=== PATIENT | male | born 1960 | race Caucasian/White ===

== ENCOUNTER 2021-07-08 10:03 | Inpatient (IN) | payer BC ==
[2021-07-08] MEDS ORDERED: SODIUM CHLORIDE 0.9% 1,000 ML IV STA ×4 (10:22→14:12)
[2021-07-08] MEDS ORDERED: ALBUTEROL HFA INHALER INHALATION STA (10:23)
--- NOTE | 2021-07-08 10:26 | ED ---
Weakness HPI - General Chief complaint: Weakness Stated complaint: Weakness Time Seen by Provider: 07/08/21 10:14 Source: patient, family, RN notes reviewed Mode of arrival: wheelchair Limitations: no limitations - History of Present Illness Initial comments: 60-year-old male with a history of diabetes who apparently has been failing health since [place] of this past year having a cough decreased oral intake weakness lightheadedness when he tries get up and walk he was exposed to Covid 19 which his mother had. He denies any overt fevers chills or sweats just cough and some shortness of breath. Also the decreased oral intake. No headaches no loss of function to his upper or lower extremities he was noted triage to have a low pulse oximetry in the low blood pressure MD Complaint: generalized weakness - Related Data Home Medications Medication Instructions Recorded Confirmed Atorvastatin [Lipitor] 40 mg PO DAILY 07/08/21 07/08/21 Benazepril HCl 40 mg PO DAILY 07/08/21 07/08/21 Bisoprolol-Hctz 10-6.25 mg [Ziac 1 tab PO DAILY 07/08/21 07/08/21 10-6.25 MG] Empagliflozin [Jardiance] 10 mg PO DAILY 07/08/21 07/08/21 Glimepiride [Amaryl] 4 mg PO AC-[id number] 07/08/21 07/08/21 Pioglitazone [Actos] 30 mg PO DAILY 07/08/21 07/08/21 amLODIPine [Norvasc] 5 mg PO BID 07/08/21 07/08/21 sitaGLIPtin [Januvia] 100 mg PO DAILY 07/08/21 07/08/21 Allergies Allergy/AdvReac Type Severity Reaction Status Date / Time No Known Allergies Allergy Verified 07/08/21 11:39 Review of Systems ROS Statement: Those systems with pertinent positive or pertinent negative responses have been documented in the HPI. ROS Other: All systems not noted in ROS Statement are negative. Past Medical History Past Medical History: Diabetes Mellitus, Hypertension History of Any Multi-Drug Resistant Organisms: None Reported Past Surgical History: No Surgical Hx Reported Past Psychological History: No Psychological Hx Reported Smoking Status: Never smoker Past Alcohol Use History: None Reported Past Drug Use History: None Reported General Exam - General Exam Comments Initial Comments: This a well-developed well-nourished awake alert somewhat lethargic male Limitations: no limitations General appearance: alert, lethargic Head exam: Present: atraumatic, normocephalic, normal inspection Eye exam: Present: normal appearance, PERRL, EOMI. Absent: scleral icterus, conjunctival injection, periorbital swelling ENT exam: Present: mucous membranes dry Neck exam: Present: normal inspection (No stridor JVD or bruits), full ROM, other Respiratory exam: Present: decreased breath sounds Cardiovascular Exam: Present: regular rate, normal rhythm, normal heart sounds. Absent: systolic murmur, diastolic murmur, rubs, gallop, clicks GI/Abdominal exam: Present: soft, normal bowel sounds. Absent: distended, tenderness, guarding, rebound, rigid Extremities exam: Present: normal inspection, full ROM, normal capillary refill. Absent: tenderness, pedal edema, joint swelling, calf tenderness Back exam: Present: normal inspection Neurological exam: Present: alert, oriented X3, CN II-XII intact Psychiatric exam: Present: normal affect, normal mood Skin exam: Present: warm, dry, intact, normal color. Absent: rash Course Vital Signs 07/08/21 07/08/21 07/08/21 10:09 11:29 11:30 Temperature 96.9 F L Pulse Rate 45 L 78 78 Respiratory 24 28 H Rate Blood Pressure 64/43 121/91 121/91 O2 Sat by Pulse 80 L 90 L 90 L Oximetry 07/08/21 07/08/21 07/08/21 12:00 12:30 13:00 Temperature Pulse Rate 74 73 74 Respiratory Rate Blood Pressure 75/46 79/47 78/50 O2 Sat by Pulse 92 L 91 L 90 L Oximetry 07/08/21 07/08/21 07/08/21 13:20 13:30 14:00 Temperature Pulse Rate 80 79 80 Respiratory 18 Rate Blood Pressure 92/53 95/46 104/63 O2 Sat by Pulse 91 L 90 L 86 L Oximetry 07/08/21 07/08/21 14:30 15:00 Temperature Pulse Rate 97 87 Respiratory Rate Blood Pressure 99/55 103/57 O2 Sat by Pulse 88 L 83 L Oximetry - Reevaluation(s) Reevaluation #1: 07/08/21 15:30 Patient did get improvement with IV hydration with correction of his blood pressure. EKG Findings - EKG Results: EKG: interpreted by JILLIAN, sinus rhythm (Sinus rhythm a 76 UT interval 150 to QRS duration 80 QT since QTC 434/48 artifact present nonspecific anterior configuration) Medical Decision Making - Medical Decision Making I did reevaluate patient on multiple occasions did discuss findings with the patient's family as well as with Dr. Bustamante who did come the emergency department see the patient. Patient does present with evidence of a followingCovid pneumonia, acute kidney failure, dehydration, [place] acidosis, DKA, hyperkalemia. I did discuss case with Dr. Rodriguez and with Dr. Singh patient will be admitted for inpatient evaluation and treatment - Lab Data Result diagrams: 07/08/21 10:28 07/08/21 10:28 Lab Results 07/08/21 07/08/21 07/08/21 Range/Units 10:28 10:28 10:28 WBC 22.8 H (3.8-10.6) k/uL RBC 4.87 (4.30-5.90) m/uL Hgb 15.3 (13.0-17.5) gm/dL Hct 49.8 (39.0-53.0) % MCV 102.4 H (80.0-100.0) fL MCH 31.5 (25.0-35.0) pg MCHC 30.7 L (31.0-37.0) g/dL RDW 13.8 (11.5-15.5) % Plt Count 289 (150-450) k/uL MPV 9.2 Neutrophils % 90 % Lymphocytes % 4 % Monocytes % 4 % Eosinophils % 0 % Basophils % 0 % Neutrophils # 20.6 H (1.3-7.7) k/uL Lymphocytes # 0.9 L (1.0-4.8) k/uL Monocytes # 0.9 (0-1.0) k/uL Eosinophils # 0.0 (0-0.7) k/uL Basophils # 0.1 (0-0.2) k/uL Hypochromasia Slight Macrocytosis Slight PT 11.2 (9.0-12.0) sec INR 1.1 (<1.2) APTT 20.1 L (22.0-30.0) sec D-Dimer 15.65 H (<0.60) mg/L FEU Sodium (137-145) mmol/L Potassium (3.5-5.1) mmol/L Chloride (98-107) mmol/L Carbon Dioxide (22-30) mmol/L Anion Gap mmol/L BUN (9-20) mg/dL Creatinine (0.66-1.25) mg/dL Est GFR (CKD-EPI)AfAm (>60 ml/min/1.73 sqM) Est GFR (CKD-EPI)NonAf (>60 ml/min/1.73 sqM) Glucose (74-99) mg/dL POC Glucose (mg/dL) (75-99) mg/dL POC Glu Quality Control Representative ID Lactic Ac Sepsis Rflx Plasma Lactic Acid Zev 4.2 H* (0.7-2.0) mmol/L Calcium (8.4-10.2) mg/dL Magnesium (1.6-2.3) mg/dL Total Bilirubin (0.2-1.3) mg/dL AST (17-59) U/L ALT (4-49) U/L Alkaline Phosphatase (38-126) U/L Troponin I (0.000-0.034) ng/mL NT-Pro-B Natriuret Pep pg/mL Total Protein (6.3-8.2) g/dL Albumin (3.5-5.0) g/dL Urine Color Urine Appearance (Clear) Urine pH (5.0-8.0) Ur Specific [place] (1.001-1.035) Urine Protein (Negative) Urine Glucose (UA) (Negative) Urine Ketones (Negative) Urine Blood (Negative) Urine Nitrite (Negative) Urine Bilirubin (Negative) Urine Urobilinogen (<2.0) mg/dL Ur Leukocyte Esterase (Negative) Acetone, Qual (Negative) Coronavirus (PCR) (Not Detectd) 07/08/21 07/08/21 07/08/21 Range/Units 10:28 10:28 10:28 WBC (3.8-10.6) k/uL RBC (4.30-5.90) m/uL Hgb (13.0-17.5) gm/dL Hct (39.0-53.0) % MCV (80.0-100.0) fL MCH (25.0-35.0) pg MCHC (31.0-37.0) g/dL RDW (11.5-15.5) % Plt Count (150-450) k/uL MPV Neutrophils % % Lymphocytes % % Monocytes % % Eosinophils % % Basophils % % Neutrophils # (1.3-7.7) k/uL Lymphocytes # (1.0-4.8) k/uL Monocytes # (0-1.0) k/uL Eosinophils # (0-0.7) k/uL Basophils # (0-0.2) k/uL Hypochromasia Macrocytosis PT (9.0-12.0) sec INR (<1.2) APTT (22.0-30.0) sec D-Dimer (<0.60) mg/L FEU Sodium 129 L (137-145) mmol/L Potassium 6.2 H* (3.5-5.1) mmol/L Chloride 91 L (98-107) mmol/L Carbon Dioxide 16 L (22-30) mmol/L Anion Gap 22 mmol/L BUN 132 H* (9-20) mg/dL Creatinine 5.89 H (0.66-1.25) mg/dL Est GFR (CKD-EPI)AfAm 11 (>60 ml/min/1.73 sqM) Est GFR (CKD-EPI)NonAf 9 (>60 ml/min/1.73 sqM) Glucose 660 H* (74-99) mg/dL POC Glucose (mg/dL) (75-99) mg/dL POC Glu Quality Control Representative ID Lactic Ac Sepsis Rflx Plasma Lactic Acid Zev (0.7-2.0) mmol/L Calcium 8.1 L (8.4-10.2) mg/dL Magnesium 4.7 H (1.6-2.3) mg/dL Total Bilirubin 1.0 (0.2-1.3) mg/dL AST 36 (17-59) U/L ALT 27 (4-49) U/L Alkaline Phosphatase 121 (38-126) U/L Troponin I 0.056 H* (0.000-0.034) ng/mL NT-Pro-B Natriuret Pep 3730 pg/mL Total Protein 6.6 (6.3-8.2) g/dL Albumin 3.1 L (3.5-5.0) g/dL Urine Color Urine Appearance (Clear) Urine pH (5.0-8.0) Ur Specific [place] (1.001-1.035) Urine Protein (Negative) Urine Glucose (UA) (Negative) Urine Ketones (Negative) Urine Blood (Negative) Urine Nitrite (Negative) Urine Bilirubin (Negative) Urine Urobilinogen (<2.0) mg/dL Ur Leukocyte Esterase (Negative) Acetone, Qual Positive (Negative) Coronavirus (PCR) (Not Detectd) 07/08/21 07/08/21 07/08/21 Range/Units 10:32 10:33 10:58 WBC (3.8-10.6) k/uL RBC (4.30-5.90) m/uL Hgb (13.0-17.5) gm/dL Hct (39.0-53.0) % MCV (80.0-100.0) fL MCH (25.0-35.0) pg MCHC (31.0-37.0) g/dL RDW (11.5-15.5) % Plt Count (150-450) k/uL MPV Neutrophils % % Lymphocytes % % Monocytes % % Eosinophils % % Basophils % % Neutrophils # (1.3-7.7) k/uL Lymphocytes # (1.0-4.8) k/uL Monocytes # (0-1.0) k/uL Eosinophils # (0-0.7) k/uL Basophils # (0-0.2) k/uL Hypochromasia Macrocytosis PT (9.0-12.0) sec INR (<1.2) APTT (22.0-30.0) sec D-Dimer (<0.60) mg/L FEU Sodium (137-145) mmol/L Potassium (3.5-5.1) mmol/L Chloride (98-107) mmol/L Carbon Dioxide (22-30) mmol/L Anion Gap mmol/L BUN (9-20) mg/dL Creatinine (0.66-1.25) mg/dL Est GFR (CKD-EPI)AfAm (>60 ml/min/1.73 sqM) Est GFR (CKD-EPI)NonAf (>60 ml/min/1.73 sqM) Glucose (74-99) mg/dL POC Glucose (mg/dL) 598 H (75-99) mg/dL POC Glu Quality Control Representative ID Aidan Breen Nicole Lactic Ac Sepsis Rflx Y Plasma Lactic Acid Zev (0.7-2.0) mmol/L Calcium (8.4-10.2) mg/dL Magnesium (1.6-2.3) mg/dL Total Bilirubin (0.2-1.3) mg/dL AST (17-59) U/L ALT (4-49) U/L Alkaline Phosphatase (38-126) U/L Troponin I (0.000-0.034) ng/mL NT-Pro-B Natriuret Pep pg/mL Total Protein (6.3-8.2) g/dL Albumin (3.5-5.0) g/dL Urine Color Urine Appearance (Clear) Urine pH (5.0-8.0) Ur Specific [place] (1.001-1.035) Urine Protein (Negative) Urine Glucose (UA) (Negative) Urine Ketones (Negative) Urine Blood (Negative) Urine Nitrite (Negative) Urine Bilirubin (Negative) Urine Urobilinogen (<2.0) mg/dL Ur Leukocyte Esterase (Negative) Acetone, Qual (Negative) Coronavirus (PCR) Detected A (Not Detectd) 07/08/21 07/08/21 Range/Units 11:20 12:45 WBC (3.8-10.6) k/uL RBC (4.30-5.90) m/uL Hgb (13.0-17.5) gm/dL Hct (39.0-53.0) % MCV (80.0-100.0) fL MCH (25.0-35.0) pg MCHC (31.0-37.0) g/dL RDW (11.5-15.5) % Plt Count (150-450) k/uL MPV Neutrophils % % Lymphocytes % % Monocytes % % Eosinophils % % Basophils % % Neutrophils # (1.3-7.7) k/uL Lymphocytes # (1.0-4.8) k/uL Monocytes # (0-1.0) k/uL Eosinophils # (0-0.7) k/uL Basophils # (0-0.2) k/uL Hypochromasia Macrocytosis PT (9.0-12.0) sec INR (<1.2) APTT (22.0-30.0) sec D-Dimer (<0.60) mg/L FEU Sodium (137-145) mmol/L Potassium (3.5-5.1) mmol/L Chloride (98-107) mmol/L Carbon Dioxide (22-30) mmol/L Anion Gap mmol/L BUN (9-20) mg/dL Creatinine (0.66-1.25) mg/dL Est GFR (CKD-EPI)AfAm (>60 ml/min/1.73 sqM) Est GFR (CKD-EPI)NonAf (>60 ml/min/1.73 sqM) Glucose (74-99) mg/dL POC Glucose (mg/dL) (75-99) mg/dL POC Glu Quality Control Representative ID Lactic Ac Sepsis Rflx Plasma Lactic Acid Zev 1.9 (0.7-2.0) mmol/L Calcium (8.4-10.2) mg/dL Magnesium (1.6-2.3) mg/dL Total Bilirubin (0.2-1.3) mg/dL AST (17-59) U/L ALT (4-49) U/L Alkaline Phosphatase (38-126) U/L Troponin I (0.000-0.034) ng/mL NT-Pro-B Natriuret Pep pg/mL Total Protein (6.3-8.2) g/dL Albumin (3.5-5.0) g/dL Urine Color Yellow Urine Appearance Clear (Clear) Urine pH 5.0 (5.0-8.0) Ur Specific [place] 1.019 (1.001-1.035) Urine Protein Negative (Negative) Urine Glucose (UA) 4+ H (Negative) Urine Ketones Negative (Negative) Urine Blood Negative (Negative) Urine Nitrite Negative (Negative) Urine Bilirubin Negative (Negative) Urine Urobilinogen <2.0 (<2.0) mg/dL Ur Leukocyte Esterase Negative (Negative) Acetone, Qual (Negative) Coronavirus (PCR) (Not Detectd) - Radiology Data Radiology results: report reviewed (Imaging reviewed this with pneumonia), image reviewed Critical Care Time Critical Care Time: Yes Total Critical Care Time: 40 Critical Care Time: Critical care time includes initial presentation with history physical labs x- rays multiple reevaluation the patient multiple discussions with the patient family discussion with multiple physicians admission orders and documentation of the above Disposition Clinical Impression: DKA (diabetic ketoacidosis), Acute kidney injury, Dehydration, Hypotensive episode, Hyperkalemia, Elevated d-dimer, Elevated troponin Disposition: ADMITTED IP TO THIS HOSP Condition: Serious Referrals: Miguel Phoenix MD [Primary Care Provider] - 1-2 days
[2021-07-08 10:34] LABS: Glucose,Whole Blood 598 mg/dL (75-99)
[2021-07-08 10:43] LABS: Basophils # (A) 0.1 k/uL (0-0.2); Basophils % (A) 0 %; Eosinophils % (A) 0 %; HCT 49.8 % (39.0-53.0); HGB 15.3 gm/dL (13.0-17.5); Hypochromasia Slight; Lymphocytes # (A) 0.9 k/uL (1.0-4.8); Lymphocytes % (A) 4 %; MCH 31.5 pg (25.0-35.0); MCHC 30.7 g/dL (31.0-37.0); MCV 102.4 fL (80.0-100.0); Macrocytosis Slight; Mean Platelet Volume 9.2; Monocytes # (A) 0.9 k/uL (0-1.0); Monocytes % (A) 4 %; Neutrophils # (A) 20.6 k/uL (1.3-7.7); Neutrophils % (A) 90 %; Platelet Count 289 k/uL (150-450); RBC 4.87 m/uL (4.30-5.90); RDW 13.8 % (11.5-15.5); WBC 22.8 k/uL (3.8-10.6)
[2021-07-08 11:02] LABS: ALT 27 U/L (4-49); African American GFR (CKD) 11 (>60 ml/min/1.73 sqM); Albumin 3.1 g/dL (3.5-5.0); Anion Gap 22 mmol/L; Calcium 8.1 mg/dL (8.4-10.2); Carbon Dioxide 16 mmol/L (22-30); Chloride 91 mmol/L (98-107); Non-African American GFR(CKD) 9 (>60 ml/min/1.73 sqM); Sodium 129 mmol/L (137-145); Total Protein 6.6 g/dL (6.3-8.2)
[2021-07-08 11:09] LABS: INR 1.1 (<1.2); Prothrombin Time 11.2 sec (9.0-12.0)
[2021-07-08 11:11] LABS: Partial Thromboplastin Time 20.1 sec (22.0-30.0)
--- NOTE | 2021-07-08 11:24 | XR ---
EXAMINATION TYPE: XR chest 2V DATE OF EXAM: 07/08/2021 COMPARISON: NONE HISTORY: Weakness and cough TECHNIQUE: Frontal and lateral views of the chest are obtained. FINDINGS: Diffuse bilateral airspace disease is present and somewhat predominantly peripheral distri bution on the right greater than left. No evident pneumothorax or pleural effusion. Lung volumes are low, patient is rotated. Cardiac mediastinal silhouette within normal limits accounting for technique . Arthropathy noted in the shoulders. Aorta is dense. There are overlying leads. IMPRESSION: Correlate for pneumonia, consider Covid infection
[2021-07-08 11:42] LABS: Appearance,Urine Clear (Clear); Bilirubin,Urine Negative (Negative); Blood,Urine Negative (Negative); Color,Urine Yellow; Glucose,Urine (UA) 4+ (Negative); Ketones,Urine Negative (Negative); Leukocyte Esterase,Urine Negative (Negative); Nitrite,Urine Negative (Negative); Protein,Urine Negative (Negative); Specific Gravity,Urine 1.019 (1.001-1.035); Urobilinogen,Urine <2.0 mg/dL (<2.0)
[2021-07-08 11:43] LABS: AST 36 U/L (17-59); Alkaline Phosphatase 121 U/L (38-126); Magnesium 4.7 mg/dL (1.6-2.3); Potassium 6.2 mmol/L (3.5-5.1)
[2021-07-08 11:48] LABS: Glucose 660 mg/dL (74-99)
[2021-07-08 11:49] LABS: Blood Urea Nitrogen 132 mg/dL (9-20)
[2021-07-08] MEDS ORDERED: cefTRIAXone IN SWFI 1,000 MG/10 ML SYRINGE IVP STA (12:37)
[2021-07-08] MEDS ORDERED: DEXTROSE 50% SYRINGE 50 ML IVP STA (13:19)
[2021-07-08] MEDS ORDERED: SODIUM BICARB 8.4% 50 ML SYR (1 MEQ/ML) IV STA ×2 (13:24→14:13)
[2021-07-08] MEDS ORDERED: SODIUM ZIRCONIUM CYCLOSILICATE 10 GM PACKET PO ONE (13:30)
[2021-07-08] MEDS ORDERED: INSULIN REGULAR 100 UNIT/ML VIAL (IV) IV ONE (13:30)
[2021-07-08] MEDS ORDERED: CALCIUM GLUCONATE 2 GM in SODIUM CHLORIDE 0.9% 100 ML IVPB ONE (13:45)
--- NOTE | 2021-07-08 14:02 | P.HPIM ---
<Graham Quiñones - Last Filed: 07/08/21 17:29> History of Present Illness H&P Date: 07/08/21 History of Presenting Illness: Patient is a very pleasant 60-year-old male with a past medical history of diabetes, hypertension and hyperlipidemia. He presented to the emergency department family for reports of weakness, anorexia, cough, shortness of breath and alteration in mental status. Upon arrival he was found to be in significant respiratory distress with SpO2 of 80% on room air requiring placement on nonrebreather mask at 15 L of oxygen to maintain SpO2 of 90%. Patient sign ificantly hypotensive with blood pressure of 64/43, bradycardic with heart rate of 45, tachypnic with respiratory rate of 28, and hypothermic with a temp of 96.9F. Family at bedside report patient has not been feeling well since prior to Petey and that this has been going on for greater than 2 weeks. They report positive exposure to Covid and state that pt is unvaccinated. Pt acutely ill-appearing and drifting in and out of conversation during assessment and very poor historian. Patient is alert to person, place, time, and situation but also appearing fatigued, weak, and not able to fully give history. He is currently denying having any headache, changes in his vision or hearing, chest pain or palpitations, abdominal pain, nausea, vomiting, diarrhea, or experiencing any numbness/tingling/weakness in his extremities. Patient reports he has been urinating without any difficulties but also confirms a significant decrease in oral intake due to loss of appetite, fatigue, weakness, shortness of breath and cough. He underwent full evaluation in the emergency department. Chest x-ray positive for multifocal pneumonia. Labs revealed significant leukocytosis with WBC count of 22.8 with left shift. Pseudohyponatremia with sodium 129 and corrected sodium of 138, severe hyperglycemia with glucose of 660, metabolic acidosis with chloride of 91, CO2 16, anion gap of 22, and lactate of 4.2. Qualitative acetone positive. Acute renal failure with BUN of 132, creatinine 5.89, and GFR of 9 with baseline creatinine of 1.3. Urinalysis positive for glucose negative for ketones, protein, blood or infection. Covid PCR positive. Troponin elevated at 0.056. EKG with significant artifact but appears to reveal sinus mechanism. Patient admitted under our services to ICU for DKA, severe metabolic acidosis, acute renal failure, hyperkalemia, and acute respiratory failure with hypoxia secondary to Covid 19 pneumonia. Consults placed to nephrology, and block handler/theology professor. Review of systems: Pertinent positives and negatives as discussed in HPI, a complete review of systems was performed and all other systems are negative. Physical exam: Vital signs reviewed and stable. General: Patient acutely ill-appearing and in moderate distress Derm: Skin warm and dry, normal coloration for ethnicity. Head: Atraumatic, normocephalic and symmetric. Eyes: EOMs intact, no lid lag, and anicteric sclera Mouth: no lip lesions, mucus membranes moist Cardiovascular: regular rate and rhythm with normal S1S2, no murmur, positive posterior tibial pulses bilaterally, and cap refill < 2 seconds. Lungs: Respirations tachypneic at 24 breaths per minute on NRB mask at 15L with SPO2. Lungs diffuse crackles throughout bilaterally. No accessory muscle use at this time. Abdominal: soft, nontender to palpation, no guarding, no appreciable organomegaly. No CVA tenderness. Ext: ROM intact. No gross muscle atrophy, no edema, no contractures Neuro: Speech clear, face symmetrical and CN II-XII grossly intact with no noted focal neuro deficits Psych: Alert and oriented to person, place, time, and situation. Appropriate and pleasant affect. Assessment and Plan of Care: DKA Severe metabolic acidosis multifactorial secondary to current DKA, NIKOLAS and Covid Acute metabolic encephalopathy multifactorial secondary to current DKA, NIKOLAS, and Covid Leukocytosis, likely reactive Severe sepsis with hypotension, bradycardia, hypothermia, tachypnea and hypoxia Lactic acidosis -Admission to ICU, accepted by block handler Dr. Singh -Pt recieved 3L bolus and started on Insulin drip per DKA protocol -Hourly blood glucose checks -Strict I's and O's -0.9% normal saline at 200 mL/h changing to D5 0.45 at 150 mL/h once blood glucose decreases below 300 -NPO -Close monitoring of VBG and electrolytes every 4 hours Acute renal failure Hyperkalemia secondary to acute renal failure -Administration of hyperkalemia cocktail with Lokelma, sodium bicarb, regular insulin 10 units IVP, and calcium gluconate. -STAT EKG followed by continuous telemetry monitoring. -Renal ultrasound -Consult to nephrology, called and spoke with Dr. Rodriguez -Continuous fluid hydration -Hold nephrotoxic medications including benazepril and bisoprolol hydrochlorothiazide. -Insertion of Sahni catheter for strict measurements of I's and O's Acute respiratory failure with hypoxia secondary to COVID 19 pneumonia -Oxygenation to be administered and titrated as needed to maintain SPO2 equal to or greater than 90% -Telemetry monitoring. -Continue trending inflammatory markers -Encourage Incentive Spirometry 10-15x hourly while awake -Steroids: Decadron 6 mg daily -Continue vitamin C, Vitamin D, and Zinc. -Pulmonology following, appreciate further recommendations. -DVT prophylaxis with heparin -Strict Droplet plus Contact precautions Elevated d-dimer -Likely inflammatory reaction secondary to Covid -Stat VQ scan and bilateral lower extremity Dopplers to be completed -DVT prophylaxis with heparin 5000 units every 8 hours pending further results The patient is admitted with an anticipated greater than 2 midnight stay for evaluation of DKA, severe metabolic acidosis, acute renal failure, hyperkalemia, and acute respiratory failure with hypoxia secondary to Covid 19 pneumonia Surrogate decision-maker: Patient's brother and sister at bedside CODE STATUS: Full code DVT prophylaxis: Heparin Discussed with: Patient, RN, patient's brother and sister at bedside Anticipated discharge date: Clinical course to determine Anticipated discharge place: Clinical course to determine A total of 55 minutes was spent on the care of this complex patient more than 50% of the time was spent in counseling and care coordination. Past Medical History Past Medical History: Diabetes Mellitus, Hypertension History of Any Multi-Drug Resistant Organisms: None Reported Past Surgical History: No Surgical Hx Reported Past Psychological History: No Psychological Hx Reported Smoking Status: Never smoker Past Alcohol Use History: None Reported Past Drug Use History: None Reported Medications and Allergies Home Medications Medication Instructions Recorded Confirmed Type Atorvastatin [Lipitor] 40 mg PO DAILY 07/08/21 07/08/21 History Benazepril HCl 40 mg PO DAILY 07/08/21 07/08/21 History Bisoprolol-Hctz 10-6.25 mg [Ziac 1 tab PO DAILY 07/08/21 07/08/21 History 10-6.25 MG] Empagliflozin [Jardiance] 10 mg PO DAILY 07/08/21 07/08/21 History Glimepiride [Amaryl] 4 mg PO [id number]-[id number] 07/08/21 07/08/21 History Pioglitazone [Actos] 30 mg PO DAILY 07/08/21 07/08/21 History amLODIPine [Norvasc] 5 mg PO BID 07/08/21 07/08/21 History sitaGLIPtin [Januvia] 100 mg PO DAILY 07/08/21 07/08/21 History Allergies Allergy/AdvReac Type Severity Reaction Status Date / Time No Known Allergies Allergy Verified 07/08/21 11:39 Physical Exam Vitals: Vital Signs Temp Pulse Resp BP Pulse Ox 07/08/21 11:29 78 28 H 121/91 90 L 07/08/21 10:09 96.9 F L 45 L 24 64/43 80 L Intake and Output 07/07/21 07/08/21 07/08/21 22:59 06:59 14:59 Other: Weight 81.647 kg Results CBC & Chem 7: 07/08/21 10:28 07/08/21 15:30 Labs: Abnormal Lab Results - Last 24 Hours (Table) 07/08/21 07/08/21 07/08/21 Range/Units 10:28 10:28 10:28 WBC 22.8 H (3.8-10.6) k/uL MCV 102.4 H (80.0-100.0) fL MCHC 30.7 L (31.0-37.0) g/dL Neutrophils # 20.6 H (1.3-7.7) k/uL Lymphocytes # 0.9 L (1.0-4.8) k/uL APTT 20.1 L (22.0-30.0) sec D-Dimer 15.65 H (<0.60) mg/L FEU Sodium (137-145) mmol/L Potassium (3.5-5.1) mmol/L Chloride (98-107) mmol/L Carbon Dioxide (22-30) mmol/L BUN (9-20) mg/dL Creatinine (0.66-1.25) mg/dL Glucose (74-99) mg/dL POC Glucose (mg/dL) (75-99) mg/dL Plasma Lactic Acid Zev 4.2 H* (0.7-2.0) mmol/L Calcium (8.4-10.2) mg/dL Magnesium (1.6-2.3) mg/dL Troponin I (0.000-0.034) ng/mL Albumin (3.5-5.0) g/dL Urine Glucose (UA) (Negative) Coronavirus (PCR) (Not Detectd) 07/08/21 07/08/21 07/08/21 Range/Units 10:28 10:28 10:32 WBC (3.8-10.6) k/uL MCV (80.0-100.0) fL MCHC (31.0-37.0) g/dL Neutrophils # (1.3-7.7) k/uL Lymphocytes # (1.0-4.8) k/uL APTT (22.0-30.0) sec D-Dimer (<0.60) mg/L FEU Sodium 129 L (137-145) mmol/L Potassium 6.2 H* (3.5-5.1) mmol/L Chloride 91 L (98-107) mmol/L Carbon Dioxide 16 L (22-30) mmol/L BUN 132 H* (9-20) mg/dL Creatinine 5.89 H (0.66-1.25) mg/dL Glucose 660 H* (74-99) mg/dL POC Glucose (mg/dL) 598 H (75-99) mg/dL Plasma Lactic Acid Zev (0.7-2.0) mmol/L Calcium 8.1 L (8.4-10.2) mg/dL Magnesium 4.7 H (1.6-2.3) mg/dL Troponin I 0.056 H* (0.000-0.034) ng/mL Albumin 3.1 L (3.5-5.0) g/dL Urine Glucose (UA) (Negative) Coronavirus (PCR) (Not Detectd) 07/08/21 07/08/21 Range/Units 10:33 11:20 WBC (3.8-10.6) k/uL MCV (80.0-100.0) fL MCHC (31.0-37.0) g/dL Neutrophils # (1.3-7.7) k/uL Lymphocytes # (1.0-4.8) k/uL APTT (22.0-30.0) sec D-Dimer (<0.60) mg/L FEU Sodium (137-145) mmol/L Potassium (3.5-5.1) mmol/L Chloride (98-107) mmol/L Carbon Dioxide (22-30) mmol/L BUN (9-20) mg/dL Creatinine (0.66-1.25) mg/dL Glucose (74-99) mg/dL POC Glucose (mg/dL) (75-99) mg/dL Plasma Lactic Acid Zev (0.7-2.0) mmol/L Calcium (8.4-10.2) mg/dL Magnesium (1.6-2.3) mg/dL Troponin I (0.000-0.034) ng/mL Albumin (3.5-5.0) g/dL Urine Glucose (UA) 4+ H (Negative) Coronavirus (PCR) Detected A (Not Detectd) <Mello Bustamante - Last Filed: 07/08/21 18:29> History of Present Illness Patient seen and evaluated by me independently. Patient was also seen by DONNA, the original author of this note. I am in agreement with the subjective, physical exam, and assessment and plan as documented with the addition/changes of my exam and assessment below. Gen: awake, alert HEENT: normocephalic, atraumatic, good hearing acuity, moist mucous membranes Resp: good air exchange, breathing comfortably with no accessory muscle use CVS: good distal perfusion x 4, GI: soft, NTTP, ND : no SPT, no CVAT, sahin catheter not present MSK: no pitting edema, no clubbing Neuro: non-focal, moving all extremities Psych: cooperative, euthymic mood Plan: DKA Severe sepsis without septic shock -BMP every 4 hours -IV fluids -Insulin drip -ICU -Awaiting procalcitonin Hyperkalemia with acute kidney injury superimposed on CKD stage III -Nephrology consult -Lokelma, D50, insulin -IV fluids Covid with acute hypoxemic respiratory failure -Pulmonary consult -Dexamethasone -Oxygen as needed -Daily inflammatory markers -Telemetry Physical Exam Osteopathic Statement: *. No significant issues noted on an osteopathic structural exam other than those noted in the History and Physical/Consult. Vitals: Vital Signs Temp Pulse Resp BP Pulse Ox 07/08/21 15:00 87 103/57 83 L 07/08/21 14:30 97 99/55 88 L 07/08/21 14:00 80 104/63 86 L 07/08/21 13:30 79 95/46 90 L 07/08/21 13:20 80 18 92/53 91 L 07/08/21 13:00 74 78/50 90 L 07/08/21 12:30 73 79/47 91 L 07/08/21 12:00 74 75/46 92 L 07/08/21 11:30 78 121/91 90 L 07/08/21 11:29 78 28 H 121/91 90 L 07/08/21 10:09 96.9 F L 45 L 24 64/43 80 L Intake and Output 07/08/21 07/08/21 07/08/21 06:59 14:59 22:59 Other: Weight 81.647 kg Results CBC & Chem 7: 07/08/21 10:28 07/08/21 15:30 Labs: Abnormal Lab Results - Last 24 Hours (Table) 07/08/21 07/08/21 07/08/21 Range/Units 10:28 10:28 10:28 WBC 22.8 H (3.8-10.6) k/uL MCV 102.4 H (80.0-100.0) fL MCHC 30.7 L (31.0-37.0) g/dL Neutrophils # 20.6 H (1.3-7.7) k/uL Lymphocytes # 0.9 L (1.0-4.8) k/uL APTT 20.1 L (22.0-30.0) sec D-Dimer 15.65 H (<0.60) mg/L FEU VBG pH (7.31-7.41) VBG HCO3 (24-28) mmol/L Sodium (137-145) mmol/L Potassium (3.5-5.1) mmol/L Chloride (98-107) mmol/L Carbon Dioxide (22-30) mmol/L BUN (9-20) mg/dL Creatinine (0.66-1.25) mg/dL Glucose (74-99) mg/dL POC Glucose (mg/dL) (75-99) mg/dL Plasma Lactic Acid Zev 4.2 H* (0.7-2.0) mmol/L Calcium (8.4-10.2) mg/dL Phosphorus (2.5-4.5) mg/dL Magnesium (1.6-2.3) mg/dL Troponin I (0.000-0.034) ng/mL Total Protein (6.3-8.2) g/dL Albumin (3.5-5.0) g/dL Urine Glucose (UA) (Negative) Coronavirus (PCR) (Not Detectd) 07/08/21 07/08/21 07/08/21 Range/Units 10:28 10:28 10:32 WBC (3.8-10.6) k/uL MCV (80.0-100.0) fL MCHC (31.0-37.0) g/dL Neutrophils # (1.3-7.7) k/uL Lymphocytes # (1.0-4.8) k/uL APTT (22.0-30.0) sec D-Dimer (<0.60) mg/L FEU VBG pH (7.31-7.41) VBG HCO3 (24-28) mmol/L Sodium 129 L (137-145) mmol/L Potassium 6.2 H* (3.5-5.1) mmol/L Chloride 91 L (98-107) mmol/L Carbon Dioxide 16 L (22-30) mmol/L BUN 132 H* (9-20) mg/dL Creatinine 5.89 H (0.66-1.25) mg/dL Glucose 660 H* (74-99) mg/dL POC Glucose (mg/dL) 598 H (75-99) mg/dL Plasma Lactic Acid Zev (0.7-2.0) mmol/L Calcium 8.1 L (8.4-10.2) mg/dL Phosphorus (2.5-4.5) mg/dL Magnesium 4.7 H (1.6-2.3) mg/dL Troponin I 0.056 H* (0.000-0.034) ng/mL Total Protein (6.3-8.2) g/dL Albumin 3.1 L (3.5-5.0) g/dL Urine Glucose (UA) (Negative) Coronavirus (PCR) (Not Detectd) 07/08/21 07/08/21 07/08/21 Range/Units 10:33 11:20 15:30 WBC (3.8-10.6) k/uL MCV (80.0-100.0) fL MCHC (31.0-37.0) g/dL Neutrophils # (1.3-7.7) k/uL Lymphocytes # (1.0-4.8) k/uL APTT (22.0-30.0) sec D-Dimer (<0.60) mg/L FEU VBG pH 7.27 L (7.31-7.41) VBG HCO3 20 L (24-28) mmol/L Sodium (137-145) mmol/L Potassium (3.5-5.1) mmol/L Chloride (98-107) mmol/L Carbon Dioxide (22-30) mmol/L BUN (9-20) mg/dL Creatinine (0.66-1.25) mg/dL Glucose (74-99) mg/dL POC Glucose (mg/dL) (75-99) mg/dL Plasma Lactic Acid Zev (0.7-2.0) mmol/L Calcium (8.4-10.2) mg/dL Phosphorus (2.5-4.5) mg/dL Magnesium (1.6-2.3) mg/dL Troponin I (0.000-0.034) ng/mL Total Protein (6.3-8.2) g/dL Albumin (3.5-5.0) g/dL Urine Glucose (UA) 4+ H (Negative) Coronavirus (PCR) Detected A (Not Detectd) 07/08/21 07/08/21 07/08/21 Range/Units 15:30 15:30 16:39 WBC (3.8-10.6) k/uL MCV (80.0-100.0) fL MCHC (31.0-37.0) g/dL Neutrophils # (1.3-7.7) k/uL Lymphocytes # (1.0-4.8) k/uL APTT (22.0-30.0) sec D-Dimer (<0.60) mg/L FEU VBG pH (7.31-7.41) VBG HCO3 (24-28) mmol/L Sodium 136 L (137-145) mmol/L Potassium (3.5-5.1) mmol/L Chloride (98-107) mmol/L Carbon Dioxide 17 L (22-30) mmol/L BUN 128 H* (9-20) mg/dL Creatinine 4.91 H (0.66-1.25) mg/dL Glucose 316 H 316 H (74-99) mg/dL POC Glucose (mg/dL) 319 H (75-99) mg/dL Plasma Lactic Acid Zev (0.7-2.0) mmol/L Calcium (8.4-10.2) mg/dL Phosphorus 7.6 H (2.5-4.5) mg/dL Magnesium 4.4 H (1.6-2.3) mg/dL Troponin I (0.000-0.034) ng/mL Total Protein 5.7 L (6.3-8.2) g/dL Albumin 2.6 L (3.5-5.0) g/dL Urine Glucose (UA) (Negative) Coronavirus (PCR) (Not Detectd)
[2021-07-08] MEDS ORDERED: Magnesium Replacement Protocol 1 EACH MISC MISCELLANE PRN (14:04)
[2021-07-08] MEDS ORDERED: Potassium Replacement Protocol 1 EACH MISC MISCELLANE PRN (14:04)
[2021-07-08] MEDS ORDERED: NALOXONE 0.4 MG/ML 1 ML VIAL IV PRN (14:11)
[2021-07-08] MEDS ORDERED: CALCIUM CHLORIDE 100 MG/ML 10 ML SYRINGE IVP STA (14:12)
--- NOTE | 2021-07-08 15:38 | ED ---
Medical Decision Making - Lab Data Result diagrams: 07/08/21 10:28 07/08/21 10:28 Lab Results 07/08/21 07/08/21 07/08/21 Range/Units 10:28 10:28 10:28 WBC 22.8 H (3.8-10.6) k/uL RBC 4.87 (4.30-5.90) m/uL Hgb 15.3 (13.0-17.5) gm/dL Hct 49.8 (39.0-53.0) % MCV 102.4 H (80.0-100.0) fL MCH 31.5 (25.0-35.0) pg MCHC 30.7 L (31.0-37.0) g/dL RDW 13.8 (11.5-15.5) % Plt Count 289 (150-450) k/uL MPV 9.2 Neutrophils % 90 % Lymphocytes % 4 % Monocytes % 4 % Eosinophils % 0 % Basophils % 0 % Neutrophils # 20.6 H (1.3-7.7) k/uL Lymphocytes # 0.9 L (1.0-4.8) k/uL Monocytes # 0.9 (0-1.0) k/uL Eosinophils # 0.0 (0-0.7) k/uL Basophils # 0.1 (0-0.2) k/uL Hypochromasia Slight Macrocytosis Slight PT 11.2 (9.0-12.0) sec INR 1.1 (<1.2) APTT 20.1 L (22.0-30.0) sec D-Dimer 15.65 H (<0.60) mg/L FEU Sodium (137-145) mmol/L Potassium (3.5-5.1) mmol/L Chloride (98-107) mmol/L Carbon Dioxide (22-30) mmol/L Anion Gap mmol/L BUN (9-20) mg/dL Creatinine (0.66-1.25) mg/dL Est GFR (CKD-EPI)AfAm (>60 ml/min/1.73 sqM) Est GFR (CKD-EPI)NonAf (>60 ml/min/1.73 sqM) Glucose (74-99) mg/dL POC Glucose (mg/dL) (75-99) mg/dL POC Glu Dye And Chemical Coordinator ID Lactic Ac Sepsis Rflx Plasma Lactic Acid Zev 4.2 H* (0.7-2.0) mmol/L Calcium (8.4-10.2) mg/dL Magnesium (1.6-2.3) mg/dL Total Bilirubin (0.2-1.3) mg/dL AST (17-59) U/L ALT (4-49) U/L Alkaline Phosphatase (38-126) U/L Troponin I (0.000-0.034) ng/mL NT-Pro-B Natriuret Pep pg/mL Total Protein (6.3-8.2) g/dL Albumin (3.5-5.0) g/dL Urine Color Urine Appearance (Clear) Urine pH (5.0-8.0) Ur Specific [place] (1.001-1.035) Urine Protein (Negative) Urine Glucose (UA) (Negative) Urine Ketones (Negative) Urine Blood (Negative) Urine Nitrite (Negative) Urine Bilirubin (Negative) Urine Urobilinogen (<2.0) mg/dL Ur Leukocyte Esterase (Negative) Acetone, Qual (Negative) Coronavirus (PCR) (Not Detectd) 07/08/21 07/08/21 07/08/21 Range/Units 10:28 10:28 10:28 WBC (3.8-10.6) k/uL RBC (4.30-5.90) m/uL Hgb (13.0-17.5) gm/dL Hct (39.0-53.0) % MCV (80.0-100.0) fL MCH (25.0-35.0) pg MCHC (31.0-37.0) g/dL RDW (11.5-15.5) % Plt Count (150-450) k/uL MPV Neutrophils % % Lymphocytes % % Monocytes % % Eosinophils % % Basophils % % Neutrophils # (1.3-7.7) k/uL Lymphocytes # (1.0-4.8) k/uL Monocytes # (0-1.0) k/uL Eosinophils # (0-0.7) k/uL Basophils # (0-0.2) k/uL Hypochromasia Macrocytosis PT (9.0-12.0) sec INR (<1.2) APTT (22.0-30.0) sec D-Dimer (<0.60) mg/L FEU Sodium 129 L (137-145) mmol/L Potassium 6.2 H* (3.5-5.1) mmol/L Chloride 91 L (98-107) mmol/L Carbon Dioxide 16 L (22-30) mmol/L Anion Gap 22 mmol/L BUN 132 H* (9-20) mg/dL Creatinine 5.89 H (0.66-1.25) mg/dL Est GFR (CKD-EPI)AfAm 11 (>60 ml/min/1.73 sqM) Est GFR (CKD-EPI)NonAf 9 (>60 ml/min/1.73 sqM) Glucose 660 H* (74-99) mg/dL POC Glucose (mg/dL) (75-99) mg/dL POC Glu Dye And Chemical Coordinator ID Lactic Ac Sepsis Rflx Plasma Lactic Acid Zev (0.7-2.0) mmol/L Calcium 8.1 L (8.4-10.2) mg/dL Magnesium 4.7 H (1.6-2.3) mg/dL Total Bilirubin 1.0 (0.2-1.3) mg/dL AST 36 (17-59) U/L ALT 27 (4-49) U/L Alkaline Phosphatase 121 (38-126) U/L Troponin I 0.056 H* (0.000-0.034) ng/mL NT-Pro-B Natriuret Pep 3730 pg/mL Total Protein 6.6 (6.3-8.2) g/dL Albumin 3.1 L (3.5-5.0) g/dL Urine Color Urine Appearance (Clear) Urine pH (5.0-8.0) Ur Specific [place] (1.001-1.035) Urine Protein (Negative) Urine Glucose (UA) (Negative) Urine Ketones (Negative) Urine Blood (Negative) Urine Nitrite (Negative) Urine Bilirubin (Negative) Urine Urobilinogen (<2.0) mg/dL Ur Leukocyte Esterase (Negative) Acetone, Qual Positive (Negative) Coronavirus (PCR) (Not Detectd) 07/08/21 07/08/21 07/08/21 Range/Units 10:32 10:33 10:58 WBC (3.8-10.6) k/uL RBC (4.30-5.90) m/uL Hgb (13.0-17.5) gm/dL Hct (39.0-53.0) % MCV (80.0-100.0) fL MCH (25.0-35.0) pg MCHC (31.0-37.0) g/dL RDW (11.5-15.5) % Plt Count (150-450) k/uL MPV Neutrophils % % Lymphocytes % % Monocytes % % Eosinophils % % Basophils % % Neutrophils # (1.3-7.7) k/uL Lymphocytes # (1.0-4.8) k/uL Monocytes # (0-1.0) k/uL Eosinophils # (0-0.7) k/uL Basophils # (0-0.2) k/uL Hypochromasia Macrocytosis PT (9.0-12.0) sec INR (<1.2) APTT (22.0-30.0) sec D-Dimer (<0.60) mg/L FEU Sodium (137-145) mmol/L Potassium (3.5-5.1) mmol/L Chloride (98-107) mmol/L Carbon Dioxide (22-30) mmol/L Anion Gap mmol/L BUN (9-20) mg/dL Creatinine (0.66-1.25) mg/dL Est GFR (CKD-EPI)AfAm (>60 ml/min/1.73 sqM) Est GFR (CKD-EPI)NonAf (>60 ml/min/1.73 sqM) Glucose (74-99) mg/dL POC Glucose (mg/dL) 598 H (75-99) mg/dL POC Glu Dye And Chemical Coordinator ID Aidan Breen Nicole Lactic Ac Sepsis Rflx Y Plasma Lactic Acid Zev (0.7-2.0) mmol/L Calcium (8.4-10.2) mg/dL Magnesium (1.6-2.3) mg/dL Total Bilirubin (0.2-1.3) mg/dL AST (17-59) U/L ALT (4-49) U/L Alkaline Phosphatase (38-126) U/L Troponin I (0.000-0.034) ng/mL NT-Pro-B Natriuret Pep pg/mL Total Protein (6.3-8.2) g/dL Albumin (3.5-5.0) g/dL Urine Color Urine Appearance (Clear) Urine pH (5.0-8.0) Ur Specific [place] (1.001-1.035) Urine Protein (Negative) Urine Glucose (UA) (Negative) Urine Ketones (Negative) Urine Blood (Negative) Urine Nitrite (Negative) Urine Bilirubin (Negative) Urine Urobilinogen (<2.0) mg/dL Ur Leukocyte Esterase (Negative) Acetone, Qual (Negative) Coronavirus (PCR) Detected A (Not Detectd) 07/08/21 07/08/21 Range/Units 11:20 12:45 WBC (3.8-10.6) k/uL RBC (4.30-5.90) m/uL Hgb (13.0-17.5) gm/dL Hct (39.0-53.0) % MCV (80.0-100.0) fL MCH (25.0-35.0) pg MCHC (31.0-37.0) g/dL RDW (11.5-15.5) % Plt Count (150-450) k/uL MPV Neutrophils % % Lymphocytes % % Monocytes % % Eosinophils % % Basophils % % Neutrophils # (1.3-7.7) k/uL Lymphocytes # (1.0-4.8) k/uL Monocytes # (0-1.0) k/uL Eosinophils # (0-0.7) k/uL Basophils # (0-0.2) k/uL Hypochromasia Macrocytosis PT (9.0-12.0) sec INR (<1.2) APTT (22.0-30.0) sec D-Dimer (<0.60) mg/L FEU Sodium (137-145) mmol/L Potassium (3.5-5.1) mmol/L Chloride (98-107) mmol/L Carbon Dioxide (22-30) mmol/L Anion Gap mmol/L BUN (9-20) mg/dL Creatinine (0.66-1.25) mg/dL Est GFR (CKD-EPI)AfAm (>60 ml/min/1.73 sqM) Est GFR (CKD-EPI)NonAf (>60 ml/min/1.73 sqM) Glucose (74-99) mg/dL POC Glucose (mg/dL) (75-99) mg/dL POC Glu Dye And Chemical Coordinator ID Lactic Ac Sepsis Rflx Plasma Lactic Acid Zev 1.9 (0.7-2.0) mmol/L Calcium (8.4-10.2) mg/dL Magnesium (1.6-2.3) mg/dL Total Bilirubin (0.2-1.3) mg/dL AST (17-59) U/L ALT (4-49) U/L Alkaline Phosphatase (38-126) U/L Troponin I (0.000-0.034) ng/mL NT-Pro-B Natriuret Pep pg/mL Total Protein (6.3-8.2) g/dL Albumin (3.5-5.0) g/dL Urine Color Yellow Urine Appearance Clear (Clear) Urine pH 5.0 (5.0-8.0) Ur Specific [place] 1.019 (1.001-1.035) Urine Protein Negative (Negative) Urine Glucose (UA) 4+ H (Negative) Urine Ketones Negative (Negative) Urine Blood Negative (Negative) Urine Nitrite Negative (Negative) Urine Bilirubin Negative (Negative) Urine Urobilinogen <2.0 (<2.0) mg/dL Ur Leukocyte Esterase Negative (Negative) Acetone, Qual (Negative) Coronavirus (PCR) (Not Detectd) Disposition Clinical Impression: DKA (diabetic ketoacidosis), Acute kidney injury, Dehydration, Hypotensive episode, Hyperkalemia, Elevated d-dimer, Elevated troponin, Pneumonia due to COVID-19 virus Disposition: [facility] Condition: Serious Referrals: Miguel Phoenix MD [Primary Care Provider] - 1-2 days
[2021-07-08 16:21] LABS: VBG PH 7.27 (7.31-7.41)
[2021-07-08] MEDS: INSULIN REGULAR 100 UNIT in SODIUM CHLORIDE 0.9% 100 ML IV SCH (16:34)
[2021-07-08] MEDS: INSULIN REGULAR BOLUS (FROM DRIP BAG) IV ONE ×2 (16:36→16:39)
[2021-07-08] MEDS: HEPARIN SODIUM,PORCINE/PF 5,000 UNIT/0.5 ML SYRINGE SQ SCH (16:41)
[2021-07-08 16:42] LABS: Glucose,Whole Blood 319 mg/dL (75-99)
[2021-07-08 16:43] LABS: Albumin 2.6 g/dL (3.5-5.0); Calcium 8.4 mg/dL (8.4-10.2); Magnesium 4.4 mg/dL (1.6-2.3); Phosphorus 7.6 mg/dL (2.5-4.5); Total Bilirubin 0.5 mg/dL (0.2-1.3); Total Protein 5.7 g/dL (6.3-8.2)
--- NOTE | 2021-07-08 16:46 | NM ---
EXAMINATION TYPE: NM pul perfusion DATE OF EXAM: 07/08/2021 COMPARISON: Same-day radiographs HISTORY: Covid and elevated d-dimer. Following administration of 5.0 mCi Tc 99m MAA. Images obtained post injection. FINDINGS: There is mild heterogeneity of radiotracer in the left lung with few small nonsegmental defects. Ther e is fairly homogenous with trace in the right lung. IMPRESSION: Very low probability for acute PE.
[2021-07-08 16:53] LABS: Potassium 4.4 mmol/L (3.5-5.1)
--- NOTE | 2021-07-08 18:05 | US ---
EXAMINATION TYPE: US renals and bladder DATE OF EXAM: 07/08/2021 COMPARISON: NONE CLINICAL HISTORY: NIKOLAS. NIKOLAS per order. EXAM MEASUREMENTS: Right Kidney: 10.9 x 6.6 x 5.8 cm Left Kidney: 10.1 x 5.5 x 5.7 cm Limited due to gas. Spleen not visualized. Right Kidney: Appears heterogeneous. Indistinct hypoechoic area seen anteriorly adjacent to kidney.-? Normal tissue. Left Kidney: Appears heterogeneous. Hypoechoic-anechoic area seen inferiorly: 3.6 x 3.2 x 4.2, compat ible with cyst. Bladder: Normal. Bilateral Jets seen: Yes IMPRESSION: Nonspecific heterogeneous appearance of the kidneys, may relate to medical renal disease. No bilateral hydronephrosis. 4.2 cm benign-appearing left renal cyst. Nonspecific right perinephric hypoechoic area, may relate to chronic changes versus artifact. CT chandan elation maybe obtained as clinically indicated.
--- NOTE | 2021-07-08 18:25 | US ---
EXAMINATION TYPE: US venous doppler duplex LE DATE OF EXAM: 07/08/2021 5:51 PM COMPARISON: NONE CLINICAL HISTORY: elevated d-dimer, covid. Elevated D Dimer, Covid positive. No hx of DVT. SIDE PERFORMED: Bilateral TECHNIQUE: The lower extremity deep venous system is examined utilizing real time linear array sonog sandeep with graded compression, doppler sonography and color-flow sonography. VESSELS IMAGED: Common Femoral Vein Deep Femoral Vein Greater Saphenous Vein * Femoral Vein Popliteal Vein Small Saphenous Vein * Proximal Calf Veins (* superficial vessels) Right Leg: Noncompressible paired veins with internal echoes and no color flow seen anterior to the popliteal vein, appear to resemble gastrocnemius veins. Duplicate popliteal vein appears to compress incompletely as well. No color flow seen within this vessel. The other duplicated popliteal vein is p atent. Left Leg: Internal echoes seen within popliteal vein. Complete compressions deferred due to echoes s een. Color defect present at this level. IMPRESSION: Occlusive DVT of paired right gastrocnemius veins. Nonocclusive DVT of duplicated popliteal vein. Nonocclusive DVT of the left popliteal vein.
[2021-07-08] MEDS: D5-0.45% NACL WITH KCL 20MEQ/L 1,000 ML IV SCH (18:40)
[2021-07-08 18:46] LABS: Glucose,Whole Blood 201 mg/dL (75-99)
[2021-07-08] MEDS: SODIUM CHLORIDE 0.9% 1,000 ML IV SCH ×2 (19:10→20:04)
[2021-07-08 19:24] LABS: Glucose,Whole Blood 146 mg/dL (75-99)
[2021-07-08 19:40] LABS: VBG PH 7.34 (7.31-7.41)
[2021-07-08 19:50] LABS: Calcium 8.1 mg/dL (8.4-10.2); Magnesium 4.4 mg/dL (1.6-2.3); Phosphorus 5.4 mg/dL (2.5-4.5); Potassium 3.6 mmol/L (3.5-5.1)
[2021-07-08 20:25] LABS: Glucose,Whole Blood 102 mg/dL (75-99)
[2021-07-08] MEDS: DEXAMETHASONE SOD PHOSPHATE 10 MG/ML 1 ML VIAL IVP SCH (20:42)
[2021-07-08 20:43] LABS: Glucose,Whole Blood 135 mg/dL (75-99)
[2021-07-08 21:59] LABS: Glucose,Whole Blood 97 mg/dL (75-99)
[2021-07-08 22:17] LABS: VBG PH 7.39 (7.31-7.41)
[2021-07-08 22:37] LABS: Glucose,Whole Blood 88 mg/dL (75-99)
[2021-07-08 22:37] LABS: Potassium 3.8 mmol/L (3.5-5.1)
[2021-07-08 23:48] LABS: Glucose,Whole Blood 158 mg/dL (75-99)
[2021-07-09] MEDS: HEPARIN SODIUM,PORCINE/PF 5,000 UNIT/0.5 ML SYRINGE SQ SCH ×2 (00:14→09:21)
[2021-07-09 01:38] LABS: Glucose,Whole Blood 198 mg/dL (75-99)
[2021-07-09 02:27] LABS: Glucose,Whole Blood 211 mg/dL (75-99)
[2021-07-09 02:35] LABS: HCT 43.4 % (39.0-53.0); HGB 13.5 gm/dL (13.0-17.5); Hypochromasia Slight; MCH 31.4 pg (25.0-35.0); MCHC 31.1 g/dL (31.0-37.0); MCV 100.9 fL (80.0-100.0); Macrocytosis Slight; Mean Platelet Volume 8.4; Platelet Count 220 k/uL (150-450); RBC 4.29 m/uL (4.30-5.90); RDW 13.6 % (11.5-15.5)
[2021-07-09 02:38] LABS: VBG PH 7.38 (7.31-7.41)
[2021-07-09 02:50] LABS: Albumin 2.4 g/dL (3.5-5.0); C Reactive Protein 6.2 mg/dL (<1.0); Calcium 7.7 mg/dL (8.4-10.2); Potassium 4.5 mmol/L (3.5-5.1); Total Bilirubin 0.4 mg/dL (0.2-1.3); Total Protein 5.3 g/dL (6.3-8.2)
[2021-07-09 02:58] LABS: Glucose,Whole Blood 269 mg/dL (75-99)
[2021-07-09] MEDS: D5-0.45% NACL WITH KCL 20MEQ/L 1,000 ML IV SCH ×3 (03:00→20:57)
[2021-07-09 04:28] LABS: Glucose,Whole Blood 280 mg/dL (75-99)
[2021-07-09 05:49] LABS: Glucose,Whole Blood 350 mg/dL (75-99)
[2021-07-09 06:30] LABS: Glucose,Whole Blood 307 mg/dL (75-99)
[2021-07-09 08:08] LABS: Glucose,Whole Blood 275 mg/dL (75-99)
[2021-07-09 09:04] LABS: Calcium 8.1 mg/dL (8.4-10.2); Potassium 4.6 mmol/L (3.5-5.1)
[2021-07-09] MEDS: ZINC SULFATE 220 MG CAP PO SCH (09:21)
[2021-07-09] MEDS: DEXAMETHASONE SOD PHOSPHATE 10 MG/ML 1 ML VIAL IVP SCH (09:21)
[2021-07-09] MEDS: ASCORBIC ACID 500 MG TAB PO SCH (09:21)
[2021-07-09] MEDS: CHOLECALCIFEROL 125 MCG (5000 IU) TABLET PO SCH (09:21)
[2021-07-09 09:33] LABS: Glucose,Whole Blood 264 mg/dL (75-99)
--- NOTE | 2021-07-09 09:47 | P.NPCON ---
History of Present Illness - Reason for Consult acute renal failure - History of Present Illness Reason for consultation: Acute kidney injury History of present illness: Excellent patient is a 60-year-old male seen in renal consultation for acute kidney injury. Patient's creatinine on admission was 5.89 and is down to 2.85 today. Patient hasn't been feeling well since [place] of last year. He was also exposed to COVID-19 from his mother. He's been feeling progressively weaker and getting short of breath. Oral intake has been poor. He does have history of diabetes and was noted to be in DKA on admission. He has received aggressive IV hydration and is currently maintained on D5 half-normal saline with potassium supplementation running at 1 50 mL an hour. He is also on insulin drip. He is also being treated for COVID-19 infection. Nonoliguric. Currently on nonrebreather. Blood pressure stable. He was on hydrochlorothiazide outpatient which is currently held. Hyperkalemia has resolved. Vital signs are stable. General: On nonrebreather. HEENT: Head exam is unremarkable. LUNGS: Breath sounds decreased. HEART: Rate and Rhythm are regular. ABDOMEN: Soft, no distention. EXTREMITITES: No edema. Past Medical History Past Medical History: Diabetes Mellitus, Hypertension History of Any Multi-Drug Resistant Organisms: None Reported Past Surgical History: No Surgical Hx Reported Past Anesthesia/Blood Transfusion Reactions: No Reported Reaction Past Psychological History: No Psychological Hx Reported Smoking Status: Never smoker Past Alcohol Use History: None Reported Past Drug Use History: None Reported Medications and Allergies Home Medications Medication Instructions Recorded Confirmed Type Atorvastatin [Lipitor] 40 mg PO DAILY 07/08/21 07/08/21 History Benazepril HCl 40 mg PO DAILY 07/08/21 07/08/21 History Bisoprolol-Hctz 10-6.25 mg [Ziac 1 tab PO DAILY 07/08/21 07/08/21 History 10-6.25 MG] Empagliflozin [Jardiance] 10 mg PO DAILY 07/08/21 07/08/21 History Glimepiride [Amaryl] 4 mg PO AC-BRKFST 07/08/21 07/08/21 History Pioglitazone [Actos] 30 mg PO DAILY 07/08/21 07/08/21 History amLODIPine [Norvasc] 5 mg PO BID 07/08/21 07/08/21 History sitaGLIPtin [Januvia] 100 mg PO DAILY 07/08/21 07/08/21 History Allergies Allergy/AdvReac Type Severity Reaction Status Date / Time No Known Allergies Allergy Verified 07/08/21 11:39 Physical Exam Vitals: Vital Signs Temp Pulse Resp BP Pulse Ox 07/09/21 09:00 90 23 103/73 89 L 07/09/21 08:36 89 L 07/09/21 08:00 96.9 F L 96 21 113/62 94 L 07/09/21 06:00 90 21 114/59 89 L 07/09/21 05:30 85 11 L 114/59 94 L 07/09/21 05:00 77 10 L 84/48 95 07/09/21 04:30 87 12 84/48 90 L 07/09/21 04:00 97.4 F L 74 18 148/56 95 07/09/21 03:30 78 19 148/56 91 L 07/09/21 03:00 35 H 109/70 93 L 07/09/21 02:30 89 16 109/70 92 L 07/09/21 02:00 70 16 120/65 95 07/09/21 01:30 76 12 97 07/09/21 01:00 84 13 98 07/09/21 00:30 73 15 120/65 96 07/09/21 00:00 98.3 F 77 13 120/65 91 L 07/08/21 23:30 22 93 L 07/08/21 23:19 73 16 96 07/08/21 20:30 97.9 F 75 18 92/55 90 L 07/08/21 19:51 74 18 95/52 91 L 07/08/21 18:30 78 79/51 91 L 07/08/21 15:30 82 106/56 91 L 07/08/21 15:00 87 103/57 83 L 07/08/21 14:30 97 99/55 88 L 07/08/21 14:00 80 104/63 86 L 07/08/21 13:30 79 95/46 90 L 07/08/21 13:20 80 18 92/53 91 L 07/08/21 13:00 74 78/50 90 L 07/08/21 12:30 73 79/47 91 L 07/08/21 12:00 74 75/46 92 L 07/08/21 11:30 78 121/91 90 L 07/08/21 11:29 78 28 H 121/91 90 L 07/08/21 10:09 96.9 F L 45 L 24 64/43 80 L Intake and Output 07/08/21 07/09/21 07/09/21 22:59 06:59 14:59 Intake Total 929.803 2497.039 307.523 Output Total 2150 200 Balance 334.640 -937.961 107.523 Intake: IV 300 1200 300 D5-0.45% NaCl with KCl 300 1200 300 20Meq/l 1,000 ml @ 150 mls/hr IV .[id number] [facility] Rx# :[id number] Intake, IV Titration 34.640 12.039 7.523 Amount Insulin Regular 100 unit 34.640 12.039 7.523 In Sodium Chloride 0.9% 100 ml @ 0.1 UNITS/KG/HR 8.246 mls/hr IV .[id number] [facility] Rx#:[id number] Output: Urine 2150 200 Other: Voiding Method Urinal Urinal # Voids 0 3 1 Weight 82 kg 82 kg Results - Lab Results Most recent lab results Calcium 8.1 mg/dL (8.4-10.2) L 07/09/21 08:35 Phosphorus 5.4 mg/dL (2.5-4.5) H 07/08/21 19:21 Magnesium 4.0 mg/dL (1.6-2.3) H 07/09/21 02:21 07/09/21 02:21 07/09/21 08:35 Assessment and Plan Plan: Assessment: 1. Acute kidney injury mostly prerenal secondary to hypovolemia from DKA. Creatinine was 5.89 on admission and is down to 2.85 today. No hydronephrosis noted on kidney ultrasound. 2. DKA maintained on insulin drip. 3. Hyperkalemia secondary to acute kidney injury and hyperglycemia. Improved. 4. Anion gap metabolic acidosis secondary to DKA and acute kidney injury. Improved. 5. Benign hypertension. Controlled. 6. Acute hypoxia respiratory failure. 7. COVID-19 pneumonia. 8. Right lower extremity DVT. Plan: Maintain IV fluids per DKA protocol. Continue to hold antihypertensives and diuretics. Wean FiO2. Avoid nephrotoxins. Continue to monitor renal function and urine output. Thank you for the consultation. I will continue to follow the patient with you during his hospital stay.
--- NOTE | 2021-07-09 09:58 | P.CNPUL ---
History of Present Illness Consult date: 07/09/21 Requesting physician: Mello Bustamante Reason for consult: hypoxemia, abnormal CXR/CT (Critical care management) Chief complaint: Generalized weakness, dizziness, DKA History of present illness: This is a 60-year-old male patient who follows with Dr. Phoenix as his primary care provider. He has a history of diabetes mellitus, hypertension, obesity. He had recently lost his mother from COVID-19 pneumonia and since that time he had been going downhill according to his siblings who were present in the emergency room. Chest x-ray reveals diffuse bilateral airspace disease with predominantly peripheral distribution on the right greater than left. No evidence of pneumothorax. No pleural effusion. VQ scan revealed very low probability for acute PE. Dopplers of lower extremities revealed bilateral nonocclusive DVTs. Renal ultrasound reveals nonspecific heterogenous appearance of the kidneys may relate to medical renal disease. No bilateral hydronephrosis. Benign-appearing left renal cyst. White count 22.0. Hemoglobin 13.5. Lymphocytes 0.9. D-dimer 13.5. Sodium 138. Potassium 4.6. Chloride 107. A 22. Anion gap 9. Creatinine 2.85. Blood glucose 292. Calcium 8.1. AST 37. ALT 23. LDH 1210. Troponin 0.056. C-reactive protein 6.2. Acetone positive. Urinalysis with 4+ glucose. Coronavirus by PCR positive. He sitting today in the intensive care unit. He is currently sitting up in bed. Awake and alert. Somewhat slow to respond. Somewhat distended. He is on 15 L nonrebreather mask. Current O2 saturation 89%. He's been afebrile. Hemodynamically stable. He is currently on an insulin drip at 5 units an hour. D5.45 with 20 KCl at 150 MLS per hour. Heparin subcu for DVT prophylaxis. Vitamin supplements. Review of Systems REVIEW OF SYSTEMS: CONSTITUTIONAL: Generalized weakness, fatigue. Denies any recent significant weight loss or weight gain. EYES: Denies change in vision. EARS, NOSE, MOUTH, THROAT: Denies headaches, denies sore throat. CARDIOVASCULAR: Positive for dizziness. No chest pain.. RESPIRATORY: Positive for shortness of breath, cough, congestion no hemoptysis. GASTROINTESTINAL: Denies change in appetite, denies abdominal pain GENITOURINARY: Denies hematuria, denies infections. MUSKULOSKELETAL: Denies pain, denies swelling. INTEGUMENTARY: Denies rash, denies eczema. NEUROLOGICAL: Denies recent memory loss, no recent seizure activity. PSYCHIATRIC: Denies anxiety, suspect depression. HEMATOLOGIC/LYMPHATIC: Denies anemia, denies enlarged lymph nodes. Past Medical History Past Medical History: Diabetes Mellitus, Hypertension History of Any Multi-Drug Resistant Organisms: None Reported Past Surgical History: No Surgical Hx Reported Past Anesthesia/Blood Transfusion Reactions: No Reported Reaction Past Psychological History: No Psychological Hx Reported Smoking Status: Never smoker Past Alcohol Use History: None Reported Past Drug Use History: None Reported Medications and Allergies Home Medications Medication Instructions Recorded Confirmed Type Atorvastatin [Lipitor] 40 mg PO DAILY 07/08/21 07/08/21 History Benazepril HCl 40 mg PO DAILY 07/08/21 07/08/21 History Bisoprolol-Hctz 10-6.25 mg [Ziac 1 tab PO DAILY 07/08/21 07/08/21 History 10-6.25 MG] Empagliflozin [Jardiance] 10 mg PO DAILY 07/08/21 07/08/21 History Glimepiride [Amaryl] 4 mg PO AC-BRKFST 07/08/21 07/08/21 History Pioglitazone [Actos] 30 mg PO DAILY 07/08/21 07/08/21 History amLODIPine [Norvasc] 5 mg PO BID 07/08/21 07/08/21 History sitaGLIPtin [Januvia] 100 mg PO DAILY 07/08/21 07/08/21 History Allergies Allergy/AdvReac Type Severity Reaction Status Date / Time No Known Allergies Allergy Verified 07/08/21 11:39 Physical Exam Vitals: Vital Signs Temp Pulse Resp BP Pulse Ox 07/09/21 09:00 90 23 103/73 89 L 07/09/21 08:36 89 L 07/09/21 08:00 96.9 F L 96 21 113/62 94 L 07/09/21 06:00 90 21 114/59 89 L 07/09/21 05:30 85 11 L 114/59 94 L 07/09/21 05:00 77 10 L 84/48 95 07/09/21 04:30 87 12 84/48 90 L 07/09/21 04:00 97.4 F L 74 18 148/56 95 07/09/21 03:30 78 19 148/56 91 L 07/09/21 03:00 35 H 109/70 93 L 07/09/21 02:30 89 16 109/70 92 L 07/09/21 02:00 70 16 120/65 95 07/09/21 01:30 76 12 97 07/09/21 01:00 84 13 98 07/09/21 00:30 73 15 120/65 96 07/09/21 00:00 98.3 F 77 13 120/65 91 L 07/08/21 23:30 22 93 L 07/08/21 23:19 73 16 96 07/08/21 20:30 97.9 F 75 18 92/55 90 L 07/08/21 19:51 74 18 95/52 91 L 07/08/21 18:30 78 79/51 91 L 07/08/21 15:30 82 106/56 91 L 07/08/21 15:00 87 103/57 83 L 07/08/21 14:30 97 99/55 88 L 07/08/21 14:00 80 104/63 86 L 07/08/21 13:30 79 95/46 90 L 07/08/21 13:20 80 18 92/53 91 L 07/08/21 13:00 74 78/50 90 L 07/08/21 12:30 73 79/47 91 L 07/08/21 12:00 74 75/46 92 L 07/08/21 11:30 78 121/91 90 L 07/08/21 11:29 78 28 H 121/91 90 L 07/08/21 10:09 96.9 F L 45 L 24 64/43 80 L Intake and Output 07/08/21 07/09/21 07/09/21 22:59 06:59 14:59 Intake Total 244.198 1593.039 7.523 Output Total 2150 Balance 334.640 -937.961 7.523 Intake: IV 300 1200 D5-0.45% NaCl with KCl 300 1200 20Meq/l 1,000 ml @ 150 mls/hr IV .Q6H40M [facility] Rx# :[id number] Intake, IV Titration 34.640 12.039 7.523 Amount Insulin Regular 100 unit 34.640 12.039 7.523 In Sodium Chloride 0.9% 100 ml @ 0.1 UNITS/KG/HR 8.246 mls/hr IV .[id number] [facility] Rx#:[id number] Output: Urine 2150 Other: Voiding Method Urinal Urinal # Voids 0 3 Weight 82 kg 82 kg GENERAL EXAM: Alert, slow to respond, pleasant 60-year-old male patient, and 100% nonrebreather mask, fairly comfortable in no apparent distress. HEAD: Normocephalic. EYES: Normal reaction of pupils, equal size. NOSE: Clear with pink turbinates. THROAT: No erythema or exudates. NECK: No masses, no JVD. CHEST: No chest wall deformity. LUNGS: Equal air entry with coarse crackles in the bilateral bases. CVS: S1 and S2 normal with no audible murmur, regular rhythm. ABDOMEN: No hepatosplenomegaly, normal bowel sounds, no guarding or rigidity. SPINE: No scoliosis or deformity SKIN: No rashes CENTRAL NERVOUS SYSTEM: No focal deficits, tone is normal in all 4 extremities. EXTREMITIES: There is no peripheral edema. No clubbing, no cyanosis. Peripheral pulses are intact. Results - Laboratory Findings CBC and BMP: 07/09/21 02:21 07/09/21 08:35 PT/INR, D-dimer PT 11.2 sec (9.0-12.0) 07/08/21 10:28 INR 1.1 (<1.2) 07/08/21 10:28 D-Dimer 13.59 mg/L FEU (<0.60) H 07/09/21 02:21 Abnormal lab findings: Abnormal Labs 07/08/21 07/08/21 07/08/21 10:28 10:28 10:28 WBC 22.8 H RBC MCV 102.4 H MCHC 30.7 L Neutrophils # 20.6 H Lymphocytes # 0.9 L APTT 20.1 L D-Dimer 15.65 H VBG pH VBG pCO2 VBG HCO3 Sodium Potassium Chloride Carbon Dioxide BUN Creatinine Glucose POC Glucose (mg/dL) Hemoglobin A1c Plasma Lactic Acid Zev 4.2 H* Calcium Phosphorus Magnesium Lactate Dehydrogenase Troponin I C-Reactive Protein Total Protein Albumin Urine Glucose (UA) Coronavirus (PCR) 07/08/21 07/08/21 07/08/21 10:28 10:28 10:32 WBC RBC MCV MCHC Neutrophils # Lymphocytes # APTT D-Dimer VBG pH VBG pCO2 VBG HCO3 Sodium 129 L Potassium 6.2 H* Chloride 91 L Carbon Dioxide 16 L BUN 132 H* Creatinine 5.89 H Glucose 660 H* POC Glucose (mg/dL) 598 H Hemoglobin A1c Plasma Lactic Acid Zev Calcium 8.1 L Phosphorus Magnesium 4.7 H Lactate Dehydrogenase Troponin I 0.056 H* C-Reactive Protein Total Protein Albumin 3.1 L Urine Glucose (UA) Coronavirus (PCR) 07/08/21 07/08/21 07/08/21 10:33 11:20 15:30 WBC RBC MCV MCHC Neutrophils # Lymphocytes # APTT D-Dimer VBG pH 7.27 L VBG pCO2 VBG HCO3 20 L Sodium Potassium Chloride Carbon Dioxide BUN Creatinine Glucose POC Glucose (mg/dL) Hemoglobin A1c Plasma Lactic Acid Zev Calcium Phosphorus Magnesium Lactate Dehydrogenase Troponin I C-Reactive Protein Total Protein Albumin Urine Glucose (UA) 4+ H Coronavirus (PCR) Detected A 07/08/21 07/08/21 07/08/21 15:30 15:30 15:30 WBC RBC MCV MCHC Neutrophils # Lymphocytes # APTT D-Dimer VBG pH VBG pCO2 VBG HCO3 Sodium 136 L Potassium Chloride Carbon Dioxide 17 L BUN 128 H* Creatinine 4.91 H Glucose 316 H 316 H POC Glucose (mg/dL) Hemoglobin A1c 9.6 H Plasma Lactic Acid Zev Calcium Phosphorus 7.6 H Magnesium 4.4 H Lactate Dehydrogenase Troponin I C-Reactive Protein Total Protein 5.7 L Albumin 2.6 L Urine Glucose (UA) Coronavirus (PCR) 07/08/21 07/08/21 07/08/21 16:39 18:35 19:21 WBC RBC MCV MCHC Neutrophils # Lymphocytes # APTT D-Dimer VBG pH VBG pCO2 VBG HCO3 23 L Sodium Potassium Chloride Carbon Dioxide BUN Creatinine Glucose POC Glucose (mg/dL) 319 H 201 H Hemoglobin A1c Plasma Lactic Acid Zev Calcium Phosphorus Magnesium Lactate Dehydrogenase Troponin I C-Reactive Protein Total Protein Albumin Urine Glucose (UA) Coronavirus (PCR) 07/08/21 07/08/21 07/08/21 19:21 19:23 20:09 WBC RBC MCV MCHC Neutrophils # Lymphocytes # APTT D-Dimer VBG pH VBG pCO2 VBG HCO3 Sodium Potassium Chloride Carbon Dioxide 21 L BUN 117 H* Creatinine 4.19 H Glucose POC Glucose (mg/dL) 146 H 102 H Hemoglobin A1c Plasma Lactic Acid Zev Calcium 8.1 L Phosphorus 5.4 H Magnesium 4.4 H Lactate Dehydrogenase Troponin I C-Reactive Protein Total Protein Albumin Urine Glucose (UA) Coronavirus (PCR) 07/08/21 07/08/21 07/08/21 20:41 22:04 22:04 WBC RBC MCV MCHC Neutrophils # Lymphocytes # APTT D-Dimer VBG pH VBG pCO2 VBG HCO3 23 L Sodium Potassium Chloride Carbon Dioxide 21 L BUN 114 H* Creatinine 3.93 H Glucose POC Glucose (mg/dL) 135 H Hemoglobin A1c Plasma Lactic Acid Zev Calcium 8.0 L Phosphorus Magnesium Lactate Dehydrogenase Troponin I C-Reactive Protein Total Protein Albumin Urine Glucose (UA) Coronavirus (PCR) 07/08/21 07/09/21 07/09/21 23:46 01:36 02:21 WBC RBC MCV MCHC Neutrophils # Lymphocytes # APTT D-Dimer VBG pH VBG pCO2 33 L VBG HCO3 19 L Sodium Potassium Chloride Carbon Dioxide BUN Creatinine Glucose POC Glucose (mg/dL) 158 H 198 H Hemoglobin A1c Plasma Lactic Acid Zev Calcium Phosphorus Magnesium Lactate Dehydrogenase Troponin I C-Reactive Protein Total Protein Albumin Urine Glucose (UA) Coronavirus (PCR) 07/09/21 07/09/21 07/09/21 02:21 02:21 02:21 WBC 22.0 H RBC 4.29 L MCV 100.9 H MCHC Neutrophils # Lymphocytes # APTT D-Dimer 13.59 H VBG pH VBG pCO2 VBG HCO3 Sodium Potassium Chloride Carbon Dioxide 18 L BUN 105 H* Creatinine 3.41 H Glucose 227 H POC Glucose (mg/dL) Hemoglobin A1c Plasma Lactic Acid Zev Calcium 7.7 L Phosphorus Magnesium 4.0 H Lactate Dehydrogenase 1210 H Troponin I C-Reactive Protein 6.2 H Total Protein 5.3 L Albumin 2.4 L Urine Glucose (UA) Coronavirus (PCR) 07/09/21 07/09/21 07/09/21 02:26 02:57 04:26 WBC RBC MCV MCHC Neutrophils # Lymphocytes # APTT D-Dimer VBG pH VBG pCO2 VBG HCO3 Sodium Potassium Chloride Carbon Dioxide BUN Creatinine Glucose POC Glucose (mg/dL) 211 H 269 H 280 H Hemoglobin A1c Plasma Lactic Acid Zev Calcium Phosphorus Magnesium Lactate Dehydrogenase Troponin I C-Reactive Protein Total Protein Albumin Urine Glucose (UA) Coronavirus (PCR) 07/09/21 07/09/2122 05:48 06:28 08:06 WBC RBC MCV MCHC Neutrophils # Lymphocytes # APTT D-Dimer VBG pH VBG pCO2 VBG HCO3 Sodium Potassium Chloride Carbon Dioxide BUN Creatinine Glucose POC Glucose (mg/dL) 350 H 307 H 275 H Hemoglobin A1c Plasma Lactic Acid Zev Calcium Phosphorus Magnesium Lactate Dehydrogenase Troponin I C-Reactive Protein Total Protein Albumin Urine Glucose (UA) Coronavirus (PCR) 07/09/21 08:35 WBC RBC MCV MCHC Neutrophils # Lymphocytes # APTT D-Dimer VBG pH VBG pCO2 VBG HCO3 Sodium Potassium Chloride Carbon Dioxide BUN 95 H Creatinine 2.85 H Glucose 292 H POC Glucose (mg/dL) Hemoglobin A1c Plasma Lactic Acid Zev Calcium 8.1 L Phosphorus Magnesium Lactate Dehydrogenase Troponin I C-Reactive Protein Total Protein Albumin Urine Glucose (UA) Coronavirus (PCR) - Diagnostic Findings Chest x-ray: image reviewed U/S of Legs: image reviewed Assessment and Plan Assessment: 1 Acute hypoxemic respiratory failure secondary to acute COVID-19 pneumonia. Not vaccinated. Outside the window for Remdesivir. May qualify for Baricitinib 2 Elevated inflammatory markers secondary to above 3 Acute bilateral DVTs with elevated d-dimer 4 Acute diabetic ketoacidosis secondary to poor appetite 5 Acute renal failure 6 Metabolic acidosis secondary to above 7 Hyperkalemia, improved 8 Diabetes mellitus 9 History of hypertension 10 Leukocytosis 11 Depression secondary to recent loss of his mother secondary to CoVID Plan: The patient was seen and evaluated today Chest x-ray, VQ scan, Dopplers, labs reviewed Obtain a pro-calcitonin, may qualify for Baricitinib Discontinue subcu heparin. Initiate Eliquis 2.5 mg twice a day Repeat EKG, troponin level, obtain echocardiogram Could be transferred out of the intensive care unit once his anion gap is closed We will continue to follow and make further recommendations based on his clinical status I, the cosigning physician, performed a history & physical examination of the patient. Lungs sounds crackles in the bilateral posterior bases. Maintaining O2 saturations in the 90s 100% nonrebreather. I discussed the assessment and plan of care with my nurse practitioner, Meron Keating. I attest to the above consultation as dictated by her. Time with Patient: Greater than 30
[2021-07-09] MEDS ORDERED: APIXABAN 2.5 MG TABLET PO SCH (10:00)
[2021-07-09 10:12] LABS: Glucose,Whole Blood 261 mg/dL (75-99)
[2021-07-09] MEDS ORDERED: APIXABAN 2.5 MG TABLET PO ONE (10:30)
[2021-07-09] MEDS: INSULIN REGULAR 100 UNIT in SODIUM CHLORIDE 0.9% 100 ML IV SCH (10:40)
[2021-07-09] MEDS ORDERED: INSULIN NPH 300 UNIT/3 ML VIAL SQ ONE (11:00)
[2021-07-09 11:41] LABS: Glucose,Whole Blood 257 mg/dL (75-99)
[2021-07-09 12:00] VITALS: BMI 27.4
[2021-07-09] MEDS: INSULIN ASPART (NovoLOG) 100 UNIT/ML VIAL SQ SCH ×5 (12:09→20:55)
--- NOTE | 2021-07-09 12:33 | P.PN ---
Subjective Progress Note Date: 07/09/21 Patient has no new complaints. Sitting in bed and conversing appropriately. hyperK has resolved. AGMA has resolved. Pt reporting appetite without nausea/vomiting. Still with 15L O2 requirement. Objective - Vital Signs Vital signs: Vital Signs Temp 96.9 F L 07/09/21 08:00 Pulse 81 07/09/21 10:00 Resp 21 07/09/21 10:00 BP 117/66 07/09/21 10:00 Pulse Ox 94 L 07/09/21 10:00 Intake & Output 07/08/21 07/09/21 07/09/21 18:59 06:59 18:59 Intake Total 1546.679 616.591 Output Total 2150 1250 Balance -603.321 -633.409 Weight 82 kg 82 kg 82 kg Intake: IV 1500 450 D5-0.45% NaCl with KCl 1500 450 20Meq/l 1,000 ml @ 150 mls/hr IV .[id number] [facility] Rx# :[id number] Intake, IV Titration 46.679 166.591 Amount D5-0.45% NaCl with KCl 150 20Meq/l 1,000 ml @ 150 mls/hr IV .[id number] [facility] Rx# :[id number] Insulin Regular 100 unit 46.679 16.591 In Sodium Chloride 0.9% 100 ml @ 0.1 UNITS/KG/HR 8.246 mls/hr IV .[id number] [facility] Rx#:[id number] Output: Urine 2150 1250 Other: Voiding Method Urinal Urinal Incontinent # Voids 3 1 - Exam Gen: awake, alert HEENT: normocephalic, atraumatic, good hearing acuity, moist mucous membranes Resp: good air exchange, breathing comfortably with no accessory muscle use CVS: good distal perfusion x 4, GI: soft, NTTP, ND : no SPT, no CVAT, sahni catheter is present MSK: no pitting edema, no clubbing Neuro: non-focal, moving all extremities Psych: cooperative, euthymic mood - Labs CBC & Chem 7: 07/09/21 02:21 07/09/21 08:35 Labs: Abnormal Lab Results - Last 24 Hours (Table) 07/08/21 07/08/21 07/08/21 Range/Units 15:30 15:30 15:30 WBC (3.8-10.6) k/uL RBC (4.30-5.90) m/uL MCV (80.0-100.0) fL D-Dimer (<0.60) mg/L FEU VBG pH 7.27 L (7.31-7.41) VBG pCO2 (37-51) mmHg VBG HCO3 20 L (24-28) mmol/L Sodium 136 L (137-145) mmol/L Carbon Dioxide 17 L (22-30) mmol/L BUN 128 H* (9-20) mg/dL Creatinine 4.91 H (0.66-1.25) mg/dL Glucose 316 H (74-99) mg/dL POC Glucose (mg/dL) (75-99) mg/dL Hemoglobin A1c 9.6 H (4.0-6.0) % Calcium (8.4-10.2) mg/dL Phosphorus 7.6 H (2.5-4.5) mg/dL Magnesium 4.4 H (1.6-2.3) mg/dL Lactate Dehydrogenase (313-618) U/L Troponin I (0.000-0.034) ng/mL C-Reactive Protein (<1.0) mg/dL Total Protein 5.7 L (6.3-8.2) g/dL Albumin 2.6 L (3.5-5.0) g/dL 07/08/21 07/08/21 07/08/21 Range/Units 15:30 16:39 18:35 WBC (3.8-10.6) k/uL RBC (4.30-5.90) m/uL MCV (80.0-100.0) fL D-Dimer (<0.60) mg/L FEU VBG pH (7.31-7.41) VBG pCO2 (37-51) mmHg VBG HCO3 (24-28) mmol/L Sodium (137-145) mmol/L Carbon Dioxide (22-30) mmol/L BUN (9-20) mg/dL Creatinine (0.66-1.25) mg/dL Glucose 316 H (74-99) mg/dL POC Glucose (mg/dL) 319 H 201 H (75-99) mg/dL Hemoglobin A1c (4.0-6.0) % Calcium (8.4-10.2) mg/dL Phosphorus (2.5-4.5) mg/dL Magnesium (1.6-2.3) mg/dL Lactate Dehydrogenase (313-618) U/L Troponin I (0.000-0.034) ng/mL C-Reactive Protein (<1.0) mg/dL Total Protein (6.3-8.2) g/dL Albumin (3.5-5.0) g/dL 07/08/21 07/08/21 07/08/21 Range/Units 19:21 19:21 19:23 WBC (3.8-10.6) k/uL RBC (4.30-5.90) m/uL MCV (80.0-100.0) fL D-Dimer (<0.60) mg/L FEU VBG pH (7.31-7.41) VBG pCO2 (37-51) mmHg VBG HCO3 23 L (24-28) mmol/L Sodium (137-145) mmol/L Carbon Dioxide 21 L (22-30) mmol/L BUN 117 H* (9-20) mg/dL Creatinine 4.19 H (0.66-1.25) mg/dL Glucose (74-99) mg/dL POC Glucose (mg/dL) 146 H (75-99) mg/dL Hemoglobin A1c (4.0-6.0) % Calcium 8.1 L (8.4-10.2) mg/dL Phosphorus 5.4 H (2.5-4.5) mg/dL Magnesium 4.4 H (1.6-2.3) mg/dL Lactate Dehydrogenase (313-618) U/L Troponin I (0.000-0.034) ng/mL C-Reactive Protein (<1.0) mg/dL Total Protein (6.3-8.2) g/dL Albumin (3.5-5.0) g/dL 07/08/21 07/08/21 07/08/21 Range/Units 20:09 20:41 22:04 WBC (3.8-10.6) k/uL RBC (4.30-5.90) m/uL MCV (80.0-100.0) fL D-Dimer (<0.60) mg/L FEU VBG pH (7.31-7.41) VBG pCO2 (37-51) mmHg VBG HCO3 23 L (24-28) mmol/L Sodium (137-145) mmol/L Carbon Dioxide (22-30) mmol/L BUN (9-20) mg/dL Creatinine (0.66-1.25) mg/dL Glucose (74-99) mg/dL POC Glucose (mg/dL) 102 H 135 H (75-99) mg/dL Hemoglobin A1c (4.0-6.0) % Calcium (8.4-10.2) mg/dL Phosphorus (2.5-4.5) mg/dL Magnesium (1.6-2.3) mg/dL Lactate Dehydrogenase (313-618) U/L Troponin I (0.000-0.034) ng/mL C-Reactive Protein (<1.0) mg/dL Total Protein (6.3-8.2) g/dL Albumin (3.5-5.0) g/dL 07/08/21 07/08/21 07/09/21 Range/Units 22:04 23:46 01:36 WBC (3.8-10.6) k/uL RBC (4.30-5.90) m/uL MCV (80.0-100.0) fL D-Dimer (<0.60) mg/L FEU VBG pH (7.31-7.41) VBG pCO2 (37-51) mmHg VBG HCO3 (24-28) mmol/L Sodium (137-145) mmol/L Carbon Dioxide 21 L (22-30) mmol/L BUN 114 H* (9-20) mg/dL Creatinine 3.93 H (0.66-1.25) mg/dL Glucose (74-99) mg/dL POC Glucose (mg/dL) 158 H 198 H (75-99) mg/dL Hemoglobin A1c (4.0-6.0) % Calcium 8.0 L (8.4-10.2) mg/dL Phosphorus (2.5-4.5) mg/dL Magnesium (1.6-2.3) mg/dL Lactate Dehydrogenase (313-618) U/L Troponin I (0.000-0.034) ng/mL C-Reactive Protein (<1.0) mg/dL Total Protein (6.3-8.2) g/dL Albumin (3.5-5.0) g/dL 07/09/21 07/09/21 07/09/21 Range/Units 02:21 02:21 02:21 WBC 22.0 H (3.8-10.6) k/uL RBC 4.29 L (4.30-5.90) m/uL MCV 100.9 H (80.0-100.0) fL D-Dimer 13.59 H (<0.60) mg/L FEU VBG pH (7.31-7.41) VBG pCO2 33 L (37-51) mmHg VBG HCO3 19 L (24-28) mmol/L Sodium (137-145) mmol/L Carbon Dioxide (22-30) mmol/L BUN (9-20) mg/dL Creatinine (0.66-1.25) mg/dL Glucose (74-99) mg/dL POC Glucose (mg/dL) (75-99) mg/dL Hemoglobin A1c (4.0-6.0) % Calcium (8.4-10.2) mg/dL Phosphorus (2.5-4.5) mg/dL Magnesium (1.6-2.3) mg/dL Lactate Dehydrogenase (313-618) U/L Troponin I (0.000-0.034) ng/mL C-Reactive Protein (<1.0) mg/dL Total Protein (6.3-8.2) g/dL Albumin (3.5-5.0) g/dL 07/09/21 07/09/21 07/09/21 Range/Units 02:21 02:26 02:57 WBC (3.8-10.6) k/uL RBC (4.30-5.90) m/uL MCV (80.0-100.0) fL D-Dimer (<0.60) mg/L FEU VBG pH (7.31-7.41) VBG pCO2 (37-51) mmHg VBG HCO3 (24-28) mmol/L Sodium (137-145) mmol/L Carbon Dioxide 18 L (22-30) mmol/L BUN 105 H* (9-20) mg/dL Creatinine 3.41 H (0.66-1.25) mg/dL Glucose 227 H (74-99) mg/dL POC Glucose (mg/dL) 211 H 269 H (75-99) mg/dL Hemoglobin A1c (4.0-6.0) % Calcium 7.7 L (8.4-10.2) mg/dL Phosphorus (2.5-4.5) mg/dL Magnesium 4.0 H (1.6-2.3) mg/dL Lactate Dehydrogenase 1210 H (313-618) U/L Troponin I (0.000-0.034) ng/mL C-Reactive Protein 6.2 H (<1.0) mg/dL Total Protein 5.3 L (6.3-8.2) g/dL Albumin 2.4 L (3.5-5.0) g/dL 07/09/21 07/09/21 07/09/21 Range/Units 04:26 05:48 06:28 WBC (3.8-10.6) k/uL RBC (4.30-5.90) m/uL MCV (80.0-100.0) fL D-Dimer (<0.60) mg/L FEU VBG pH (7.31-7.41) VBG pCO2 (37-51) mmHg VBG HCO3 (24-28) mmol/L Sodium (137-145) mmol/L Carbon Dioxide (22-30) mmol/L BUN (9-20) mg/dL Creatinine (0.66-1.25) mg/dL Glucose (74-99) mg/dL POC Glucose (mg/dL) 280 H 350 H 307 H (75-99) mg/dL Hemoglobin A1c (4.0-6.0) % Calcium (8.4-10.2) mg/dL Phosphorus (2.5-4.5) mg/dL Magnesium (1.6-2.3) mg/dL Lactate Dehydrogenase (313-618) U/L Troponin I (0.000-0.034) ng/mL C-Reactive Protein (<1.0) mg/dL Total Protein (6.3-8.2) g/dL Albumin (3.5-5.0) g/dL 07/09/21 07/09/21 07/09/21 Range/Units 08:06 08:35 08:35 WBC (3.8-10.6) k/uL RBC (4.30-5.90) m/uL MCV (80.0-100.0) fL D-Dimer (<0.60) mg/L FEU VBG pH (7.31-7.41) VBG pCO2 (37-51) mmHg VBG HCO3 (24-28) mmol/L Sodium (137-145) mmol/L Carbon Dioxide (22-30) mmol/L BUN 95 H (9-20) mg/dL Creatinine 2.85 H (0.66-1.25) mg/dL Glucose 292 H (74-99) mg/dL POC Glucose (mg/dL) 275 H (75-99) mg/dL Hemoglobin A1c (4.0-6.0) % Calcium 8.1 L (8.4-10.2) mg/dL Phosphorus (2.5-4.5) mg/dL Magnesium (1.6-2.3) mg/dL Lactate Dehydrogenase (313-618) U/L Troponin I 0.062 H* (0.000-0.034) ng/mL C-Reactive Protein (<1.0) mg/dL Total Protein (6.3-8.2) g/dL Albumin (3.5-5.0) g/dL 07/09/21 07/09/21 07/09/21 Range/Units 09:31 10:10 11:39 WBC (3.8-10.6) k/uL RBC (4.30-5.90) m/uL MCV (80.0-100.0) fL D-Dimer (<0.60) mg/L FEU VBG pH (7.31-7.41) VBG pCO2 (37-51) mmHg VBG HCO3 (24-28) mmol/L Sodium (137-145) mmol/L Carbon Dioxide (22-30) mmol/L BUN (9-20) mg/dL Creatinine (0.66-1.25) mg/dL Glucose (74-99) mg/dL POC Glucose (mg/dL) 264 H 261 H 257 H (75-99) mg/dL Hemoglobin A1c (4.0-6.0) % Calcium (8.4-10.2) mg/dL Phosphorus (2.5-4.5) mg/dL Magnesium (1.6-2.3) mg/dL Lactate Dehydrogenase (313-618) U/L Troponin I (0.000-0.034) ng/mL C-Reactive Protein (<1.0) mg/dL Total Protein (6.3-8.2) g/dL Albumin (3.5-5.0) g/dL Assessment and Plan Assessment: DKA NIKOLAS superimposed on CKD, stage III with hyperkalemia Acute metabolic encephalopathy -Admitted to ICU, telemetry --> transfer to the floor 07/09 -Pt recieved 3L bolus and started on Insulin drip per DKA protocol -gap closed on 07/09, started SQ insulin, d/c gtt, ACHS sugar checks -CM notified of need for insulin supplies on discharge -Strict I's and O's, insert sahni -NS @ 75cc/hr -advance diet as tolerated -Renal ultrasound without hydronephrosis -Consult to nephrology, -Hold nephrotoxic medications including benazepril and hydrochlorothiazide. -Hold home bisoprolol due to transient hypotension Covid pneumonia with Acute hypoxemic respiratory failure -Oxygen prn -Continue trending inflammatory markers -Encourage Incentive Spirometry 10-15x hourly while awake -Steroids: Decadron 6 mg daily -Continue vitamin C, Vitamin D, and Zinc. -Pulmonology following, appreciate further recommendations. -Strict Droplet plus Contact precautions Bilateral Lower Extremity DVTs -Likely inflammatory reaction secondary to Covid -Stat VQ scan and bilateral lower extremity Dopplers showed b/l LE DVTs in distal deep veins -Eliquis 10mg BID for 7 days, then 5mg BID The patient is admitted with an anticipated greater than 2 midnight stay for evaluation of DKA, severe metabolic acidosis, acute renal failure, hyperkalemia, and acute respiratory failure with hypoxia secondary to Covid 19 pneumonia Surrogate decision-maker: Patient's brother and sister CODE STATUS: Full code DVT prophylaxis: Eliquis
--- NOTE | 2021-07-09 13:07 | ECHOF ---
Referral Reason:elevated trop MEASUREMENTS -------- HEIGHT: 172.7 cm WEIGHT: 81.7 kg BP: 103/57 RVIDd: 3.7 cm (< 3.3) IVSd: 1.3 cm (0.6 - 1.1) LVIDd: 3.5 cm (3.9 - 5.3) LVPWd: 1.3 cm (0.6 - 1.1) IVSs: 1.6 cm LVIDs: 2.4 cm LVPWs: 1.8 cm LA Diam: 3.2 cm (2.7 - 3.8) LAESV Index (A-L): 16.50 ml/m Ao Diam: 3.1 cm (2.0 - 3.7) AV Cusp: 2.2 cm (1.5 - 2.6) MV E Stephane: 0.63 m/s MV DecT: 341 ms MV A Stephane: 0.76 m/s MV E/A Ratio: 0.82 RAP: 5.00 mmHg RVSP: 45.50 mmHg FINDINGS -------- Sinus rhythm. This was a technically adequate study. The left ventricular size is normal. There is mild concentric left ventricular hypertrophy. Overa ll left ventricular systolic function is normal with, an EF between 60 - 65 %. The right ventricle is mildly enlarged. Normal LA size by volume 22+/-6 ml/m2. The right atrium is normal in size. The aortic valve is trileaflet, and appears structurally normal. No aortic stenosis or regurgitation. The mitral valve is normal. Mild tricuspid regurgitation present. There is mild to moderate pulmonary hypertension. The right ventricular systolic pressure, as measured by Doppler, is 45.50mmHg. The pulmonic valve was not well visualized. The aortic root size is normal. IVC Not well visulized. There is no pericardial effusion. CONCLUSIONS -------- 1. The left ventricular size is normal. 2. There is mild concentric left ventricular hypertrophy. 3. Overall left ventricular systolic function is normal with, an EF between 60 - 65 %. 4. The right ventricle is mildly enlarged. 5. Mild tricuspid regurgitation present. 6. There is mild to moderate pulmonary hypertension. 7. The right ventricular systolic pressure, as measured by Doppler, is 45.50mmHg. 8. There is no pericardial effusion. [employer] WORKER: Rebecca Tejada RDCS
[2021-07-09] MEDS: SODIUM CHLORIDE 0.9% 1,000 ML IV SCH (14:08)
[2021-07-09 16:56] LABS: Glucose,Whole Blood 432 mg/dL (75-99)
[2021-07-09 16:56] LABS: Glucose,Whole Blood 480 mg/dL (75-99)
[2021-07-09 20:01] LABS: Glucose,Whole Blood 385 mg/dL (75-99)
[2021-07-09] MEDS: APIXABAN 5 MG TAB PO SCH (20:55)
[2021-07-10] MEDS: SODIUM CHLORIDE 0.9% 1,000 ML IV SCH ×3 (05:32→15:50)
[2021-07-10 07:02] LABS: Glucose,Whole Blood 131 mg/dL (75-99)
[2021-07-10] MEDS: INSULIN ASPART (NovoLOG) 100 UNIT/ML VIAL SQ SCH ×7 (07:58→21:08)
[2021-07-10] MEDS: DEXAMETHASONE SOD PHOSPHATE 10 MG/ML 1 ML VIAL IVP SCH (07:59)
[2021-07-10] MEDS: INSULIN DETEMIR (LEVEMIR) 100 UNIT/ML SYR SQ SCH (07:59)
[2021-07-10] MEDS: ASCORBIC ACID 500 MG TAB PO SCH (08:00)
[2021-07-10] MEDS: ZINC SULFATE 220 MG CAP PO SCH (08:00)
[2021-07-10] MEDS: amLODIPine 5 MG TAB PO SCH ×2 (08:00→21:08)
[2021-07-10] MEDS: ATORVASTATIN 40 MG TAB PO SCH (08:00)
[2021-07-10] MEDS: CHOLECALCIFEROL 125 MCG (5000 IU) TABLET PO SCH (08:00)
[2021-07-10] MEDS: APIXABAN 5 MG TAB PO SCH ×2 (08:00→21:08)
[2021-07-10 08:26] LABS: Potassium 4.8 mmol/L (3.5-5.1)
[2021-07-10 08:27] LABS: Albumin 2.7 g/dL (3.5-5.0); Calcium 8.3 mg/dL (8.4-10.2); Total Bilirubin 0.6 mg/dL (0.2-1.3)
[2021-07-10 08:44] LABS: Basophils % (A) 0 %; Eosinophils % (A) 0 %; HCT 48.7 % (39.0-53.0); HGB 15.4 gm/dL (13.0-17.5); Lymphocytes # (A) 0.6 k/uL (1.0-4.8); Lymphocytes % (A) 3 %; MCH 31.2 pg (25.0-35.0); MCHC 31.7 g/dL (31.0-37.0); MCV 98.7 fL (80.0-100.0); Mean Platelet Volume 7.9; Monocytes # (A) 0.9 k/uL (0-1.0); Monocytes % (A) 4 %; Neutrophils # (A) 18.6 k/uL (1.3-7.7); Neutrophils % (A) 92 %; Platelet Count 261 k/uL (150-450); RBC 4.94 m/uL (4.30-5.90); RDW 14.3 % (11.5-15.5); WBC 20.3 k/uL (3.8-10.6)
--- NOTE | 2021-07-10 08:48 | P.PN ---
Subjective Patient is seen in follow-up for acute kidney injury. Renal function continues to improve. Currently on normal saline. Unclear liquid diet. Nonoliguric. Gonzalez catheter removed. Denies chest pain or shortness of breath. On 15 L high flow cannula. Vital signs are stable. General: Somewhat confused. On high flow nasal cannula. HEENT: Head exam is unremarkable. LUNGS: Breath sounds decreased. HEART: Rate and Rhythm are regular. ABDOMEN: Soft, no distention. EXTREMITITES: No edema. Objective - Vital Signs Vital signs: Vital Signs Temp 98.3 F 07/10/21 06:00 Pulse 98 07/10/21 06:00 Resp 17 07/10/21 06:00 BP 130/78 07/10/21 06:00 Pulse Ox 89 L 07/10/21 06:00 Intake & Output 07/09/21 07/10/21 07/10/21 18:59 06:59 18:59 Intake Total 616.591 Output Total 1550 400 Balance -933.409 -400 Weight 82 kg Intake: IV 450 D5-0.45% NaCl with KCl 450 20Meq/l 1,000 ml @ 150 mls/hr IV .Q6H40M [facility] Rx# :[id number] Intake, IV Titration 166.591 Amount D5-0.45% NaCl with KCl 150 20Meq/l 1,000 ml @ 150 mls/hr IV .Q6H40M [facility] Rx# :[id number] Insulin Regular 100 unit 16.591 In Sodium Chloride 0.9% 100 ml @ 0.1 UNITS/KG/HR 8.246 mls/hr IV .[id number] [facility] Rx#:[id number] Output: Urine 1550 400 Other: Voiding Method Urinal Urinal Incontinent Diaper Incontinent # Voids 2 2 - Labs CBC & Chem 7: 07/10/21 07:38 07/10/21 07:38 Labs: Abnormal Lab Results - Last 24 Hours (Table) 07/09/21 07/09/21 07/09/21 Range/Units 08:35 08:35 08:35 WBC (3.8-10.6) k/uL Neutrophils # (1.3-7.7) k/uL Lymphocytes # (1.0-4.8) k/uL BUN 95 H (9-20) mg/dL Creatinine 2.85 H (0.66-1.25) mg/dL Glucose 292 H (74-99) mg/dL POC Glucose (mg/dL) (75-99) mg/dL Calcium 8.1 L (8.4-10.2) mg/dL Alkaline Phosphatase (38-126) U/L Troponin I 0.062 H* (0.000-0.034) ng/mL Total Protein (6.3-8.2) g/dL Albumin (3.5-5.0) g/dL Procalcitonin 0.61 H (0.02-0.09) ng/mL 07/09/21 07/09/21 07/09/21 Range/Units 09:31 10:10 11:39 WBC (3.8-10.6) k/uL Neutrophils # (1.3-7.7) k/uL Lymphocytes # (1.0-4.8) k/uL BUN (9-20) mg/dL Creatinine (0.66-1.25) mg/dL Glucose (74-99) mg/dL POC Glucose (mg/dL) 264 H 261 H 257 H (75-99) mg/dL Calcium (8.4-10.2) mg/dL Alkaline Phosphatase (38-126) U/L Troponin I (0.000-0.034) ng/mL Total Protein (6.3-8.2) g/dL Albumin (3.5-5.0) g/dL Procalcitonin (0.02-0.09) ng/mL 07/09/21 07/09/21 07/09/21 Range/Units 16:53 16:55 18:08 WBC (3.8-10.6) k/uL Neutrophils # (1.3-7.7) k/uL Lymphocytes # (1.0-4.8) k/uL BUN (9-20) mg/dL Creatinine (0.66-1.25) mg/dL Glucose (74-99) mg/dL POC Glucose (mg/dL) 480 H 432 H (75-99) mg/dL Calcium (8.4-10.2) mg/dL Alkaline Phosphatase (38-126) U/L Troponin I 0.044 H* (0.000-0.034) ng/mL Total Protein (6.3-8.2) g/dL Albumin (3.5-5.0) g/dL Procalcitonin (0.02-0.09) ng/mL 07/09/21 07/10/21 07/10/21 Range/Units 19:59 07:00 07:38 WBC 20.3 H (3.8-10.6) k/uL Neutrophils # 18.6 H (1.3-7.7) k/uL Lymphocytes # 0.6 L (1.0-4.8) k/uL BUN (9-20) mg/dL Creatinine (0.66-1.25) mg/dL Glucose (74-99) mg/dL POC Glucose (mg/dL) 385 H 131 H (75-99) mg/dL Calcium (8.4-10.2) mg/dL Alkaline Phosphatase (38-126) U/L Troponin I (0.000-0.034) ng/mL Total Protein (6.3-8.2) g/dL Albumin (3.5-5.0) g/dL Procalcitonin (0.02-0.09) ng/mL 07/10/21 Range/Units 07:38 WBC (3.8-10.6) k/uL Neutrophils # (1.3-7.7) k/uL Lymphocytes # (1.0-4.8) k/uL BUN 72 H (9-20) mg/dL Creatinine 1.78 H (0.66-1.25) mg/dL Glucose 150 H (74-99) mg/dL POC Glucose (mg/dL) (75-99) mg/dL Calcium 8.3 L (8.4-10.2) mg/dL Alkaline Phosphatase 138 H (38-126) U/L Troponin I (0.000-0.034) ng/mL Total Protein 6.0 L (6.3-8.2) g/dL Albumin 2.7 L (3.5-5.0) g/dL Procalcitonin (0.02-0.09) ng/mL Microbiology - Last 24 Hours (Table) 07/08/21 13:00 Blood Culture - Preliminary Blood No Growth after 24 hours 07/08/21 12:45 Blood Culture - Preliminary Blood No Growth after 24 hours Assessment and Plan Plan: Assessment: 1. Acute kidney injury mostly prerenal secondary to hypovolemia from DKA. Creatinine was 5.89 on admission and is down to 1.78 today. No hydronephrosis noted on kidney ultrasound. 2. DKA status post insulin drip. Now tolerating oral intake. 3. Hyperkalemia secondary to acute kidney injury and hyperglycemia. Improved. 4. Anion gap metabolic acidosis secondary to DKA and acute kidney injury. Improved. 5. Benign hypertension. Controlled. 6. Acute hypoxic respiratory failure. 7. COVID-19 pneumonia. 8. Right lower extremity DVT. On anticoagulation. Plan: Maintain normal saline. Wean FiO2. Avoid nephrotoxins. Continue to monitor renal function and urine output.
[2021-07-10 11:41] LABS: Glucose,Whole Blood 275 mg/dL (75-99)
--- NOTE | 2021-07-10 12:20 | P.PN ---
Subjective Progress Note Date: 07/10/21 No new complaints. Cr improving. DKA resolved. Tolerating diet. Still with O2 requirement of 15L. Objective - Vital Signs Vital signs: Vital Signs Temp 97.4 F L 07/10/21 08:44 Pulse 96 07/10/21 08:44 Resp 17 07/10/21 08:44 BP 107/68 07/10/21 08:44 Pulse Ox 90 L 07/10/21 08:44 Intake & Output 07/09/21 07/10/21 07/10/21 18:59 06:59 18:59 Intake Total 616.591 Output Total 1550 400 400 Balance -933.409 -400 -400 Weight 82 kg Intake: IV 450 D5-0.45% NaCl with KCl 450 20Meq/l 1,000 ml @ 150 mls/hr IV .Q6H40M [facility] Rx# :[id number] Intake, IV Titration 166.591 Amount D5-0.45% NaCl with KCl 150 20Meq/l 1,000 ml @ 150 mls/hr IV .Q6H40M [facility] Rx# :[id number] Insulin Regular 100 unit 16.591 In Sodium Chloride 0.9% 100 ml @ 0.1 UNITS/KG/HR 8.246 mls/hr IV .[id number] [facility] Rx#:[id number] Output: Urine 1550 400 400 Other: Voiding Method Urinal Urinal Urinal Incontinent Diaper Diaper Incontinent Incontinent # Voids 2 2 1 - Exam Gen: awake, alert HEENT: normocephalic, atraumatic, good hearing acuity, moist mucous membranes Resp: good air exchange, breathing comfortably with no accessory muscle use CVS: good distal perfusion x 4, GI: soft, NTTP, ND : no SPT, no CVAT, sahni catheter is present MSK: no pitting edema, no clubbing Neuro: non-focal, moving all extremities Psych: cooperative, euthymic mood - Labs CBC & Chem 7: 07/10/21 07:38 07/10/21 07:38 Labs: Abnormal Lab Results - Last 24 Hours (Table) 07/09/21 07/09/21 07/09/21 Range/Units 08:35 16:53 16:55 WBC (3.8-10.6) k/uL Neutrophils # (1.3-7.7) k/uL Lymphocytes # (1.0-4.8) k/uL BUN (9-20) mg/dL Creatinine (0.66-1.25) mg/dL Glucose (74-99) mg/dL POC Glucose (mg/dL) 480 H 432 H (75-99) mg/dL Calcium (8.4-10.2) mg/dL Alkaline Phosphatase (38-126) U/L Troponin I (0.000-0.034) ng/mL Total Protein (6.3-8.2) g/dL Albumin (3.5-5.0) g/dL Procalcitonin 0.61 H (0.02-0.09) ng/mL 07/09/21 07/09/21 07/10/21 Range/Units 18:08 19:59 07:00 WBC (3.8-10.6) k/uL Neutrophils # (1.3-7.7) k/uL Lymphocytes # (1.0-4.8) k/uL BUN (9-20) mg/dL Creatinine (0.66-1.25) mg/dL Glucose (74-99) mg/dL POC Glucose (mg/dL) 385 H 131 H (75-99) mg/dL Calcium (8.4-10.2) mg/dL Alkaline Phosphatase (38-126) U/L Troponin I 0.044 H* (0.000-0.034) ng/mL Total Protein (6.3-8.2) g/dL Albumin (3.5-5.0) g/dL Procalcitonin (0.02-0.09) ng/mL 07/10/21 07/10/21 07/10/21 Range/Units 07:38 07:38 11:39 WBC 20.3 H (3.8-10.6) k/uL Neutrophils # 18.6 H (1.3-7.7) k/uL Lymphocytes # 0.6 L (1.0-4.8) k/uL BUN 72 H (9-20) mg/dL Creatinine 1.78 H (0.66-1.25) mg/dL Glucose 150 H (74-99) mg/dL POC Glucose (mg/dL) 275 H (75-99) mg/dL Calcium 8.3 L (8.4-10.2) mg/dL Alkaline Phosphatase 138 H (38-126) U/L Troponin I (0.000-0.034) ng/mL Total Protein 6.0 L (6.3-8.2) g/dL Albumin 2.7 L (3.5-5.0) g/dL Procalcitonin (0.02-0.09) ng/mL Microbiology - Last 24 Hours (Table) 07/08/21 13:00 Blood Culture - Preliminary Blood No Growth after 24 hours 07/08/21 12:45 Blood Culture - Preliminary Blood No Growth after 24 hours Assessment and Plan Assessment: DKA NIKOLAS superimposed on CKD, stage III with hyperkalemia Acute metabolic encephalopathy -Admitted to ICU, telemetry --> transfer to the floor 07/09 -Pt recieved 3L bolus and started on Insulin drip per DKA protocol -gap closed on 07/09, started SQ insulin, d/c gtt, ACHS sugar checks -Strict I's and O's, insert sahni -NS @ 50cc/hr -advance diet as tolerated -Renal ultrasound without hydronephrosis -Consult to nephrology, -Hold nephrotoxic medications including benazepril and hydrochlorothiazide. -Hold home bisoprolol due to transient hypotension Covid pneumonia with Acute hypoxemic respiratory failure -Oxygen prn -Continue trending inflammatory markers -Encourage Incentive Spirometry 10-15x hourly while awake -Steroids: Decadron 6 mg daily -Continue vitamin C, Vitamin D, and Zinc. -Pulmonology following, appreciate further recommendations. -Strict Droplet plus Contact precautions Bilateral Lower Extremity DVTs -Likely inflammatory reaction secondary to Covid -Stat VQ scan and bilateral lower extremity Dopplers showed b/l LE DVTs in distal deep veins -Eliquis 10mg BID for 7 days, then 5mg BID The patient is admitted with an anticipated greater than 2 midnight stay for evaluation of DKA, severe metabolic acidosis, acute renal failure, hyperkalemia, and acute respiratory failure with hypoxia secondary to Covid 19 pneumonia Surrogate decision-maker: Patient's brother and sister CODE STATUS: Full code DVT prophylaxis: Eliquis
--- NOTE | 2021-07-10 15:41 | P.PN ---
Subjective Progress Note Date: 07/10/21 This is a 60-year-old male patient who follows with Dr. Phoenix as his primary care provider. He has a history of diabetes mellitus, hypertension, obesity. He had recently lost his mother from COVID-19 pneumonia and since that time he had been going downhill according to his siblings who were present in the emergency room. Chest x-ray reveals diffuse bilateral airspace disease with predominantly peripheral distribution on the right greater than left. No evidence of pneumothorax. No pleural effusion. VQ scan revealed very low probability for acute PE. Dopplers of lower extremities revealed bilateral nonocclusive DVTs. Renal ultrasound reveals nonspecific heterogenous appearance of the kidneys may relate to medical renal disease. No bilateral hydronephrosis. Benign-appearing left renal cyst. White count 22.0. Hemoglobin 13.5. Lymphocytes 0.9. D-dimer 13.5. Sodium 138. Potassium 4.6. Chloride 107. A 22. Anion gap 9. Creatinine 2.85. Blood glucose 292. Calcium 8.1. AST 37. ALT 23. LDH 1210. Troponin 0.056. C-reactive protein 6.2. Acetone positive. Urinalysis with 4+ glucose. Coronavirus by PCR positive. He sitting today in the intensive care unit. He is currently sitting up in bed. Awake and alert. Somewhat slow to respond. Somewhat distended. He is on 15 L nonrebreather mask. Current O2 saturation 89%. He's been afebrile. Hemodynamically stable. He is currently on an insulin drip at 5 units an hour. D5.45 with 20 KCl at 150 MLS per hour. Heparin subcu for DVT prophylaxis. Vitamin supplements. The patient is seen today 07/10/2021 in follow-up on the selective care unit. He is currently resting comfortably in bed. Awake and alert in no acute distress. He is currently on 15 L high flow nasal cannula to maintain O2 saturation at about 90%. He has normal saline at 50 MLS per hour. He is not urinating. Indwelling Gonzalez catheter will be placed. His appetite is somewhat better. His lower extremity are positive for DVT. CT angiogram ruled out PE. He is currently on Eliquis. He remains on Decadron, vitamin supplements. White count 20.3. Hemoglobin 15.4. Lymphocytes 0.6. Sodium 140. Potassium 4.8. Creatinine 1.78. Glucose 150. AST 33. ALT 27. Echocardiogram revealed preserved left ventricular systolic function. Objective - Vital Signs Vital signs: Vital Signs Temp 98.1 F 07/10/21 13:43 Pulse 98 07/10/21 13:43 Resp 18 07/10/21 13:43 BP 108/69 07/10/21 13:43 Pulse Ox 91 L 07/10/21 13:43 Intake & Output 07/09/21 07/10/21 07/10/21 18:59 06:59 18:59 Intake Total 616.591 Output Total 1550 400 988 Balance -933.409 -400 -988 Weight 82 kg Intake: IV 450 D5-0.45% NaCl with KCl 450 20Meq/l 1,000 ml @ 150 mls/hr IV .Q6H40M [facility] Rx# :[id number] Intake, IV Titration 166.591 Amount D5-0.45% NaCl with KCl 150 20Meq/l 1,000 ml @ 150 mls/hr IV .Q6H40M [facility] Rx# :[id number] Insulin Regular 100 unit 16.591 In Sodium Chloride 0.9% 100 ml @ 0.1 UNITS/KG/HR 8.246 mls/hr IV .[id number] [facility] Rx#:[id number] Output: Urine 1550 400 400 Post Void Residual 588 Other: Voiding Method Urinal Urinal Urinal Incontinent Diaper Diaper Incontinent Incontinent # Voids 2 2 1 - Exam GENERAL EXAM: Alert, pleasant 60-year-old male patient, 15 L high flow nasal cannula, fairly comfortable in no apparent distress. HEAD: Normocephalic. EYES: Normal reaction of pupils, equal size. NOSE: Clear with pink turbinates. THROAT: No erythema or exudates. NECK: No masses, no JVD. CHEST: No chest wall deformity. LUNGS: Equal air entry with coarse crackles in the bilateral bases. CVS: S1 and S2 normal with no audible murmur, regular rhythm. ABDOMEN: No hepatosplenomegaly, normal bowel sounds, no guarding or rigidity. SPINE: No scoliosis or deformity SKIN: No rashes CENTRAL NERVOUS SYSTEM: No focal deficits, tone is normal in all 4 extremities. EXTREMITIES: There is no peripheral edema. No clubbing, no cyanosis. Peripheral pulses are intact. - Labs CBC & Chem 7: 07/10/21 07:38 07/10/21 07:38 Labs: Abnormal Lab Results - Last 24 Hours (Table) 07/09/21 07/09/21 07/09/21 Range/Units 08:35 16:53 16:55 WBC (3.8-10.6) k/uL Neutrophils # (1.3-7.7) k/uL Lymphocytes # (1.0-4.8) k/uL BUN (9-20) mg/dL Creatinine (0.66-1.25) mg/dL Glucose (74-99) mg/dL POC Glucose (mg/dL) 480 H 432 H (75-99) mg/dL Calcium (8.4-10.2) mg/dL Alkaline Phosphatase (38-126) U/L Troponin I (0.000-0.034) ng/mL Total Protein (6.3-8.2) g/dL Albumin (3.5-5.0) g/dL Procalcitonin 0.61 H (0.02-0.09) ng/mL 07/09/21 07/09/21 07/10/21 Range/Units 18:08 19:59 07:00 WBC (3.8-10.6) k/uL Neutrophils # (1.3-7.7) k/uL Lymphocytes # (1.0-4.8) k/uL BUN (9-20) mg/dL Creatinine (0.66-1.25) mg/dL Glucose (74-99) mg/dL POC Glucose (mg/dL) 385 H 131 H (75-99) mg/dL Calcium (8.4-10.2) mg/dL Alkaline Phosphatase (38-126) U/L Troponin I 0.044 H* (0.000-0.034) ng/mL Total Protein (6.3-8.2) g/dL Albumin (3.5-5.0) g/dL Procalcitonin (0.02-0.09) ng/mL 07/10/21 07/10/21 07/10/21 Range/Units 07:38 07:38 11:39 WBC 20.3 H (3.8-10.6) k/uL Neutrophils # 18.6 H (1.3-7.7) k/uL Lymphocytes # 0.6 L (1.0-4.8) k/uL BUN 72 H (9-20) mg/dL Creatinine 1.78 H (0.66-1.25) mg/dL Glucose 150 H (74-99) mg/dL POC Glucose (mg/dL) 275 H (75-99) mg/dL Calcium 8.3 L (8.4-10.2) mg/dL Alkaline Phosphatase 138 H (38-126) U/L Troponin I (0.000-0.034) ng/mL Total Protein 6.0 L (6.3-8.2) g/dL Albumin 2.7 L (3.5-5.0) g/dL Procalcitonin (0.02-0.09) ng/mL Microbiology - Last 24 Hours (Table) 07/08/21 12:45 Blood Culture - Preliminary Blood No Growth after 48 hours 07/08/21 13:00 Blood Culture - Preliminary Blood No Growth after 48 hours Assessment and Plan Assessment: 1 Acute hypoxemic respiratory failure secondary to acute COVID-19 pneumonia. Not vaccinated. Outside the window for Remdesivir. May qualify for Baricitinib 2 Elevated inflammatory markers secondary to above 3 Acute bilateral DVTs with elevated d-dimer, on Eliquis 4 Acute diabetic ketoacidosis secondary to poor appetite 5 Acute renal failure improving with current creatinine 1.78 6 Metabolic acidosis secondary to above, recovered 7 Hyperkalemia, improved 8 Diabetes mellitus 9 History of hypertension 10 Leukocytosis 11 Depression secondary to recent loss of his mother secondary to CoVID Plan: The patient was seen and evaluated Procalcitonin level 0.61. Hold off on Baricitinib for now Continue Eliquis, Decadron, vitamin supplements Titrate the FiO2 as tolerated We will continue to follow I, the cosigning physician, performed a history & physical examination of the patient. Lungs sounds crackles in the bilateral posterior bases. Maintaining O2 saturations in the 90s if 15 L high flow nasal cannula. I discussed the assessment and plan of care with my nurse practitioner, Meron Keating. I attest to the above note as dictated by her.
[2021-07-10 16:30] LABS: Glucose,Whole Blood 252 mg/dL (75-99)
[2021-07-10 20:47] LABS: Glucose,Whole Blood 214 mg/dL (75-99)
--- NOTE | 2021-07-11 03:05 | P.EN ---
notified by RN of significant GI bleeding and hematuria that started suddenly after midnight patient vital signs stable , no new complaints currently on Eliquis for DVT , patient also has COVID continue supportive care check stat CBC hold eliquis Vascular consult for evaluation regarding IVC filter will continue to monitor
[2021-07-11] MEDS ORDERED: PANTOPRAZOLE 40 MG/10 ML VIAL IVP ONE (03:06)
[2021-07-11] MEDS ORDERED: SODIUM CHLORIDE 0.9% 1,000 ML IV ONE (03:20)
[2021-07-11] MEDS ORDERED: Kcentra PER PHARMACY 1 EACH MISC MISCELLANE PRN (05:18)
[2021-07-11] MEDS ORDERED: EMPTY BAG 1 BAG with HUMAN PROTHROMBIN COMPLX 2,000 UNIT IV ONE (05:30)
[2021-07-11 06:37] LABS: Basophils % (A) 0 %; Eosinophils % (A) 0 %; HCT 50.7 % (39.0-53.0); HGB 16.3 gm/dL (13.0-17.5); Lymphocytes # (A) 0.7 k/uL (1.0-4.8); Lymphocytes % (A) 3 %; MCH 31.9 pg (25.0-35.0); MCHC 32.2 g/dL (31.0-37.0); MCV 99.2 fL (80.0-100.0); Mean Platelet Volume 7.7; Monocytes # (A) 0.9 k/uL (0-1.0); Monocytes % (A) 4 %; Neutrophils # (A) 18.8 k/uL (1.3-7.7); Neutrophils % (A) 92 %; Platelet Count 286 k/uL (150-450); RBC 5.11 m/uL (4.30-5.90); RDW 14.5 % (11.5-15.5); WBC 20.5 k/uL (3.8-10.6)
[2021-07-11 06:52] LABS: African American GFR (CKD) 63 (>60 ml/min/1.73 sqM); Anion Gap 8 mmol/L; Blood Urea Nitrogen 52 mg/dL (9-20); Calcium 8.2 mg/dL (8.4-10.2); Carbon Dioxide 23 mmol/L (22-30); Chloride 107 mmol/L (98-107); Glucose 121 mg/dL (74-99); Magnesium 3.1 mg/dL (1.6-2.3); Non-African American GFR(CKD) 55 (>60 ml/min/1.73 sqM); Potassium 4.3 mmol/L (3.5-5.1); Sodium 138 mmol/L (137-145)
[2021-07-11 07:03] LABS: Glucose,Whole Blood 195 mg/dL (75-99)
[2021-07-11] MEDS: INSULIN DETEMIR (LEVEMIR) 100 UNIT/ML SYR SQ SCH (07:41)
[2021-07-11] MEDS: INSULIN ASPART (NovoLOG) 100 UNIT/ML VIAL SQ SCH ×7 (07:41→23:00)
[2021-07-11] MEDS: CHOLECALCIFEROL 125 MCG (5000 IU) TABLET PO SCH (07:42)
[2021-07-11] MEDS: DEXAMETHASONE SOD PHOSPHATE 10 MG/ML 1 ML VIAL IVP SCH (07:42)
[2021-07-11] MEDS: ATORVASTATIN 40 MG TAB PO SCH (07:43)
[2021-07-11] MEDS: ASCORBIC ACID 500 MG TAB PO SCH (07:43)
[2021-07-11] MEDS: ZINC SULFATE 220 MG CAP PO SCH (07:43)
[2021-07-11] MEDS: amLODIPine 5 MG TAB PO SCH ×2 (07:43→23:00)
[2021-07-11] MEDS: PANTOPRAZOLE 40 MG TABLET PO SCH ×2 (07:46→17:27)
[2021-07-11] MEDS: SODIUM CHLORIDE 0.9% 1,000 ML IV SCH (07:47)
--- NOTE | 2021-07-11 10:08 | P.PN ---
Subjective Patient is seen in follow-up for acute kidney injury. Renal function continues to improve. Currently on normal saline. Nonoliguric. Gonzalez catheter reinserted due to urinary retention. Denies chest pain or shortness of breath. On 15 L high flow cannula. Patient had episode of GI bleed last night. Anticoagulation is held. Hemoglobin stable. He scheduled for IVC filter today. Vital signs are stable. General: Somewhat confused. On high flow nasal cannula. HEENT: Head exam is unremarkable. LUNGS: Breath sounds decreased. HEART: Rate and Rhythm are regular. ABDOMEN: Soft, no distention. EXTREMITITES: No edema. Objective - Vital Signs Vital signs: Vital Signs Temp 97.5 F L 07/11/21 08:43 Pulse 94 07/11/21 08:43 Resp 18 07/11/21 08:43 BP 112/73 07/11/21 08:43 Pulse Ox 96 07/11/21 08:43 Intake & Output 07/10/21 07/11/21 07/11/21 18:59 06:59 18:59 Intake Total 1960 Output Total 1488 800 225 Balance 472 -800 -225 Intake: Intake, IV Titration 800 Amount Sodium Chloride 0.9% 1, 800 000 ml @ 50 mls/hr IV . Q20H [facility] Rx#:[id number] Oral 1160 Output: Urine 900 800 225 Post Void Residual 588 Stool 0 0 Other: Voiding Method Urinal Urinal Diaper Diaper Incontinent Incontinent # Voids 3 # Bowel Movements 0 0 - Labs CBC & Chem 7: 07/11/21 05:40 07/11/21 05:40 Labs: Abnormal Lab Results - Last 24 Hours (Table) 07/10/21 07/10/21 07/10/21 Range/Units 11:39 16:29 20:46 WBC (3.8-10.6) k/uL Neutrophils # (1.3-7.7) k/uL Lymphocytes # (1.0-4.8) k/uL BUN (9-20) mg/dL Creatinine (0.66-1.25) mg/dL Glucose (74-99) mg/dL POC Glucose (mg/dL) 275 H 252 H 214 H (75-99) mg/dL Calcium (8.4-10.2) mg/dL Magnesium (1.6-2.3) mg/dL 07/11/21 07/11/21 07/11/21 Range/Units 05:40 05:40 07:00 WBC 20.5 H (3.8-10.6) k/uL Neutrophils # 18.8 H (1.3-7.7) k/uL Lymphocytes # 0.7 L (1.0-4.8) k/uL BUN 52 H (9-20) mg/dL Creatinine 1.38 H (0.66-1.25) mg/dL Glucose 121 H (74-99) mg/dL POC Glucose (mg/dL) 195 H (75-99) mg/dL Calcium 8.2 L (8.4-10.2) mg/dL Magnesium 3.1 H (1.6-2.3) mg/dL Microbiology - Last 24 Hours (Table) 07/08/21 12:45 Blood Culture - Preliminary Blood No Growth after 48 hours 07/08/21 13:00 Blood Culture - Preliminary Blood No Growth after 48 hours Assessment and Plan Plan: Assessment: 1. Acute kidney injury mostly prerenal secondary to hypovolemia from DKA. Creatinine was 5.89 on admission and is down to 1.38. No hydronephrosis noted on kidney ultrasound. 2. DKA status post insulin drip. Now tolerating oral intake. 3. Hyperkalemia secondary to acute kidney injury and hyperglycemia. Improved. 4. Anion gap metabolic acidosis secondary to DKA and acute kidney injury. Improved. 5. Benign hypertension. Controlled. 6. Acute hypoxic respiratory failure. 7. COVID-19 pneumonia. 8. Right lower extremity DVT. Anticoagulation held due to bleeding. Hemoglobin stable. Scheduled for IVC filter today. Plan: Maintain normal saline. Wean FiO2. Avoid nephrotoxins. Continue to monitor renal function and urine output.
[2021-07-11] MEDS ORDERED: IV FLUID CONTINUATION 1,000 ML IV ONE (11:40)
--- NOTE | 2021-07-11 11:40 | XR ---
EXAMINATION TYPE: XR chest 1V portable DATE OF EXAM: 07/11/2021 CLINICAL HISTORY: Difficulty breathing and increasing hypoxia. TECHNIQUE: Single AP portable upright view of the chest is obtained. COMPARISON: Chest x-ray from 3 days earlier FINDINGS: Persistent low lung volumes and bilateral multifocal increased opacities greatest in the p eriphery. Cardiac silhouette stable and within normal limits. Osseous structures are intact. IMPRESSION: Low lung volumes and bilateral multifocal increased opacities consistent with covid-19 in fection are redemonstrated. No significant change from prior x-ray.
[2021-07-11] MEDS ORDERED: LIDOCAINE 1% INJ 10MG/ML (20 ML MDV) SQ ONE (12:03)
--- NOTE | 2021-07-11 12:09 | P.PN ---
Subjective Progress Note Date: 07/11/21 Pt had episode of hematochezia and hematuria last night. On eliquis for DVT. Vascular was consulted for IVC filter placement. GI consult to be placed for colonoscopy. Objective - Vital Signs Vital signs: Vital Signs Temp 97.5 F L 07/11/21 08:43 Pulse 94 07/11/21 08:43 Resp 18 07/11/21 08:43 BP 112/73 07/11/21 08:43 Pulse Ox 96 07/11/21 08:43 Intake & Output 07/10/21 07/11/21 07/11/21 18:59 06:59 18:59 Intake Total 1960 Output Total 1488 800 225 Balance 472 -800 -225 Intake: Intake, IV Titration 800 Amount Sodium Chloride 0.9% 1, 800 000 ml @ 50 mls/hr IV . Q20H [facility] Rx#:[id number] Oral 1160 Output: Urine 900 800 225 Post Void Residual 588 Stool 0 0 Other: Voiding Method Urinal Urinal Indwelling Catheter Diaper Diaper Incontinent Incontinent # Voids 3 # Bowel Movements 0 0 - Exam Gen: awake, alert HEENT: normocephalic, atraumatic, good hearing acuity, moist mucous membranes Resp: good air exchange, breathing comfortably with no accessory muscle use CVS: good distal perfusion x 4, GI: soft, NTTP, ND : no SPT, no CVAT, sahni catheter is present MSK: no pitting edema, no clubbing Neuro: non-focal, moving all extremities Psych: cooperative, euthymic mood - Labs CBC & Chem 7: 07/11/21 05:40 07/11/21 05:40 Labs: Abnormal Lab Results - Last 24 Hours (Table) 07/10/21 07/10/21 07/11/21 Range/Units 16:29 20:46 05:40 WBC (3.8-10.6) k/uL Neutrophils # (1.3-7.7) k/uL Lymphocytes # (1.0-4.8) k/uL BUN 52 H (9-20) mg/dL Creatinine 1.38 H (0.66-1.25) mg/dL Glucose 121 H (74-99) mg/dL POC Glucose (mg/dL) 252 H 214 H (75-99) mg/dL Calcium 8.2 L (8.4-10.2) mg/dL Magnesium 3.1 H (1.6-2.3) mg/dL 07/11/21 07/11/21 Range/Units 05:40 07:00 WBC 20.5 H (3.8-10.6) k/uL Neutrophils # 18.8 H (1.3-7.7) k/uL Lymphocytes # 0.7 L (1.0-4.8) k/uL BUN (9-20) mg/dL Creatinine (0.66-1.25) mg/dL Glucose (74-99) mg/dL POC Glucose (mg/dL) 195 H (75-99) mg/dL Calcium (8.4-10.2) mg/dL Magnesium (1.6-2.3) mg/dL Microbiology - Last 24 Hours (Table) 07/08/21 12:45 Blood Culture - Preliminary Blood No Growth after 48 hours 07/08/21 13:00 Blood Culture - Preliminary Blood No Growth after 48 hours Assessment and Plan Assessment: DKA NIKOLAS superimposed on CKD, stage III with hyperkalemia Acute metabolic encephalopathy -Admitted to ICU, telemetry --> transfer to the floor 07/09 -Pt recieved 3L bolus and started on Insulin drip per DKA protocol -gap closed on 07/09, started SQ insulin, d/c gtt, ACHS sugar checks -Strict I's and O's, insert sahni -NS @ 50cc/hr -advance diet as tolerated -Renal ultrasound without hydronephrosis -Consult to nephrology, -Hold nephrotoxic medications including benazepril and hydrochlorothiazide. -Hold home bisoprolol due to transient hypotension Covid pneumonia with Acute hypoxemic respiratory failure -Oxygen prn -Continue trending inflammatory markers -Encourage Incentive Spirometry 10-15x hourly while awake -Steroids: Decadron 6 mg daily -Continue vitamin C, Vitamin D, and Zinc. -Pulmonology following, appreciate further recommendations. -Strict Droplet plus Contact precautions Bilateral Lower Extremity DVTs -Likely inflammatory reaction secondary to Covid -Stat VQ scan and bilateral lower extremity Dopplers showed b/l LE DVTs in distal deep veins -Eliquis 10mg BID for 7 days, then 5mg BID was d/c'd on 07/11 due to GI bleeding -s/p IVC filter by vascular surgery on 07/11 Lower GI Bleed -trend CBC q8h -transfuse for Hgb < 7 or hemodynamic compromise -GI consult for colonoscopy The patient is admitted with an anticipated greater than 2 midnight stay for evaluation of DKA, severe metabolic acidosis, acute renal failure, hyperkalemia, and acute respiratory failure with hypoxia secondary to Covid 19 pneumonia Surrogate decision-maker: Patient's brother and sister CODE STATUS: Full code DVT prophylaxis: Eliqugrecia
[2021-07-11] MEDS ORDERED: IOPAMIDOL-250 100ML BTL IV ONE (12:10)
--- NOTE | 2021-07-11 12:26 | P.GSCN ---
History of Present Illness Consult date: 07/11/21 Reason for Consult: GI bleed History of present illness: 60-year-old male hospitalized for Covid pneumonia. Patient during this hospital stay found to have bilateral lower extremity DVTs. Was placed on eloquis but developed bloody stools last night. He believes are was only 1 episode of bleeding. Eloquis was placed on hold. No history of similar events in the past. Patient has never had a colonoscopy. Denies abdominal pain. Patient remains on significant oxygen requirements as a result of his Covid pneumonia. Hemoglobin stable at 16.3. Review of Systems The patient denies any acute changes in vision or hearing, no dysphagia or odynophagia, no dysuria or hematuria, no headache, no runny nose, no melena, no unexplained weight loss Past Medical History Past Medical History: Diabetes Mellitus, Hypertension History of Any Multi-Drug Resistant Organisms: None Reported Past Surgical History: No Surgical Hx Reported Past Anesthesia/Blood Transfusion Reactions: No Reported Reaction Past Psychological History: No Psychological Hx Reported Smoking Status: Never smoker Past Alcohol Use History: None Reported Past Drug Use History: None Reported Medications and Allergies Home Medications Medication Instructions Recorded Confirmed Type Atorvastatin [Lipitor] 40 mg PO DAILY 07/08/21 07/08/21 History Benazepril HCl 40 mg PO DAILY 07/08/21 07/08/21 History Bisoprolol-Hctz 10-6.25 mg [Ziac 1 tab PO DAILY 07/08/21 07/08/21 History 10-6.25 MG] Empagliflozin [Jardiance] 10 mg PO DAILY 07/08/21 07/08/21 History Glimepiride [Amaryl] 4 mg PO [id number] 07/08/21 07/08/21 History Pioglitazone [Actos] 30 mg PO DAILY 07/08/21 07/08/21 History amLODIPine [Norvasc] 5 mg PO BID 07/08/21 07/08/21 History sitaGLIPtin [Januvia] 100 mg PO DAILY 07/08/21 07/08/21 History Allergies Allergy/AdvReac Type Severity Reaction Status Date / Time No Known Allergies Allergy Verified 07/08/21 11:39 Surgical - Exam Vital Signs Temp Pulse Resp BP Pulse Ox 96.9 F L 45 L 24 64/43 80 L 07/08/21 10:09 07/08/21 10:09 07/08/21 10:09 07/08/21 10:09 07/08/21 10:09 Physical exam: General: Well-developed, well-nourished, patient is short of breath with nonrebreather HEENT: Normocephalic, sclerae nonicteric Abdomen: Nontender, nondistended Extremities: Bilateral lower extremity edema Neuro: Alert and oriented Results - Labs 07/11/21 05:40 07/11/21 05:40 Abnormal Lab Results - Last 24 Hours (Table) 07/10/21 07/10/21 07/11/21 Range/Units 16:29 20:46 05:40 WBC (3.8-10.6) k/uL Neutrophils # (1.3-7.7) k/uL Lymphocytes # (1.0-4.8) k/uL BUN 52 H (9-20) mg/dL Creatinine 1.38 H (0.66-1.25) mg/dL Glucose 121 H (74-99) mg/dL POC Glucose (mg/dL) 252 H 214 H (75-99) mg/dL Calcium 8.2 L (8.4-10.2) mg/dL Magnesium 3.1 H (1.6-2.3) mg/dL 07/11/21 07/11/21 Range/Units 05:40 07:00 WBC 20.5 H (3.8-10.6) k/uL Neutrophils # 18.8 H (1.3-7.7) k/uL Lymphocytes # 0.7 L (1.0-4.8) k/uL BUN (9-20) mg/dL Creatinine (0.66-1.25) mg/dL Glucose (74-99) mg/dL POC Glucose (mg/dL) 195 H (75-99) mg/dL Calcium (8.4-10.2) mg/dL Magnesium (1.6-2.3) mg/dL Microbiology - Last 24 Hours (Table) 07/08/21 12:45 Blood Culture - Preliminary Blood No Growth after 48 hours 07/08/21 13:00 Blood Culture - Preliminary Blood No Growth after 48 hours Diabetes panel 07/11/21 Range/Units 05:40 Sodium 138 (137-145) mmol/L Potassium 4.3 (3.5-5.1) mmol/L Chloride 107 (98-107) mmol/L Carbon Dioxide 23 (22-30) mmol/L BUN 52 H (9-20) mg/dL Creatinine 1.38 H (0.66-1.25) mg/dL Glucose 121 H (74-99) mg/dL Calcium 8.2 L (8.4-10.2) mg/dL Calcium panel 07/11/21 Range/Units 05:40 Calcium 8.2 L (8.4-10.2) mg/dL Pituitary panel 07/11/21 Range/Units 05:40 Sodium 138 (137-145) mmol/L Potassium 4.3 (3.5-5.1) mmol/L Chloride 107 (98-107) mmol/L Carbon Dioxide 23 (22-30) mmol/L BUN 52 H (9-20) mg/dL Creatinine 1.38 H (0.66-1.25) mg/dL Glucose 121 H (74-99) mg/dL Calcium 8.2 L (8.4-10.2) mg/dL Adrenal panel 07/11/21 Range/Units 05:40 Sodium 138 (137-145) mmol/L Potassium 4.3 (3.5-5.1) mmol/L Chloride 107 (98-107) mmol/L Carbon Dioxide 23 (22-30) mmol/L BUN 52 H (9-20) mg/dL Creatinine 1.38 H (0.66-1.25) mg/dL Glucose 121 H (74-99) mg/dL Calcium 8.2 L (8.4-10.2) mg/dL Assessment and Plan (1) Lower GI bleed Narrative/Plan: Patient with episode of lower GI bleeding. Hold anticoagulation. Will remain on surgical standby. Will consider colonoscopy during this hospital stay but hold off given patient's pulmonary status at this time and lack of significant bleeding. Will follow. Current Visit: Yes Status: Acute Code(s): K92.2 - GASTROINTESTINAL HEMORRHAGE, UNSPECIFIED SNOMED Code(s): 08040408
[2021-07-11 12:30] LABS: Glucose,Whole Blood 114 mg/dL (75-99)
--- NOTE | 2021-07-11 12:41 | IR ---
EXAMINATION TYPE: IR IVC filter placement DATE OF EXAM: 07/11/2021 CLINICAL HISTORY: DVT. TECHNIQUE: Fluoroscopy. COMPARISON: None. FINDINGS: Fluoroscopic guidance was provided during IVC stent insertion procedure performed by Dr. Marva boyce. A total of 36 seconds of fluoroscopic time was utilized during the procedure and 32 spot im ages was acquired. Images acquired show placement of IVC filter at right L1-L2 level. IMPRESSION: As Above.
--- NOTE | 2021-07-11 12:48 | P.GSCN ---
History of Present Illness Consult date: 07/11/21 Reason for Consult: Deep venous thrombosis with contraindication to anticoagulation. Requesting physician: Mello Bustamante History of present illness: Patient is a 60-year-old male who presented to the emergency room with a complaint of shortness of breath. During the workup of this the patient was found to be suffering from bilateral popliteal and tibial venous thrombosis placed on oral novel anticoagulant therapy however developed a melanotic stool. Because of his GI bleed was felt was a contraindication to anticoagulation and requests for IVC filter placement was made. Denies any previous history of deep venous thrombosis. Past Medical History Past Medical History: Diabetes Mellitus, Hypertension History of Any Multi-Drug Resistant Organisms: None Reported Past Surgical History: No Surgical Hx Reported Past Anesthesia/Blood Transfusion Reactions: No Reported Reaction Past Psychological History: No Psychological Hx Reported Smoking Status: Never smoker Past Alcohol Use History: None Reported Past Drug Use History: None Reported Medications and Allergies Home Medications Medication Instructions Recorded Confirmed Type Atorvastatin [Lipitor] 40 mg PO DAILY 07/08/21 07/08/21 History Benazepril HCl 40 mg PO DAILY 07/08/21 07/08/21 History Bisoprolol-Hctz 10-6.25 mg [Ziac 1 tab PO DAILY 07/08/21 07/08/21 History 10-6.25 MG] Empagliflozin [Jardiance] 10 mg PO DAILY 07/08/21 07/08/21 History Glimepiride [Amaryl] 4 mg PO AC-[id number] 07/08/21 07/08/21 History Pioglitazone [Actos] 30 mg PO DAILY 07/08/21 07/08/21 History amLODIPine [Norvasc] 5 mg PO BID 07/08/21 07/08/21 History sitaGLIPtin [Januvia] 100 mg PO DAILY 07/08/21 07/08/21 History Allergies Allergy/AdvReac Type Severity Reaction Status Date / Time No Known Allergies Allergy Verified 07/08/21 11:39 Surgical - Exam Osteopathic Statement: *. No significant issues noted on an osteopathic structural exam other than those noted in the History and Physical/Consult. Vital Signs Temp Pulse Resp BP Pulse Ox 96.9 F L 45 L 24 64/43 80 L 07/08/21 10:09 07/08/21 10:07/08/21 10:07/08/21 10:09 07/08/21 10:09 Patient was awake and alert. Femoral pulses are intact bilaterally. Legs are not significantly edematous. Results - Labs 07/11/21 05:40 07/11/21 05:40 Abnormal Lab Results - Last 24 Hours (Table) 07/10/21 07/10/21 07/11/21 Range/Units 16:29 20:46 05:40 WBC (3.8-10.6) k/uL Neutrophils # (1.3-7.7) k/uL Lymphocytes # (1.0-4.8) k/uL BUN 52 H (9-20) mg/dL Creatinine 1.38 H (0.66-1.25) mg/dL Glucose 121 H (74-99) mg/dL POC Glucose (mg/dL) 252 H 214 H (75-99) mg/dL Calcium 8.2 L (8.4-10.2) mg/dL Magnesium 3.1 H (1.6-2.3) mg/dL 07/11/21 07/11/21 07/11/21 Range/Units 05:40 07:00 12:27 WBC 20.5 H (3.8-10.6) k/uL Neutrophils # 18.8 H (1.3-7.7) k/uL Lymphocytes # 0.7 L (1.0-4.8) k/uL BUN (9-20) mg/dL Creatinine (0.66-1.25) mg/dL Glucose (74-99) mg/dL POC Glucose (mg/dL) 195 H 114 H (75-99) mg/dL Calcium (8.4-10.2) mg/dL Magnesium (1.6-2.3) mg/dL Microbiology - Last 24 Hours (Table) 07/08/21 12:45 Blood Culture - Preliminary Blood No Growth after 48 hours 07/08/21 13:00 Blood Culture - Preliminary Blood No Growth after 48 hours Diabetes panel 07/11/21 Range/Units 05:40 Sodium 138 (137-145) mmol/L Potassium 4.3 (3.5-5.1) mmol/L Chloride 107 (98-107) mmol/L Carbon Dioxide 23 (22-30) mmol/L BUN 52 H (9-20) mg/dL Creatinine 1.38 H (0.66-1.25) mg/dL Glucose 121 H (74-99) mg/dL Calcium 8.2 L (8.4-10.2) mg/dL Calcium panel 07/11/21 Range/Units 05:40 Calcium 8.2 L (8.4-10.2) mg/dL Pituitary panel 07/11/21 Range/Units 05:40 Sodium 138 (137-145) mmol/L Potassium 4.3 (3.5-5.1) mmol/L Chloride 107 (98-107) mmol/L Carbon Dioxide 23 (22-30) mmol/L BUN 52 H (9-20) mg/dL Creatinine 1.38 H (0.66-1.25) mg/dL Glucose 121 H (74-99) mg/dL Calcium 8.2 L (8.4-10.2) mg/dL Adrenal panel 07/11/21 Range/Units 05:40 Sodium 138 (137-145) mmol/L Potassium 4.3 (3.5-5.1) mmol/L Chloride 107 (98-107) mmol/L Carbon Dioxide 23 (22-30) mmol/L BUN 52 H (9-20) mg/dL Creatinine 1.38 H (0.66-1.25) mg/dL Glucose 121 H (74-99) mg/dL Calcium 8.2 L (8.4-10.2) mg/dL Assessment and Plan Assessment: #1: Bilateral lower extremity DVT with contraindication anticoagulation. #2: Covid pneumonia. #3: Contraindication anticoagulation (GI bleed). Plan: I believe is reasonable to place an IVC filter. The procedure, risk and benefits were discussed. Patient wished to proceed. Consent form was signed.
[2021-07-11] MEDS: TAMSULOSIN 0.4 MG CAP.ER.24H PO SCH (13:05)
--- NOTE | 2021-07-11 14:53 | P.PN ---
Subjective Progress Note Date: 07/11/21 Principal diagnosis: Shortness of breath, hypoxia, COVID-19 On 07/11/2021 patient seen in follow-up on medical surgical floor, patient oxygen requirement and is currently increased, he is on 15 L per high flow nasal cannula and a nonrebreather mask, and his pulse ox is 92-96%, however he is breathing fairly comfortable, does not appear to be in any acute distress, his been afebrile, no complaints of chest discomfort, patient was diagnosed with bilateral lower extremity DVTs, and she was started on Eliquis however he developed GI bleeding, he had a large bowel movement with blood, he developed bleeding from his IV insertion sites, and hematuria, and his anticoagulation was subsequently placed on hold and he was given a dose of K Centra. However his hemoglobin has remained fairly stable, today it is 16.3, actually increased, patient has not required any blood transfusions, hemodynamically has been stable, his white count is 20.5, his platelet count is 286, his renal profile is actually improving, his BUN is down to 52 and creatinine is down to 1.38, electrolytes are unremarkable. His pro calcitonin level was 0.61. His had no fever or chills. Patient was taken to the orthodontic laboratory technician by Dr. Bright and IVC filter was inserted. He is also seen in consultation by surgical services, the recommendation was to place anticoagulation on hold, and surgery will remain on standby at this time. Objective - Vital Signs Vital signs: Vital Signs Temp 97.5 F L 07/11/21 08:43 Pulse 94 07/11/21 08:43 Resp 18 07/11/21 08:43 BP 112/73 07/11/21 08:43 Pulse Ox 96 07/11/21 08:43 Intake & Output 07/10/21 07/11/21 07/11/21 18:59 06:59 18:59 Intake Total 1960 50 Output Total 1488 800 725 Balance 472 -800 -675 Intake: IV 50 Intake, IV Titration 800 Amount Sodium Chloride 0.9% 1, 800 000 ml @ 50 mls/hr IV . Q20H [facility] Rx#:[id number] Oral 1160 Output: Urine 900 800 725 Post Void Residual 588 Stool 0 0 Other: Voiding Method Urinal Urinal Indwelling Catheter Diaper Diaper Incontinent Incontinent # Voids 3 # Bowel Movements 0 0 - Exam GENERAL EXAM: Alert, very pleasant 60-year-old white male, on 15 L per high flow nasal cannula in the nonrebreather mask, with a pulse ox of 96% comfortable in no apparent distress. HEAD: Normocephalic/atraumatic. EYES: Normal reaction of pupils, equal size. Conjunctiva pink, sclera white. NOSE: Clear with pink turbinates. THROAT: No erythema or exudates. NECK: No masses, no JVD, no thyroid enlargement, no adenopathy. CHEST: No chest wall deformity. Symmetrical expansion. LUNGS: Equal air entry with no crackles, wheeze, rhonchi or dullness. CVS: Regular rate and rhythm, normal S1 and S2, no gallops, no murmurs, no rubs ABDOMEN: Soft, nontender. No hepatosplenomegaly, normal bowel sounds, no guar ding or rigidity. EXTREMITIES: No clubbing, no edema, no cyanosis, 2+ pulses and upper and lower extremities. MUSCULOSKELETAL: Muscle strength and tone normal. SPINE: No scoliosis or deformity SKIN: No rashes CENTRAL NERVOUS SYSTEM: Alert and oriented -3. No focal deficits, tone is normal in all 4 extremities. PSYCHIATRIC: Alert and oriented -3. Appropriate affect. Intact judgment and insight. - Labs CBC & Chem 7: 07/11/21 05:40 07/11/21 05:40 Labs: Abnormal Lab Results - Last 24 Hours (Table) 07/10/21 07/10/21 07/11/21 Range/Units 16:29 20:46 05:40 WBC (3.8-10.6) k/uL Neutrophils # (1.3-7.7) k/uL Lymphocytes # (1.0-4.8) k/uL BUN 52 H (9-20) mg/dL Creatinine 1.38 H (0.66-1.25) mg/dL Glucose 121 H (74-99) mg/dL POC Glucose (mg/dL) 252 H 214 H (75-99) mg/dL Calcium 8.2 L (8.4-10.2) mg/dL Magnesium 3.1 H (1.6-2.3) mg/dL 07/11/21 07/11/21 07/11/21 Range/Units 05:40 07:00 12:27 WBC 20.5 H (3.8-10.6) k/uL Neutrophils # 18.8 H (1.3-7.7) k/uL Lymphocytes # 0.7 L (1.0-4.8) k/uL BUN (9-20) mg/dL Creatinine (0.66-1.25) mg/dL Glucose (74-99) mg/dL POC Glucose (mg/dL) 195 H 114 H (75-99) mg/dL Calcium (8.4-10.2) mg/dL Magnesium (1.6-2.3) mg/dL Microbiology - Last 24 Hours (Table) 07/08/21 12:45 Blood Culture - Preliminary Blood No Growth after 48 hours 07/08/21 13:00 Blood Culture - Preliminary Blood No Growth after 48 hours Assessment and Plan Plan: Assessment: #1. Acute hypoxic respiratory failure related to acute COVID-19 pneumonia, patient presented to the hospital on 07/08/2021, not a candidate for Remdesivir, not vaccinated. Patient's oxygenation has progressively became worse, we'll try to qualify him for Baricitinib today on 07/11/2021, currently patient is on 15 L per high flow nasal cannula and nonrebreather mask #2. Acute GI bleeding, with a rectal bleeding, hematuria and bleeding at the IV insertion sites, patient was given a dose of KCentra, and the bleeding has resolved. Hemoglobin is stable, patient has not required blood transfusions #3. Acute bilateral DVTs was initially started on Eliquis which was placed on hold related to acute bleeding. Status post IVC filter placement today on 07/11/2021 #4. Acute diabetic ketoacidosis, resolved #5. Acute kidney injury, improved #6. Hypertension #7. Acute anion gap Metabolic acidosis, resolved #8. Hyperkalemia, improved #9. Diabetes mellitus type 2 #10. Hypertension #10. Leukocytosis, persistent, slightly improved Plan: Oxygenation has worsened, patient is currently on 15 L high flow and nonrebreather mask His last set of inflammatory markers and d-dimer were elevated Chest x-ray still showing significant bilateral airspace disease Discussed case with the pharmacy, and patient will qualify for Baricitinib 2 mg daily for 14 days We'll follow his clinical course, obtain follow-up blood work including CBC, CMP, follow-up d-dimer, and inflammatory markers Monitor for any further bleeding We'll continue to follow with surgery, vascular surgery, nephrology on the case I performed a history & physical examination of the patient and discussed their management with my nurse practitioner, Kristi Cartwright. I reviewed the nurse practitioner's note and agree with the documented findings and plan of care. Lung sounds are positive for dim breath sounds with rales throughout the lung hernandez. The findings and the impression was discussed with the patient. I attest to the documentation by the nurse practitioner. Time with Patient: Less than 30
[2021-07-11] MEDS ORDERED: BARICITINIB 2 MG TABLET PO SCH (16:00)
[2021-07-11 16:58] LABS: Glucose,Whole Blood 109 mg/dL (75-99)
[2021-07-11 20:19] LABS: Glucose,Whole Blood 215 mg/dL (75-99)
--- NOTE | 2021-07-11 21:10 | P.OP ---
Date of Procedure: 07/11/21 Preoperative Diagnosis: Bilateral lower extremity DVT with contraindication to anticoagulation. Postoperative Diagnosis: Same. Procedure(s) Performed: 1. Ultrasound-guided cannulation right femor 2. Right iliac venogram and inferior venacavogram. 3. Placement IVC filter. Implants: IVC filter. Cook Tulip type. Anesthesia: local Surgeon: Max Bazzi Estimated Blood Loss (ml): 2 Pathology: none sent Condition: stable Disposition: no change Indications for Procedure: Patient is a 60-year-old male who presente to the hospital with a complaint of shortne. Additional workup demonstrated bilatera deep venous thrombosis. He is placed on novel oral anticoagulants none any GI bleed but hematuria. Because of this bleeding the patient is felt to be at high risk for additional bleeding events should anticoagulation therapy be continued. As such patient is now offered vena caval interrupture, risk and benefits wer Consent form was myah Description of Procedure: Patient was brought to the cardiovascular lped in usual manner. Utilizing ultrasound the right common femoral vein was identified. Tissues overlying the vein were localized With the aid of ultrasound a multipurpose needle was then advanced th skin into the femoral vein. Once cannulated soft- tip guidewire was advanced into the iliac vein. The needle was withdrawn and Right iliac venogram and inferior venacavo This demonstrated no iliac or caval thrombus. The cava was noted to be less than 28 mm in diamete. A Cook Tulip femoral approach vena cava Filter was selected. Guidewire was advanced through the sheath and the sheath was withdrawn.The filter sheath and dilator were advanced over the Guidewire and positioned at the elbow to L3 level. Dilator and guidewire were withdrawn and was advanced through the sheath and deployed interval. Completion venogram demonstrated good position of the filter without identifiable complication. The Delivery sheath was then withdrawn and predence of bleeding ceased. Patient tolerated the procedure well and wae returned to his room in satisfactory and stable condition. Total fluoroscopy time 6 seconds. Total contrast volume 20 ML's of Isovue 250.
[2021-07-12 07:08] LABS: Glucose,Whole Blood 72 mg/dL (75-99)
--- NOTE | 2021-07-12 07:25 | XR ---
EXAMINATION TYPE: XR chest 1V portable DATE OF EXAM: 07/12/2021 COMPARISON: 07/11/2021 HISTORY: Shortness of breath TECHNIQUE: Single frontal view of the chest is obtained. FINDINGS: Bilateral diffuse patchy infiltrates are stable. Heart size unchanged. Limited inspiration . No sizable pneumothorax. Arthropathy of the shoulders. IMPRESSION: Bilateral infiltrate stable
[2021-07-12] MEDS: INSULIN ASPART (NovoLOG) 100 UNIT/ML VIAL SQ SCH ×7 (07:37→20:50)
[2021-07-12] MEDS: amLODIPine 5 MG TAB PO SCH ×2 (09:34→20:50)
[2021-07-12] MEDS: PANTOPRAZOLE 40 MG TABLET PO SCH ×2 (09:34→17:25)
[2021-07-12] MEDS: CHOLECALCIFEROL 125 MCG (5000 IU) TABLET PO SCH (09:34)
[2021-07-12] MEDS: DEXAMETHASONE SOD PHOSPHATE 10 MG/ML 1 ML VIAL IVP SCH (09:35)
[2021-07-12] MEDS: ASCORBIC ACID 500 MG TAB PO SCH (09:35)
[2021-07-12] MEDS: ZINC SULFATE 220 MG CAP PO SCH (09:35)
[2021-07-12] MEDS: TAMSULOSIN 0.4 MG CAP.ER.24H PO SCH (09:35)
[2021-07-12] MEDS: INSULIN DETEMIR (LEVEMIR) 100 UNIT/ML SYR SQ SCH (09:35)
[2021-07-12] MEDS: ATORVASTATIN 40 MG TAB PO SCH (09:50)
[2021-07-12 10:35] LABS: Basophils # (A) 0.01 X 10*3/uL (0.00-0.10); Basophils % (A) 0.1 %; Eosinophils # (A) 0.02 X 10*3/uL (0.04-0.35); Eosinophils % (A) 0.1 %; HCT 44.8 % (39.6-50.0); HGB 14.6 g/dL (13.0-17.0); Immature Grans, Automated 1.3 %; Lymphocytes % (A) 8.1 %; MCH 31.1 pg (27.0-32.0); MCHC 32.6 g/dL (32.0-37.0); MCV 95.3 fL (80.0-97.0); Mean Platelet Volume 10.1 fL (9.5-12.2); Monocytes # (A) 0.95 X 10*3/uL (0.20-1.00); Monocytes % (A) 6.4 %; NRBC Per 100 WBC 0 /100 WBCS (0.0-0.0); Neutrophils # (A) 12.38 X 10*3/uL (1.80-7.70); Platelet Count 209 X 10*3/uL (140-440); RDW 14.6 % (11.5-14.5); WBC 14.75 X 10*3/uL (4.50-10.00)
[2021-07-12 11:23] LABS: African American GFR (CKD) 72.5 (60.0-200.0); Albumin 2.6 g/dL (3.8-4.9); Anion Gap 12.3 mmol/L (10.00-18.00); BUN/Creat Ratio 22.11 Ratio (12.00-20.00); Blood Urea Nitrogen 27.2 mg/dL (9.0-27.0); C Reactive Protein 1.7 mg/dL (0.00-0.80); Calcium 7.9 mg/dL (8.7-10.3); Carbon Dioxide 22.8 mmol/L (20.0-27.5); Globulin 2.6 g/dL (1.6-3.3); Magnesium 2.5 mg/dL (1.5-2.4); Non-African American GFR(CKD) 62.5 (60.0-200.0); Potassium 4.6 mmol/L (3.5-5.5); Total Bilirubin 0.5 mg/dL (0.30-1.20); Total Protein 5.2 g/dL (6.2-8.2)
--- NOTE | 2021-07-12 11:53 | P.PN ---
<Briseida Hebert - Last Filed: 07/12/21 11:47> Subjective Progress Note Date: 07/12/21 CHIEF COMPLAINT: GI bleed HISTORY OF PRESENT ILLNESS: Patient hospitalized for Covid pneumonia. He has bilateral lower extremity DVTs. Had been on Eliquis he developed bloody stools, hematuria and bleeding from his IV sites. He is status post IVC filter placement. He does report having a bowel movement yesterday with just a small amount of blood. He reports that his breathing is doing better. Afebrile. He is still requiring high level oxygen 15 L satting at 92%. WBC is 14.75 hemoglobin decreased from 16.3-14.6. Patient did receive Kcentra yesterday. He is off of the Eliquis. PHYSICAL EXAM: VITAL SIGNS: Reviewed. GENERAL: Well-developed in no acute distress. HEENT: No sclera icterus. Extraocular movements grossly intact. Moist buccal mucosa. Head is atraumatic, normocephalic. ABDOMEN: Soft. Nondistended. Nontender. NEUROLOGIC: Alert and oriented. Cranial nerves II through XII grossly intact. ASSESSMENT: 1. Acute lower GI bleed 2. Bilateral lower extremity DVT status post IVC filter PLAN: -Will consider colonoscopy during this hospital stay but hold off given patient's pulmonary status at this time and lack of significant bleeding. -Continue supportive care -Continue to monitor for signs or symptoms of bleeding -Continue to monitor hemoglobin -Continue to follow -Hold anticoagulation Physician Ingredient Scaler Helper note has been reviewed by physician. Signing provider agrees with the documented findings, assessment, and plan of care. Objective - Vital Signs Vital signs: Vital Signs Temp 98.4 F 07/12/21 11:03 Pulse 80 07/12/21 11:03 Resp 20 07/12/21 11:03 BP 128/74 07/12/21 11:03 Pulse Ox 92 L 07/12/21 11:03 Intake & Output 07/11/21 07/12/21 07/12/21 18:59 06:59 18:59 Intake Total 1810 Output Total 1350 1050 Balance 460 -1050 Intake: IV 50 Intake, IV Titration 600 Amount Sodium Chloride 0.9% 1, 600 000 ml @ 50 mls/hr IV . Q20H [facility] Rx#:[id number] Oral 1160 Output: Urine 1350 1050 Stool 0 Other: Voiding Method Indwelling Catheter Indwelling Catheter Indwelling Catheter # Voids 1 - Labs CBC & Chem 7: 07/12/21 07:32 07/12/21 07:32 Labs: Abnormal Lab Results - Last 24 Hours (Table) 07/11/21 07/11/21 07/11/21 Range/Units 12:27 16:57 20:16 WBC (4.50-10.00) X 10*3/uL RDW (11.5-14.5) % Immature Gran # (0.00-0.04) X 10*3/uL Neutrophils # (1.80-7.70) X 10*3/uL Eosinophils # (0.04-0.35) X 10*3/uL D-Dimer (<0.60) mg/L FEU BUN (9.0-27.0) mg/dL BUN/Creatinine Ratio (12.00-20.00) Ratio POC Glucose (mg/dL) 114 H 109 H 215 H (75-99) mg/dL Calcium (8.7-10.3) mg/dL Magnesium (1.5-2.4) mg/dL Lactate Dehydrogenase (120-246) U/L C-Reactive Protein (0.00-0.80) mg/dL Total Protein (6.2-8.2) g/dL Albumin (3.8-4.9) g/dL Albumin/Globulin Ratio (1.60-3.17) g/dL 07/12/21 07/12/21 07/12/21 Range/Units 07:06 07:32 07:32 WBC 14.75 H (4.50-10.00) X 10*3/uL RDW 14.6 H (11.5-14.5) % Immature Gran # 0.19 H (0.00-0.04) X 10*3/uL Neutrophils # 12.38 H (1.80-7.70) X 10*3/uL Eosinophils # 0.02 L (0.04-0.35) X 10*3/uL D-Dimer 10.62 H (<0.60) mg/L FEU BUN (9.0-27.0) mg/dL BUN/Creatinine Ratio (12.00-20.00) Ratio POC Glucose (mg/dL) 72 L (75-99) mg/dL Calcium (8.7-10.3) mg/dL Magnesium (1.5-2.4) mg/dL Lactate Dehydrogenase (120-246) U/L C-Reactive Protein (0.00-0.80) mg/dL Total Protein (6.2-8.2) g/dL Albumin (3.8-4.9) g/dL Albumin/Globulin Ratio (1.60-3.17) g/dL 07/12/21 Range/Units 07:32 WBC (4.50-10.00) X 10*3/uL RDW (11.5-14.5) % Immature Gran # (0.00-0.04) X 10*3/uL Neutrophils # (1.80-7.70) X 10*3/uL Eosinophils # (0.04-0.35) X 10*3/uL D-Dimer (<0.60) mg/L FEU BUN 27.2 H (9.0-27.0) mg/dL BUN/Creatinine Ratio 22.11 H (12.00-20.00) Ratio POC Glucose (mg/dL) (75-99) mg/dL Calcium 7.9 L (8.7-10.3) mg/dL Magnesium 2.5 H (1.5-2.4) mg/dL Lactate Dehydrogenase 454 H (120-246) U/L C-Reactive Protein 1.70 H (0.00-0.80) mg/dL Total Protein 5.2 L (6.2-8.2) g/dL Albumin 2.6 L (3.8-4.9) g/dL Albumin/Globulin Ratio 1.00 L (1.60-3.17) g/dL Microbiology - Last 24 Hours (Table) 07/08/21 13:00 Blood Culture - Preliminary Blood No Growth after 72 hours 07/08/21 12:45 Blood Culture - Preliminary Blood No Growth after 72 hours <Santana Yeboah - Last Filed: 07/12/21 12:31> Subjective I have personally seen and examined the patient, reviewed the ASSEMBLER MECHANICAL ORDNANCE /PAs history, exam and MDM and agree with the assessment and plan as written. Based on total visit time, I have performed more than 50% of the visit. As above. Patient had a small amount of rectal bleeding. Definitely improved from previous. Oxygen requiring slightly improved. Continue observation. We'll follow. Objective - Vital Signs Vital signs: Vital Signs Temp 98.4 F 07/12/21 11:03 Pulse 80 07/12/21 11:03 Resp 20 07/12/21 11:03 BP 128/74 07/12/21 11:03 Pulse Ox 92 L 07/12/21 11:03 Intake & Output 07/11/21 07/12/21 07/12/21 18:59 06:59 18:59 Intake Total 1810 Output Total 1350 1050 Balance 460 -1050 Intake: IV 50 Intake, IV Titration 600 Amount Sodium Chloride 0.9% 1, 600 000 ml @ 50 mls/hr IV . Q20H [facility] Rx#:[id number] Oral 1160 Output: Urine 1350 1050 Stool 0 Other: Voiding Method Indwelling Catheter Indwelling Catheter Indwelling Catheter # Voids 1 - Labs CBC & Chem 7: 07/12/21 07:32 07/12/21 07:32 Labs: Abnormal Lab Results - Last 24 Hours (Table) 07/11/21 07/11/21 07/12/21 Range/Units 16:57 20:16 07:06 WBC (4.50-10.00) X 10*3/uL RDW (11.5-14.5) % Immature Gran # (0.00-0.04) X 10*3/uL Neutrophils # (1.80-7.70) X 10*3/uL Eosinophils # (0.04-0.35) X 10*3/uL D-Dimer (<0.60) mg/L FEU BUN (9.0-27.0) mg/dL BUN/Creatinine Ratio (12.00-20.00) Ratio POC Glucose (mg/dL) 109 H 215 H 72 L (75-99) mg/dL Calcium (8.7-10.3) mg/dL Magnesium (1.5-2.4) mg/dL Lactate Dehydrogenase (120-246) U/L C-Reactive Protein (0.00-0.80) mg/dL Total Protein (6.2-8.2) g/dL Albumin (3.8-4.9) g/dL Albumin/Globulin Ratio (1.60-3.17) g/dL 07/12/21 07/12/2107/12/22 Range/Units 07:32 07:32 07:32 WBC 14.75 H (4.50-10.00) X 10*3/uL RDW 14.6 H (11.5-14.5) % Immature Gran # 0.19 H (0.00-0.04) X 10*3/uL Neutrophils # 12.38 H (1.80-7.70) X 10*3/uL Eosinophils # 0.02 L (0.04-0.35) X 10*3/uL D-Dimer 10.62 H (<0.60) mg/L FEU BUN 27.2 H (9.0-27.0) mg/dL BUN/Creatinine Ratio 22.11 H (12.00-20.00) Ratio POC Glucose (mg/dL) (75-99) mg/dL Calcium 7.9 L (8.7-10.3) mg/dL Magnesium 2.5 H (1.5-2.4) mg/dL Lactate Dehydrogenase 454 H (120-246) U/L C-Reactive Protein 1.70 H (0.00-0.80) mg/dL Total Protein 5.2 L (6.2-8.2) g/dL Albumin 2.6 L (3.8-4.9) g/dL Albumin/Globulin Ratio 1.00 L (1.60-3.17) g/dL 07/12/21 Range/Units 11:48 WBC (4.50-10.00) X 10*3/uL RDW (11.5-14.5) % Immature Gran # (0.00-0.04) X 10*3/uL Neutrophils # (1.80-7.70) X 10*3/uL Eosinophils # (0.04-0.35) X 10*3/uL D-Dimer (<0.60) mg/L FEU BUN (9.0-27.0) mg/dL BUN/Creatinine Ratio (12.00-20.00) Ratio POC Glucose (mg/dL) 106 H (75-99) mg/dL Calcium (8.7-10.3) mg/dL Magnesium (1.5-2.4) mg/dL Lactate Dehydrogenase (120-246) U/L C-Reactive Protein (0.00-0.80) mg/dL Total Protein (6.2-8.2) g/dL Albumin (3.8-4.9) g/dL Albumin/Globulin Ratio (1.60-3.17) g/dL Microbiology - Last 24 Hours (Table) 07/08/21 13:00 Blood Culture - Preliminary Blood No Growth after 72 hours 07/08/21 12:45 Blood Culture - Preliminary Blood No Growth after 72 hours Assessment and Plan (1) Lower GI bleed Current Visit: Yes Status: Acute Code(s): K92.2 - GASTROINTESTINAL HEMORRHAGE, UNSPECIFIED SNOMED Code(s): 20628326
[2021-07-12 11:54] LABS: Glucose,Whole Blood 106 mg/dL (75-99)
--- NOTE | 2021-07-12 13:39 | P.PN ---
Subjective Progress Note Date: 07/12/21 The patient seen and examined sitting up in bed. Patient was admitted with COVID-19 infection as well as bilateral lower extremity DVTs. He was started on anticoagulation and had a GI bleed. He is status post IVC filter placement via the right groin yesterday. Patient denies any pain to the right groin or lower extremity. Objective - Vital Signs Vital signs: Vital Signs Temp 97.7 F 07/12/21 05:48 Pulse 88 07/12/21 05:48 Resp 15 07/12/21 05:48 BP 114/69 07/12/21 05:48 Pulse Ox 94 L 07/12/21 05:48 Intake & Output 07/11/21 07/12/21 07/12/21 18:59 06:59 18:59 Intake Total 1810 Output Total 1350 1050 Balance 460 -1050 Intake: IV 50 Intake, IV Titration 600 Amount Sodium Chloride 0.9% 1, 600 000 ml @ 50 mls/hr IV . Q20H [facility] Rx#:[id number] Oral 1160 Output: Urine 1350 1050 Stool 0 Other: Voiding Method Indwelling Catheter Indwelling Catheter # Voids 1 - Exam General appearance: The patient is alert, oriented, appears in no acute distress. HET: Head is normocephalic and atraumatic. Neck: Supple without lymphadenopathy. Trachea midline. Heart: S1 S2. Regular rate and rhythm. Lungs: No crackles or wheezes are heard. Abdomen: Soft, nontender, nondistended. Extremities: Normal skin color and turgor. Right groin access site without any hematoma or bleeding noted. No cyanosis, rash, ulceration, clubbing, or edema. Patient is able to wiggle bilateral toes and move lower extremities. Neurological: No focal deficits. Alert and oriented 3. - Labs CBC & Chem 7: 07/12/21 07:32 07/12/21 07:32 Labs: Abnormal Lab Results - Last 24 Hours (Table) 07/11/21 07/11/21 07/11/21 Range/Units 12:27 16:57 20:16 D-Dimer (<0.60) mg/L FEU POC Glucose (mg/dL) 114 H 109 H 215 H (75-99) mg/dL 07/12/21 07/12/21 Range/Units 07:06 07:32 D-Dimer 10.62 H (<0.60) mg/L FEU POC Glucose (mg/dL) 72 L (75-99) mg/dL Microbiology - Last 24 Hours (Table) 07/08/21 13:00 Blood Culture - Preliminary Blood No Growth after 72 hours 07/08/21 12:45 Blood Culture - Preliminary Blood No Growth after 72 hours Assessment and Plan Assessment: 1. Bilateral lower extremity DVT with contraindication for anticoagulation status post IVC filter placement 2. Covid pneumonia 3. GI bleed, contraindication to anticoagulation Plan: 1. Continue symptomatic and supportive care 2. No further indication for any vascular surgical intervention Thank you for this consultation, vascular surgery will sign off at this time. The impression and plan of care has been dictated as directed. Dr. Mayes I performed a history and examination of this patient, discussed the same with the dictator. I agree with the dictator's note ,documented as a scribe. Any additional findings or plans will be noted.
[2021-07-12] MEDS: BARICITINIB 2 MG TABLET PO SCH (16:19)
[2021-07-12 16:57] LABS: Glucose,Whole Blood 209 mg/dL (75-99)
--- NOTE | 2021-07-12 17:22 | P.PN ---
Subjective Progress Note Date: 07/12/21 Principal diagnosis: Shortness of breath, hypoxia, COVID-19 On 07/11/2021 patient seen in follow-up on medical surgical floor, patient oxygen requirement and is currently increased, he is on 15 L per high flow nasal cannula and a nonrebreather mask, and his pulse ox is 92-96%, however he is breathing fairly comfortable, does not appear to be in any acute distress, his been afebrile, no complaints of chest discomfort, patient was diagnosed with bilateral lower extremity DVTs, and she was started on Eliquis however he developed GI bleeding, he had a large bowel movement with blood, he developed bleeding from his IV insertion sites, and hematuria, and his anticoagulation was subsequently placed on hold and he was given a dose of K Centra. However his hemoglobin has remained fairly stable, today it is 16.3, actually increased, patient has not required any blood transfusions, hemodynamically has been stable, his white count is 20.5, his platelet count is 286, his renal profile is actually improving, his BUN is down to 52 and creatinine is down to 1.38, electrolytes are unremarkable. His pro calcitonin level was 0.61. His had no fever or chills. Patient was taken to the sleep lab technician by Dr. Bright and IVC filter was inserted. He is also seen in consultation by surgical services, the recommendation was to place anticoagulation on hold, and surgery will remain on standby at this time. On 07/12/2021 patient seen in follow-up on medical surgical floor, he states his breathing is not bad, although he still requiring high flow oxygen 15 L and his pulse ox is between 92-94%, hemodynamically his has remained stable, his been afebrile, he is resting comfortably in bed, his Eliquis remains on hold for an episode of GI bleeding. Patient denies any abdominal pain, there has been no further bleeding. His hemoglobin today is 14.6, his white blood cell count is improving and is down to 14.7 on today's labs, d-dimer is improving and is down to 10.6, electrolytes are within normal limits, BUN is 27.2, and creatinine is improved and is down to 1.2. His LDH has significantly improved is down to 454, CRP is down to 1.7. His pro calcitonin level is negative at 0.09. Patient is currently on Decadron 6 mg daily, he is on multivitamins including vitamin C, vitamin D, and zinc, he continues on gentle IV hydration with 0.9 normal saline at a rate of 50 ML per hour. Chest x-ray today showing bilateral infiltrates that are stable in appearance. Surgical services are following, patient is status post IVC filter yesterday in the right groin. Lung sounds are essentially clear but very minimal crackles at the left base, breathing very comfortably, no complaints of chest pain. Objective - Vital Signs Vital signs: Vital Signs Temp 98.0 F 07/12/21 14:00 Pulse 104 H 07/12/21 14:00 Resp 20 07/12/21 14:00 BP 122/82 07/12/21 14:00 Pulse Ox 92 L 07/12/21 14:00 Intake & Output 07/11/21 07/12/21 07/12/21 18:59 06:59 18:59 Intake Total 1810 Output Total 1350 1050 Balance 460 -1050 Intake: IV 50 Intake, IV Titration 600 Amount Sodium Chloride 0.9% 1, 600 000 ml @ 50 mls/hr IV . Q20H [facility] Rx#:[id number] Oral 1160 Output: Urine 1350 1050 Stool 0 Other: Voiding Method Indwelling Catheter Indwelling Catheter Indwelling Catheter # Voids 1 - Exam GENERAL EXAM: Alert, very pleasant 60-year-old white male, on 15 L per high flow nasal cannula in the nonrebreather mask, with a pulse ox of 96% comfortable in no apparent distress. HEAD: Normocephalic/atraumatic. EYES: Normal reaction of pupils, equal size. Conjunctiva pink, sclera white. NOSE: Clear with pink turbinates. THROAT: No erythema or exudates. NECK: No masses, no JVD, no thyroid enlargement, no adenopathy. CHEST: No chest wall deformity. Symmetrical expansion. LUNGS: Equal air entry with no crackles, wheeze, rhonchi or dullness. CVS: Regular rate and rhythm, normal S1 and S2, no gallops, no murmurs, no rubs ABDOMEN: Soft, nontender. No hepatosplenomegaly, normal bowel sounds, no guarding or rigidity. EXTREMITIES: No clubbing, no edema, no cyanosis, 2+ pulses and upper and lower extremities. MUSCULOSKELETAL: Muscle strength and tone normal. SPINE: No scoliosis or deformity SKIN: No rashes CENTRAL NERVOUS SYSTEM: Alert and oriented -3. No focal deficits, tone is normal in all 4 extremities. PSYCHIATRIC: Alert and oriented -3. Appropriate affect. Intact judgment and insight. - Labs CBC & Chem 7: 07/12/21 07:32 07/12/21 07:32 Labs: Abnormal Lab Results - Last 24 Hours (Table) 07/11/21 07/12/21 07/12/21 Range/Units 20:16 07:06 07:32 WBC 14.75 H (4.50-10.00) X 10*3/uL RDW 14.6 H (11.5-14.5) % Immature Gran # 0.19 H (0.00-0.04) X 10*3/uL Neutrophils # 12.38 H (1.80-7.70) X 10*3/uL Eosinophils # 0.02 L (0.04-0.35) X 10*3/uL D-Dimer (<0.60) mg/L FEU BUN (9.0-27.0) mg/dL BUN/Creatinine Ratio (12.00-20.00) Ratio POC Glucose (mg/dL) 215 H 72 L (75-99) mg/dL Calcium (8.7-10.3) mg/dL Magnesium (1.5-2.4) mg/dL Lactate Dehydrogenase (120-246) U/L C-Reactive Protein (0.00-0.80) mg/dL Total Protein (6.2-8.2) g/dL Albumin (3.8-4.9) g/dL Albumin/Globulin Ratio (1.60-3.17) g/dL 07/12/21 07/12/21 07/12/21 Range/Units 07:32 07:32 11:48 WBC (4.50-10.00) X 10*3/uL RDW (11.5-14.5) % Immature Gran # (0.00-0.04) X 10*3/uL Neutrophils # (1.80-7.70) X 10*3/uL Eosinophils # (0.04-0.35) X 10*3/uL D-Dimer 10.62 H (<0.60) mg/L FEU BUN 27.2 H (9.0-27.0) mg/dL BUN/Creatinine Ratio 22.11 H (12.00-20.00) Ratio POC Glucose (mg/dL) 106 H (75-99) mg/dL Calcium 7.9 L (8.7-10.3) mg/dL Magnesium 2.5 H (1.5-2.4) mg/dL Lactate Dehydrogenase 454 H (120-246) U/L C-Reactive Protein 1.70 H (0.00-0.80) mg/dL Total Protein 5.2 L (6.2-8.2) g/dL Albumin 2.6 L (3.8-4.9) g/dL Albumin/Globulin Ratio 1.00 L (1.60-3.17) g/dL 07/12/21 Range/Units 16:55 WBC (4.50-10.00) X 10*3/uL RDW (11.5-14.5) % Immature Gran # (0.00-0.04) X 10*3/uL Neutrophils # (1.80-7.70) X 10*3/uL Eosinophils # (0.04-0.35) X 10*3/uL D-Dimer (<0.60) mg/L FEU BUN (9.0-27.0) mg/dL BUN/Creatinine Ratio (12.00-20.00) Ratio POC Glucose (mg/dL) 209 H (75-99) mg/dL Calcium (8.7-10.3) mg/dL Magnesium (1.5-2.4) mg/dL Lactate Dehydrogenase (120-246) U/L C-Reactive Protein (0.00-0.80) mg/dL Total Protein (6.2-8.2) g/dL Albumin (3.8-4.9) g/dL Albumin/Globulin Ratio (1.60-3.17) g/dL Microbiology - Last 24 Hours (Table) 07/08/21 13:00 Blood Culture - Preliminary Blood No Growth after 96 hours 07/08/21 12:45 Blood Culture - Preliminary Blood No Growth after 96 hours Assessment and Plan Plan: Assessment: #1. Acute hypoxic respiratory failure related to acute COVID-19 pneumonia, patient presented to the hospital on 07/08/2021, not a candidate for Remdesivir, not vaccinated. Patient's oxygenation has progressively became worse, we'll try to qualify him for Baricitinib today on 07/11/2021, currently patient is on 15 L per high flow nasal cannula and nonrebreather mask. On 07/12/2021 patient's breathing is stable, he is currently on 15 L per high flow nasal cannula #2. Acute GI bleeding, with a rectal bleeding, hematuria and bleeding at the IV insertion sites, patient was given a dose of KCentra, and the bleeding has resolved. Hemoglobin is stable, patient has not required blood transfusions #3. Acute bilateral DVTs was initially started on Eliquis which was placed on hold related to acute bleeding. Status post IVC filter placement today on 07/11/2021 #4. Acute diabetic ketoacidosis, resolved #5. Acute kidney injury, improved #6. Hypertension #7. Acute anion gap Metabolic acidosis, resolved #8. Hyperkalemia, improved #9. Diabetes mellitus type 2 #10. Hypertension #10. Leukocytosis, persistent, slightly improved Plan: Patient remains on high flow oxygen, but appears to be in no acute distress, Oxygenation may be slightly improved, patient is not using nonrebreather mask in addition to high flow oxygen Continue Baricitinib, continue current dose Decadron Eliquis remains on hold There has been no further bleeding Patient status post IVC filter placement Increase activity as tolerated Continue weaning FiO2 to keep O2 sats ration is at or above 90% Encouraged the patient to sit up in the chair We'll continue to follow his clinical course His labs have been reviewed Renal function is improving, leukocytosis is improving, d-dimer inflammatory markers are also improved I performed a history & physical examination of the patient and discussed their management with my nurse practitioner, Kristi Cartwright. I reviewed the nurse practitioner's note and agree with the documented findings and plan of care. Lung sounds are positive for dim breath sounds with rales throughout the lung hernandez. The findings and the impression was discussed with the patient. I attest to the documentation by the nurse practitioner. Time with Patient: Less than 30
[2021-07-12] MEDS: SODIUM CHLORIDE 0.9% 1,000 ML IV SCH (17:34)
--- NOTE | 2021-07-12 17:47 | P.PN ---
Subjective Progress Note Date: 07/12/21 Principal diagnosis: COVID-19 Patient was examined at bedside complaining of any new symptomatology. Continues to be on modified high flow 15 L. Denies any distant otology case discussed with pulmonary team chronic at bedside. Objective - Vital Signs Vital signs: Vital Signs Temp 98.0 F 07/12/21 14:00 Pulse 104 H 07/12/21 14:00 Resp 20 07/12/21 14:00 BP 122/82 07/12/21 14:00 Pulse Ox 92 L 07/12/21 14:00 Intake & Output 07/11/21 07/12/21 07/12/21 18:59 06:59 18:59 Intake Total 1810 Output Total 1350 1050 Balance 460 -1050 Intake: IV 50 Intake, IV Titration 600 Amount Sodium Chloride 0.9% 1, 600 000 ml @ 50 mls/hr IV . Q20H [facility] Rx#:[id number] Oral 1160 Output: Urine 1350 1050 Stool 0 Other: Voiding Method Indwelling Catheter Indwelling Catheter Indwelling Catheter # Voids 1 - Exam Constitutional: No acute distress, conversant, pleasant Eyes:Anicteric sclerae, moist conjunctiva, no lid-lag, PERRLA, ENMT: Oropharynx clear, no erythema, exudates Neck: Supple, FROM, no masses, or JVD, No carotid bruits, No thyromegaly Lungs: Some rhonchi appreciated Cardiovascular: Heart regular in rate and rhythm, No murmurs, gallops, or rubs, No peripheral edema Abdominal: Soft, Nontender, - Labs CBC & Chem 7: 07/12/21 07:32 07/12/21 07:32 Labs: Abnormal Lab Results - Last 24 Hours (Table) 07/11/21 07/12/21 07/12/21 Range/Units 20:16 07:06 07:32 WBC 14.75 H (4.50-10.00) X 10*3/uL RDW 14.6 H (11.5-14.5) % Immature Gran # 0.19 H (0.00-0.04) X 10*3/uL Neutrophils # 12.38 H (1.80-7.70) X 10*3/uL Eosinophils # 0.02 L (0.04-0.35) X 10*3/uL D-Dimer (<0.60) mg/L FEU BUN (9.0-27.0) mg/dL BUN/Creatinine Ratio (12.00-20.00) Ratio POC Glucose (mg/dL) 215 H 72 L (75-99) mg/dL Calcium (8.7-10.3) mg/dL Magnesium (1.5-2.4) mg/dL Lactate Dehydrogenase (120-246) U/L C-Reactive Protein (0.00-0.80) mg/dL Total Protein (6.2-8.2) g/dL Albumin (3.8-4.9) g/dL Albumin/Globulin Ratio (1.60-3.17) g/dL 07/12/21 07/12/21 07/12/21 Range/Units 07:32 07:32 11:48 WBC (4.50-10.00) X 10*3/uL RDW (11.5-14.5) % Immature Gran # (0.00-0.04) X 10*3/uL Neutrophils # (1.80-7.70) X 10*3/uL Eosinophils # (0.04-0.35) X 10*3/uL D-Dimer 10.62 H (<0.60) mg/L FEU BUN 27.2 H (9.0-27.0) mg/dL BUN/Creatinine Ratio 22.11 H (12.00-20.00) Ratio POC Glucose (mg/dL) 106 H (75-99) mg/dL Calcium 7.9 L (8.7-10.3) mg/dL Magnesium 2.5 H (1.5-2.4) mg/dL Lactate Dehydrogenase 454 H (120-246) U/L C-Reactive Protein 1.70 H (0.00-0.80) mg/dL Total Protein 5.2 L (6.2-8.2) g/dL Albumin 2.6 L (3.8-4.9) g/dL Albumin/Globulin Ratio 1.00 L (1.60-3.17) g/dL 07/12/21 Range/Units 16:55 WBC (4.50-10.00) X 10*3/uL RDW (11.5-14.5) % Immature Gran # (0.00-0.04) X 10*3/uL Neutrophils # (1.80-7.70) X 10*3/uL Eosinophils # (0.04-0.35) X 10*3/uL D-Dimer (<0.60) mg/L FEU BUN (9.0-27.0) mg/dL BUN/Creatinine Ratio (12.00-20.00) Ratio POC Glucose (mg/dL) 209 H (75-99) mg/dL Calcium (8.7-10.3) mg/dL Magnesium (1.5-2.4) mg/dL Lactate Dehydrogenase (120-246) U/L C-Reactive Protein (0.00-0.80) mg/dL Total Protein (6.2-8.2) g/dL Albumin (3.8-4.9) g/dL Albumin/Globulin Ratio (1.60-3.17) g/dL Microbiology - Last 24 Hours (Table) 07/08/21 13:00 Blood Culture - Preliminary Blood No Growth after 96 hours 07/08/21 12:45 Blood Culture - Preliminary Blood No Growth after 96 hours Assessment and Plan Plan: Assessment #1 COVID-19 pneumonia #2 possible GI bleed? #3 bilateral lower extremity DVT #4 diabetes mellitus insulin-dependent Plan: -Patient had saturations above 92% -Patient is currently on 15 L modified high flow -Gastroneurology, pulmonary surgical team on board -s/p IVC filter, anti-coagulation on hold -Patient started and barcitinib as per pulmonary team DVT prophylaxis SCDs
--- NOTE | 2021-07-12 17:55 | PN ---
PROGRESS NOTE Patient is seen for followup for acute kidney injury. Patient's renal function has been improving. Creatinine down to 1.2 from 5.89 on initial admission. PHYSICAL EXAMINATION: On examination today, blood pressure 128/74, heart rate 80 per minute. Patient is afebrile. Examination shows no evidence of edema. LAB: Show sodium 139, potassium 4.6, BUN 27.2, creatinine 1.2, hemoglobin 14.6. ASSESSMENT: 1. Acute kidney injury, mostly prerenal associated with hypovolemia and diabetic ketoacidosis. Renal function continues to improve. 2. Diabetic ketoacidosis status post insulin drip. 3. Hyperkalemia associated with acute kidney injury and hyperglycemia. 4. Benign hypertension. 5. Covid 19 pneumonia. 6. Right lower extremity deep vein thrombosis. Anticoagulation held due to bleeding. Hemoglobin is stable. Scheduled for IVC filter. PLAN: Continue with Flomax. Encouraged to continue to increase oral intake. The patient is maintained on IV fluids at 50 mL an hour which we can continue. MMODL / IJN: [id number] /
[2021-07-12 20:40] LABS: Glucose,Whole Blood 146 mg/dL (75-99)
[2021-07-13] MEDS: SODIUM CHLORIDE 0.9% 1,000 ML IV SCH (06:11)
[2021-07-13 06:53] LABS: Glucose,Whole Blood 229 mg/dL (75-99)
[2021-07-13 07:24] LABS: Basophils % (A) 0 %; Eosinophils % (A) 0 %; HCT 49.1 % (39.0-53.0); HGB 15.4 gm/dL (13.0-17.5); Lymphocytes # (A) 1.1 k/uL (1.0-4.8); Lymphocytes % (A) 8 %; MCH 30.7 pg (25.0-35.0); MCHC 31.5 g/dL (31.0-37.0); MCV 97.6 fL (80.0-100.0); Mean Platelet Volume 8.1; Monocytes # (A) 0.8 k/uL (0-1.0); Monocytes % (A) 5 %; Neutrophils # (A) 12.5 k/uL (1.3-7.7); Neutrophils % (A) 85 %; Platelet Count 179 k/uL (150-450); RBC 5.03 m/uL (4.30-5.90); RDW 13.5 % (11.5-15.5); WBC 14.6 k/uL (3.8-10.6)
[2021-07-13 07:29] LABS: ALT 35 U/L (4-49); African American GFR (CKD) >90 (>60 ml/min/1.73 sqM); Albumin 2.6 g/dL (3.5-5.0); Albumin/Globulin Ratio 0.8; Anion Gap 7 mmol/L; Blood Urea Nitrogen 25 mg/dL (9-20); Calcium 7.7 mg/dL (8.4-10.2); Carbon Dioxide 22 mmol/L (22-30); Chloride 105 mmol/L (98-107); Globulin 3.2 g/dL; Glucose 59 mg/dL (74-99); Non-African American GFR(CKD) 79 (>60 ml/min/1.73 sqM); Sodium 134 mmol/L (137-145); Total Bilirubin 0.9 mg/dL (0.2-1.3); Total Protein 5.8 g/dL (6.3-8.2)
[2021-07-13 07:36] LABS: AST 39 U/L (17-59); Alkaline Phosphatase 117 U/L (38-126); Potassium 4.5 mmol/L (3.5-5.1)
[2021-07-13] MEDS: CHOLECALCIFEROL 125 MCG (5000 IU) TABLET PO SCH (07:51)
[2021-07-13] MEDS: ATORVASTATIN 40 MG TAB PO SCH (07:51)
[2021-07-13] MEDS: ASCORBIC ACID 500 MG TAB PO SCH (07:51)
[2021-07-13] MEDS: INSULIN DETEMIR (LEVEMIR) 100 UNIT/ML SYR SQ SCH (07:51)
[2021-07-13] MEDS: PANTOPRAZOLE 40 MG TABLET PO SCH ×2 (07:51→17:09)
[2021-07-13] MEDS: ZINC SULFATE 220 MG CAP PO SCH (07:51)
[2021-07-13] MEDS: TAMSULOSIN 0.4 MG CAP.ER.24H PO SCH (07:51)
[2021-07-13] MEDS: amLODIPine 5 MG TAB PO SCH ×2 (07:51→20:22)
[2021-07-13] MEDS: DEXAMETHASONE SOD PHOSPHATE 10 MG/ML 1 ML VIAL IVP SCH (07:52)
[2021-07-13] MEDS: INSULIN ASPART (NovoLOG) 100 UNIT/ML VIAL SQ SCH ×7 (07:52→19:48)
[2021-07-13 11:50] LABS: Glucose,Whole Blood 144 mg/dL (75-99)
--- NOTE | 2021-07-13 12:42 | P.PN ---
<Briseida Hebert - Last Filed: 07/13/21 12:38> Subjective Progress Note Date: 07/13/21 CHIEF COMPLAINT: GI bleed HISTORY OF PRESENT ILLNESS: Patient hospitalized for Covid pneumonia. He has bilateral lower extremity DVTs. Had been on Eliquis he developed bloody stools, hematuria and bleeding from his IV sites. Eliquis discontinued. He is status post IVC filter placement. He reports having brown bowel movements last night and today. No further bleeding reported. Oxygen levels worsened. He is now on a nonrebreather. Afebrile WBC is 14.6 hemoglobin 14.6 up to 15.4 platelets 179 PHYSICAL EXAM: VITAL SIGNS: Reviewed. GENERAL: Well-developed in no acute distress. HEENT: No sclera icterus. Extraocular movements grossly intact. Moist buccal mucosa. Head is atraumatic, normocephalic. ABDOMEN: Soft. Nondistended. Nontender. NEUROLOGIC: Alert and oriented. Cranial nerves II through XII grossly intact. ASSESSMENT: 1. Acute lower GI bleed 2. Bilateral lower extremity DVT status post IVC filter 3. COVID-19 pneumonia PLAN: -Will consider colonoscopy during this hospital stay but hold off given patient's pulmonary status at this time and lack of significant bleeding. -Continue supportive care -Continue to monitor for signs or symptoms of bleeding -Continue to monitor hemoglobin -Continue to follow Physician Advertising Assistant Manager note has been reviewed by physician. Signing provider agrees with the documented findings, assessment, and plan of care. Objective - Vital Signs Vital signs: Vital Signs Temp 98.0 F 07/13/21 11: Pulse 72 07/13/21 11:22 Resp 21 07/13/21 11:22 BP 122/79 07/13/21 11:22 Pulse Ox 88 L 07/13/21 11:22 Intake & Output 07/12/21 07/13/21 07/13/21 18:59 06:59 18:59 Intake Total 740 Output Total 1000 Balance -260 Intake: Intake, IV Titration 500 Amount Sodium Chloride 0.9% 1, 500 000 ml @ 50 mls/hr IV . Q20H [facility] Rx#:[id number] Oral 240 Output: Urine 1000 Other: Voiding Method Indwelling Catheter Indwelling Catheter Indwelling Catheter # Voids 1,000 # Bowel Movements 1 - Labs CBC & Chem 7: 07/13/21 05:46 07/13/21 05:46 Labs: Abnormal Lab Results - Last 24 Hours (Table) 07/12/21 07/12/21 07/13/21 Range/Units 16:55 20:39 05:46 WBC 14.6 H (3.8-10.6) k/uL Neutrophils # 12.5 H (1.3-7.7) k/uL Sodium (137-145) mmol/L BUN (9-20) mg/dL Glucose (74-99) mg/dL POC Glucose (mg/dL) 209 H 146 H (75-99) mg/dL Calcium (8.4-10.2) mg/dL Total Protein (6.3-8.2) g/dL Albumin (3.5-5.0) g/dL 07/13/21 07/13/21 07/13/21 Range/Units 05:46 06:52 11:49 WBC (3.8-10.6) k/uL Neutrophils # (1.3-7.7) k/uL Sodium 134 L (137-145) mmol/L BUN 25 H (9-20) mg/dL Glucose 59 L (74-99) mg/dL POC Glucose (mg/dL) 229 H 144 H (75-99) mg/dL Calcium 7.7 L (8.4-10.2) mg/dL Total Protein 5.8 L (6.3-8.2) g/dL Albumin 2.6 L (3.5-5.0) g/dL Microbiology - Last 24 Hours (Table) 07/08/21 13:00 Blood Culture - Preliminary Blood No Growth after 96 hours 07/08/21 12:45 Blood Culture - Preliminary Blood No Growth after 96 hours <Santana Yeboah - Last Filed: 07/13/21 17:13> Subjective As above. No further bleeding. Patient's anticoagulation remains on hold. Patient not stable for endoscopic evaluation at this point. Consider colonoscopy later during this hospitalization or possibly as outpatient. Resume prophylactic dosing of anticoagulation tomorrow and if no bleeding noted consider reattempts at therapeutic anticoagulation. We'll sign off. Please call if further bleeding identified or if patient stable for endoscopy. Objective - Vital Signs Vital signs: Vital Signs Temp 97.9 F 07/13/21 14:00 Pulse 97 07/13/21 14:00 Resp 19 07/13/21 14:00 BP 109/64 07/13/21 14:00 Pulse Ox 96 07/13/21 14:00 Intake & Output 07/12/21 07/13/21 07/13/21 18:59 06:59 18:59 Intake Total 740 Output Total 1000 650 Balance -260 -650 Intake: Intake, IV Titration 500 Amount Sodium Chloride 0.9% 1, 500 000 ml @ 50 mls/hr IV . [facility]H [facility] Rx#:[id number] Oral 240 Output: Urine 1000 650 Other: Voiding Method Indwelling Catheter Indwelling Catheter Indwelling Catheter # Voids 1,000 # Bowel Movements 1 1 - Labs CBC & Chem 7: 07/13/21 05:46 07/13/21 05:46 Labs: Abnormal Lab Results - Last 24 Hours (Table) 07/12/21 07/13/21 07/13/21 Range/Units 20:39 05:46 05:46 WBC 14.6 H (3.8-10.6) k/uL Neutrophils # 12.5 H (1.3-7.7) k/uL Sodium 134 L (137-145) mmol/L BUN 25 H (9-20) mg/dL Glucose 59 L (74-99) mg/dL POC Glucose (mg/dL) 146 H (75-99) mg/dL Calcium 7.7 L (8.4-10.2) mg/dL Total Protein 5.8 L (6.3-8.2) g/dL Albumin 2.6 L (3.5-5.0) g/dL 07/13/21 07/13/21 Range/Units 06:52 11:49 WBC (3.8-10.6) k/uL Neutrophils # (1.3-7.7) k/uL Sodium (137-145) mmol/L BUN (9-20) mg/dL Glucose (74-99) mg/dL POC Glucose (mg/dL) 229 H 144 H (75-99) mg/dL Calcium (8.4-10.2) mg/dL Total Protein (6.3-8.2) g/dL Albumin (3.5-5.0) g/dL Microbiology - Last 24 Hours (Table) 07/08/21 13:00 Blood Culture - Preliminary Blood No Growth after 120 hours 07/08/21 12:45 Blood Culture - Preliminary Blood No Growth after 120 hours Assessment and Plan (1) Lower GI bleed Current Visit: Yes Status: Acute Code(s): K92.2 - GASTROINTESTINAL HEMORRHAGE, UNSPECIFIED SNOMED Code(s): 11994717
--- NOTE | 2021-07-13 12:42 | P.PN ---
Subjective Patient is seen in follow-up for acute kidney injury. Renal function continues to improve. Currently on normal saline. Nonoliguric. Gonzalez catheter reinserted due to urinary retention. Denies chest pain or shortness of breath. On nonrebreather. No active complaints. Vital signs are stable. General: On nonrebreather. HEENT: Head exam is unremarkable. LUNGS: Breath sounds decreased. HEART: Rate and Rhythm are regular. ABDOMEN: Soft, no distention. EXTREMITITES: No edema. Objective - Vital Signs Vital signs: Vital Signs Temp 98.0 F 07/13/21 11: Pulse 72 07/13/21 11:22 Resp 21 07/13/21 11:22 BP 122/79 07/13/21 11: Pulse Ox 88 L 07/13/21 11:22 Intake & Output 07/12/21 07/13/21 07/13/21 18:59 06:59 18:59 Intake Total 740 Output Total 1000 Balance -260 Intake: Intake, IV Titration 500 Amount Sodium Chloride 0.9% 1, 500 000 ml @ 50 mls/hr IV . Q20H [facility] Rx#:[id number] Oral 240 Output: Urine 1000 Other: Voiding Method Indwelling Catheter Indwelling Catheter Indwelling Catheter # Voids 1,000 # Bowel Movements 1 - Labs CBC & Chem 7: 07/13/21 05:46 07/13/21 05:46 Labs: Abnormal Lab Results - Last 24 Hours (Table) 07/12/21 07/12/21 07/13/21 Range/Units 16:55 20:39 05:46 WBC 14.6 H (3.8-10.6) k/uL Neutrophils # 12.5 H (1.3-7.7) k/uL Sodium (137-145) mmol/L BUN (9-20) mg/dL Glucose (74-99) mg/dL POC Glucose (mg/dL) 209 H 146 H (75-99) mg/dL Calcium (8.4-10.2) mg/dL Total Protein (6.3-8.2) g/dL Albumin (3.5-5.0) g/dL 07/13/21 07/13/21 07/13/21 Range/Units 05:46 06:52 11:49 WBC (3.8-10.6) k/uL Neutrophils # (1.3-7.7) k/uL Sodium 134 L (137-145) mmol/L BUN 25 H (9-20) mg/dL Glucose 59 L (74-99) mg/dL POC Glucose (mg/dL) 229 H 144 H (75-99) mg/dL Calcium 7.7 L (8.4-10.2) mg/dL Total Protein 5.8 L (6.3-8.2) g/dL Albumin 2.6 L (3.5-5.0) g/dL Microbiology - Last 24 Hours (Table) 07/08/21 13:00 Blood Culture - Preliminary Blood No Growth after 96 hours 07/08/21 12:45 Blood Culture - Preliminary Blood No Growth after 96 hours Assessment and Plan Plan: Assessment: 1. Acute kidney injury mostly prerenal secondary to hypovolemia from DKA. Creatinine was 5.89 on admission and is down to 1.02. No hydronephrosis noted on kidney ultrasound. 2. DKA status post insulin drip. Now tolerating oral intake. 3. Hyperkalemia secondary to acute kidney injury and hyperglycemia. Improved. 4. Anion gap metabolic acidosis secondary to DKA and acute kidney injury. Improved. 5. Benign hypertension. Controlled. 6. Acute hypoxic respiratory failure. 7. COVID-19 pneumonia. 8. Right lower extremity DVT. Anticoagulation held due to bleeding. Hemoglobin stable. IVC filter placed this admission. Plan: Hep-Lock IV fluids. Encouraged oral intake. Avoid nephrotoxins. Continue to monitor renal function and urine output.
--- NOTE | 2021-07-13 15:12 | P.PN ---
Subjective Progress Note Date: 07/13/21 Principal diagnosis: Shortness of breath, hypoxia, COVID-19 On 07/11/2021 patient seen in follow-up on medical surgical floor, patient oxygen requirement and is currently increased, he is on 15 L per high flow nasal cannula and a nonrebreather mask, and his pulse ox is 92-96%, however he is breathing fairly comfortable, does not appear to be in any acute distress, his been afebrile, no complaints of chest discomfort, patient was diagnosed with bilateral lower extremity DVTs, and she was started on Eliquis however he developed GI bleeding, he had a large bowel movement with blood, he developed bleeding from his IV insertion sites, and hematuria, and his anticoagulation was subsequently placed on hold and he was given a dose of K Centra. However his hemoglobin has remained fairly stable, today it is 16.3, actually increased, patient has not required any blood transfusions, hemodynamically has been stable, his white count is 20.5, his platelet count is 286, his renal profile is actually improving, his BUN is down to 52 and creatinine is down to 1.38, electrolytes are unremarkable. His pro calcitonin level was 0.61. His had no fever or chills. Patient was taken to the photo lab specialist by Dr. Bright and IVC filter was inserted. He is also seen in consultation by surgical services, the recommendation was to place anticoagulation on hold, and surgery will remain on standby at this time. On 07/12/2021 patient seen in follow-up on medical surgical floor, he states his breathing is not bad, although he still requiring high flow oxygen 15 L and his pulse ox is between 92-94%, hemodynamically his has remained stable, his been afebrile, he is resting comfortably in bed, his Eliquis remains on hold for an episode of GI bleeding. Patient denies any abdominal pain, there has been no further bleeding. His hemoglobin today is 14.6, his white blood cell count is improving and is down to 14.7 on today's labs, d-dimer is improving and is down to 10.6, electrolytes are within normal limits, BUN is 27.2, and creatinine is improved and is down to 1.2. His LDH has significantly improved is down to 454, CRP is down to 1.7. His pro calcitonin level is negative at 0.09. Patient is currently on Decadron 6 mg daily, he is on multivitamins including vitamin C, vitamin D, and zinc, he continues on gentle IV hydration with 0.9 normal saline at a rate of 50 ML per hour. Chest x-ray today showing bilateral infiltrates that are stable in appearance. Surgical services are following, patient is status post IVC filter yesterday in the right groin. Lung sounds are essentially clear but very minimal crackles at the left base, breathing very comfortably, no complaints of chest pain. On 07/13/2021 patient seen in follow-up on medical surgical floor. Patient is awake and alert, in no acute distress, he is requiring high flow oxygen, with 15 L in nonrebreather mask, and his pulse ox is anywhere between 88 and 96%, does not appear to be in any acute distress. We started him on Baricitinib yesterday on 07/12/2021, patient is breathing comfortably, minimal cough, no complaints of chest discomfort, his been afebrile, yesterday's chest x-ray showed stable maximus ateral infiltrates. Today's labs have been reviewed, his white blood cell count is stable at 14.6, hemoglobin is 15.4, sodium is 134, respiratory electrolytes are within normal limits, BUN is 25, creatinine is 1.02. Inflammatory markers were improving on yesterday's labs. Follow-up pro calcitonin was negative at 0.09 Objective - Vital Signs Vital signs: Vital Signs Temp 97.9 F 07/13/21 14:00 Pulse 97 07/13/21 14:00 Resp 19 07/13/21 14:00 BP 109/64 07/13/21 14:00 Pulse Ox 96 07/13/21 14:00 Intake & Output 07/12/21 07/13/21 07/13/21 18:59 06:59 18:59 Intake Total 740 Output Total 1000 Balance -260 Intake: Intake, IV Titration 500 Amount Sodium Chloride 0.9% 1, 500 000 ml @ 50 mls/hr IV . Q20H [facility] Rx#:[id number] Oral 240 Output: Urine 1000 Other: Voiding Method Indwelling Catheter Indwelling Catheter Indwelling Catheter # Voids 1,000 # Bowel Movements 1 - Exam GENERAL EXAM: Alert, very pleasant 60-year-old white male, on 15 L per high flow nasal cannula and the nonrebreather mask, with a pulse ox of 88-96% comfortable in no apparent distress. HEAD: Normocephalic/atraumatic. EYES: Normal reaction of pupils, equal size. Conjunctiva pink, sclera white. NOSE: Clear with pink turbinates. THROAT: No erythema or exudates. NECK: No masses, no JVD, no thyroid enlargement, no adenopathy. CHEST: No chest wall deformity. Symmetrical expansion. LUNGS: Equal air entry with no crackles, wheeze, rhonchi or dullness. CVS: Regular rate and rhythm, normal S1 and S2, no gallops, no murmurs, no rubs ABDOMEN: Soft, nontender. No hepatosplenomegaly, normal bowel sounds, no guarding or rigidity. EXTREMITIES: No clubbing, no edema, no cyanosis, 2+ pulses and upper and lower extremities. MUSCULOSKELETAL: Muscle strength and tone normal. SPINE: No scoliosis or deformity SKIN: No rashes CENTRAL NERVOUS SYSTEM: Alert and oriented -3. No focal deficits, tone is normal in all 4 extremities. PSYCHIATRIC: Alert and oriented -3. Appropriate affect. Intact judgment and insight. - Labs CBC & Chem 7: 07/13/21 05:46 07/13/21 05:46 Labs: Abnormal Lab Results - Last 24 Hours (Table) 07/12/21 07/12/21 07/13/21 Range/Units 16:55 20:39 05:46 WBC 14.6 H (3.8-10.6) k/uL Neutrophils # 12.5 H (1.3-7.7) k/uL Sodium (137-145) mmol/L BUN (9-20) mg/dL Glucose (74-99) mg/dL POC Glucose (mg/dL) 209 H 146 H (75-99) mg/dL Calcium (8.4-10.2) mg/dL Total Protein (6.3-8.2) g/dL Albumin (3.5-5.0) g/dL 07/13/21 07/13/21 07/13/21 Range/Units 05:46 06:52 11:49 WBC (3.8-10.6) k/uL Neutrophils # (1.3-7.7) k/uL Sodium 134 L (137-145) mmol/L BUN 25 H (9-20) mg/dL Glucose 59 L (74-99) mg/dL POC Glucose (mg/dL) 229 H 144 H (75-99) mg/dL Calcium 7.7 L (8.4-10.2) mg/dL Total Protein 5.8 L (6.3-8.2) g/dL Albumin 2.6 L (3.5-5.0) g/dL Microbiology - Last 24 Hours (Table) 07/08/21 13:00 Blood Culture - Preliminary Blood No Growth after 96 hours 07/08/21 12:45 Blood Culture - Preliminary Blood No Growth after 96 hours Assessment and Plan Plan: Assessment: #1. Acute hypoxic respiratory failure related to acute COVID-19 pneumonia, patient presented to the hospital on 07/08/2021, not a candidate for Remdesivir, not vaccinated. Patient's oxygenation has progressively became worse, we'll try to qualify him for Baricitinib today on 07/11/2021, currently patient is on 15 L per high flow nasal cannula and nonrebreather mask. Started on Baricitinib on 07/12/2021 #2. Acute GI bleeding, with a rectal bleeding, hematuria and bleeding at the IV insertion sites, patient was given a dose of KCentra, and the bleeding has resolved. Hemoglobin is stable, patient has not required blood transfusions #3. Acute bilateral DVTs was initially started on Eliquis which was placed on h old related to acute bleeding. Status post IVC filter placement today on 07/11/2021 #4. Acute diabetic ketoacidosis, resolved #5. Acute kidney injury, improved #6. Hypertension #7. Acute anion gap Metabolic acidosis, resolved #8. Hyperkalemia, improved #9. Diabetes mellitus type 2 #10. Hypertension #10. Leukocytosis, persistent, slightly improved Plan: Patient remains on high flow oxygen, but appears to be in no acute distress, Still requiring 15 L and nonrebreather mask However does not appear to be in any acute distress Continue Baricitinib, continue current dose Decadron Eliquis remains on hold Patient status post IVC filter placement Increase activity as tolerated Encouraged the patient to sit up in the chair We'll continue to follow his clinical course Today's labs have been reviewed, stable, renal function continues to improve, d- dimer is improving Continue to follow his clinical course I performed a history & physical examination of the patient and discussed their management with my nurse practitioner, Kristi Cartwright. I reviewed the nurse practitioner's note and agree with the documented findings and plan of care. Lung sounds are positive for dim breath sounds with rales throughout the lung hernandez. The findings and the impression was discussed with the patient. I attest to the documentation by the nurse practitioner. Time with Patient: Less than 30
--- NOTE | 2021-07-13 16:38 | P.PN ---
Subjective Progress Note Date: 07/13/21 Principal diagnosis: COVID-19 Patient was examined and its attendant accompanying of any new symptomatology. Continues to be on modified high flow 15 L. Case discussed with pulmonary bedside. Objective - Vital Signs Vital signs: Vital Signs Temp 97.9 F 07/13/21 14:00 Pulse 97 07/13/21 14:00 Resp 19 07/13/21 14:00 BP 109/64 07/13/21 14:00 Pulse Ox 96 07/13/21 14:00 Intake & Output 07/12/21 07/13/21 07/13/21 18:59 06:59 18:59 Intake Total 740 Output Total 1000 650 Balance -260 -650 Intake: Intake, IV Titration 500 Amount Sodium Chloride 0.9% 1, 500 000 ml @ 50 mls/hr IV . Q20H [facility] Rx#:[id number] Oral 240 Output: Urine 1000 650 Other: Voiding Method Indwelling Catheter Indwelling Catheter Indwelling Catheter # Voids 1,000 # Bowel Movements 1 1 - Exam Constitutional: No acute distress, conversant, pleasant Eyes:Anicteric sclerae, moist conjunctiva, no lid-lag, PERRLA, ENMT: Oropharynx clear, no erythema, exudates Neck: Supple, FROM, no masses, or JVD, No carotid bruits, No thyromegaly Lungs: Some rhonchi appreciated on modified high flow Cardiovascular: Heart regular in rate and rhythm, No murmurs, gallops, or rubs, No peripheral edema Abdominal: Soft, Nontender, - Labs CBC & Chem 7: 07/13/21 05:46 07/13/21 05:46 Labs: Abnormal Lab Results - Last 24 Hours (Table) 07/12/21 07/12/21 07/13/21 Range/Units 16:55 20:39 05:46 WBC 14.6 H (3.8-10.6) k/uL Neutrophils # 12.5 H (1.3-7.7) k/uL Sodium (137-145) mmol/L BUN (9-20) mg/dL Glucose (74-99) mg/dL POC Glucose (mg/dL) 209 H 146 H (75-99) mg/dL Calcium (8.4-10.2) mg/dL Total Protein (6.3-8.2) g/dL Albumin (3.5-5.0) g/dL 07/13/21 07/13/21 07/13/21 Range/Units 05:46 06:52 11:49 WBC (3.8-10.6) k/uL Neutrophils # (1.3-7.7) k/uL Sodium 134 L (137-145) mmol/L BUN 25 H (9-20) mg/dL Glucose 59 L (74-99) mg/dL POC Glucose (mg/dL) 229 H 144 H (75-99) mg/dL Calcium 7.7 L (8.4-10.2) mg/dL Total Protein 5.8 L (6.3-8.2) g/dL Albumin 2.6 L (3.5-5.0) g/dL Microbiology - Last 24 Hours (Table) 07/08/21 13:00 Blood Culture - Preliminary Blood No Growth after 120 hours 07/08/21 12:45 Blood Culture - Preliminary Blood No Growth after 120 hours Assessment and Plan Plan: Assessment #1 COVID-19 pneumonia #2 possible GI bleed? #3 bilateral lower extremity DVT #4 diabetes mellitus insulin-dependent Plan: -Patient had saturations above 92% -Patient is currently on 15 L modified high flow -Gastroneurology, pulmonary surgical team on board -Controlled we'll perform colonoscopy once respiratory status improves as per the note. -s/p IVC filter, anti-coagulation on hold -Patient started and barcitinib as per pulmonary team DVT prophylaxis SCDs
[2021-07-13 16:45] LABS: Glucose,Whole Blood 85 mg/dL (75-99)
[2021-07-13] MEDS: BARICITINIB 2 MG TABLET PO SCH (17:09)
[2021-07-13 19:44] LABS: Glucose,Whole Blood 75 mg/dL (75-99)
[2021-07-14] MEDS: SODIUM CHLORIDE 0.9% 1,000 ML IV SCH (02:11)
[2021-07-14 06:50] LABS: Glucose,Whole Blood 99 mg/dL (75-99)
[2021-07-14] MEDS: INSULIN ASPART (NovoLOG) 100 UNIT/ML VIAL SQ SCH ×7 (07:07→20:09)
[2021-07-14 07:50] LABS: Basophils % (A) 0 %; Eosinophils # (A) 0.1 k/uL (0-0.7); Eosinophils % (A) 0 %; HCT 47.6 % (39.0-53.0); Lymphocytes # (A) 1.2 k/uL (1.0-4.8); Lymphocytes % (A) 8 %; MCH 31.1 pg (25.0-35.0); MCHC 31.6 g/dL (31.0-37.0); MCV 98.5 fL (80.0-100.0); Mean Platelet Volume 8.3; Monocytes # (A) 0.9 k/uL (0-1.0); Monocytes % (A) 6 %; Neutrophils # (A) 13.3 k/uL (1.3-7.7); Neutrophils % (A) 85 %; Platelet Count 164 k/uL (150-450); RBC 4.84 m/uL (4.30-5.90); RDW 13.5 % (11.5-15.5); WBC 15.6 k/uL (3.8-10.6)
[2021-07-14] MEDS: DEXAMETHASONE SOD PHOSPHATE 10 MG/ML 1 ML VIAL IVP SCH (08:08)
[2021-07-14] MEDS: TAMSULOSIN 0.4 MG CAP.ER.24H PO SCH (08:09)
[2021-07-14] MEDS: ATORVASTATIN 40 MG TAB PO SCH (08:09)
[2021-07-14] MEDS: ASCORBIC ACID 500 MG TAB PO SCH (08:09)
[2021-07-14] MEDS: amLODIPine 5 MG TAB PO SCH (08:09)
[2021-07-14] MEDS: CHOLECALCIFEROL 125 MCG (5000 IU) TABLET PO SCH (08:09)
[2021-07-14] MEDS: ZINC SULFATE 220 MG CAP PO SCH (08:09)
[2021-07-14] MEDS: ENOXAPARIN 40 MG/0.4 ML SYRINGE SQ SCH (08:09)
[2021-07-14] MEDS: INSULIN DETEMIR (LEVEMIR) 100 UNIT/ML SYR SQ SCH (08:09)
[2021-07-14] MEDS: PANTOPRAZOLE 40 MG TABLET PO SCH ×2 (08:09→17:05)
[2021-07-14 08:16] LABS: ALT 37 U/L (4-49); AST 39 U/L (17-59); African American GFR (CKD) >90 (>60 ml/min/1.73 sqM); Albumin 2.4 g/dL (3.5-5.0); Albumin/Globulin Ratio 0.8; Alkaline Phosphatase 108 U/L (38-126); Anion Gap 4 mmol/L; Blood Urea Nitrogen 22 mg/dL (9-20); Calcium 7.6 mg/dL (8.4-10.2); Carbon Dioxide 23 mmol/L (22-30); Chloride 105 mmol/L (98-107); Globulin 3.1 g/dL; Magnesium 2.1 mg/dL (1.6-2.3); Non-African American GFR(CKD) 88 (>60 ml/min/1.73 sqM); Potassium 4.4 mmol/L (3.5-5.1); Sodium 132 mmol/L (137-145); Total Bilirubin 0.7 mg/dL (0.2-1.3); Total Protein 5.5 g/dL (6.3-8.2)
[2021-07-14 08:48] LABS: Glucose 49 mg/dL (74-99)
--- NOTE | 2021-07-14 09:10 | XR ---
EXAMINATION TYPE: XR chest 1V portable DATE OF EXAM: 07/14/2021 CLINICAL HISTORY: Difficulty breathing and covid progress study. TECHNIQUE: Single AP portable upright view of the chest is obtained. COMPARISON: Chest x-ray from 2 days earlier and older studies through July 08 FINDINGS: Persistent low lung volumes and bilateral multifocal increased opacities greatest in the p eriphery. Cardiac silhouette size is stable and within normal limits. Multilevel spurring in thoracic spine redemonstrated. IMPRESSION: Low lung volumes and bilateral multifocal increased opacities consistent with covid-19 in fection are redemonstrated. No significant change from most recent prior x-ray.
[2021-07-14 11:48] LABS: Glucose,Whole Blood 199 mg/dL (75-99)
--- NOTE | 2021-07-14 14:57 | P.PN ---
Subjective Progress Note Date: 07/14/21 Patient was examined at bedside. Still short of breath is currently on 15 L high flow nasal cannula and nonrebreather mask. He appears comfortable. No acute distress. Otherwise no acute changes overnight Objective - Vital Signs Vital signs: Vital Signs Temp 98.2 F 07/14/21 10:11 Pulse 100 07/14/21 10:11 Resp 20 07/14/21 10:11 BP 97/66 07/14/21 10:11 Pulse Ox 91 L 07/14/21 10:11 Intake & Output 07/13/21 07/14/21 07/14/21 18:59 06:59 18:59 Intake Total 850 Output Total 1250 750 Balance -1250 100 Intake: Intake, IV Titration 550 Amount Sodium Chloride 0.9% 1, 550 000 ml @ 50 mls/hr IV . Q20H [facility] Rx#:[id number] Oral 300 Output: Urine 1250 750 Other: Voiding Method Indwelling Catheter Indwelling Catheter Indwelling Catheter # Bowel Movements 1 - Exam General: non toxic, no distress, appears at stated age Derm: warm, dry Head: atraumatic, normocephalic, symmetric Eyes: EOMI, no lid lag, anicteric sclera Mouth: no lip lesion, mucus membranes moist Cardiovascular: S1S2 reg, no murmur, positive posterior tibial pulse bilateral, Lungs: Diminished air entry bilaterally. Abdominal: soft, nontender to palpation, no guarding, no appreciable organomegaly Ext: no gross muscle atrophy, no edema, no contractures Neuro: CN II-XI grossly intact, no focal neuro deficits Psych: Alert, oriented, appropriate affect - Labs CBC & Chem 7: 07/14/21 05:59 07/14/21 05:59 Labs: Abnormal Lab Results - Last 24 Hours (Table) 07/14/21 07/14/21 07/14/21 Range/Units 05:59 05:59 11:47 WBC 15.6 H (3.8-10.6) k/uL Neutrophils # 13.3 H (1.3-7.7) k/uL Sodium 132 L (137-145) mmol/L BUN 22 H (9-20) mg/dL Glucose 49 L* (74-99) mg/dL POC Glucose (mg/dL) 199 H (75-99) mg/dL Calcium 7.6 L (8.4-10.2) mg/dL Total Protein 5.5 L (6.3-8.2) g/dL Albumin 2.4 L (3.5-5.0) g/dL Microbiology - Last 24 Hours (Table) 07/08/21 13:00 Blood Culture - Preliminary Blood No Growth after 120 hours 07/08/21 12:45 Blood Culture - Preliminary Blood No Growth after 120 hours Assessment and Plan Plan: Assessment and plan: #Acute hypoxic respiratory failure related to acute COVID-19 pneumonia - patient presented to the hospital on 07/08/2021, not a candidate for Remdesivir, not vaccinated. -Patient's oxygenation has progressively became worse, -We will started on Baricitinib on 07/12/2021, currently patient is on 15 L per high flow nasal cannula and nonrebreather mask. -Pulmonary following #Acute GI bleeding, with a rectal bleeding, hematuria and bleeding at the IV insertion sites -Patient was given a dose of KCentra, and the bleeding has resolved. -Hemoglobin is stable, patient has not required blood transfusions -GI did not recommend a colonoscopy due to his status #Acute bilateral DVTs -was initially started on Eliquis which was placed on hold related to acute ble eding. Status post IVC filter placement today on 07/11/2021 #Acute diabetic ketoacidosis -resolved -A1c 9.6 -Currently on basal bolus insulin #Acute kidney injury -Likely prerenal azotemia secondary to dehydration and DKA - improved -Continue holding SHYAM inhibitor #Hypertension -Soft blood pressure, hold Norvasc for now -We will restart SHYAM inhibitor future since kidney function is improving #Acute anion gap Metabolic acidosis -resolved -Secondary to acute kidney failure indicated #Hyperkalemia -Resolved #Leukocytosis -Improving
[2021-07-14 16:57] LABS: Glucose,Whole Blood 158 mg/dL (75-99)
[2021-07-14] MEDS: BARICITINIB 2 MG TABLET PO SCH (17:06)
--- NOTE | 2021-07-14 17:25 | P.PN ---
Subjective Progress Note Date: 07/14/21 Principal diagnosis: Shortness of breath, hypoxia, COVID-19 On 07/11/2021 patient seen in follow-up on medical surgical floor, patient oxygen requirement and is currently increased, he is on 15 L per high flow nasal cannula and a nonrebreather mask, and his pulse ox is 92-96%, however he is breathing fairly comfortable, does not appear to be in any acute distress, his been afebrile, no complaints of chest discomfort, patient was diagnosed with bilateral lower extremity DVTs, and she was started on Eliquis however he developed GI bleeding, he had a large bowel movement with blood, he developed bleeding from his IV insertion sites, and hematuria, and his anticoagulation was subsequently placed on hold and he was given a dose of K Centra. However his hemoglobin has remained fairly stable, today it is 16.3, actually increased, patient has not required any blood transfusions, hemodynamically has been stable, his white count is 20.5, his platelet count is 286, his renal profile is actually improving, his BUN is down to 52 and creatinine is down to 1.38, electrolytes are unremarkable. His pro calcitonin level was 0.61. His had no fever or chills. Patient was taken to the slab depiler operator by Dr. Bright and IVC filter was inserted. He is also seen in consultation by surgical services, the recommendation was to place anticoagulation on hold, and surgery will remain on standby at this time. On 07/12/2021 patient seen in follow-up on medical surgical floor, he states his breathing is not bad, although he still requiring high flow oxygen 15 L and his pulse ox is between 92-94%, hemodynamically his has remained stable, his been afebrile, he is resting comfortably in bed, his Eliquis remains on hold for an episode of GI bleeding. Patient denies any abdominal pain, there has been no further bleeding. His hemoglobin today is 14.6, his white blood cell count is improving and is down to 14.7 on today's labs, d-dimer is improving and is down to 10.6, electrolytes are within normal limits, BUN is 27.2, and creatinine is improved and is down to 1.2. His LDH has significantly improved is down to 454, CRP is down to 1.7. His pro calcitonin level is negative at 0.09. Patient is currently on Decadron 6 mg daily, he is on multivitamins including vitamin C, vitamin D, and zinc, he continues on gentle IV hydration with 0.9 normal saline at a rate of 50 ML per hour. Chest x-ray today showing bilateral infiltrates that are stable in appearance. Surgical services are following, patient is status post IVC filter yesterday in the right groin. Lung sounds are essentially clear but very minimal crackles at the left base, breathing very comfortably, no complaints of chest pain. On 07/13/2021 patient seen in follow-up on medical surgical floor. Patient is awake and alert, in no acute distress, he is requiring high flow oxygen, with 15 L in nonrebreather mask, and his pulse ox is anywhere between 88 and 96%, does not appear to be in any acute distress. We started him on Baricitinib yesterday on 07/12/2021, patient is breathing comfortably, minimal cough, no complaints of chest discomfort, his been afebrile, yesterday's chest x-ray showed stable maximus ateral infiltrates. Today's labs have been reviewed, his white blood cell count is stable at 14.6, hemoglobin is 15.4, sodium is 134, respiratory electrolytes are within normal limits, BUN is 25, creatinine is 1.02. Inflammatory markers were improving on yesterday's labs. Follow-up pro calcitonin was negative at 0.09 On 07/14/2021 patient seen in follow-up on medical surgical floor, he still requiring high flow oxygen with 15 L per high flow nasal cannula and nonrebreather mask, and his pulse ox is around 90-95%, breathing comfortably, he sitting up in the recliner, appears to be in no acute distress, no fever or chills, vital signs have been stable. Today's chest x-ray shows low lung volumes and bilateral multifocal opacities no significant change. His labs have been reviewed, his white blood cell count of 15.2, hemoglobin is 15, last d- dimer was improving and was down to 10.6, sodium is 132, direct electrolytes were unremarkable, he is BUN was 22 and creatinine was 0.93.Remains on Baricitrinib, Decadron, prophylactic Lovenox and multivitamins. Objective - Vital Signs Vital signs: Vital Signs Temp 97.6 F 07/14/21 14:00 Pulse 117 H 07/14/21 14:00 Resp 18 07/14/21 14:00 BP 123/80 07/14/21 14:00 Pulse Ox 95 07/14/21 14:00 Intake & Output 07/13/21 07/14/21 07/14/21 18:59 06:59 18:59 Intake Total 850 Output Total 1250 750 Balance -1250 100 Intake: Intake, IV Titration 550 Amount Sodium Chloride 0.9% 1, 550 000 ml @ 50 mls/hr IV . Q20H [facility] Rx#:[id number] Oral 300 Output: Urine 1250 750 Other: Voiding Method Indwelling Catheter Indwelling Catheter Indwelling Catheter # Bowel Movements 1 - Exam GENERAL EXAM: Alert, very pleasant 60-year-old white male, on 15 L per high flow nasal cannula and the nonrebreather mask, with a pulse ox of 88-96% comfortable in no apparent distress. HEAD: Normocephalic/atraumatic. EYES: Normal reaction of pupils, equal size. Conjunctiva pink, sclera white. NOSE: Clear with pink turbinates. THROAT: No erythema or exudates. NECK: No masses, no JVD, no thyroid enlargement, no adenopathy. CHEST: No chest wall deformity. Symmetrical expansion. LUNGS: Equal air entry with no crackles, wheeze, rhonchi or dullness. CVS: Regular rate and rhythm, normal S1 and S2, no gallops, no murmurs, no rubs ABDOMEN: Soft, nontender. No hepatosplenomegaly, normal bowel sounds, no guarding or rigidity. EXTREMITIES: No clubbing, no edema, no cyanosis, 2+ pulses and upper and lower extremities. MUSCULOSKELETAL: Muscle strength and tone normal. SPINE: No scoliosis or deformity SKIN: No rashes CENTRAL NERVOUS SYSTEM: Alert and oriented -3. No focal deficits, tone is normal in all 4 extremities. PSYCHIATRIC: Alert and oriented -3. Appropriate affect. Intact judgment and insight. - Labs CBC & Chem 7: 07/14/21 05:59 07/14/21 05:59 Labs: Abnormal Lab Results - Last 24 Hours (Table) 07/14/21 07/14/21 07/14/21 Range/Units 05:59 05:59 11:47 WBC 15.6 H (3.8-10.6) k/uL Neutrophils # 13.3 H (1.3-7.7) k/uL Sodium 132 L (137-145) mmol/L BUN 22 H (9-20) mg/dL Glucose 49 L* (74-99) mg/dL POC Glucose (mg/dL) 199 H (75-99) mg/dL Calcium 7.6 L (8.4-10.2) mg/dL Total Protein 5.5 L (6.3-8.2) g/dL Albumin 2.4 L (3.5-5.0) g/dL 07/14/21 Range/Units 16:56 WBC (3.8-10.6) k/uL Neutrophils # (1.3-7.7) k/uL Sodium (137-145) mmol/L BUN (9-20) mg/dL Glucose (74-99) mg/dL POC Glucose (mg/dL) 158 H (75-99) mg/dL Calcium (8.4-10.2) mg/dL Total Protein (6.3-8.2) g/dL Albumin (3.5-5.0) g/dL Microbiology - Last 24 Hours (Table) 07/08/21 13:00 Blood Culture - Final Blood No Growth after 144 hours 07/08/21 12:45 Blood Culture - Final Blood No Growth after 144 hours Assessment and Plan Plan: Assessment: #1. Acute hypoxic respiratory failure related to acute COVID-19 pneumonia, patient presented to the hospital on 07/08/2021, not a candidate for Remdesivir, not vaccinated. Patient's oxygenation has progressively became worse, we'll try to qualify him for Baricitinib today on 07/11/2021, currently patient is on 15 L per high flow nasal cannula and nonrebreather mask. Started on Baricitinib on 07/12/2021 #2. Acute GI bleeding, with a rectal bleeding, hematuria and bleeding at the IV insertion sites, patient was given a dose of KCentra, and the bleeding has resolved. Hemoglobin is stable, patient has not required blood transfusions #3. Acute bilateral DVTs was initially started on Eliquis which was placed on hold related to acute bleeding. Status post IVC filter placement today on 07/11/2021 #4. Acute diabetic ketoacidosis, resolved #5. Acute kidney injury, improved #6. Hypertension #7. Acute anion gap Metabolic acidosis, resolved #8. Hyperkalemia, improved #9. Diabetes mellitus type 2 #10. Hypertension #10. Leukocytosis, persistent, slightly improved Plan: Clinical patient has remained stable Still requiring high flow oxygen with 15 L of oxygen and nonrebreather mask No acute distress Continue Baricitinib, continue current dose Decadron Eliquis remains on hold Provide incentive spirometer Encourage the patient to sit up in the chair We'll continue to follow his clinical course I performed a history & physical examination of the patient and discussed their management with my nurse practitioner, Kristi Cartwright. I reviewed the nurse practitioner's note and agree with the documented findings and plan of care. Lung sounds are positive for dim breath sounds with rales throughout the lung hernandez. The findings and the impression was discussed with the patient. I attest to the documentation by the nurse practitioner. Time with Patient: Less than 30
[2021-07-14 19:57] LABS: Glucose,Whole Blood 203 mg/dL (75-99)
--- NOTE | 2021-07-14 19:57 | PN ---
PROGRESS NOTE Patient is seen for followup for acute kidney injury. He has underlying Covid pneumonia. Patient's renal function has improved, creatinine down to 0.9 now. Initial creatinine was 5.89. PHYSICAL EXAMINATION: On examination today, blood pressure was 97/66, later on today 123/80, heart rate 100 per minute, patient is afebrile. Examination shows trace edema lower extremities. Lungs and heart are not examined. LAB: Show sodium 132, potassium 4.4, BUN 22, creatinine 0.9, calcium 7.6, hemoglobin 15.0. ASSESSMENT: 1. Acute kidney injury, ATN, currently improved. 2. Covid-19 pneumonia. 3. Acute hypoxic respiratory failure. 4. Right lower extremity DVT status post IVC filter placement. Anticoagulation held due to bleeding. 5. DKA status post insulin drip, currently taking oral. 6. Metabolic acidosis associated with DKA. PLAN: Continue off IV fluids. Can trial Lasix as the acute kidney injury has improved. MMODL / IJN: [id number] /
[2021-07-15 07:22] LABS: Glucose,Whole Blood 70 mg/dL (75-99)
[2021-07-15 07:36] LABS: Basophils % (A) 0 %; Eosinophils # (A) 0.1 k/uL (0-0.7); Eosinophils % (A) 1 %; HCT 47.7 % (39.0-53.0); HGB 14.9 gm/dL (13.0-17.5); Lymphocytes # (A) 1.3 k/uL (1.0-4.8); Lymphocytes % (A) 8 %; MCH 31.5 pg (25.0-35.0); MCHC 31.3 g/dL (31.0-37.0); MCV 100.9 fL (80.0-100.0); Macrocytosis Slight; Mean Platelet Volume 7.8; Monocytes # (A) 0.7 k/uL (0-1.0); Monocytes % (A) 4 %; Neutrophils # (A) 13.8 k/uL (1.3-7.7); Neutrophils % (A) 86 %; Platelet Count 159 k/uL (150-450); RBC 4.73 m/uL (4.30-5.90); RDW 14.1 % (11.5-15.5); WBC 16.2 k/uL (3.8-10.6)
[2021-07-15 07:44] LABS: ALT 38 U/L (4-49); AST 30 U/L (17-59); African American GFR (CKD) 87 (>60 ml/min/1.73 sqM); Albumin 2.5 g/dL (3.5-5.0); Albumin/Globulin Ratio 0.8; Alkaline Phosphatase 111 U/L (38-126); Anion Gap 3 mmol/L; Blood Urea Nitrogen 28 mg/dL (9-20); Calcium 7.9 mg/dL (8.4-10.2); Carbon Dioxide 23 mmol/L (22-30); Chloride 104 mmol/L (98-107); Globulin 3.2 g/dL; Glucose 73 mg/dL (74-99); Non-African American GFR(CKD) 75 (>60 ml/min/1.73 sqM); Potassium 4.5 mmol/L (3.5-5.1); Sodium 130 mmol/L (137-145); Total Bilirubin 0.7 mg/dL (0.2-1.3); Total Protein 5.7 g/dL (6.3-8.2)
[2021-07-15] MEDS: INSULIN ASPART (NovoLOG) 100 UNIT/ML VIAL SQ SCH ×7 (08:34→20:35)
[2021-07-15] MEDS: ATORVASTATIN 40 MG TAB PO SCH (08:41)
[2021-07-15] MEDS: PANTOPRAZOLE 40 MG TABLET PO SCH ×2 (08:41→17:00)
[2021-07-15] MEDS: ENOXAPARIN 40 MG/0.4 ML SYRINGE SQ SCH (08:41)
[2021-07-15] MEDS: ZINC SULFATE 220 MG CAP PO SCH (08:41)
[2021-07-15] MEDS: CHOLECALCIFEROL 125 MCG (5000 IU) TABLET PO SCH (08:41)
[2021-07-15] MEDS: ASCORBIC ACID 500 MG TAB PO SCH (08:41)
[2021-07-15] MEDS: DEXAMETHASONE SOD PHOSPHATE 10 MG/ML 1 ML VIAL IVP SCH (08:42)
[2021-07-15] MEDS: TAMSULOSIN 0.4 MG CAP.ER.24H PO SCH (08:42)
[2021-07-15] MEDS: INSULIN DETEMIR (LEVEMIR) 100 UNIT/ML SYR SQ SCH (08:42)
[2021-07-15 12:02] LABS: Glucose,Whole Blood 197 mg/dL (75-99)
--- NOTE | 2021-07-15 14:28 | P.PN ---
Subjective Progress Note Date: 07/15/21 Patient was examined at bedside. Still short of breath is currently on 15 L high flow nasal cannula and nonrebreather mask. He appears comfortable. No acute distress. Otherwise no acute changes overnight Objective - Vital Signs Vital signs: Vital Signs Temp 96.4 F L 07/15/21 10:00 Pulse 112 H 07/15/21 10:00 Resp 22 07/15/21 10:00 BP 110/75 07/15/21 10:00 Pulse Ox 89 L 07/15/21 10:00 Intake & Output 07/14/21 07/15/21 07/15/21 18:59 06:59 18:59 Output Total 0 Balance 0 Weight 82 kg Output: Stool 0 Other: Voiding Method Indwelling Catheter Indwelling Catheter Indwelling Catheter # Voids 750 - Exam General: non toxic, no distress, appears at stated age Derm: warm, dry Head: atraumatic, normocephalic, symmetric Eyes: EOMI, no lid lag, anicteric sclera Mouth: no lip lesion, mucus membranes moist Cardiovascular: S1S2 reg, no murmur, positive posterior tibial pulse bilateral, Lungs: Diminished air entry bilaterally. Abdominal: soft, nontender to palpation, no guarding, no appreciable organomegaly Ext: no gross muscle atrophy, no edema, no contractures Neuro: CN II-XI grossly intact, no focal neuro deficits Psych: Alert, oriented, appropriate affect - Labs CBC & Chem 7: 07/15/21 07:15 07/15/21 07:15 Labs: Abnormal Lab Results - Last 24 Hours (Table) 07/14/21 07/14/21 07/15/21 Range/Units 16:56 19:56 07:15 WBC 16.2 H (3.8-10.6) k/uL MCV 100.9 H (80.0-100.0) fL Neutrophils # 13.8 H (1.3-7.7) k/uL Sodium (137-145) mmol/L BUN (9-20) mg/dL Glucose (74-99) mg/dL POC Glucose (mg/dL) 158 H 203 H (75-99) mg/dL Calcium (8.4-10.2) mg/dL Total Protein (6.3-8.2) g/dL Albumin (3.5-5.0) g/dL 07/15/21 07/15/21 07/15/21 Range/Units 07:15 07:19 11:59 WBC (3.8-10.6) k/uL MCV (80.0-100.0) fL Neutrophils # (1.3-7.7) k/uL Sodium 130 L (137-145) mmol/L BUN 28 H (9-20) mg/dL Glucose 73 L (74-99) mg/dL POC Glucose (mg/dL) 70 L 197 H (75-99) mg/dL Calcium 7.9 L (8.4-10.2) mg/dL Total Protein 5.7 L (6.3-8.2) g/dL Albumin 2.5 L (3.5-5.0) g/dL Microbiology - Last 24 Hours (Table) 07/08/21 13:00 Blood Culture - Final Blood No Growth after 144 hours 07/08/21 12:45 Blood Culture - Final Blood No Growth after 144 hours Assessment and Plan Plan: Assessment and plan: #Acute hypoxic respiratory failure related to acute COVID-19 pneumonia -patient presented to the hospital on 07/08/2021, not a candidate for Remdesivir, not vaccinated. -Patient's oxygenation has progressively became worse, -On Baricitinib on 07/12/2021, currently patient is on 15 L per high flow nasal cannula and nonrebreather mask. -Pulmonary following #Acute GI bleeding, with a rectal bleeding, hematuria and bleeding at the IV insertion sites -Patient was given a dose of KCentra, and the bleeding has resolved. -Hemoglobin is stable, patient has not required blood transfusions -GI did not recommend a colonoscopy due to his status #Acute bilateral DVTs -was initially started on Eliquis which was placed on hold related to acute bleeding. -Status post IVC filter placement today on 07/11/2021 #Acute diabetic ketoacidosis -resolved -A1c 9.6 -Currently on basal bolus insulin #Acute kidney injury -Likely prerenal azotemia secondary to dehydration and DKA - improved -Continue holding SHYAM inhibitor #Hypertension -Soft blood pressure, hold Norvasc for now -We will restart SHYAM inhibitor future since kidney function is improving #Acute anion gap Metabolic acidosis -resolved -Secondary to acute kidney failure indicated #Hyperkalemia -Resolved #Leukocytosis -Improving
[2021-07-15 16:19] LABS: Glucose,Whole Blood 161 mg/dL (75-99)
[2021-07-15] MEDS: BARICITINIB 2 MG TABLET PO SCH (17:00)
--- NOTE | 2021-07-15 17:20 | P.PN ---
Subjective Progress Note Date: 07/15/21 Principal diagnosis: Shortness of breath, hypoxia, COVID-19 On 07/11/2021 patient seen in follow-up on medical surgical floor, patient oxygen requirement and is currently increased, he is on 15 L per high flow nasal cannula and a nonrebreather mask, and his pulse ox is 92-96%, however he is breathing fairly comfortable, does not appear to be in any acute distress, his been afebrile, no complaints of chest discomfort, patient was diagnosed with bilateral lower extremity DVTs, and she was started on Eliquis however he developed GI bleeding, he had a large bowel movement with blood, he developed bleeding from his IV insertion sites, and hematuria, and his anticoagulation was subsequently placed on hold and he was given a dose of K Centra. However his hemoglobin has remained fairly stable, today it is 16.3, actually increased, patient has not required any blood transfusions, hemodynamically has been stable, his white count is 20.5, his platelet count is 286, his renal profile is actually improving, his BUN is down to 52 and creatinine is down to 1.38, electrolytes are unremarkable. His pro calcitonin level was 0.61. His had no fever or chills. Patient was taken to the car barn lab[facility] by Dr. Bright and IVC filter was inserted. He is also seen in consultation by surgical services, the recommendation was to place anticoagulation on hold, and surgery will remain on standby at this time. On 07/12/2021 patient seen in follow-up on medical surgical floor, he states his breathing is not bad, although he still requiring high flow oxygen 15 L and his pulse ox is between 92-94%, hemodynamically his has remained stable, his been afebrile, he is resting comfortably in bed, his Eliquis remains on hold for an episode of GI bleeding. Patient denies any abdominal pain, there has been no further bleeding. His hemoglobin today is 14.6, his white blood cell count is improving and is down to 14.7 on today's labs, d-dimer is improving and is down to 10.6, electrolytes are within normal limits, BUN is 27.2, and creatinine is improved and is down to 1.2. His LDH has significantly improved is down to 454, CRP is down to 1.7. His pro calcitonin level is negative at 0.09. Patient is currently on Decadron 6 mg daily, he is on multivitamins including vitamin C, vitamin D, and zinc, he continues on gentle IV hydration with 0.9 normal saline at a rate of 50 ML per hour. Chest x-ray today showing bilateral infiltrates that are stable in appearance. Surgical services are following, patient is status post IVC filter yesterday in the right groin. Lung sounds are essentially clear but very minimal crackles at the left base, breathing very comfortably, no complaints of chest pain. On 07/13/2021 patient seen in follow-up on medical surgical floor. Patient is awake and alert, in no acute distress, he is requiring high flow oxygen, with 15 L in nonrebreather mask, and his pulse ox is anywhere between 88 and 96%, does not appear to be in any acute distress. We started him on Baricitinib yesterday on 07/12/2021, patient is breathing comfortably, minimal cough, no complaints of chest discomfort, his been afebrile, yesterday's chest x-ray showed stable maximus ateral infiltrates. Today's labs have been reviewed, his white blood cell count is stable at 14.6, hemoglobin is 15.4, sodium is 134, respiratory electrolytes are within normal limits, BUN is 25, creatinine is 1.02. Inflammatory markers were improving on yesterday's labs. Follow-up pro calcitonin was negative at 0.09 On 07/14/2021 patient seen in follow-up on medical surgical floor, he still requiring high flow oxygen with 15 L per high flow nasal cannula and nonrebreather mask, and his pulse ox is around 90-95%, breathing comfortably, he sitting up in the recliner, appears to be in no acute distress, no fever or chills, vital signs have been stable. Today's chest x-ray shows low lung volumes and bilateral multifocal opacities no significant change. His labs have been reviewed, his white blood cell count of 15.2, hemoglobin is 15, last d- dimer was improving and was down to 10.6, sodium is 132, direct electrolytes were unremarkable, he is BUN was 22 and creatinine was 0.93.Remains on Baricitrinib, Decadron, prophylactic Lovenox and multivitamins. On 07/15/2021 patient seen in follow-up on medical surgical floor. Patient is awake and alert, oriented 3, does not appear to be in any acute distress, he sitting up in the recliner, breathing comfortably, he is currently on 15 L per high flow nasal cannula and nonrebreather mask. His pulse ox earlier was 92- 97%, nonrebreather was removed, and patient was just left on 15 L per high flow nasal cannula, we reevaluated him after half an hour and his pulse ox remained at 90-91%, he continues to breathing very comfortably, but chest discomfort, no significant cough, no fever or chills. No new chest x-ray today. Today's labs have been reviewed, his white blood cell count of 16.2, hemoglobin is 14.9, sodium is 1:30, potassium is 4.5, chloride is 104, CO2 is 23, B1 is 20, creatinine is 1.06. Tolerating oral intake, no nausea vomiting or diarrhea. Objective - Vital Signs Vital signs: Vital Signs Temp 98.0 F 07/15/21 14:00 Pulse 86 07/15/21 14:00 Resp 20 07/15/21 14:00 BP 112/72 07/15/21 14:00 Pulse Ox 90 L 07/15/21 14:00 Intake & Output 07/14/21 07/15/21 07/15/21 18:59 06:59 18:59 Output Total 0 Balance 0 Weight 82 kg Output: Stool 0 Other: Voiding Method Indwelling Catheter Indwelling Catheter Indwelling Catheter # Voids 750 - Exam GENERAL EXAM: Alert, very pleasant 60-year-old white male, on 15 L per high flow nasal cannula and the nonrebreather mask, with a pulse ox of 96% comfortable in no apparent distress. Nonrebreather mask was removed, patient is maintaining stable O2 saturation at 90-91% just on 15 L per high flow nasal cannula HEAD: Normocephalic/atraumatic. EYES: Normal reaction of pupils, equal size. Conjunctiva pink, sclera white. NOSE: Clear with pink turbinates. THROAT: No erythema or exudates. NECK: No masses, no JVD, no thyroid enlargement, no adenopathy. CHEST: No chest wall deformity. Symmetrical expansion. LUNGS: Equal air entry with no crackles, wheeze, rhonchi or dullness. CVS: Regular rate and rhythm, normal S1 and S2, no gallops, no murmurs, no rubs ABDOMEN: Soft, nontender. No hepatosplenomegaly, normal bowel sounds, no guarding or rigidity. EXTREMITIES: No clubbing, no edema, no cyanosis, 2+ pulses and upper and lower extremities. MUSCULOSKELETAL: Muscle strength and tone normal. SPINE: No scoliosis or deformity SKIN: No rashes CENTRAL NERVOUS SYSTEM: Alert and oriented -3. No focal deficits, tone is normal in all 4 extremities. PSYCHIATRIC: Alert and oriented -3. Appropriate affect. Intact judgment and insight. - Labs CBC & Chem 7: 07/15/21 07:15 07/15/21 07:15 Labs: Abnormal Lab Results - Last 24 Hours (Table) 07/14/21 07/15/21 07/15/21 Range/Units 19:56 07:15 07:15 WBC 16.2 H (3.8-10.6) k/uL MCV 100.9 H (80.0-100.0) fL Neutrophils # 13.8 H (1.3-7.7) k/uL Sodium 130 L (137-145) mmol/L BUN 28 H (9-20) mg/dL Glucose 73 L (74-99) mg/dL POC Glucose (mg/dL) 203 H (75-99) mg/dL Calcium 7.9 L (8.4-10.2) mg/dL Total Protein 5.7 L (6.3-8.2) g/dL Albumin 2.5 L (3.5-5.0) g/dL 07/15/21 07/15/21 07/15/21 Range/Units 07:19 11:59 16:17 WBC (3.8-10.6) k/uL MCV (80.0-100.0) fL Neutrophils # (1.3-7.7) k/uL Sodium (137-145) mmol/L BUN (9-20) mg/dL Glucose (74-99) mg/dL POC Glucose (mg/dL) 70 L 197 H 161 H (75-99) mg/dL Calcium (8.4-10.2) mg/dL Total Protein (6.3-8.2) g/dL Albumin (3.5-5.0) g/dL Microbiology - Last 24 Hours (Table) 07/08/21 13:00 Blood Culture - Final Blood No Growth after 144 hours 07/08/21 12:45 Blood Culture - Final Blood No Growth after 144 hours Assessment and Plan Plan: Assessment: #1. Acute hypoxic respiratory failure related to acute COVID-19 pneumonia, patient presented to the hospital on 07/08/2021, not a candidate for Remdesivir, not vaccinated. Patient's oxygenation has progressively became worse, we'll try to qualify him for Baricitinib today on 07/11/2021, currently patient is on 15 L per high flow nasal cannula and nonrebreather mask. Started on Baricitinib on 07/12/2021 #2. Acute GI bleeding, with a rectal bleeding, hematuria and bleeding at the IV insertion sites, patient was given a dose of KCentra, and the bleeding has resolved. Hemoglobin is stable, patient has not required blood transfusions #3. Acute bilateral DVTs was initially started on Eliquis which was placed on hold related to acute bleeding. Status post IVC filter placement today on 07/11/2021 #4. Acute diabetic ketoacidosis, resolved #5. Acute kidney injury, improved #6. Hypertension #7. Acute anion gap Metabolic acidosis, resolved #8. Hyperkalemia, improved #9. Diabetes mellitus type 2 #10. Hypertension #10. Leukocytosis, persistent, slightly improved Plan: Patient has remained stable, although still requiring high flow oxygen Nonrebreather mask was removed Patient currently on high flow nasal cannula at 15 L Breathing comfortably, no worsening cough Continue Baricitinib, continue current dose Decadron Patient was started on Lovenox 40 mg daily with surgical clearance There has been no evidence of active bleeding. Hemodynamically patient has been stable Provide incentive spirometer Encourage the patient to sit up in the chair We'll continue to follow his clinical course I performed a history & physical examination of the patient and discussed their management with my nurse practitioner, Kristi Cartwright. I reviewed the nurse practitioner's note and agree with the documented findings and plan of care. Lung sounds are positive for dim breath sounds with rales throughout the lung hernandez. The findings and the impression was discussed with the patient. I attest to the documentation by the nurse practitioner. Time with Patient: Less than 30
[2021-07-15 20:21] LABS: Glucose,Whole Blood 135 mg/dL (75-99)
[2021-07-16 06:59] LABS: Glucose,Whole Blood 80 mg/dL (75-99)
[2021-07-16 07:13] LABS: ALT 37 U/L (4-49); AST 30 U/L (17-59); African American GFR (CKD) 87 (>60 ml/min/1.73 sqM); Albumin 2.6 g/dL (3.5-5.0); Albumin/Globulin Ratio 0.8; Alkaline Phosphatase 96 U/L (38-126); Anion Gap 3 mmol/L; Blood Urea Nitrogen 32 mg/dL (9-20); Calcium 7.7 mg/dL (8.4-10.2); Carbon Dioxide 24 mmol/L (22-30); Chloride 100 mmol/L (98-107); Globulin 3.1 g/dL; Glucose 57 mg/dL (74-99); Non-African American GFR(CKD) 75 (>60 ml/min/1.73 sqM); Potassium 4.7 mmol/L (3.5-5.1); Sodium 127 mmol/L (137-145); Total Bilirubin 0.8 mg/dL (0.2-1.3); Total Protein 5.7 g/dL (6.3-8.2)
[2021-07-16 07:23] LABS: Basophils # (A) 0.1 k/uL (0-0.2); Basophils % (A) 0 %; Eosinophils # (A) 0.1 k/uL (0-0.7); Eosinophils % (A) 0 %; HCT 46.7 % (39.0-53.0); HGB 14.8 gm/dL (13.0-17.5); Lymphocytes # (A) 1.1 k/uL (1.0-4.8); Lymphocytes % (A) 7 %; MCHC 31.7 g/dL (31.0-37.0); MCV 97.9 fL (80.0-100.0); Mean Platelet Volume 7.8; Monocytes # (A) 0.8 k/uL (0-1.0); Monocytes % (A) 5 %; Neutrophils # (A) 13.9 k/uL (1.3-7.7); Neutrophils % (A) 87 %; Platelet Count 129 k/uL (150-450); RBC 4.77 m/uL (4.30-5.90)
[2021-07-16] MEDS: INSULIN ASPART (NovoLOG) 100 UNIT/ML VIAL SQ SCH ×7 (07:26→21:27)
[2021-07-16] MEDS: PANTOPRAZOLE 40 MG TABLET PO SCH ×3 (07:30→16:07)
[2021-07-16] MEDS: DEXAMETHASONE SOD PHOSPHATE 10 MG/ML 1 ML VIAL IVP SCH (08:23)
[2021-07-16] MEDS: TAMSULOSIN 0.4 MG CAP.ER.24H PO SCH (08:24)
[2021-07-16] MEDS: INSULIN DETEMIR (LEVEMIR) 100 UNIT/ML SYR SQ SCH (08:24)
[2021-07-16] MEDS: ZINC SULFATE 220 MG CAP PO SCH (08:24)
[2021-07-16] MEDS: ENOXAPARIN 40 MG/0.4 ML SYRINGE SQ SCH (08:24)
[2021-07-16] MEDS: ATORVASTATIN 40 MG TAB PO SCH (08:24)
[2021-07-16] MEDS: ASCORBIC ACID 500 MG TAB PO SCH (08:24)
[2021-07-16] MEDS: CHOLECALCIFEROL 125 MCG (5000 IU) TABLET PO SCH (08:24)
[2021-07-16 11:34] LABS: Glucose,Whole Blood 105 mg/dL (75-99)
--- NOTE | 2021-07-16 14:03 | P.PN ---
Subjective Progress Note Date: 07/16/21 On 07/11/2021 patient seen in follow-up on medical surgical floor, patient oxygen requirement and is currently increased, he is on 15 L per high flow nasal cannula and a nonrebreather mask, and his pulse ox is 92-96%, however he is breathing fairly comfortable, does not appear to be in any acute distress, his been afebrile, no complaints of chest discomfort, patient was diagnosed with bilateral lower extremity DVTs, and she was started on Eliquis however he developed GI bleeding, he had a large bowel movement with blood, he developed bleeding from his IV insertion sites, and hematuria, and his anticoagulation was subsequently placed on hold and he was given a dose of K Centra. However his hemoglobin has remained fairly stable, today it is 16.3, actually increased, patient has not required any blood transfusions, hemodynamically has been stable, his white count is 20.5, his platelet count is 286, his renal profile is actually improving, his BUN is down to 52 and creatinine is down to 1.38, electrolytes are unremarkable. His pro calcitonin level was 0.61. His had no fever or chills. Patient was taken to the [facility] by Dr. Bright and IVC filter was inserted. He is also seen in consultation by surgical services, the recommendation was to place anticoagulation on hold, and surgery will remain on standby at this time. On 07/12/2021 patient seen in follow-up on medical surgical floor, he states his breathing is not bad, although he still requiring high flow oxygen 15 L and his pulse ox is between 92-94%, hemodynamically his has remained stable, his been afebrile, he is resting comfortably in bed, his Eliquis remains on hold for an episode of GI bleeding. Patient denies any abdominal pain, there has been no further bleeding. His hemoglobin today is 14.6, his white blood cell count is improving and is down to 14.7 on today's labs, d-dimer is improving and is down to 10.6, electrolytes are within normal limits, BUN is 27.2, and creatinine is improved and is down to 1.2. His LDH has significantly improved is down to 454, CRP is down to 1.7. His pro calcitonin level is negative at 0.09. Patient is currently on Decadron 6 mg daily, he is on multivitamins including vitamin C, vitamin D, and zinc, he continues on gentle IV hydration with 0.9 normal saline at a rate of 50 ML per hour. Chest x-ray today showing bilateral infiltrates that are stable in appearance. Surgical services are following, patient is status post IVC filter yesterday in the right groin. Lung sounds are essentially clear but very minimal crackles at the left base, breathing very comfortably, no complaints of chest pain. On 07/13/2021 patient seen in follow-up on medical surgical floor. Patient is awake and alert, in no acute distress, he is requiring high flow oxygen, with 15 L in nonrebreather mask, and his pulse ox is anywhere between 88 and 96%, does not appear to be in any acute distress. We started him on Baricitinib yesterday on 07/12/2021, patient is breathing comfortably, minimal cough, no complaints of chest discomfort, his been afebrile, yesterday's chest x-ray showed stable bilateral infiltrates. Today's labs have been reviewed, his white blood cell count is stable at 14.6, hemoglobin is 15.4, sodium is 134, respiratory electrolytes are within normal limits, BUN is 25, creatinine is 1.02. Inflammatory markers were improving on yesterday's labs. Follow-up pro calcitonin was negative at 0.09 On 07/14/2021 patient seen in follow-up on medical surgical floor, he still requiring high flow oxygen with 15 L per high flow nasal cannula and nonrebreather mask, and his pulse ox is around 90-95%, breathing comfortably, he sitting up in the recliner, appears to be in no acute distress, no fever or chills, vital signs have been stable. Today's chest x-ray shows low lung volumes and bilateral multifocal opacities no significant change. His labs have been reviewed, his white blood cell count of 15.2, hemoglobin is 15, last d- dimer was improving and was down to 10.6, sodium is 132, direct electrolytes were unremarkable, he is BUN was 22 and creatinine was 0.93.Remains on Baricitrinib, Decadron, prophylactic Lovenox and multivitamins. On 07/15/2021 patient seen in follow-up on medical surgical floor. Patient is awake and alert, oriented 3, does not appear to be in any acute distress, he sitting up in the recliner, breathing comfortably, he is currently on 15 L per high flow nasal cannula and nonrebreather mask. His pulse ox earlier was 92-97 %, nonrebreather was removed, and patient was just left on 15 L per high flow nasal cannula, we reevaluated him after half an hour and his pulse ox remained at 90-91%, he continues to breathing very comfortably, but chest discomfort, no significant cough, no fever or chills. No new chest x-ray today. Today's labs have been reviewed, his white blood cell count of 16.2, hemoglobin is 14.9, sodium is 1:30, potassium is 4.5, chloride is 104, CO2 is 23, B1 is 20, creatinine is 1.06. Tolerating oral intake, no nausea vomiting or diarrhea. 07/16/2021,, I'm seeing the patient for a follow-up. The patient is comfortable on 100% nonrebreather facemask addition to high flow oxygen at 15 L. The arely wilde is was taken off the 100% nonrebreather and he desaturated down to the low 80s. As such, he needs to double oxygen source at this point in time.he has no other new complaints. He feels well. No nausea. No vomiting. No abdominal pain. No chest pain. White cell count is at 16 with a hemoglobin of 14.8. Sodium level is at 127. BUN is at 32 with a+ creatinine of 1.06. Sodium level is at 127. White cell count is 16 with a hemoglobin of 14.8. The patient remains on a combination of Decadron and Baricitinib per protocol.the patient has also been on Lovenox 1 mg subcu for DVT prophylaxis. No major changes condition. No interval improvement or worsening his respiratory status or o xygenation. Most recent chest x-ray was done on07/14/2021 and showed diffuse bilateral pulmonary infiltrates which remains essentially stable and unchanged. Objective - Vital Signs Vital signs: Vital Signs Temp 97.9 F 07/16/21 10:00 Pulse 109 H 07/16/21 10:00 Resp 20 07/16/21 10:00 BP 105/69 07/16/21 10:00 Pulse Ox 92 L 07/16/21 10:58 Intake & Output 07/15/21 07/16/21 07/16/21 18:59 06:59 18:59 Output Total 1700 Balance -1700 Weight 82 kg Output: Urine 1700 Stool 0 Other: Voiding Method Indwelling Catheter Indwelling Catheter Indwelling Catheter # Bowel Movements 1 - Exam GENERAL EXAM: Alert, very pleasant 60-year-old white male, on 15 L per high flow nasal cannula and the nonrebreather mask, with a pulse ox of 96% comfortable in no apparent distress. Nonrebreather mask was removed, patient is maintaining stable O2 saturation at 90-91% just on 15 L per high flow nasal cannula HEAD: Normocephalic/atraumatic. EYES: Normal reaction of pupils, equal size. Conjunctiva pink, sclera white. NOSE: Clear with pink turbinates. THROAT: No erythema or exudates. NECK: No masses, no JVD, no thyroid enlargement, no adenopathy. CHEST: No chest wall deformity. Symmetrical expansion. LUNGS: Equal air entry with no crackles, wheeze, rhonchi or dullness. CVS: Regular rate and rhythm, normal S1 and S2, no gallops, no murmurs, no rubs ABDOMEN: Soft, nontender. No hepatosplenomegaly, normal bowel sounds, no guarding or rigidity. EXTREMITIES: No clubbing, no edema, no cyanosis, 2+ pulses and upper and lower extremities. MUSCULOSKELETAL: Muscle strength and tone normal. SPINE: No scoliosis or deformity SKIN: No rashes CENTRAL NERVOUS SYSTEM: Alert and oriented -3. No focal deficits, tone is normal in all 4 extremities. PSYCHIATRIC: Alert and oriented -3. Appropriate affect. Intact judgment and insight. - Labs CBC & Chem 7: 07/16/21 06:42 07/16/21 06:42 Labs: Abnormal Lab Results - Last 24 Hours (Table) 07/15/21 07/15/21 07/16/21 Range/Units 16:17 20:20 06:42 WBC 16.0 H (3.8-10.6) k/uL Plt Count 129 L (150-450) k/uL Neutrophils # 13.9 H (1.3-7.7) k/uL Sodium (137-145) mmol/L BUN (9-20) mg/dL Glucose (74-99) mg/dL POC Glucose (mg/dL) 161 H 135 H (75-99) mg/dL Calcium (8.4-10.2) mg/dL Total Protein (6.3-8.2) g/dL Albumin (3.5-5.0) g/dL 07/16/21 07/16/21 Range/Units 06:42 11:31 WBC (3.8-10.6) k/uL Plt Count (150-450) k/uL Neutrophils # (1.3-7.7) k/uL Sodium 127 L (137-145) mmol/L BUN 32 H (9-20) mg/dL Glucose 57 L (74-99) mg/dL POC Glucose (mg/dL) 105 H (75-99) mg/dL Calcium 7.7 L (8.4-10.2) mg/dL Total Protein 5.7 L (6.3-8.2) g/dL Albumin 2.6 L (3.5-5.0) g/dL Assessment and Plan Plan: #1. Acute hypoxic respiratory failure related to acute COVID-19 pneumonia, patient presented to the hospital on 07/08/2021, not a candidate for Remdesivir, not vaccinated. Patient's oxygenation has progressively became worse, we'll try to qualify him for Baricitinib today on 07/11/2021, currently patient is on 15 L per high flow nasal cannula and nonrebreather mask. Started on Baricitinib on 07/12/2021. The patient continues to be on a combination of Decadron and Baricitinib. Overall respiratory status is stable. Chest x-ray findings from 07/14/2021 is also stable. No interval worsening respiratory status. I tried to get him off the nonrebreather facemask and the patient desaturated. #2. Acute GI bleeding, with a rectal bleeding, hematuria and bleeding at the IV insertion sites, patient was given a dose of KCentra, and the bleeding has resolved. Hemoglobin is stable, patient has not required blood transfusions #3. Acute bilateral DVTs was initially started on Eliquis which was placed on hold related to acute bleeding. Status post IVC filter placement today on 07/11/2021 #4. Acute diabetic ketoacidosis, resolved #5. Acute kidney injury, improved #6. Hypertension #7. Acute anion gap Metabolic acidosis, resolved #8. Hyperkalemia, improved #9. Diabetes mellitus type 2 #10. Hypertension #10. Leukocytosis, persistent, slightly improved Plan: continue at 15 L of oxygen by nasal cannula in addition to Nonrebreather mask , unable to remove the nonrebreather facemask. Continue Baricitiniband Decadron for now continue Lovenox 40 mg daily with surgical clearance There has been no evidence of active bleeding. Hemodynamically patient has been stable Provide incentive spirometer Encourage the patient to sit up in the chair We'll continue to follow his clinical course
[2021-07-16] MEDS: BARICITINIB 2 MG TABLET PO SCH (16:04)
[2021-07-16 16:23] LABS: Glucose,Whole Blood 202 mg/dL (75-99)
[2021-07-16] MEDS: FUROSEMIDE 10 MG/ML 4 ML VIAL IV STA ×2 (16:50→18:03)
--- NOTE | 2021-07-16 17:52 | P.PN ---
Subjective Progress Note Date: 07/16/21 Patient was seen and examined at bedside. Still short of breath is currently on 15 L high flow nasal cannula and nonrebreather mask. He appears comfortable. No acute distress. Otherwise no acute changes overnight Objective - Vital Signs Vital signs: Vital Signs Temp 98.1 F 07/16/21 14:00 Pulse 76 07/16/21 14:00 Resp 16 07/16/21 14:00 BP 105/70 07/16/21 14:00 Pulse Ox 92 L 07/16/21 16:09 Intake & Output 07/15/21 07/16/21 07/16/21 18:59 06:59 18:59 Intake Total 500 Output Total 1700 Balance -1700 500 Weight 82 kg Intake: Oral 500 Output: Urine 1700 Stool 0 Other: Voiding Method Indwelling Catheter Indwelling Catheter Indwelling Catheter # Bowel Movements 1 - Exam General: non toxic, no distress, appears at stated age Derm: warm, dry Head: atraumatic, normocephalic, symmetric Eyes: EOMI, no lid lag, anicteric sclera Mouth: no lip lesion, mucus membranes moist Cardiovascular: S1S2 reg, no murmur, positive posterior tibial pulse bilateral, Lungs: Diminished air entry bilaterally. Abdominal: soft, nontender to palpation, no guarding, no appreciable organomegaly Ext: no gross muscle atrophy, no edema, no contractures Neuro: CN II-XI grossly intact, no focal neuro deficits Psych: Alert, oriented, appropriate affect - Labs CBC & Chem 7: 07/16/21 06:42 07/16/21 06:42 Labs: Abnormal Lab Results - Last 24 Hours (Table) 07/15/21 07/16/21 07/16/21 Range/Units 20:20 06:42 06:42 WBC 16.0 H (3.8-10.6) k/uL Plt Count 129 L (150-450) k/uL Neutrophils # 13.9 H (1.3-7.7) k/uL Sodium 127 L (137-145) mmol/L BUN 32 H (9-20) mg/dL Glucose 57 L (74-99) mg/dL POC Glucose (mg/dL) 135 H (75-99) mg/dL Calcium 7.7 L (8.4-10.2) mg/dL Total Protein 5.7 L (6.3-8.2) g/dL Albumin 2.6 L (3.5-5.0) g/dL 07/16/21 07/16/21 Range/Units 11:31 16:21 WBC (3.8-10.6) k/uL Plt Count (150-450) k/uL Neutrophils # (1.3-7.7) k/uL Sodium (137-145) mmol/L BUN (9-20) mg/dL Glucose (74-99) mg/dL POC Glucose (mg/dL) 105 H 202 H (75-99) mg/dL Calcium (8.4-10.2) mg/dL Total Protein (6.3-8.2) g/dL Albumin (3.5-5.0) g/dL Assessment and Plan Plan: Assessment and plan: #Acute hypoxic respiratory failure related to acute COVID-19 pneumonia -patient presented to the hospital on 07/08/2021, not a candidate for Remdesivi r, not vaccinated. -Patient's oxygenation has progressively became worse, -On Baricitinib on 07/12/2021, currently patient is on 15 L per high flow nasal cannula and nonrebreather mask. -Pulmonary following. #Acute GI bleeding, with a rectal bleeding, hematuria and bleeding at the IV insertion sites -Patient was given a dose of KCentra, and the bleeding has resolved. -Hemoglobin is stable, patient has not required blood transfusions -GI did not recommend a colonoscopy due to his status #Acute bilateral DVTs -was initially started on Eliquis which was placed on hold related to acute bleeding. -Status post IVC filter placement today on 07/11/2021 #Acute diabetic ketoacidosis -resolved -A1c 9.6 -Currently on basal bolus insulin #Acute kidney injury -Likely Prerenal azotemia secondary to dehydration and DKA. -Improved. -Continue holding SHYAM inhibitor #Acute hyponatremia -Check serum and urine osmolarity -Random urine sodium -Nephrology following #Hypertension -Soft blood pressure, hold Norvasc for now -We will restart SHYAM inhibitor future since kidney function is improving #Acute anion gap Metabolic acidosis -resolved -Secondary to acute kidney failure indicated #Hyperkalemia -Resolved #Leukocytosis -Worse -Secondary to steroids
--- NOTE | 2021-07-16 18:11 | PN ---
PROGRESS NOTE Patient is seen for followup for acute kidney injury. Renal function has improved significantly with creatinine now down to about 0.9-1.0 from 5.8 on initial admission. Patient is currently being treated for COVID pneumonia. His sodium today has dropped to 127. Patient had been maintained on IV fluids. Currently he is not on any fluids. He seems to be drinking a lot of fluid orally. The shortness of breath is about the same. Patient is maintained on high-flow nasal cannula 15 L plus rebreather. PHYSICAL EXAMINATION: On examination today, blood pressure 105/69, heart rate 109 per minute, he is afebrile. He is maintained on high amounts of oxygen. Lower extremities shows trace edema bilaterally. 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 LAB: Show sodium 127, potassium 4.7, BUN 32, creatinine 1.0, hemoglobin 14.8 g/dL. ASSESSMENT: 1. Acute kidney injury, ATN, currently improved. Serum creatinine now staying at 0.9- 1 mg/dL. 2. Hyponatremia, mildly hypervolemic. Will give one dose of IV Lasix. Repeat labs in a.m. If sodium is not further improved I will give him a dose of tolvaptan. The patient is drinking a lot of fluids. However, he has not been able to eat much given his significant dependence on BiPAP. 3. Acute hypoxic respiratory failure secondary to COVID-19 pneumonia. 4. Right lower extremity DVT, status post IVC filter placement. 5. DKA status post insulin drip. 6. Metabolic acidosis associated with DKA, now resolved. PLAN: IV Lasix x1. Repeat labs in a.m. MMODL / IJN: [id number] /
[2021-07-16 20:55] LABS: Glucose,Whole Blood 263 mg/dL (75-99)
[2021-07-17 06:43] LABS: Basophils % (A) 0 %; Eosinophils % (A) 0 %; HCT 46.3 % (39.0-53.0); HGB 14.7 gm/dL (13.0-17.5); Lymphocytes # (A) 0.9 k/uL (1.0-4.8); Lymphocytes % (A) 6 %; MCH 31.5 pg (25.0-35.0); MCHC 31.7 g/dL (31.0-37.0); MCV 99.5 fL (80.0-100.0); Mean Platelet Volume 7.9; Monocytes # (A) 0.9 k/uL (0-1.0); Monocytes % (A) 6 %; Neutrophils # (A) 12.7 k/uL (1.3-7.7); Neutrophils % (A) 87 %; Platelet Count 137 k/uL (150-450); RBC 4.65 m/uL (4.30-5.90); RDW 13.5 % (11.5-15.5); WBC 14.6 k/uL (3.8-10.6)
[2021-07-17 06:52] LABS: ALT 41 U/L (4-49); AST 35 U/L (17-59); African American GFR (CKD) >90 (>60 ml/min/1.73 sqM); Albumin 2.7 g/dL (3.5-5.0); Albumin/Globulin Ratio 0.9; Alkaline Phosphatase 103 U/L (38-126); Anion Gap 5 mmol/L; Blood Urea Nitrogen 33 mg/dL (9-20); Calcium 7.9 mg/dL (8.4-10.2); Carbon Dioxide 23 mmol/L (22-30); Chloride 99 mmol/L (98-107); Globulin 3.1 g/dL; Glucose 132 mg/dL (74-99); LDH 1865 U/L (313-618); Non-African American GFR(CKD) 80 (>60 ml/min/1.73 sqM); Sodium 127 mmol/L (137-145); Total Protein 5.8 g/dL (6.3-8.2)
[2021-07-17 06:59] LABS: Potassium 5.3 mmol/L (3.5-5.1)
[2021-07-17 07:00] LABS: Glucose,Whole Blood 211 mg/dL (75-99)
--- NOTE | 2021-07-17 07:41 | XR ---
EXAMINATION TYPE: XR chest 1V portable DATE OF EXAM: 07/17/2021 COMPARISON: 07/14/2021 HISTORY: Covid pneumonia TECHNIQUE: Single frontal view of the chest is obtained. FINDINGS: There are diffuse interstitial and scattered peripheral airspace opacities unchanged katy red to previous. There is no pneumothorax or large pleural effusion The osseous structures are intact. IMPRESSION: No change in the diffuse lung infiltrates.
[2021-07-17] MEDS: INSULIN DETEMIR (LEVEMIR) 100 UNIT/ML SYR SQ SCH (08:02)
[2021-07-17] MEDS: INSULIN ASPART (NovoLOG) 100 UNIT/ML VIAL SQ SCH ×7 (08:02→22:12)
[2021-07-17] MEDS: ZINC SULFATE 220 MG CAP PO SCH (08:03)
[2021-07-17] MEDS: TAMSULOSIN 0.4 MG CAP.ER.24H PO SCH (08:03)
[2021-07-17] MEDS: PANTOPRAZOLE 40 MG TABLET PO SCH ×2 (08:03→17:46)
[2021-07-17] MEDS: ASCORBIC ACID 500 MG TAB PO SCH (08:03)
[2021-07-17] MEDS: DEXAMETHASONE SOD PHOSPHATE 10 MG/ML 1 ML VIAL IVP SCH (08:03)
[2021-07-17] MEDS: ENOXAPARIN 40 MG/0.4 ML SYRINGE SQ SCH (08:04)
[2021-07-17] MEDS: ATORVASTATIN 40 MG TAB PO SCH (08:04)
[2021-07-17] MEDS: CHOLECALCIFEROL 125 MCG (5000 IU) TABLET PO SCH (08:04)
[2021-07-17 11:41] LABS: Glucose,Whole Blood 316 mg/dL (75-99)
--- NOTE | 2021-07-17 11:42 | P.PN ---
Subjective Progress Note Date: 07/17/21 Patient was seen and examined at bedside. Still short of breath is currently on 15 L high flow nasal cannula . He appears comfortable. No acute distress. Otherwise no acute changes overnight Objective - Vital Signs Vital signs: Vital Signs Temp 97.6 F 07/17/21 10:00 Pulse 114 H 07/17/21 10:00 Resp 17 07/17/21 10:00 BP 112/72 07/17/21 10:00 Pulse Ox 89 L 07/17/21 10:00 Intake & Output 07/16/21 07/17/21 07/17/21 18:59 06:59 18:59 Intake Total 1580 Output Total 1600 2150 Balance - -2149 Intake: Oral 1580 Output: Urine 1600 2150 Stool 0 Other: Voiding Method Indwelling Catheter Indwelling Catheter - Exam General: non toxic, no distress, appears at stated age Derm: warm, dry Head: atraumatic, normocephalic, symmetric Eyes: EOMI, no lid lag, anicteric sclera Mouth: no lip lesion, mucus membranes moist Cardiovascular: S1S2 reg, no murmur, positive posterior tibial pulse bilateral, Lungs: Diminished air entry bilaterally. Abdominal: soft, nontender to palpation, no guarding, no appreciable organomegaly Ext: no gross muscle atrophy, no edema, no contractures Neuro: CN II-XI grossly intact, no focal neuro deficits Psych: Alert, oriented, appropriate affect - Labs CBC & Chem 7: 07/17/21 06:13 07/17/21 06:13 Labs: Abnormal Lab Results - Last 24 Hours (Table) 07/16/21 07/16/21 07/16/21 Range/Units 11:31 16:21 20:52 WBC (3.8-10.6) k/uL Plt Count (150-450) k/uL Neutrophils # (1.3-7.7) k/uL Lymphocytes # (1.0-4.8) k/uL D-Dimer (<0.60) mg/L FEU Sodium (137-145) mmol/L Potassium (3.5-5.1) mmol/L BUN (9-20) mg/dL Glucose (74-99) mg/dL POC Glucose (mg/dL) 105 H 202 H 263 H (75-99) mg/dL Calcium (8.4-10.2) mg/dL Lactate Dehydrogenase (313-618) U/L C-Reactive Protein (<1.0) mg/dL Total Protein (6.3-8.2) g/dL Albumin (3.5-5.0) g/dL 07/17/21 07/17/21 07/17/21 Range/Units 06:13 06:13 06:13 WBC 14.6 H (3.8-10.6) k/uL Plt Count 137 L (150-450) k/uL Neutrophils # 12.7 H (1.3-7.7) k/uL Lymphocytes # 0.9 L (1.0-4.8) k/uL D-Dimer 14.40 H (<0.60) mg/L FEU Sodium 127 L (137-145) mmol/L Potassium 5.3 H (3.5-5.1) mmol/L BUN 33 H (9-20) mg/dL Glucose 132 H (74-99) mg/dL POC Glucose (mg/dL) (75-99) mg/dL Calcium 7.9 L (8.4-10.2) mg/dL Lactate Dehydrogenase 1865 H (313-618) U/L C-Reactive Protein 1.0 H (<1.0) mg/dL Total Protein 5.8 L (6.3-8.2) g/dL Albumin 2.7 L (3.5-5.0) g/dL 07/17/21 Range/Units 06:59 WBC (3.8-10.6) k/uL Plt Count (150-450) k/uL Neutrophils # (1.3-7.7) k/uL Lymphocytes # (1.0-4.8) k/uL D-Dimer (<0.60) mg/L FEU Sodium (137-145) mmol/L Potassium (3.5-5.1) mmol/L BUN (9-20) mg/dL Glucose (74-99) mg/dL POC Glucose (mg/dL) 211 H (75-99) mg/dL Calcium (8.4-10.2) mg/dL Lactate Dehydrogenase (313-618) U/L C-Reactive Protein (<1.0) mg/dL Total Protein (6.3-8.2) g/dL Albumin (3.5-5.0) g/dL Assessment and Plan Plan: Assessment and plan: #Acute hypoxic respiratory failure related to acute COVID-19 pneumonia -patient presented to the hospital on 07/08/2021, not a candidate for Remdesivir, not vaccinated. -Improving slowly and is currently on 15 L high flow nasal cannula -On Baricitinib on 07/12/2021, currently patient is on 15 L per high flow nasal cannula and nonrebreather mask. -Pulmonary following. #An episode of GI bleeding, with a rectal bleeding, hematuria and bleeding at the IV insertion sites -Patient was given a dose of KCentra, and the bleeding has resolved. -Hemoglobin is stable, patient has not required blood transfusions #Acute bilateral DVTs -was initially started on Eliquis which was placed on hold related to acute bleeding. -Status post IVC filter placement today on 07/11/2021 -Since hemoglobin is stable and there is no any evidence of GI bleed patient will be started on Eliquis 5 mg twice a day without loading dose. Continue to monitor hemoglobin and watch for any signs of bleeding. #Acute diabetic ketoacidosis -resolved -A1c 9.6. -Currently on basal bolus insulin #Acute kidney injury -Resolved -Likely Prerenal azotemia secondary to dehydration and DKA. -Continue holding SHYAM inhibitor #Urinary retention -Status post Gonzalez catheter placement -We'll try to remove the catheter today and do voiding trials, check postvoid residuals -Patient started on Flomax 0.4 mg daily #Acute hyponatremia -Check serum and urine osmolarity -Nephrology ordered one-time dose of Samsca 15 mg on July 17 -Random urine sodium -Nephrology following #Hypertension -Soft blood pressure, hold Norvasc for now -We will restart SHYAM inhibitor in the future since kidney function is improving #Acute anion gap Metabolic acidosis -resolved -Secondary to acute kidney failure indicated #Hyperkalemia -Resolved. #Leukocytosis -Secondary to steroids #DVT prophylaxis patient on Eliquis 5 mg twice daily
--- NOTE | 2021-07-17 11:57 | PN ---
PROGRESS NOTE Patient is seen for followup for acute kidney injury and hyponatremia. Patient received one dose of IV Lasix yesterday, as he was hypervolemic. His sodium has not improved. It stays at 127. Patient has had increased intake of fluids. However, he is not eating much due to persistent need for 100% non-rebreather. On examination today, blood pressure 112/72, heart rate 114 per minute. He is afebrile. Examination of lower extremities shows edema 2+ bilaterally. 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 Lungs and heart are not examined. Labs show sodium 127, potassium 5.3, BUN 33, creatinine 1.0. ASSESSMENT: 1. Hypervolemic hyponatremia. Will give a dose of tolvaptan today and based on his serum sodium again tomorrow I will add more loop diuretics. Patient is encouraged to increase oral protein intake. 2. COVID pneumonia. 3. Acute hypoxic respiratory failure requiring high amounts of oxygen. 4. Acute kidney injury, currently significantly improved. Serum creatinine is down to 1.0 from 5.8 on initial admission. PLAN: Tolvaptan mg p.o. x1. Repeat labs in a.m. Repeat dose of IV Lasix tomorrow based on his serum sodium. This will also help with his mildly elevated potassium. MMODL / IJN: [id number] /
[2021-07-17] MEDS ORDERED: TOLVAPTAN 15 MG 1/2 TABLET PO ONE (12:00)
[2021-07-17] MEDS: APIXABAN 5 MG TAB PO SCH ×2 (12:55→20:43)
--- NOTE | 2021-07-17 15:03 | P.PN ---
Subjective Progress Note Date: 07/17/21 This is a 60-year-old male patient who follows with Dr. Phoenix as his primary care provider. He has a history of diabetes mellitus, hypertension, obesity. He had recently lost his mother from COVID-19 pneumonia and since that time he had been going downhill according to his siblings who were present in the emergency room. Chest x-ray reveals diffuse bilateral airspace disease with predominantly peripheral distribution on the right greater than left. No evidence of pneumothorax. No pleural effusion. VQ scan revealed very low probability for acute PE. Dopplers of lower extremities revealed bilateral nonocclusive DVTs. Renal ultrasound reveals nonspecific heterogenous appearance of the kidneys may relate to medical renal disease. No bilateral hydronephrosis. Benign-appearing left renal cyst. White count 22.0. Hemoglobin 13.5. Lymphocytes 0.9. D-dimer 13.5. Sodium 138. Potassium 4.6. Chloride 107. A 22. Anion gap 9. Creatinine 2.85. Blood glucose 292. Calcium 8.1. AST 37. ALT 23. LDH 1210. Troponin 0.056. C-reactive protein 6.2. Acetone positive. Urinalysis with 4+ glucose. Coronavirus by PCR positive. He sitting today in the intensive care unit. He is currently sitting up in bed. Awake and alert. Somewhat slow to respond. Somewhat distended. He is on 15 L nonrebreather mask. Current O2 saturation 89%. He's been afebrile. Hemodynamically stable. He is currently on an insulin drip at 5 units an hour. D5.45 with 20 KCl at 150 MLS per hour. Heparin subcu for DVT prophylaxis. Vitamin supplements. The patient is seen today 07/10/2021 in follow-up on the selective care unit. He is currently resting comfortably in bed. Awake and alert in no acute distress. He is currently on 15 L high flow nasal cannula to maintain O2 saturation at about 90%. He has normal saline at 50 MLS per hour. He is not urinating. Indwelling Gonzalez catheter will be placed. His appetite is somewhat better. His lower extremity are positive for DVT. CT angiogram ruled out PE. He is currently on Eliquis. He remains on Decadron, vitamin supplements. White count 20.3. Hemoglobin 15.4. Lymphocytes 0.6. Sodium 140. Potassium 4.8. Creatinine 1.78. Glucose 150. AST 33. ALT 27. Echocardiogram revealed preserved left ventricular systolic function. The patient is seen today 07/17/2021 . Follow-up on the regular medical floor. He is currently sitting up in a chair at the bedside. Awake and alert. He is still requiring 15 L high flow nasal cannula +100% nonrebreather mask to maintain O2 saturations in the high 80s low 90s. He denies any worsening shortness of breath at this time. Slow to progress. White count 14.6. Hemoglobin 14.7. Lymphocytes 0.9. D-dimer 14.4. Sodium 127. Potassium 5.3. Creatinine 1.01. AST 35. ALT 41. LDH 1865. C-reactive protein 1.0. Chest x- ray continues to show diffuse lung infiltrates. No change compared to previous. No pneumothorax. No large effusions. He is continued on Baricitinib, Decadro n, vitamin supplements. He is anticoagulated with Eliquis. The patient did have a Gabriella filter placed 07/11/2021. Objective - Vital Signs Vital signs: Vital Signs Temp 97.1 F L 07/17/21 13:04 Pulse 99 07/17/21 13:04 Resp 19 07/17/21 13:04 BP 80/47 07/17/21 13:04 Pulse Ox 96 07/17/21 13:04 Intake & Output 07/16/21 07/17/21 07/17/21 18:59 06:59 18:59 Intake Total 1580 240 Output Total 1600 2150 230 Balance -20 -2150 10 Intake: Oral 1580 240 Output: Urine 1600 2150 230 Uretheral (Gonzalez) 230 Stool 0 Other: Voiding Method Indwelling Catheter Indwelling Catheter - Exam GENERAL EXAM: Alert, pleasant 60-year-old male patient, in a chair at the bedside, on 15 L high flow nasal cannula +100% nonrebreather mask, fairly comfortable in no apparent distress. HEAD: Normocephalic. EYES: Normal reaction of pupils, equal size. NOSE: Clear with pink turbinates. THROAT: No erythema or exudates. NECK: No masses, no JVD. CHEST: No chest wall deformity. LUNGS: Equal air entry with coarse crackles in the bilateral bases. CVS: S1 and S2 normal with no audible murmur, regular rhythm. ABDOMEN: No hepatosplenomegaly, normal bowel sounds, no guarding or rigidity. SPINE: No scoliosis or deformity SKIN: No rashes CENTRAL NERVOUS SYSTEM: No focal deficits, tone is normal in all 4 extremities. EXTREMITIES: There is no peripheral edema. No clubbing, no cyanosis. Peripheral pulses are intact. - Labs CBC & Chem 7: 07/17/21 06:13 07/17/21 06:13 Labs: Abnormal Lab Results - Last 24 Hours (Table) 07/16/21 07/16/21 07/17/21 Range/Units 16:21 20:52 06:13 WBC (3.8-10.6) k/uL Plt Count (150-450) k/uL Neutrophils # (1.3-7.7) k/uL Lymphocytes # (1.0-4.8) k/uL D-Dimer 14.40 H (<0.60) mg/L FEU Sodium (137-145) mmol/L Potassium (3.5-5.1) mmol/L BUN (9-20) mg/dL Glucose (74-99) mg/dL POC Glucose (mg/dL) 202 H 263 H (75-99) mg/dL Calcium (8.4-10.2) mg/dL Lactate Dehydrogenase (313-618) U/L C-Reactive Protein (<1.0) mg/dL Total Protein (6.3-8.2) g/dL Albumin (3.5-5.0) g/dL 07/17/21 07/17/21 07/17/21 Range/Units 06:13 06:13 06:59 WBC 14.6 H (3.8-10.6) k/uL Plt Count 137 L (150-450) k/uL Neutrophils # 12.7 H (1.3-7.7) k/uL Lymphocytes # 0.9 L (1.0-4.8) k/uL D-Dimer (<0.60) mg/L FEU Sodium 127 L (137-145) mmol/L Potassium 5.3 H (3.5-5.1) mmol/L BUN 33 H (9-20) mg/dL Glucose 132 H (74-99) mg/dL POC Glucose (mg/dL) 211 H (75-99) mg/dL Calcium 7.9 L (8.4-10.2) mg/dL Lactate Dehydrogenase 1865 H (313-618) U/L C-Reactive Protein 1.0 H (<1.0) mg/dL Total Protein 5.8 L (6.3-8.2) g/dL Albumin 2.7 L (3.5-5.0) g/dL 07/17/21 Range/Units 11:40 WBC (3.8-10.6) k/uL Plt Count (150-450) k/uL Neutrophils # (1.3-7.7) k/uL Lymphocytes # (1.0-4.8) k/uL D-Dimer (<0.60) mg/L FEU Sodium (137-145) mmol/L Potassium (3.5-5.1) mmol/L BUN (9-20) mg/dL Glucose (74-99) mg/dL POC Glucose (mg/dL) 316 H (75-99) mg/dL Calcium (8.4-10.2) mg/dL Lactate Dehydrogenase (313-618) U/L C-Reactive Protein (<1.0) mg/dL Total Protein (6.3-8.2) g/dL Albumin (3.5-5.0) g/dL Assessment and Plan Assessment: 1 Acute hypoxemic respiratory failure secondary to acute COVID-19 pneumonia. Not vaccinated. Outside the window for Remdesivir. Currently on Baricitinib. Requiring 15 L high flow nasal cannula +100% nonrebreather mask 2 Elevated inflammatory markers secondary to above 3 Acute bilateral DVTs with elevated d-dimer, on Eliquis. Initially developed hematuria and a IVC filter was placed, then resume back on Eliquis 4 Acute diabetic ketoacidosis secondary to poor appetite 5 Acute renal failure improving with current creatinine 1.01 6 Metabolic acidosis secondary to above, recovered 7 Hyperkalemia, improved 8 Diabetes mellitus 9 History of hypertension 10 Leukocytosis 11 Depression secondary to recent loss of his mother secondary to CoVID Plan: The patient was seen and evaluated Continued on 15 L high flow nasal cannula plus and nonrebreather mask Remains on Baricitinib Continue Eliquis, Decadron, vitamin supplements Titrate the FiO2 as tolerated Increase his activity as tolerated We will continue to follow I, the cosigning physician, performed a history & physical examination of the patient. Lungs sounds crackles in the bilateral posterior bases. Maintaining O2 saturations in the 90s if 15 L high flow nasal cannula plus a 100% nonrebreather mask. I discussed the assessment and plan of care with my nurse practitioner, Meron Keating. I attest to the above note as dictated by her.
[2021-07-17 16:50] LABS: Glucose,Whole Blood 119 mg/dL (75-99)
[2021-07-17] MEDS: BARICITINIB 2 MG TABLET PO SCH (17:46)
[2021-07-17 20:22] LABS: Glucose,Whole Blood 58 mg/dL (75-99)
[2021-07-17 20:57] LABS: Glucose,Whole Blood 116 mg/dL (75-99)
[2021-07-18 07:00] LABS: Glucose,Whole Blood 108 mg/dL (75-99)
[2021-07-18] MEDS: INSULIN ASPART (NovoLOG) 100 UNIT/ML VIAL SQ SCH ×7 (07:13→21:40)
[2021-07-18] MEDS: INSULIN DETEMIR (LEVEMIR) 100 UNIT/ML SYR SQ SCH (07:38)
[2021-07-18] MEDS: ASCORBIC ACID 500 MG TAB PO SCH (07:39)
[2021-07-18] MEDS: TAMSULOSIN 0.4 MG CAP.ER.24H PO SCH (07:39)
[2021-07-18] MEDS: PANTOPRAZOLE 40 MG TABLET PO SCH ×2 (07:39→17:14)
[2021-07-18] MEDS: CHOLECALCIFEROL 125 MCG (5000 IU) TABLET PO SCH (07:40)
[2021-07-18] MEDS: DEXAMETHASONE SOD PHOSPHATE 10 MG/ML 1 ML VIAL IVP SCH (07:40)
[2021-07-18] MEDS: ZINC SULFATE 220 MG CAP PO SCH (07:40)
[2021-07-18] MEDS: ATORVASTATIN 40 MG TAB PO SCH (07:40)
[2021-07-18] MEDS: APIXABAN 5 MG TAB PO SCH ×2 (07:40→21:40)
[2021-07-18 08:08] LABS: Basophils % (A) 0 %; Eosinophils # (A) 0.1 k/uL (0-0.7); Eosinophils % (A) 1 %; HCT 44.9 % (39.0-53.0); HGB 14.7 gm/dL (13.0-17.5); Lymphocytes # (A) 1.3 k/uL (1.0-4.8); Lymphocytes % (A) 7 %; MCH 31.7 pg (25.0-35.0); MCHC 32.7 g/dL (31.0-37.0); MCV 96.9 fL (80.0-100.0); Mean Platelet Volume 7.5; Monocytes # (A) 0.8 k/uL (0-1.0); Monocytes % (A) 4 %; Neutrophils # (A) 16.3 k/uL (1.3-7.7); Neutrophils % (A) 87 %; Platelet Count 146 k/uL (150-450); RBC 4.63 m/uL (4.30-5.90); RDW 14.2 % (11.5-15.5); WBC 18.7 k/uL (3.8-10.6)
[2021-07-18 08:12] LABS: ALT 42 U/L (4-49); AST 34 U/L (17-59); African American GFR (CKD) 80 (>60 ml/min/1.73 sqM); Albumin 2.7 g/dL (3.5-5.0); Albumin/Globulin Ratio 0.9; Alkaline Phosphatase 117 U/L (38-126); Anion Gap 6 mmol/L; Blood Urea Nitrogen 32 mg/dL (9-20); Calcium 8.1 mg/dL (8.4-10.2); Carbon Dioxide 23 mmol/L (22-30); Chloride 100 mmol/L (98-107); Glucose 87 mg/dL (74-99); Non-African American GFR(CKD) 69 (>60 ml/min/1.73 sqM); Potassium 4.2 mmol/L (3.5-5.1); Sodium 129 mmol/L (137-145); Total Bilirubin 0.7 mg/dL (0.2-1.3); Total Protein 5.7 g/dL (6.3-8.2)
[2021-07-18] MEDS ORDERED: FUROSEMIDE 10 MG/ML 4 ML VIAL IV STA (09:43)
[2021-07-18 11:18] LABS: Glucose,Whole Blood 198 mg/dL (75-99)
[2021-07-18] MEDS ORDERED: SODIUM CHLORIDE 0.65% NASAL SPRAY 44 ML BTL NASAL PRN (12:15)
--- NOTE | 2021-07-18 13:31 | PN ---
PROGRESS NOTE Patient is seen for followup for hyponatremia which is mostly hypervolemic. He is status post tolvaptan yesterday and his sodium improved from 127-129. EXAMINATION: Today, patient is comfortable. Blood pressure 92/57, heart rate 106 per minute. He is afebrile. He has edema in the lower extremities. Patient remains on high-flow oxygen, maintained on a non-rebreather. O2 sats at 90-94 percent. LAB: Show sodium 129, potassium 4.2, BUN 32, creatinine 1.1. ASSESSMENT: 1. Acute kidney injury, ATN, currently improved. 2. Hypervolemic hyponatremia status post tolvaptan. We will repeat IV Lasix today. 3. Acute hypoxic respiratory failure associated with Covid pneumonia. 4. COVID pneumonia. 5. Acute bilateral DVTs status post IVC filter placement. PLAN: Repeat IV Lasix today. Repeat labs in a.m. MMODL / IJN: [id number] /
--- NOTE | 2021-07-18 13:31 | P.PN ---
Subjective Progress Note Date: 07/18/21 Patient was seen and examined at bedside. Still on 15 L high flow cannula/rebreather. He appears comfortable. No acute distress. Otherwise no acute changes overnight Objective - Vital Signs Vital signs: Vital Signs Temp 97.9 F 07/18/21 10:00 Pulse 106 H 07/18/21 10:00 Resp 18 07/18/21 10:00 BP 92/57 07/18/21 10:00 Pulse Ox 94 L 07/18/21 11:44 Intake & Output 07/17/21 07/18/21 07/18/21 18:59 06:59 18:59 Intake Total 240 Output Total 230 500 250 Balance 10 -500 -250 Intake: Oral 240 Output: Urine 230 500 250 Uretheral (Gonzalez) 230 Stool 0 Other: Voiding Method Urinal # Voids 1 1 1 - Exam General: non toxic, no distress, appears at stated age Derm: warm, dry Head: atraumatic, normocephalic, symmetric Eyes: EOMI, no lid lag, anicteric sclera Mouth: no lip lesion, mucus membranes moist Cardiovascular: S1S2 reg, no murmur, positive posterior tibial pulse bilateral, Lungs: Diminished air entry bilaterally. Abdominal: soft, nontender to palpation, no guarding, no appreciable organomegaly Ext: no gross muscle atrophy, no edema, no contractures Neuro: CN II-XI grossly intact, no focal neuro deficits Psych: Alert, oriented, appropriate affect - Labs CBC & Chem 7: 07/18/21 07:25 07/18/21 07:25 Labs: Abnormal Lab Results - Last 24 Hours (Table) 07/17/21 07/17/21 07/17/21 Range/Units 16:49 20:19 20:48 WBC (3.8-10.6) k/uL Plt Count (150-450) k/uL Neutrophils # (1.3-7.7) k/uL Sodium (137-145) mmol/L BUN (9-20) mg/dL POC Glucose (mg/dL) 119 H 58 L 116 H (75-99) mg/dL Calcium (8.4-10.2) mg/dL Total Protein (6.3-8.2) g/dL Albumin (3.5-5.0) g/dL 07/18/21 07/18/21 07/18/21 Range/Units 06:58 07:25 07:25 WBC 18.7 H (3.8-10.6) k/uL Plt Count 146 L (150-450) k/uL Neutrophils # 16.3 H (1.3-7.7) k/uL Sodium 129 L (137-145) mmol/L BUN 32 H (9-20) mg/dL POC Glucose (mg/dL) 108 H (75-99) mg/dL Calcium 8.1 L (8.4-10.2) mg/dL Total Protein 5.7 L (6.3-8.2) g/dL Albumin 2.7 L (3.5-5.0) g/dL 07/18/21 Range/Units 11:17 WBC (3.8-10.6) k/uL Plt Count (150-450) k/uL Neutrophils # (1.3-7.7) k/uL Sodium (137-145) mmol/L BUN (9-20) mg/dL POC Glucose (mg/dL) 198 H (75-99) mg/dL Calcium (8.4-10.2) mg/dL Total Protein (6.3-8.2) g/dL Albumin (3.5-5.0) g/dL Assessment and Plan Plan: Assessment and plan: #Acute hypoxic respiratory failure related to acute COVID-19 pneumonia -patient presented to the hospital on 07/08/2021, not a candidate for Remdesiv ir, not vaccinated. -Improving slowly and is currently on 15 L high flow cannula/nonrebreather -On Baricitinib on 07/12/2021, currently patient is on 15 L per high flow nasal cannula and nonrebreather mask. -Pulmonary following. #An episode of GI bleeding, with a rectal bleeding, hematuria and bleeding at the IV insertion sites -Patient was given a dose of KCentra, and the bleeding has resolved. -Hemoglobin is stable, patient has not required blood transfusions #Acute bilateral DVTs -was initially started on Eliquis which was placed on hold related to acute bleeding. -Status post IVC filter placement today on 07/11/2021 -Since hemoglobin is stable and there is no any evidence of GI bleed patient started on Eliquis 5 mg twice a day without loading dose on July 17. -Continue to monitor hemoglobin #Acute diabetic ketoacidosis -resolved -A1c 9.6. -Currently on basal bolus insulin #Acute kidney injury -Resolved -Likely Prerenal azotemia secondary to dehydration and DKA. -Continue holding SHYAM inhibitor #Urinary retention -Resolved -Status post Gonzalez catheter placement -Gonzalez catheter removed July 17 -Patient started on Flomax 0.4 mg daily -Continue to monitor postvoid residuals #Acute hyponatremia -Check serum and urine osmolarity -Nephrology ordered one-time dose of Samsca 15 mg on July 17 -Random urine sodium -Nephrology following #Hypertension -Soft blood pressure, hold Norvasc for now -We will restart SHYAM inhibitor in the future since kidney function is improving #Acute anion gap Metabolic acidosis -resolved -Secondary to acute kidney failure indicated #Hyperkalemia -Resolved. #Leukocytosis -Secondary to steroids #DVT prophylaxis patient on Eliquis 5 mg twice daily
--- NOTE | 2021-07-18 14:57 | P.PN ---
Subjective Progress Note Date: 07/18/21 On 07/11/2021 patient seen in follow-up on medical surgical floor, patient oxygen requirement and is currently increased, he is on 15 L per high flow nasal cannula and a nonrebreather mask, and his pulse ox is 92-96%, however he is breathing fairly comfortable, does not appear to be in any acute distress, his been afebrile, no complaints of chest discomfort, patient was diagnosed with bilateral lower extremity DVTs, and she was started on Eliquis however he developed GI bleeding, he had a large bowel movement with blood, he developed bleeding from his IV insertion sites, and hematuria, and his anticoagulation was subsequently placed on hold and he was given a dose of K Centra. However his hemoglobin has remained fairly stable, today it is 16.3, actually increased, patient has not required any blood transfusions, hemodynamically has been stable, his white count is 20.5, his platelet count is 286, his renal profile is actually improving, his BUN is down to 52 and creatinine is down to 1.38, electrolytes are unremarkable. His pro calcitonin level was 0.61. His had no fever or chills. Patient was taken to the laborer/grade check by Dr. Bright and IVC filter was inserted. He is also seen in consultation by surgical services, the recommendation was to place anticoagulation on hold, and surgery will remain on standby at this time. On 07/12/2021 patient seen in follow-up on medical surgical floor, he states his breathing is not bad, although he still requiring high flow oxygen 15 L and his pulse ox is between 92-94%, hemodynamically his has remained stable, his been afebrile, he is resting comfortably in bed, his Eliquis remains on hold for an episode of GI bleeding. Patient denies any abdominal pain, there has been no further bleeding. His hemoglobin today is 14.6, his white blood cell count is improving and is down to 14.7 on today's labs, d-dimer is improving and is down to 10.6, electrolytes are within normal limits, BUN is 27.2, and creatinine is improved and is down to 1.2. His LDH has significantly improved is down to 454, CRP is down to 1.7. His pro calcitonin level is negative at 0.09. Patient is currently on Decadron 6 mg daily, he is on multivitamins including vitamin C, vitamin D, and zinc, he continues on gentle IV hydration with 0.9 normal saline at a rate of 50 ML per hour. Chest x-ray today showing bilateral infiltrates that are stable in appearance. Surgical services are following, patient is status post IVC filter yesterday in the right groin. Lung sounds are essentially clear but very minimal crackles at the left base, breathing very comfortably, no complaints of chest pain. On 07/13/2021 patient seen in follow-up on medical surgical floor. Patient is awake and alert, in no acute distress, he is requiring high flow oxygen, with 15 L in nonrebreather mask, and his pulse ox is anywhere between 88 and 96%, does not appear to be in any acute distress. We started him on Baricitinib yesterday on 07/12/2021, patient is breathing comfortably, minimal cough, no complaints of chest discomfort, his been afebrile, yesterday's chest x-ray showed stable bilateral infiltrates. Today's labs have been reviewed, his white blood cell count is stable at 14.6, hemoglobin is 15.4, sodium is 134, respiratory electrolytes are within normal limits, BUN is 25, creatinine is 1.02. Inflammatory markers were improving on yesterday's labs. Follow-up pro calcitonin was negative at 0.09 On 07/14/2021 patient seen in follow-up on medical surgical floor, he still requiring high flow oxygen with 15 L per high flow nasal cannula and nonrebreather mask, and his pulse ox is around 90-95%, breathing comfortably, he sitting up in the recliner, appears to be in no acute distress, no fever or chills, vital signs have been stable. Today's chest x-ray shows low lung volumes and bilateral multifocal opacities no significant change. His labs have been reviewed, his white blood cell count of 15.2, hemoglobin is 15, last d- dimer was improving and was down to 10.6, sodium is 132, direct electrolytes were unremarkable, he is BUN was 22 and creatinine was 0.93.Remains on Baricitrinib, Decadron, prophylactic Lovenox and multivitamins. On 07/15/2021 patient seen in follow-up on medical surgical floor. Patient is awake and alert, oriented 3, does not appear to be in any acute distress, he sitting up in the recliner, breathing comfortably, he is currently on 15 L per high flow nasal cannula and nonrebreather mask. His pulse ox earlier was 92-97 %, nonrebreather was removed, and patient was just left on 15 L per high flow nasal cannula, we reevaluated him after half an hour and his pulse ox remained at 90-91%, he continues to breathing very comfortably, but chest discomfort, no significant cough, no fever or chills. No new chest x-ray today. Today's labs have been reviewed, his white blood cell count of 16.2, hemoglobin is 14.9, sodium is 1:30, potassium is 4.5, chloride is 104, CO2 is 23, B1 is 20, creatinine is 1.06. Tolerating oral intake, no nausea vomiting or diarrhea. 07/16/2021,, I'm seeing the patient for a follow-up. The patient is comfortable on 100% nonrebreather facemask addition to high flow oxygen at 15 L. The arely wilde is was taken off the 100% nonrebreather and he desaturated down to the low 80s. As such, he needs to double oxygen source at this point in time.he has no other new complaints. He feels well. No nausea. No vomiting. No abdominal pain. No chest pain. White cell count is at 16 with a hemoglobin of 14.8. Sodium level is at 127. BUN is at 32 with a+ creatinine of 1.06. Sodium level is at 127. White cell count is 16 with a hemoglobin of 14.8. The patient remains on a combination of Decadron and Baricitinib per protocol.the patient has also been on Lovenox 1 mg subcu for DVT prophylaxis. No major changes condition. No interval improvement or worsening his respiratory status or o xygenation. Most recent chest x-ray was done on07/14/2021 and showed diffuse bilateral pulmonary infiltrates which remains essentially stable and unchanged. The patient is seen today 07/17/2021 . Follow-up on the regular medical floor. He is currently sitting up in a chair at the bedside. Awake and alert. He is still requiring 15 L high flow nasal cannula +100% nonrebreather mask to [place] in O2 saturations in the high 80s low 90s. He denies any worsening shortness of breath at this time. Slow to progress. White count 14.6. Hemoglobin 14.7. Lymphocytes 0.9. D-dimer 14.4. Sodium 127. Potassium 5.3. Creatinine 1.01. AST 35. ALT 41. LDH 1865. C-reactive protein 1.0. Chest x-ray continues to show diffuse lung infiltrates. No change compared to previous. No pneumothorax. No large effusions. He is continued on Baricitinib, Decadron, vitamin supplements. He is anticoagulated with Eliquis. 07/18/2021, the patient remains in the 100% nonrebreather facemask in addition to 15 L of oxygen by nasal cannula. I took him off the nonrebreather and the patient was able to maintain a saturation of around 92%. On the double oxygen source, the patient's pulse ox was 90%. Doing well. Resting comfortably on the chair. No significant respiratory distress. The patient's white cell count of 18.7 with a hemoglobin of 14.7. His renal function is stable at creatinine of 1.1 with a BUN of 32 and the sodium level of 129. Blood sugar from today is 198. The patient continues to receive Decadron 6 mg IV every 24 hours and the patient is on Baricitinib per protocol for milligrams by mouth daily. The patient remains on anticoagulation with Eliquis 5 mg by mouth twice a day. He remains on Levemir insulin 25 units along with 8 units of NovoLog with meals and a sliding scale coverage. No significant cough or sputum production. No altered mentation. No bleeding complications. Objective - Vital Signs Vital signs: Vital Signs Temp 97.9 F 07/18/21 10:00 Pulse 106 H 07/18/21 10:00 Resp 18 07/18/21 10:00 BP 92/57 07/18/21 10:00 Pulse Ox 94 L 07/18/21 11:44 Intake & Output 07/17/21 07/18/21 07/18/21 18:59 06:59 18:59 Intake Total 240 Output Total 230 500 250 Balance 10 -500 -250 Intake: Oral 240 Output: Urine 230 500 250 Uretheral (Gonzalez) 230 Stool 0 Other: Voiding Method Urinal # Voids 1 1 1 - Exam GENERAL EXAM: Alert, very pleasant 60-year-old white male, on 15 L per high flow nasal cannula and the nonrebreather mask, with a pulse ox of 96% comfortable in no apparent distress. Nonrebreather mask was removed, patient is maintaining stable O2 saturation at 90-91% just on 15 L per high flow nasal cannula HEAD: Normocephalic/atraumatic. EYES: Normal reaction of pupils, equal size. Conjunctiva pink, sclera white. NOSE: Clear with pink turbinates. THROAT: No erythema or exudates. NECK: No masses, no JVD, no thyroid enlargement, no adenopathy. CHEST: No chest wall deformity. Symmetrical expansion. LUNGS: Equal air entry with no crackles, wheeze, rhonchi or dullness. CVS: Regular rate and rhythm, normal S1 and S2, no gallops, no murmurs, no rubs ABDOMEN: Soft, nontender. No hepatosplenomegaly, normal bowel sounds, no guarding or rigidity. EXTREMITIES: No clubbing, no edema, no cyanosis, 2+ pulses and upper and lower extremities. MUSCULOSKELETAL: Muscle strength and tone normal. SPINE: No scoliosis or deformity SKIN: No rashes CENTRAL NERVOUS SYSTEM: Alert and oriented -3. No focal deficits, tone is normal in all 4 extremities. PSYCHIATRIC: Alert and oriented -3. Appropriate affect. Intact judgment and insight. - Labs CBC & Chem 7: 07/18/21 07:25 07/18/21 07:25 Labs: Abnormal Lab Results - Last 24 Hours (Table) 07/17/21 07/17/21 07/17/21 Range/Units 16:49 20:19 20:48 WBC (3.8-10.6) k/uL Plt Count (150-450) k/uL Neutrophils # (1.3-7.7) k/uL Sodium (137-145) mmol/L BUN (9-20) mg/dL POC Glucose (mg/dL) 119 H 58 L 116 H (75-99) mg/dL Calcium (8.4-10.2) mg/dL Total Protein (6.3-8.2) g/dL Albumin (3.5-5.0) g/dL 07/18/21 07/18/21 07/18/21 Range/Units 06:58 07:25 07:25 WBC 18.7 H (3.8-10.6) k/uL Plt Count 146 L (150-450) k/uL Neutrophils # 16.3 H (1.3-7.7) k/uL Sodium 129 L (137-145) mmol/L BUN 32 H (9-20) mg/dL POC Glucose (mg/dL) 108 H (75-99) mg/dL Calcium 8.1 L (8.4-10.2) mg/dL Total Protein 5.7 L (6.3-8.2) g/dL Albumin 2.7 L (3.5-5.0) g/dL 07/18/21 Range/Units 11:17 WBC (3.8-10.6) k/uL Plt Count (150-450) k/uL Neutrophils # (1.3-7.7) k/uL Sodium (137-145) mmol/L BUN (9-20) mg/dL POC Glucose (mg/dL) 198 H (75-99) mg/dL Calcium (8.4-10.2) mg/dL Total Protein (6.3-8.2) g/dL Albumin (3.5-5.0) g/dL Assessment and Plan Plan: #1. Acute hypoxic respiratory failure related to acute COVID-19 pneumonia, patient presented to the hospital on 07/08/2021, not a candidate for Remdesivir, not vaccinated. Patient's oxygenation has progressively became worse, we'll try to qualify him for Baricitinib today on 07/11/2021, currently patient is on 15 L per high flow nasal cannula and nonrebreather mask. Started on Baricitinib on 07/12/2021. The patient continues to be on a combination of Decadron and Baricitinib. Overall respiratory status is stable. Chest x-ray findings from 07/14/2021 is also stable. No interval worsening respiratory status. On today's evaluation, I eliminated the 100% nonrebreather facemask and the patient is currently on 15 L nasal cannula. He remains on a combination of Decadron on Baricitinib protocol. He has been slow to progress. #2. Acute GI bleeding, with a rectal bleeding, hematuria and bleeding at the IV insertion sites, patient was given a dose of KCentra, and the bleeding has resolved. Hemoglobin is stable, patient has not required blood transfusions #3. Acute bilateral DVTs was initially started on Eliquis which was placed on hold related to acute bleeding. Status post IVC filter placement today on 07/11/2021 #4. Acute diabetic ketoacidosis, resolved #5. Acute kidney injury, improved #6. Hypertension #7. Acute anion gap Metabolic acidosis, resolved #8. Hyperkalemia, improved #9. Diabetes mellitus type 2 #10. Hypertension #10. Leukocytosis, persistent, slightly improved Plan: continue at 15 L of oxygen by nasal cannula Discontinue Nonrebreather mask and monitor oxygenation Continue Baricitinib and Decadron for now continue Lovenox 40 mg daily with surgical clearance Hemodynamically patient has been stable Provide incentive spirometer Encourage the patient to sit up in the chair We'll continue to follow his clinical course
[2021-07-18] MEDS: BARICITINIB 2 MG TABLET PO SCH (15:57)
[2021-07-18 16:30] LABS: Glucose,Whole Blood 207 mg/dL (75-99)
[2021-07-18 21:33] LABS: Glucose,Whole Blood 98 mg/dL (75-99)
[2021-07-19 06:42] LABS: Glucose,Whole Blood 59 mg/dL (75-99)
[2021-07-19 07:04] LABS: Glucose,Whole Blood 101 mg/dL (75-99)
[2021-07-19 08:01] LABS: ALT 46 U/L (4-49); AST 34 U/L (17-59); African American GFR (CKD) 81 (>60 ml/min/1.73 sqM); Albumin 2.8 g/dL (3.5-5.0); Albumin/Globulin Ratio 0.8; Alkaline Phosphatase 132 U/L (38-126); Anion Gap 6 mmol/L; Blood Urea Nitrogen 34 mg/dL (9-20); Calcium 8.2 mg/dL (8.4-10.2); Carbon Dioxide 26 mmol/L (22-30); Chloride 100 mmol/L (98-107); Globulin 3.3 g/dL; Glucose 50 mg/dL (74-99); Non-African American GFR(CKD) 70 (>60 ml/min/1.73 sqM); Sodium 132 mmol/L (137-145); Total Bilirubin 0.9 mg/dL (0.2-1.3); Total Protein 6.1 g/dL (6.3-8.2)
[2021-07-19] MEDS: ZINC SULFATE 220 MG CAP PO SCH (08:14)
[2021-07-19] MEDS: PANTOPRAZOLE 40 MG TABLET PO SCH ×2 (08:14→13:15)
[2021-07-19] MEDS: CHOLECALCIFEROL 125 MCG (5000 IU) TABLET PO SCH (08:14)
[2021-07-19] MEDS: ATORVASTATIN 40 MG TAB PO SCH (08:14)
[2021-07-19] MEDS: DEXAMETHASONE SOD PHOSPHATE 10 MG/ML 1 ML VIAL IVP SCH (08:14)
[2021-07-19] MEDS: TAMSULOSIN 0.4 MG CAP.ER.24H PO SCH (08:14)
[2021-07-19] MEDS: ASCORBIC ACID 500 MG TAB PO SCH (08:15)
[2021-07-19] MEDS: INSULIN ASPART (NovoLOG) 100 UNIT/ML VIAL SQ SCH ×8 (08:15→21:09)
[2021-07-19] MEDS: INSULIN DETEMIR (LEVEMIR) 100 UNIT/ML SYR SQ SCH (08:15)
[2021-07-19] MEDS: APIXABAN 5 MG TAB PO SCH ×2 (08:15→21:00)
[2021-07-19] MEDS: BARICITINIB 2 MG TABLET PO SCH (08:16)
[2021-07-19 08:19] LABS: Basophils % (A) 0 %; Eosinophils # (A) 0.2 k/uL (0-0.7); Eosinophils % (A) 1 %; HCT 47.9 % (39.0-53.0); HGB 15.5 gm/dL (13.0-17.5); Lymphocytes # (A) 1.2 k/uL (1.0-4.8); Lymphocytes % (A) 7 %; MCH 32.1 pg (25.0-35.0); MCHC 32.4 g/dL (31.0-37.0); MCV 98.8 fL (80.0-100.0); Mean Platelet Volume 8.5; Monocytes # (A) 0.8 k/uL (0-1.0); Monocytes % (A) 5 %; Neutrophils # (A) 14.7 k/uL (1.3-7.7); Neutrophils % (A) 86 %; Platelet Count 134 k/uL (150-450); RBC 4.84 m/uL (4.30-5.90); RDW 14.2 % (11.5-15.5)
[2021-07-19 11:21] LABS: Glucose,Whole Blood 159 mg/dL (75-99)
[2021-07-19] MEDS ORDERED: FUROSEMIDE 10 MG/ML 2 ML VIAL IV ONE (12:21)
--- NOTE | 2021-07-19 12:22 | P.PN ---
Subjective Patient is seen in follow-up for acute kidney injury. Renal function stable. Sodium level also better. Currently on normal saline. Nonoliguric. Gonzalez catheter reinserted due to urinary retention. Denies chest pain or shortness of breath. On nonrebreather. No active complaints. Vital signs are stable. General: On nasal cannula. HEENT: Head exam is unremarkable. LUNGS: Breath sounds decreased. HEART: Rate and Rhythm are regular. ABDOMEN: Soft, no distention. EXTREMITITES: 1+ edema. Objective - Vital Signs Vital signs: Vital Signs Temp 98.4 F 07/19/21 08:42 Pulse 92 07/19/21 08:42 Resp 17 07/19/21 08:42 BP 114/73 07/19/21 08:42 Pulse Ox 95 07/19/21 08:42 Intake & Output 07/18/21 07/19/21 07/19/21 18:59 06:59 18:59 Intake Total 360 Output Total 250 300 Balance -250 -300 360 Intake: Oral 360 Output: Urine 250 300 Stool 0 Other: Voiding Method Urinal # Voids 1 1 # Bowel Movements 0 1 - Labs CBC & Chem 7: 07/19/21 06:34 07/19/21 06:34 Labs: Abnormal Lab Results - Last 24 Hours (Table) 07/18/21 07/19/21 07/19/21 Range/Units 16:28 06:34 06:34 WBC 17.0 H (3.8-10.6) k/uL Plt Count 134 L (150-450) k/uL Neutrophils # 14.7 H (1.3-7.7) k/uL Sodium 132 L (137-145) mmol/L BUN 34 H (9-20) mg/dL Glucose 50 L (74-99) mg/dL POC Glucose (mg/dL) 207 H (75-99) mg/dL Calcium 8.2 L (8.4-10.2) mg/dL Alkaline Phosphatase 132 H (38-126) U/L Total Protein 6.1 L (6.3-8.2) g/dL Albumin 2.8 L (3.5-5.0) g/dL 07/19/21 07/19/21 07/19/21 Range/Units 06:40 06:58 11:16 WBC (3.8-10.6) k/uL Plt Count (150-450) k/uL Neutrophils # (1.3-7.7) k/uL Sodium (137-145) mmol/L BUN (9-20) mg/dL Glucose (74-99) mg/dL POC Glucose (mg/dL) 59 L 101 H 159 H (75-99) mg/dL Calcium (8.4-10.2) mg/dL Alkaline Phosphatase (38-126) U/L Total Protein (6.3-8.2) g/dL Albumin (3.5-5.0) g/dL Assessment and Plan Plan: Assessment: 1. Acute kidney injury mostly prerenal secondary to hypovolemia from DKA. Creatinine was 5.89 on admission and stable at 1.1 today. No hydronephrosis noted on kidney ultrasound. 2. DKA status post insulin drip. Now tolerating oral intake. 3. Hyperkalemia secondary to acute kidney injury and hyperglycemia. Improved. 4. Anion gap metabolic acidosis secondary to DKA and acute kidney injury. Improved. 5. Benign hypertension. Controlled. 6. Acute hypoxic respiratory failure. 7. COVID-19 pneumonia. 8. Right lower extremity DVT. On anticoagulation. IVC filter placed this admission. 9. Lower extremity edema. 10. Hypervolemic hyponatremia. Better. Plan: Encouraged oral intake. Avoid nephrotoxins. Continue to monitor renal function and urine output. Lasix 20 mg IV once today.
--- NOTE | 2021-07-19 12:55 | P.PN ---
Subjective Progress Note Date: 07/19/21 Patient was seen and examined at bedside. Still on 15 L high flow cannula. He appears comfortable. No acute distress. Otherwise no acute changes overnight Objective - Vital Signs Vital signs: Vital Signs Temp 98.4 F 07/19/21 08:42 Pulse 92 07/19/21 08:42 Resp 17 07/19/21 08:42 BP 114/73 07/19/21 08:42 Pulse Ox 95 07/19/21 08:42 Intake & Output 07/18/21 07/19/21 07/19/21 18:59 06:59 18:59 Intake Total 360 Output Total 250 300 Balance -250 -300 360 Intake: Oral 360 Output: Urine 250 300 Stool 0 Other: Voiding Method Urinal # Voids 1 1 # Bowel Movements 0 1 - Exam General: non toxic, no distress, appears at stated age Derm: warm, dry Head: atraumatic, normocephalic, symmetric Eyes: EOMI, no lid lag, anicteric sclera Mouth: no lip lesion, mucus membranes moist Cardiovascular: S1S2 reg, no murmur, positive posterior tibial pulse bilateral, Lungs: Diminished air entry bilaterally. Abdominal: soft, nontender to palpation, no guarding, no appreciable organomegaly Ext: no gross muscle atrophy, no edema, no contractures Neuro: CN II-XI grossly intact, no focal neuro deficits Psych: Alert, oriented, appropriate affect - Labs CBC & Chem 7: 07/19/21 06:34 07/19/21 06:34 Labs: Abnormal Lab Results - Last 24 Hours (Table) 07/18/21 07/19/21 07/19/21 Range/Units 16:28 06:34 06:34 WBC 17.0 H (3.8-10.6) k/uL Plt Count 134 L (150-450) k/uL Neutrophils # 14.7 H (1.3-7.7) k/uL Sodium 132 L (137-145) mmol/L BUN 34 H (9-20) mg/dL Glucose 50 L (74-99) mg/dL POC Glucose (mg/dL) 207 H (75-99) mg/dL Calcium 8.2 L (8.4-10.2) mg/dL Alkaline Phosphatase 132 H (38-126) U/L Total Protein 6.1 L (6.3-8.2) g/dL Albumin 2.8 L (3.5-5.0) g/dL 07/19/21 07/19/21 07/19/21 Range/Units 06:40 06:58 11:16 WBC (3.8-10.6) k/uL Plt Count (150-450) k/uL Neutrophils # (1.3-7.7) k/uL Sodium (137-145) mmol/L BUN (9-20) mg/dL Glucose (74-99) mg/dL POC Glucose (mg/dL) 59 L 101 H 159 H (75-99) mg/dL Calcium (8.4-10.2) mg/dL Alkaline Phosphatase (38-126) U/L Total Protein (6.3-8.2) g/dL Albumin (3.5-5.0) g/dL Assessment and Plan Plan: Assessment and plan: #Acute hypoxic respiratory failure related to acute COVID-19 pneumonia -patient presented to the hospital on 07/08/2021, not a candidate for Remdesivir, not vaccinated. -Improving slowly and is currently on 15 L high flow cannula/nonrebreather -On Baricitinib on 07/12/2021, currently patient is on 15 L per high flow nasal cannula and nonrebreather mask. -Pulmonary following. #An episode of GI bleeding, with a rectal bleeding, hematuria and bleeding at the IV insertion sites -Patient was given a dose of KCentra, and the bleeding has resolved. -Hemoglobin is stable, patient has not required blood transfusions #Acute bilateral DVTs -was initially started on Eliquis which was placed on hold related to acute bleeding. -Status post IVC filter placement today on 07/11/2021 -Since hemoglobin is stable and there is no any evidence of GI bleed patient started on Eliquis 5 mg twice a day without loading dose on July 17. -Continue to monitor hemoglobin #Acute diabetic ketoacidosis -resolved -A1c 9.6. -Resume basal bolus insulin #Acute kidney injury -Resolved -Likely Prerenal azotemia secondary to dehydration and DKA. -Continue holding SHYAM inhibitor #Urinary retention -Resolved -Status post Gonzalez catheter placement. Gonzalez catheter removed July 17 -Patient started on Flomax 0.4 mg daily -Continue to monitor postvoid residuals #Acute hyponatremia -Improving -Nephrology ordered one-time dose of Samsca 15 mg on July 17 -Random urine sodium -Nephrology following #Hypertension -Soft blood pressure, hold Norvasc for now -We will restart SHYAM inhibitor on discharge #Acute anion gap Metabolic acidosis -resolved -Secondary to acute kidney failure indicated #Hyperkalemia -Resolved. #Leukocytosis -Secondary to steroids #DVT prophylaxis patient on Eliquis 5 mg twice daily
[2021-07-19 16:26] LABS: Glucose,Whole Blood 184 mg/dL (75-99)
--- NOTE | 2021-07-19 18:58 | P.PN ---
Subjective Progress Note Date: 07/19/21 Principal diagnosis: Shortness of breath, hypoxia, COVID-19 On 07/11/2021 patient seen in follow-up on medical surgical floor, patient oxygen requirement and is currently increased, he is on 15 L per high flow nasal cannula and a nonrebreather mask, and his pulse ox is 92-96%, however he is breathing fairly comfortable, does not appear to be in any acute distress, his been afebrile, no complaints of chest discomfort, patient was diagnosed with bilateral lower extremity DVTs, and she was started on Eliquis however he developed GI bleeding, he had a large bowel movement with blood, he developed bleeding from his IV insertion sites, and hematuria, and his anticoagulation was subsequently placed on hold and he was given a dose of K Centra. However his hemoglobin has remained fairly stable, today it is 16.3, actually increased, patient has not required any blood transfusions, hemodynamically has been stable, his white count is 20.5, his platelet count is 286, his renal profile is actually improving, his BUN is down to 52 and creatinine is down to 1.38, electrolytes are unremarkable. His pro calcitonin level was 0.61. His had no fever or chills. Patient was taken to the laborer cutting tool by Dr. Bright and IVC filter was inserted. He is also seen in consultation by surgical services, the recommendation was to place anticoagulation on hold, and surgery will remain on standby at this time. On 07/12/2021 patient seen in follow-up on medical surgical floor, he states his breathing is not bad, although he still requiring high flow oxygen 15 L and his pulse ox is between 92-94%, hemodynamically his has remained stable, his been afebrile, he is resting comfortably in bed, his Eliquis remains on hold for an episode of GI bleeding. Patient denies any abdominal pain, there has been no further bleeding. His hemoglobin today is 14.6, his white blood cell count is improving and is down to 14.7 on today's labs, d-dimer is improving and is down to 10.6, electrolytes are within normal limits, BUN is 27.2, and creatinine is improved and is down to 1.2. His LDH has significantly improved is down to 454, CRP is down to 1.7. His pro calcitonin level is negative at 0.09. Patient is currently on Decadron 6 mg daily, he is on multivitamins including vitamin C, vitamin D, and zinc, he continues on gentle IV hydration with 0.9 normal saline at a rate of 50 ML per hour. Chest x-ray today showing bilateral infiltrates that are stable in appearance. Surgical services are following, patient is status post IVC filter yesterday in the right groin. Lung sounds are essentially clear but very minimal crackles at the left base, breathing very comfortably, no complaints of chest pain. On 07/13/2021 patient seen in follow-up on medical surgical floor. Patient is awake and alert, in no acute distress, he is requiring high flow oxygen, with 15 L in nonrebreather mask, and his pulse ox is anywhere between 88 and 96%, does not appear to be in any acute distress. We started him on Baricitinib yesterday on 07/12/2021, patient is breathing comfortably, minimal cough, no complaints of chest discomfort, his been afebrile, yesterday's chest x-ray showed stable maximus ateral infiltrates. Today's labs have been reviewed, his white blood cell count is stable at 14.6, hemoglobin is 15.4, sodium is 134, respiratory electrolytes are within normal limits, BUN is 25, creatinine is 1.02. Inflammatory markers were improving on yesterday's labs. Follow-up pro calcitonin was negative at 0.09 On 07/14/2021 patient seen in follow-up on medical surgical floor, he still requiring high flow oxygen with 15 L per high flow nasal cannula and nonrebreather mask, and his pulse ox is around 90-95%, breathing comfortably, he sitting up in the recliner, appears to be in no acute distress, no fever or chills, vital signs have been stable. Today's chest x-ray shows low lung volumes and bilateral multifocal opacities no significant change. His labs have been reviewed, his white blood cell count of 15.2, hemoglobin is 15, last d- dimer was improving and was down to 10.6, sodium is 132, direct electrolytes were unremarkable, he is BUN was 22 and creatinine was 0.93.Remains on Baricitrinib, Decadron, prophylactic Lovenox and multivitamins. On 07/15/2021 patient seen in follow-up on medical surgical floor. Patient is awake and alert, oriented 3, does not appear to be in any acute distress, he sitting up in the recliner, breathing comfortably, he is currently on 15 L per high flow nasal cannula and nonrebreather mask. His pulse ox earlier was 92- 97%, nonrebreather was removed, and patient was just left on 15 L per high flow nasal cannula, we reevaluated him after half an hour and his pulse ox remained at 90-91%, he continues to breathing very comfortably, but chest discomfort, no significant cough, no fever or chills. No new chest x-ray today. Today's labs have been reviewed, his white blood cell count of 16.2, hemoglobin is 14.9, sodium is 1:30, potassium is 4.5, chloride is 104, CO2 is 23, B1 is 20, creatinine is 1.06. Tolerating oral intake, no nausea vomiting or diarrhea. On 07/19/2021 patient seen in follow-up on medical surgical floor. Patient is awake and alert, he sitting up in the recliner, he is currently just on 15 L high flow nasal cannula, his pulse ox is 90%, breathing comfortably, lung sounds reveal some scattered crackles, no rhonchi or wheezing, no complaint of chest discomfort, no worsening dyspnea or cough. Overall he states he is feeling about 75% better since admission. Today's labs have been reviewed. Patient's E liquis has been restarted per primary care service, his hemoglobin remained stable at 15.5, his white blood cell count is 17, sodium is 132, the respiratory electrolytes were unremarkable, B1 is 34 creatinine is 1.12. Patient has been receiving gentle diuresis per nephrology, he remains on dexamethasone 6 mg daily, he remains on Olumiant 4 mg daily, he remains on multi-vitamins. Objective - Vital Signs Vital signs: Vital Signs Temp 98.4 F 07/19/21 16:37 Pulse 94 07/19/21 16:37 Resp 18 07/19/21 16:37 BP 111/75 07/19/21 16:37 Pulse Ox 98 07/19/21 16:37 Intake & Output 07/18/21 07/19/21 07/19/21 18:59 06:59 18:59 Intake Total 960 Output Total 250 300 Balance -250 -300 960 Intake: Oral 960 Output: Urine 250 300 Stool 0 Other: Voiding Method Urinal # Voids 1 1 5 # Bowel Movements 0 1 - Exam GENERAL EXAM: Alert, very pleasant 60-year-old white male, on 15 L per high flow nasal cannula with a pulse ox of 90-96% comfortable in no apparent distress. Nonrebreather mask was removed, patient is maintaining stable O2 saturation at 90-91% just on 15 L per high flow nasal cannula HEAD: Normocephalic/atraumatic. EYES: Normal reaction of pupils, equal size. Conjunctiva pink, sclera white. NOSE: Clear with pink turbinates. THROAT: No erythema or exudates. NECK: No masses, no JVD, no thyroid enlargement, no adenopathy. CHEST: No chest wall deformity. Symmetrical expansion. LUNGS: Equal air entry with no crackles, wheeze, rhonchi or dullness. CVS: Regular rate and rhythm, normal S1 and S2, no gallops, no murmurs, no rubs ABDOMEN: Soft, nontender. No hepatosplenomegaly, normal bowel sounds, no guar ding or rigidity. EXTREMITIES: No clubbing, no edema, no cyanosis, 2+ pulses and upper and lower extremities. MUSCULOSKELETAL: Muscle strength and tone normal. SPINE: No scoliosis or deformity SKIN: No rashes CENTRAL NERVOUS SYSTEM: Alert and oriented -3. No focal deficits, tone is normal in all 4 extremities. PSYCHIATRIC: Alert and oriented -3. Appropriate affect. Intact judgment and insight. - Labs CBC & Chem 7: 07/19/21 06:34 07/19/21 06:34 Labs: Abnormal Lab Results - Last 24 Hours (Table) 07/19/21 07/19/21 07/19/21 Range/Units 06:34 06:34 06:40 WBC 17.0 H (3.8-10.6) k/uL Plt Count 134 L (150-450) k/uL Neutrophils # 14.7 H (1.3-7.7) k/uL Sodium 132 L (137-145) mmol/L BUN 34 H (9-20) mg/dL Glucose 50 L (74-99) mg/dL POC Glucose (mg/dL) 59 L (75-99) mg/dL Calcium 8.2 L (8.4-10.2) mg/dL Alkaline Phosphatase 132 H (38-126) U/L Total Protein 6.1 L (6.3-8.2) g/dL Albumin 2.8 L (3.5-5.0) g/dL 07/19/21 07/19/21 07/19/21 Range/Units 06:58 11:16 16:24 WBC (3.8-10.6) k/uL Plt Count (150-450) k/uL Neutrophils # (1.3-7.7) k/uL Sodium (137-145) mmol/L BUN (9-20) mg/dL Glucose (74-99) mg/dL POC Glucose (mg/dL) 101 H 159 H 184 H (75-99) mg/dL Calcium (8.4-10.2) mg/dL Alkaline Phosphatase (38-126) U/L Total Protein (6.3-8.2) g/dL Albumin (3.5-5.0) g/dL Assessment and Plan Plan: Assessment: #1. Acute hypoxic respiratory failure related to acute COVID-19 pneumonia, patient presented to the hospital on 07/08/2021, not a candidate for Remdesivir, not vaccinated. Patient's oxygenation has progressively became worse. Started on Baricitinib on 07/12/2021. Currently oxygenation is improving, patient is currently just on 15 L per high flow nasal cannula, #2. Acute GI bleeding, with a rectal bleeding, hematuria and bleeding at the IV insertion sites, patient was given a dose of KCentra, and the bleeding has resolved. Hemoglobin is stable, patient has not required blood transfusions #3. Acute bilateral DVTs was initially started on Eliquis which was placed on hold related to acute bleeding. Status post IVC filter placement today on 07/11/2021. Eliquis has been restarted on 07/17/2021 no evidence of active bleeding #4. Acute diabetic ketoacidosis, resolved #5. Acute kidney injury, improved #6. Hypertension #7. Acute anion gap Metabolic acidosis, resolved #8. Hyperkalemia, improved #9. Diabetes mellitus type 2 #10. Hypertension #10. Leukocytosis, persistent, slightly improved Plan: Patient is currently maintaining stable O2 saturations on 50 minutes per high flow nasal cannula Not utilizing nonrebreather mask Continue current medical treatment with Baricitinib, dexamethasone, Patient has been receiving gentle IV diuresis from nephrology Eliquis has been restarted with no evidence of rebleeding Increase activity as tolerated, wean FiO2 to maintain O2 saturations at or above 90% We'll continue to follow Once FiO2 is down to 5 L or less and patient continues to clinically improve may consider for discharge home I performed a history & physical examination of the patient and discussed their management with my nurse practitioner, Kristi Cartwright. I reviewed the nurse practitioner's note and agree with the documented findings and plan of care. Lung sounds are positive for dim breath sounds with rales throughout the lung hernandez. The findings and the impression was discussed with the patient. I attest to the documentation by the nurse practitioner. Time with Patient: Less than 30
[2021-07-19 20:51] LABS: Glucose,Whole Blood 180 mg/dL (75-99)
--- NOTE | 2021-07-20 06:43 | XR ---
EXAMINATION TYPE: XR chest 1V portable DATE OF EXAM: 07/20/2021 CLINICAL HISTORY: Difficulty breathing and covid progress study. TECHNIQUE: Single AP portable upright view of the chest is obtained. COMPARISON: Chest x-ray from 3 days earlier and older studies. FINDINGS: Low lung volumes and chronic parenchymal changes with increased opacities bilaterally grea test in the periphery and greatest in the left lung redemonstrated. Cardiac silhouette size stable an d mildly enlarged. Osseous structures are intact. IMPRESSION: Low lung volumes and bilateral multifocal increased opacities consistent with covid-19 in fection are redemonstrated. No significant change from most recent prior x-ray.
[2021-07-20 07:05] LABS: Basophils % (A) 0 %; Eosinophils # (A) 0.2 k/uL (0-0.7); Eosinophils % (A) 1 %; HCT 45.1 % (39.0-53.0); HGB 14.6 gm/dL (13.0-17.5); Lymphocytes % (A) 6 %; MCH 31.7 pg (25.0-35.0); MCHC 32.5 g/dL (31.0-37.0); MCV 97.7 fL (80.0-100.0); Mean Platelet Volume 7.4; Monocytes # (A) 0.8 k/uL (0-1.0); Monocytes % (A) 5 %; Neutrophils # (A) 15.2 k/uL (1.3-7.7); Neutrophils % (A) 87 %; Platelet Count 137 k/uL (150-450); RBC 4.61 m/uL (4.30-5.90); WBC 17.3 k/uL (3.8-10.6)
[2021-07-20 07:08] LABS: Glucose,Whole Blood 86 mg/dL (75-99)
[2021-07-20] MEDS: INSULIN ASPART (NovoLOG) 100 UNIT/ML VIAL SQ SCH ×7 (07:19→21:15)
[2021-07-20 07:25] LABS: ALT 41 U/L (4-49); AST 29 U/L (17-59); African American GFR (CKD) >90 (>60 ml/min/1.73 sqM); Albumin 2.5 g/dL (3.5-5.0); Albumin/Globulin Ratio 0.9; Alkaline Phosphatase 111 U/L (38-126); Anion Gap -1 mmol/L; Blood Urea Nitrogen 29 mg/dL (9-20); Calcium 7.9 mg/dL (8.4-10.2); Carbon Dioxide 30 mmol/L (22-30); Chloride 99 mmol/L (98-107); Globulin 2.8 g/dL; Glucose 56 mg/dL (74-99); Non-African American GFR(CKD) >90 (>60 ml/min/1.73 sqM); Potassium 4.3 mmol/L (3.5-5.1); Sodium 128 mmol/L (137-145); Total Bilirubin 0.7 mg/dL (0.2-1.3); Total Protein 5.3 g/dL (6.3-8.2)
[2021-07-20] MEDS: TAMSULOSIN 0.4 MG CAP.ER.24H PO SCH (07:47)
[2021-07-20] MEDS: CHOLECALCIFEROL 125 MCG (5000 IU) TABLET PO SCH (07:47)
[2021-07-20] MEDS: ASCORBIC ACID 500 MG TAB PO SCH (07:47)
[2021-07-20] MEDS: ZINC SULFATE 220 MG CAP PO SCH (07:47)
[2021-07-20] MEDS: INSULIN DETEMIR (LEVEMIR) 100 UNIT/ML SYR SQ SCH (07:47)
[2021-07-20] MEDS: APIXABAN 5 MG TAB PO SCH ×2 (07:47→21:15)
[2021-07-20] MEDS: PANTOPRAZOLE 40 MG TABLET PO SCH ×2 (07:48→17:31)
[2021-07-20] MEDS: ATORVASTATIN 40 MG TAB PO SCH (07:48)
[2021-07-20] MEDS: BARICITINIB 2 MG TABLET PO SCH (07:48)
[2021-07-20] MEDS: DEXAMETHASONE SOD PHOSPHATE 10 MG/ML 1 ML VIAL IVP SCH (07:48)
[2021-07-20 08:26] LABS: C Reactive Protein 1.5 mg/dL (<1.0)
[2021-07-20 11:28] LABS: Glucose,Whole Blood 258 mg/dL (75-99)
--- NOTE | 2021-07-20 12:18 | P.PN ---
Subjective Progress Note Date: 07/20/21 This is a 60-year-old male patient who follows with Dr. Phoenix as his primary care provider. He has a history of diabetes mellitus, hypertension, obesity. He had recently lost his mother from COVID-19 pneumonia and since that time he had been going downhill according to his siblings who were present in the emergency room. Chest x-ray reveals diffuse bilateral airspace disease with predominantly peripheral distribution on the right greater than left. No evidence of pneumothorax. No pleural effusion. VQ scan revealed very low probability for acute PE. Dopplers of lower extremities revealed bilateral nonocclusive DVTs. Renal ultrasound reveals nonspecific heterogenous appearance of the kidneys may relate to medical renal disease. No bilateral hydronephrosis. Benign-appearing left renal cyst. White count 22.0. Hemoglobin 13.5. Lymphocytes 0.9. D-dimer 13.5. Sodium 138. Potassium 4.6. Chloride 107. A 22. Anion gap 9. Creatinine 2.85. Blood glucose 292. Calcium 8.1. AST 37. ALT 23. LDH 1210. Troponin 0.056. C-reactive protein 6.2. Acetone positive. Urinalysis with 4+ glucose. Coronavirus by PCR positive. He sitting today in the intensive care unit. He is currently sitting up in bed. Awake and alert. Somewhat slow to respond. Somewhat distended. He is on 15 L nonrebreather mask. Current O2 saturation 89%. He's been afebrile. Hemodynamically stable. He is currently on an insulin drip at 5 units an hour. D5.45 with 20 KCl at 150 MLS per hour. Heparin subcu for DVT prophylaxis. Vitamin supplements. The patient is seen today 07/10/2021 in follow-up on the selective care unit. He is currently resting comfortably in bed. Awake and alert in no acute distress. He is currently on 15 L high flow nasal cannula to maintain O2 saturation at about 90%. He has normal saline at 50 MLS per hour. He is not urinating. Indwelling Gonzalez catheter will be placed. His appetite is somewhat better. His lower extremity are positive for DVT. CT angiogram ruled out PE. He is currently on Eliquis. He remains on Decadron, vitamin supplements. White count 20.3. Hemoglobin 15.4. Lymphocytes 0.6. Sodium 140. Potassium 4.8. Creatinine 1.78. Glucose 150. AST 33. ALT 27. Echocardiogram revealed preserved left ventricular systolic function. The patient is seen today 07/17/2021 . Follow-up on the regular medical floor. He is currently sitting up in a chair at the bedside. Awake and alert. He is still requiring 15 L high flow nasal cannula +100% nonrebreather mask to maintain O2 saturations in the high 80s low 90s. He denies any worsening shortness of breath at this time. Slow to progress. White count 14.6. Hemoglobin 14.7. Lymphocytes 0.9. D-dimer 14.4. Sodium 127. Potassium 5.3. Creatinine 1.01. AST 35. ALT 41. LDH 1865. C-reactive protein 1.0. Chest x- ray continues to show diffuse lung infiltrates. No change compared to previous. No pneumothorax. No large effusions. He is continued on Baricitinib, Decadro n, vitamin supplements. He is anticoagulated with Eliquis. The patient did have a Gabriella filter placed 07/11/2021. The patient is seen today 07/20/2021 in follow-up on the regular medical floor. He is currently sitting up in a chair at the bedside. He is awake and alert in no acute distress. He is currently down to 10 L high flow nasal cannula. X-ray continues to show low lung volumes and bilateral multifocal increased opacities consistent with COVID-19 pneumonia. No significant change. White count 17.3. Hemoglobin 14.6. Platelets 17. Sodium 128. Potassium 4.3. Creatinine 0.89. Glucose is 86. AST 29. ALT 41. LDH 1478. C-reactive protein 1.5. He is continued on Eliquis, Baricitinib, Decadron, vitamin supplements. Objective - Vital Signs Vital signs: Vital Signs Temp 98.5 F 07/20/21 09:20 Pulse 95 07/20/21 09:20 Resp 16 07/20/21 09:20 BP 109/70 07/20/21 09:20 Pulse Ox 92 L 07/20/21 09:20 Intake & Output 07/19/21 07/20/21 07/20/21 18:59 06:59 18:59 Intake Total 960 650 Output Total 802 Balance 960 -152 Intake: Oral 960 650 Output: Urine 800 Stool 2 Other: Voiding Method Urinal # Voids 5 2 # Bowel Movements 1 - Exam GENERAL EXAM: Alert, pleasant 60-year-old male patient, in a chair at the bedside, on 10 L high flow nasal cannula, fairly comfortable in no apparent dis tress. HEAD: Normocephalic. EYES: Normal reaction of pupils, equal size. NOSE: Clear with pink turbinates. THROAT: No erythema or exudates. NECK: No masses, no JVD. CHEST: No chest wall deformity. LUNGS: Equal air entry with coarse crackles in the bilateral bases. CVS: S1 and S2 normal with no audible murmur, regular rhythm. ABDOMEN: No hepatosplenomegaly, normal bowel sounds, no guarding or rigidity. SPINE: No scoliosis or deformity SKIN: No rashes CENTRAL NERVOUS SYSTEM: No focal deficits, tone is normal in all 4 extremities. EXTREMITIES: There is no peripheral edema. No clubbing, no cyanosis. Peripheral pulses are intact. - Labs CBC & Chem 7: 07/20/21 06:25 07/20/21 06:25 Labs: Abnormal Lab Results - Last 24 Hours (Table) 07/19/21 07/19/21 07/20/21 Range/Units 16:24 20:49 06:25 WBC (3.8-10.6) k/uL Plt Count (150-450) k/uL Neutrophils # (1.3-7.7) k/uL Sodium (137-145) mmol/L BUN (9-20) mg/dL Glucose (74-99) mg/dL POC Glucose (mg/dL) 184 H 180 H (75-99) mg/dL Calcium (8.4-10.2) mg/dL Lactate Dehydrogenase 1478 H (313-618) U/L C-Reactive Protein 1.5 H (<1.0) mg/dL Total Protein (6.3-8.2) g/dL Albumin (3.5-5.0) g/dL 07/20/21 07/20/21 07/20/21 Range/Units 06:25 06:25 11:26 WBC 17.3 H (3.8-10.6) k/uL Plt Count 137 L (150-450) k/uL Neutrophils # 15.2 H (1.3-7.7) k/uL Sodium 128 L (137-145) mmol/L BUN 29 H (9-20) mg/dL Glucose 56 L (74-99) mg/dL POC Glucose (mg/dL) 258 H (75-99) mg/dL Calcium 7.9 L (8.4-10.2) mg/dL Lactate Dehydrogenase (313-618) U/L C-Reactive Protein (<1.0) mg/dL Total Protein 5.3 L (6.3-8.2) g/dL Albumin 2.5 L (3.5-5.0) g/dL Assessment and Plan Assessment: 1 Acute hypoxemic respiratory failure secondary to acute COVID-19 pneumonia. Not vaccinated. Outside the window for Remdesivir. Currently on Baricitinib. On 10 L high flow nasal cannula 2 Elevated inflammatory markers secondary to above 3 Acute bilateral DVTs with elevated d-dimer, on Eliquis. Initially developed hematuria and a IVC filter was placed, then resumed back on Eliquis 4 Acute diabetic ketoacidosis secondary to poor appetite 5 Acute renal failure improving with current creatinine 0.89 6 Metabolic acidosis secondary to above, recovered 7 Hyperkalemia, improved 8 Diabetes mellitus 9 History of hypertension 10 Leukocytosis 11 Depression secondary to recent loss of his mother secondary to CoVID Plan: The patient was seen and evaluated Continued on 10 L high flow nasal cannula Remains on Baricitinib Continue Eliquis, Decadron, vitamin supplements Titrate the FiO2 as tolerated Increase his activity as tolerated We will continue to follow I, the cosigning physician, performed a history & physical examination of the patient. Lungs sounds crackles in the bilateral posterior bases. Maintaining O2 saturations in the 90s on 10 L high flow nasal cannula. I discussed the assessment and plan of care with my nurse practitioner, Meron Keating. I attest to the above note as dictated by her.
--- NOTE | 2021-07-20 12:47 | P.PN ---
Subjective Patient is seen in follow-up for acute kidney injury. Renal function back to baseline. Sodium level 128 today. Has been voiding. Denies chest pain or shortness of breath. On 12 L high flow cannula. No vomiting or diarrhea. Vital signs are stable. General: On nasal cannula. HEENT: Head exam is unremarkable. LUNGS: Breath sounds decreased. HEART: Rate and Rhythm are regular. ABDOMEN: Soft, no distention. EXTREMITITES: 1+ edema. Objective - Vital Signs Vital signs: Vital Signs Temp 98.5 F 07/20/21 09:20 Pulse 95 07/20/21 09:20 Resp 16 07/20/21 09:20 BP 109/70 07/20/21 09:20 Pulse Ox 92 L 07/20/21 09:20 Intake & Output 07/19/21 07/20/21 07/20/21 18:59 06:59 18:59 Intake Total 960 650 Output Total 802 Balance 960 -152 Intake: Oral 960 650 Output: Urine 800 Stool 2 Other: Voiding Method Urinal # Voids 5 2 # Bowel Movements 1 - Labs CBC & Chem 7: 07/20/21 06:25 07/20/21 06:25 Labs: Abnormal Lab Results - Last 24 Hours (Table) 07/19/21 07/19/21 07/20/21 Range/Units 16:24 20:49 06:25 WBC (3.8-10.6) k/uL Plt Count (150-450) k/uL Neutrophils # (1.3-7.7) k/uL Sodium (137-145) mmol/L BUN (9-20) mg/dL Glucose (74-99) mg/dL POC Glucose (mg/dL) 184 H 180 H (75-99) mg/dL Calcium (8.4-10.2) mg/dL Lactate Dehydrogenase 1478 H (313-618) U/L C-Reactive Protein 1.5 H (<1.0) mg/dL Total Protein (6.3-8.2) g/dL Albumin (3.5-5.0) g/dL 07/20/21 07/20/21 07/20/21 Range/Units 06:25 06:25 11:26 WBC 17.3 H (3.8-10.6) k/uL Plt Count 137 L (150-450) k/uL Neutrophils # 15.2 H (1.3-7.7) k/uL Sodium 128 L (137-145) mmol/L BUN 29 H (9-20) mg/dL Glucose 56 L (74-99) mg/dL POC Glucose (mg/dL) 258 H (75-99) mg/dL Calcium 7.9 L (8.4-10.2) mg/dL Lactate Dehydrogenase (313-618) U/L C-Reactive Protein (<1.0) mg/dL Total Protein 5.3 L (6.3-8.2) g/dL Albumin 2.5 L (3.5-5.0) g/dL Assessment and Plan Plan: Assessment: 1. Acute kidney injury mostly prerenal secondary to hypovolemia from DKA. Creatinine was 5.89 on admission and is 0.89 today. No hydronephrosis noted on kidney ultrasound. 2. DKA status post insulin drip. Now tolerating oral intake. 3. Hyperkalemia secondary to acute kidney injury and hyperglycemia. Improved. 4. Anion gap metabolic acidosis secondary to DKA and acute kidney injury. Resolved. 5. Benign hypertension. Controlled. 6. Acute hypoxic respiratory failure. 7. COVID-19 pneumonia. 8. Right lower extremity DVT. On anticoagulation. IVC filter placed this admission. 9. Lower extremity edema. 10. Hypervolemic hyponatremia. Plan: Encouraged oral intake. Avoid nephrotoxins. Continue to monitor renal function and urine output. Add IV Lasix 20 mg twice daily. 1500 mL fluid restriction.
--- NOTE | 2021-07-20 16:11 | P.PN ---
<Graham Quiñones - Last Filed: 07/20/21 15:37> Subjective Progress Note Date: 07/20/21 Hospital course: Patient is a very pleasant 60-year-old male with a past medical history of diabetes, hypertension, and hyperlipidemia. He presented to the emergency department on 07/08/21 with reports of weakness, anorexia, cough, shortness of breath and alteration in mental status. Upon arrival he was found to be in significant respiratory distress with SpO2 of 80% on room air requiring placement on nonrebreather mask at 15 L of oxygen to maintain SpO2 of 90%. Patient was also significantly hypotensive with blood pressure of 64/43, bradycardic with heart rate of 45, tachypnic with respiratory rate of 28, and hypothermic with a temp of 96.9F. Family at bedside reported patient had not been feeling well since prior to Petey and that this has been going on for greater than 2 weeks. They report positive exposure to Covid and state that pt is unvaccinated. He underwent full evaluation in the emergency department. Chest x-ray positive for multifocal pneumonia. Labs revealed significant leukocytosis with WBC count of 22.8 with left shift. Pseudohyponatremia with sodium 129 and corrected sodium of 138, severe hyperglycemia with glucose of 660, metabolic acidosis with chloride of 91, CO2 16, anion gap of 22, and lactate of 4.2. Qualitative acetone positive. Acute renal failure with BUN of 132, creatinine 5.89, and GFR of 9 with baseline creatinine of 1.3. Urinalysis positive for glucose negative for ketones, protein, blood or infection. Covid PCR positive. Troponin elevated at 0.056. EKG with significant artifact but appears to reveal sinus mechanism. Patient was started on insulin infusion per DKA protocol and admitted under our services to ICU for DKA, severe metabolic acidosis, acute renal failure, hyperkalemia, and acute respiratory failure with hypoxia secondary to Covid 19 pneumonia. Consults placed to nephrology, and vice president of talent management/continuous improvement director. Echocardiogram was completed revealing a normal EF between 60 and 65%. VQ scan showing low probability for acute PE. Renal ultrasound negative for hydronephrosis showing a 4.2 cm benign-appearing left renal cyst with nonspecific right perinephrotic hypoechoic area possibly secondary to chronic changes versus artifact. Bilateral lower extremity Dopplers completed revealing acute DVTs of bilateral lower extremities. Patient was started on anticoagulation with Eliquis at this time. On 07/21/21 patient had episode of acute lower GI bleeding with bright red blood per rectum accompanied by hematuria and bleeding IV insertion sites. Patient was given 1 dose of K Sentra and an IVC filter was placed by interventional radiology. Hemoglobin remained stable and patient did not require blood transfusion. Eliquis was resumed on 07/17/21. Physical exam: Patient seen and fully evaluated at the bedside this morning. He remains on 10 L O2 via high flow nasal cannula. He is currently on Baricitinib day and continues with Decadron, vitamin C, vitamin D, zinc, and anticoagulation with Eliquis. Patient reports overall feeling fatigued and slightly weak, but does state improvement in breathing. Patient was on 15 L high flow nasal cannula yesterday evening and is now down to 10 L high flow nasal cannula lana ntaining SpO2 at 90%. Vital signs reviewed and stable. General: Nontoxic, no distress and appears stated age. Derm: Skin warm and dry, normal coloration for ethnicity. Head: Atraumatic, normocephalic and symmetric. Eyes: EOMs intact, no lid lag, and anicteric sclera Mouth: no lip lesions, mucus membranes moist Cardiovascular: regular rate and rhythm with normal S1S2, no murmur, positive posterior tibial pulses bilaterally, and cap refill < 2 seconds. Lungs: Respirations even, regular, and unlabored on 10 L O2 via nasal cannula. Lungs with coarse crackles to bilateral lower and right middle lobe, no rhonchi, rales, or wheezes noted. No accessory muscle usage. Abdominal: soft, nontender to palpation, no guarding, no appreciable organomegaly Ext: ROM intact. No gross muscle atrophy, no edema, no contractures Neuro: Speech clear, face symmetrical and CN II-XII grossly intact with no noted focal neuro deficits Psych: Alert and oriented to person, place, time, and situation. Appropriate and pleasant affect. Assessment and Plan of Care: Acute respiratory failure with hypoxia secondary to COVID 19 pneumonia -Oxygenation to be administered and titrated as needed to maintain SPO2 equal to or greater than 90% -Telemetry monitoring. -Continue trending inflammatory markers -Encourage Incentive Spirometry 10-15x hourly while awake -Steroids: Decadron 6 mg daily -Continue vitamin C, Vitamin D, and Zinc. -Pulmonology following, appreciate further recommendations. -DVT prophylaxis with Eliquis -Baricitinib day -Strict Droplet plus Contact precautions Acute Bilateral DVTs -Status post IVC filter placement on 07/11/2021 and resuming Eliquis on 07/17/21 -Continue to monitor hemoglobin Acute episode of lower GI bleeding with a rectal bleeding accompanied by haematuria and bleeding at the IV insertion sites -Patient was given a dose of KCentra, and the bleeding has resolved. -Hemoglobin is stable, patient has not required blood transfusions. -Eliquis was resumed on 07/17/21 DKA in Type II [id number] diabetes mellitus -DKA resolved -A1c 9.6. -Continue glycemic protocol with NovoLog sliding scale, fixed dose 8 units with meals 3 times daily, and long-acting Levemir 25 units daily. Acute kidney injury, Resolved with IV fluid hydration and treatment of DKA Acute anion gap Metabolic acidosis, resolved Metabolic encephalopathy, resolved, likely multifactorial due to Covid pneumonia and NIKOLAS Hyperkalemia, Resolved. -Continued close monitoring of renal function -Nephrology following -Continue holding SHYAM inhibitor Urinary retention -Resolved Status post Gonzalez catheter placement. Gonzalez catheter removed July 17 -Patient started on Flomax 0.4 mg daily -Continue to monitor postvoid residuals Acute hyponatremia -Nephrology following -Nephrology ordered one-time dose of Samsca 15 mg on July 17 -Random urine sodium Hypertension -Soft blood pressure, hold Norvasc for now -We will restart SHYAM inhibitor on discharge Leukocytosis, reactive secondary to steroids CODE STATUS: Full code DVT prophylaxis: Eliquis Discussed with: Patient and RN Anticipated discharge date: Clinical course to determine Anticipated discharge place: Home A total of 40 minutes was spent on the care of this complex patient more than 50% of the time was spent in counseling and care coordination. Objective - Vital Signs Vital signs: Vital Signs Temp 98.4 F 07/20/21 06:00 Pulse 95 07/20/21 06:00 Resp 16 07/20/21 07:55 BP 125/85 07/20/21 06:00 Pulse Ox 96 07/20/21 06:00 Intake & Output 07/19/21 07/20/21 07/20/21 18:59 06:59 18:59 Intake Total 960 650 Output Total 802 Balance 960 -152 Intake: Oral 960 650 Output: Urine 800 Stool 2 Other: Voiding Method Urinal # Voids 5 2 # Bowel Movements 1 - Labs CBC & Chem 7: 07/20/21 06:25 07/20/21 06:25 Labs: Abnormal Lab Results - Last 24 Hours (Table) 07/19/21 07/19/21 07/19/21 Range/Units 11:16 16:24 20:49 WBC (3.8-10.6) k/uL Plt Count (150-450) k/uL Neutrophils # (1.3-7.7) k/uL Sodium (137-145) mmol/L BUN (9-20) mg/dL Glucose (74-99) mg/dL POC Glucose (mg/dL) 159 H 184 H 180 H (75-99) mg/dL Calcium (8.4-10.2) mg/dL Lactate Dehydrogenase (313-618) U/L C-Reactive Protein (<1.0) mg/dL Total Protein (6.3-8.2) g/dL Albumin (3.5-5.0) g/dL 07/20/21 07/20/21 07/20/21 Range/Units 06:25 06:25 06:25 WBC 17.3 H (3.8-10.6) k/uL Plt Count 137 L (150-450) k/uL Neutrophils # 15.2 H (1.3-7.7) k/uL Sodium 128 L (137-145) mmol/L BUN 29 H (9-20) mg/dL Glucose 56 L (74-99) mg/dL POC Glucose (mg/dL) (75-99) mg/dL Calcium 7.9 L (8.4-10.2) mg/dL Lactate Dehydrogenase 1478 H (313-618) U/L C-Reactive Protein 1.5 H (<1.0) mg/dL Total Protein 5.3 L (6.3-8.2) g/dL Albumin 2.5 L (3.5-5.0) g/dL <Mello Bustamante - Last Filed: 07/20/21 17:38> Subjective I reviewed the documentation as provided by the DONNA above, who is the original author of this note. I agree with the documented assessment and plan, with the following changes: Patient should be reevaluated by vascular surgery to consider removal of IVC device considering his toleration of Apixiban prior to discharge. Objective - Vital Signs Vital signs: Vital Signs Temp 98.3 F 07/20/21 14:00 Pulse 102 H 07/20/21 14:00 Resp 20 07/20/21 14:00 BP 104/58 07/20/21 14:00 Pulse Ox 97 07/20/21 14:00 Intake & Output 07/19/21 07/20/21 07/20/21 18:59 06:59 18:59 Intake Total 960 650 Output Total 802 900 Balance 960 -152 -900 Intake: Oral 960 650 Output: Urine 800 900 Stool 2 Other: Voiding Method Urinal # Voids 5 2 4 # Bowel Movements 1 - Labs CBC & Chem 7: 07/20/21 06:25 07/20/21 06:25 Labs: Abnormal Lab Results - Last 24 Hours (Table) 07/19/21 07/20/21 07/20/21 Range/Units 20:49 06:25 06:25 WBC 17.3 H (3.8-10.6) k/uL Plt Count 137 L (150-450) k/uL Neutrophils # 15.2 H (1.3-7.7) k/uL Sodium (137-145) mmol/L BUN (9-20) mg/dL Glucose (74-99) mg/dL POC Glucose (mg/dL) 180 H (75-99) mg/dL Calcium (8.4-10.2) mg/dL Lactate Dehydrogenase 1478 H (313-618) U/L C-Reactive Protein 1.5 H (<1.0) mg/dL Total Protein (6.3-8.2) g/dL Albumin (3.5-5.0) g/dL 07/20/21 07/20/21 07/20/21 Range/Units 06:25 11:26 16:51 WBC (3.8-10.6) k/uL Plt Count (150-450) k/uL Neutrophils # (1.3-7.7) k/uL Sodium 128 L (137-145) mmol/L BUN 29 H (9-20) mg/dL Glucose 56 L (74-99) mg/dL POC Glucose (mg/dL) 258 H 210 H (75-99) mg/dL Calcium 7.9 L (8.4-10.2) mg/dL Lactate Dehydrogenase (313-618) U/L C-Reactive Protein (<1.0) mg/dL Total Protein 5.3 L (6.3-8.2) g/dL Albumin 2.5 L (3.5-5.0) g/dL
[2021-07-20 16:52] LABS: Glucose,Whole Blood 210 mg/dL (75-99)
[2021-07-20] MEDS: FUROSEMIDE 10 MG/ML 2 ML VIAL IV SCH ×2 (17:31→21:15)
[2021-07-20 20:29] LABS: Glucose,Whole Blood 197 mg/dL (75-99)
[2021-07-21 06:46] LABS: Basophils % (A) 0 %; Eosinophils # (A) 0.2 k/uL (0-0.7); Eosinophils % (A) 1 %; HCT 45.5 % (39.0-53.0); HGB 14.8 gm/dL (13.0-17.5); Lymphocytes % (A) 5 %; MCH 31.7 pg (25.0-35.0); MCHC 32.5 g/dL (31.0-37.0); MCV 97.4 fL (80.0-100.0); Mean Platelet Volume 7.6; Monocytes # (A) 0.8 k/uL (0-1.0); Monocytes % (A) 4 %; Neutrophils # (A) 16.9 k/uL (1.3-7.7); Neutrophils % (A) 89 %; Platelet Count 142 k/uL (150-450); RBC 4.66 m/uL (4.30-5.90); RDW 13.9 % (11.5-15.5); WBC 18.9 k/uL (3.8-10.6)
[2021-07-21 06:59] LABS: Glucose,Whole Blood 61 mg/dL (75-99)
[2021-07-21 07:18] LABS: ALT 38 U/L (4-49); AST 31 U/L (17-59); African American GFR (CKD) >90 (>60 ml/min/1.73 sqM); Albumin 2.6 g/dL (3.5-5.0); Albumin/Globulin Ratio 0.9; Alkaline Phosphatase 116 U/L (38-126); Anion Gap 5 mmol/L; Blood Urea Nitrogen 34 mg/dL (9-20); Carbon Dioxide 30 mmol/L (22-30); Chloride 95 mmol/L (98-107); LDH 1752 U/L (313-618); Non-African American GFR(CKD) 86 (>60 ml/min/1.73 sqM); Potassium 3.9 mmol/L (3.5-5.1); Sodium 130 mmol/L (137-145); Total Bilirubin 0.9 mg/dL (0.2-1.3); Total Protein 5.6 g/dL (6.3-8.2)
[2021-07-21 07:27] LABS: Glucose 42 mg/dL (74-99)
[2021-07-21] MEDS: FUROSEMIDE 10 MG/ML 2 ML VIAL IV SCH ×2 (09:29→20:34)
[2021-07-21] MEDS: DEXAMETHASONE SOD PHOSPHATE 10 MG/ML 1 ML VIAL IVP SCH (09:29)
[2021-07-21] MEDS: INSULIN DETEMIR (LEVEMIR) 100 UNIT/ML SYR SQ SCH (09:30)
[2021-07-21] MEDS: PANTOPRAZOLE 40 MG TABLET PO SCH ×2 (09:30→17:15)
[2021-07-21] MEDS: ZINC SULFATE 220 MG CAP PO SCH (09:30)
[2021-07-21] MEDS: ASCORBIC ACID 500 MG TAB PO SCH (09:30)
[2021-07-21] MEDS: APIXABAN 5 MG TAB PO SCH ×2 (09:30→20:34)
[2021-07-21] MEDS: CHOLECALCIFEROL 125 MCG (5000 IU) TABLET PO SCH (09:30)
[2021-07-21] MEDS: ATORVASTATIN 40 MG TAB PO SCH (09:30)
[2021-07-21] MEDS: TAMSULOSIN 0.4 MG CAP.ER.24H PO SCH (09:30)
[2021-07-21] MEDS: INSULIN ASPART (NovoLOG) 100 UNIT/ML VIAL SQ SCH ×7 (09:31→20:22)
[2021-07-21 09:36] LABS: C Reactive Protein 2.3 mg/dL (<1.0)
--- NOTE | 2021-07-21 10:41 | P.PN ---
Subjective Patient is seen in follow-up for acute kidney injury. Renal function back to baseline. Sodium level 130 today. Has been voiding. Denies chest pain or shortness of breath. On 10 L high flow cannula. No vomiting or diarrhea. No changes overnight. Blood pressure stable. Vital signs are stable. General: On nasal cannula. HEENT: Head exam is unremarkable. LUNGS: Breath sounds decreased. HEART: Rate and Rhythm are regular. ABDOMEN: Soft, no distention. EXTREMITITES: Trace edema. Objective - Vital Signs Vital signs: Vital Signs Temp 98.5 F 07/21/21 06:05 Pulse 90 07/21/21 06:05 Resp 16 07/21/21 06:05 BP 121/75 07/21/21 06:05 Pulse Ox 96 07/21/21 06:05 Intake & Output 07/20/21 07/21/21 07/21/21 18:59 06:59 18:59 Intake Total 500 Output Total 900 1551 Balance -900 -1051 Intake: Oral 500 Output: Urine 900 1550 Stool 1 Other: Voiding Method Urinal # Voids 4 2 - Labs CBC & Chem 7: 07/21/21 05:39 07/21/21 05:39 Labs: Abnormal Lab Results - Last 24 Hours (Table) 07/20/21 07/20/21 07/20/21 Range/Units 11:26 16:51 20:26 WBC (3.8-10.6) k/uL Plt Count (150-450) k/uL Neutrophils # (1.3-7.7) k/uL D-Dimer (<0.60) mg/L FEU Sodium (137-145) mmol/L Chloride (98-107) mmol/L BUN (9-20) mg/dL Glucose (74-99) mg/dL POC Glucose (mg/dL) 258 H 210 H 197 H (75-99) mg/dL Calcium (8.4-10.2) mg/dL Lactate Dehydrogenase (313-618) U/L C-Reactive Protein (<1.0) mg/dL Total Protein (6.3-8.2) g/dL Albumin (3.5-5.0) g/dL 07/21/21 07/21/21 07/21/21 Range/Units 05:39 05:39 05:39 WBC 18.9 H (3.8-10.6) k/uL Plt Count 142 L (150-450) k/uL Neutrophils # 16.9 H (1.3-7.7) k/uL D-Dimer 6.20 H (<0.60) mg/L FEU Sodium 130 L (137-145) mmol/L Chloride 95 L (98-107) mmol/L BUN 34 H (9-20) mg/dL Glucose 42 L* (74-99) mg/dL POC Glucose (mg/dL) (75-99) mg/dL Calcium 8.0 L (8.4-10.2) mg/dL Lactate Dehydrogenase 1752 H (313-618) U/L C-Reactive Protein 2.3 H (<1.0) mg/dL Total Protein 5.6 L (6.3-8.2) g/dL Albumin 2.6 L (3.5-5.0) g/dL 07/21/21 Range/Units 06:58 WBC (3.8-10.6) k/uL Plt Count (150-450) k/uL Neutrophils # (1.3-7.7) k/uL D-Dimer (<0.60) mg/L FEU Sodium (137-145) mmol/L Chloride (98-107) mmol/L BUN (9-20) mg/dL Glucose (74-99) mg/dL POC Glucose (mg/dL) 61 L (75-99) mg/dL Calcium (8.4-10.2) mg/dL Lactate Dehydrogenase (313-618) U/L C-Reactive Protein (<1.0) mg/dL Total Protein (6.3-8.2) g/dL Albumin (3.5-5.0) g/dL Assessment and Plan Plan: Assessment: 1. Acute kidney injury mostly prerenal secondary to hypovolemia from DKA. Creatinine was 5.89 on admission and is 0.95 today. No hydronephrosis noted on kidney ultrasound. 2. DKA status post insulin drip. Now tolerating oral intake. 3. Hyperkalemia secondary to acute kidney injury and hyperglycemia. Resolved. 4. Anion gap metabolic acidosis secondary to DKA and acute kidney injury. Resolved. 5. Benign hypertension. Controlled. 6. Acute hypoxic respiratory failure. 7. COVID-19 pneumonia. 8. Right lower extremity DVT. On anticoagulation. IVC filter placed this admission. 9. Lower extremity edema. 10. Hypervolemic hyponatremia. Better. Plan: Encouraged oral intake. Avoid nephrotoxins. Continue to monitor renal function and urine output. Maintain Lasix for now. 1500 mL fluid restriction.
[2021-07-21 11:44] LABS: Glucose,Whole Blood 84 mg/dL (75-99)
--- NOTE | 2021-07-21 12:59 | P.PN ---
<Graham Quiñones - Last Filed: 07/21/21 16:37> Subjective Progress Note Date: 07/21/21 Hospital course: Patient is a very pleasant 60-year-old male with a past medical history of dimas betes, hypertension, and hyperlipidemia. He presented to the emergency department on 07/08/21 with reports of weakness, anorexia, cough, shortness of breath and alteration in mental status. Upon arrival he was found to be in significant respiratory distress with SpO2 of 80% on room air requiring taisha cement on nonrebreather mask at 15 L of oxygen to maintain SpO2 of 90%. Patient was also significantly hypotensive with blood pressure of 64/43, bradycardic with heart rate of 45, tachypnic with respiratory rate of 28, and hypothermic with a temp of 96.9F. Family at bedside reported patient had not been feeling well since prior to Petey and that this has been going on for greater than 2 weeks. They report positive exposure to Covid and state that pt is unvaccinated. He underwent full evaluation in the emergency department. Chest x-ray positive for multifocal pneumonia. Labs revealed significant leukocytosis with WBC count of 22.8 with left shift. Pseudohyponatremia with sodium 129 and corrected sodium of 138, severe hyperglycemia with glucose of 660, metabolic acidosis with chloride of 91, CO2 16, anion gap of 22, and lactate of 4.2. Qualitative acetone positive. Acute renal failure with BUN of 132, creatinine 5.89, and GFR of 9 with baseline creatinine of 1.3. Urinalysis positive for glucose negative for ketones, protein, blood or infection. Covid PCR positive. Troponin elevated at 0.056. EKG with significant artifact but appears to reveal sinus mechanism. Patient was started on insulin infusion per DKA protocol and admitted under our services to ICU for DKA, severe metabolic acidosis, acute renal failure, hyperkalemia, and acute respiratory failure with hypoxia secondary to Covid 19 pneumonia. Consults placed to nephrology, and shredding specialist/cloth boil off machine operator. Ech ocardiogram was completed revealing a normal EF between 60 and 65%. VQ scan showing low probability for acute PE. Renal ultrasound negative for hydronephrosis showing a 4.2 cm benign-appearing left renal cyst with nonspecific right perinephrotic hypoechoic area possibly secondary to chronic changes versus artifact. Bilateral lower extremity Dopplers completed revealing acute DVTs of bilateral lower extremities. Patient was started on anticoagulation with Eliquis at this time. On 07/21/21 patient had episode of acute lower GI bleeding with bright red blood per rectum accompanied by hematuri a and bleeding IV insertion sites. Patient was given 1 dose of K Sentra and an IVC filter was placed by interventional radiology. Hemoglobin remained stable and patient did not require blood transfusion. Eliquis was resumed on 07/17/21. Physical exam: Patient seen and fully evaluated at the bedside this morning. He remains on 10 L O2 via high flow nasal cannula. He is currently on Baricitinib day and continues with Decadron, vitamin C, vitamin D, zinc, and anticoagulation with Eliquis. Patient reports overall feeling continued weakness but states feeling better every day. O2 decreased down to 8 L at this time and discussed with RN importance of monitoring pulse oximetry closely. Patient continues to work closely with occupational therapy daily in preparation for anticipated discharge home with home care.. Patient denies having any headache, lightheadedness, dizziness, chest pain, palpitations, nausea, or experiencing any numbness/tingling/weakness in his extremities. He reports his appetite has improved. Vital signs reviewed and stable. General: Nontoxic, no distress and appears stated age. Derm: Skin warm and dry, normal coloration for ethnicity. Head: Atraumatic, normocephalic and symmetric. Eyes: EOMs intact, no lid lag, and anicteric sclera Mouth: no lip lesions, mucus membranes moist Cardiovascular: regular rate and rhythm with normal S1S2, no murmur, positive posterior tibial pulses bilaterally, and cap refill < 2 seconds. Lungs: Respirations even, regular, and unlabored on 10 L O2 via nasal cannula. Lungs with soft crackles to bilateral lower lobes, no rhonchi, rales, or wheezes noted. No accessory muscle usage. Abdominal: soft, nontender to palpation, no guarding, no appreciable organomegaly Ext: ROM intact. No gross muscle atrophy, no edema, no contractures Neuro: Speech clear, face symmetrical and CN II-XII grossly intact with no noted focal neuro deficits Psych: Alert and oriented to person, place, time, and situation. Appropriate and pleasant affect. Assessment and Plan of Care: Acute respiratory failure with hypoxia secondary to COVID 19 pneumonia -Oxygenation to be administered and titrated as needed to maintain SPO2 equal to or greater than 90% -Telemetry monitoring. -Continue trending inflammatory markers -Encourage Incentive Spirometry 10-15x hourly while awake -Steroids: Decadron 6 mg daily -Continue vitamin C, Vitamin D, and Zinc. -Pulmonology following, appreciate further recommendations. -DVT prophylaxis with Eliquis -Baricitinib day -Strict Droplet plus Contact precautions Acute Bilateral DVTs -Status post IVC filter placement on 07/11/2021 and resuming Eliquis on 07/17/21 -Continue to monitor hemoglobin Acute episode of lower GI bleeding with a rectal bleeding accompanied by haematuria and bleeding at the IV insertion sites -Patient was given a dose of KCentra, and the bleeding has resolved. -Hemoglobin is stable, patient has not required blood transfusions. -Eliquis was resumed on 07/17/21 DKA in Type II [id number] diabetes mellitus -DKA resolved -A1c 9.6. -Continue glycemic protocol with NovoLog sliding scale, fixed dose 8 units with meals 3 times daily, and long-acting Levemir 25 units daily. Acute kidney injury, Resolved with IV fluid hydration and treatment of DKA Acute anion gap Metabolic acidosis, resolved Metabolic encephalopathy, resolved, likely multifactorial due to Covid pneumonia and NIKOLAS Hyperkalemia, Resolved. -Continued close monitoring of renal function -Nephrology following -Continue holding SHYAM inhibitor Urinary retention -Resolved Status post Gonzalez catheter placement. Gonzalez catheter removed July 17 -Patient started on Flomax 0.4 mg daily -Continue to monitor postvoid residuals Acute hyponatremia -Nephrology following -Nephrology ordered one-time dose of Samsca 15 mg on July 17 -Random urine sodium Hypertension -Soft blood pressure, hold Norvasc for now -We will restart SHYAM inhibitor on discharge Leukocytosis, reactive secondary to steroids CODE STATUS: Full code DVT prophylaxis: Eliquis Discussed with: Patient and RN Anticipated discharge date: Clinical course to determine Anticipated discharge place: Home A total of 45 minutes was spent on the care of this complex patient more than 50% of the time was spent in counseling and care coordination. Objective - Vital Signs Vital signs: Vital Signs Temp 98.7 F 07/21/21 09:20 Pulse 101 H 07/21/21 09:20 Resp 16 07/21/21 09:20 BP 111/70 07/21/21 09:20 Pulse Ox 95 07/21/21 09:20 Intake & Output 07/20/21 07/21/21 07/21/21 18:59 06:59 18:59 Intake Total 500 Output Total 900 1551 Balance -900 -1051 Intake: Oral 500 Output: Urine 900 1550 Stool 1 Other: Voiding Method Urinal # Voids 4 2 - Labs CBC & Chem 7: 07/21/21 05:39 07/21/21 05:39 Labs: Abnormal Lab Results - Last 24 Hours (Table) 07/20/21 07/20/21 07/21/21 Range/Units 16:51 20:26 05:39 WBC 18.9 H (3.8-10.6) k/uL Plt Count 142 L (150-450) k/uL Neutrophils # 16.9 H (1.3-7.7) k/uL D-Dimer (<0.60) mg/L FEU Sodium (137-145) mmol/L Chloride (98-107) mmol/L BUN (9-20) mg/dL Glucose (74-99) mg/dL POC Glucose (mg/dL) 210 H 197 H (75-99) mg/dL Calcium (8.4-10.2) mg/dL Lactate Dehydrogenase (313-618) U/L C-Reactive Protein (<1.0) mg/dL Total Protein (6.3-8.2) g/dL Albumin (3.5-5.0) g/dL 07/21/21 07/21/21 07/21/21 Range/Units 05:39 05:39 06:58 WBC (3.8-10.6) k/uL Plt Count (150-450) k/uL Neutrophils # (1.3-7.7) k/uL D-Dimer 6.20 H (<0.60) mg/L FEU Sodium 130 L (137-145) mmol/L Chloride 95 L (98-107) mmol/L BUN 34 H (9-20) mg/dL Glucose 42 L* (74-99) mg/dL POC Glucose (mg/dL) 61 L (75-99) mg/dL Calcium 8.0 L (8.4-10.2) mg/dL Lactate Dehydrogenase 1752 H (313-618) U/L C-Reactive Protein 2.3 H (<1.0) mg/dL Total Protein 5.6 L (6.3-8.2) g/dL Albumin 2.6 L (3.5-5.0) g/dL <Cynthia Chawla - Last Filed: 07/21/21 17:24> Subjective Graham Quiñones, JODIE rendered care for this patient independently, reviewed the findings and plan as documented in the note above. I did not physically speak with or examine the patient on this date. Reviewed, D/C fixed dose insulin, continue sliding scale, d/w CHIEF CLINICAL OFFICER A1C 9.6 and maxed out on oral medications. likely will need insulin on discharge and will CHIEF CLINICAL OFFICER discuss with pt in AM Patient started on decadron on 07/08 has completed 14 doses and will discontinue Objective - Vital Signs Vital signs: Vital Signs Temp 98.6 F 07/21/21 14:00 Pulse 94 07/21/21 14:00 Resp 16 07/21/21 14:00 BP 98/65 07/21/21 14:00 Pulse Ox 92 L 07/21/21 14:00 Intake & Output 07/20/21 07/21/21 07/21/21 18:59 06:59 18:59 Intake Total 500 Output Total 900 1551 Balance -900 -1051 Intake: Oral 500 Output: Urine 900 1550 Stool 1 Other: Voiding Method Urinal Urinal # Voids 4 2 - Labs CBC & Chem 7: 07/21/21 05:39 07/21/21 05:39 Labs: Abnormal Lab Results - Last 24 Hours (Table) 07/20/21 07/21/21 07/21/21 Range/Units 20:26 05:39 05:39 WBC 18.9 H (3.8-10.6) k/uL Plt Count 142 L (150-450) k/uL Neutrophils # 16.9 H (1.3-7.7) k/uL D-Dimer (<0.60) mg/L FEU Sodium 130 L (137-145) mmol/L Chloride 95 L (98-107) mmol/L BUN 34 H (9-20) mg/dL Glucose 42 L* (74-99) mg/dL POC Glucose (mg/dL) 197 H (75-99) mg/dL Calcium 8.0 L (8.4-10.2) mg/dL Lactate Dehydrogenase 1752 H (313-618) U/L C-Reactive Protein 2.3 H (<1.0) mg/dL Total Protein 5.6 L (6.3-8.2) g/dL Albumin 2.6 L (3.5-5.0) g/dL 07/21/21 07/21/21 07/21/21 Range/Units 05:39 06:58 16:42 WBC (3.8-10.6) k/uL Plt Count (150-450) k/uL Neutrophils # (1.3-7.7) k/uL D-Dimer 6.20 H (<0.60) mg/L FEU Sodium (137-145) mmol/L Chloride (98-107) mmol/L BUN (9-20) mg/dL Glucose (74-99) mg/dL POC Glucose (mg/dL) 61 L 208 H (75-99) mg/dL Calcium (8.4-10.2) mg/dL Lactate Dehydrogenase (313-618) U/L C-Reactive Protein (<1.0) mg/dL Total Protein (6.3-8.2) g/dL Albumin (3.5-5.0) g/dL
[2021-07-21 16:43] LABS: Glucose,Whole Blood 208 mg/dL (75-99)
[2021-07-21] MEDS: BARICITINIB 2 MG TABLET PO SCH (17:15)
--- NOTE | 2021-07-21 17:55 | P.PN ---
Subjective Progress Note Date: 07/21/21 Principal diagnosis: Acute hypoxic respiratory failure secondary to COVID-19 pneumonia The patient is seen today 07/17/2021 . Follow-up on the regular medical floor. He is currently sitting up in a chair at the bedside. Awake and alert. He is still requiring 15 L high flow nasal cannula +100% nonrebreather mask to maintain O2 saturations in the high 80s low 90s. He denies any worsening shortness of breath at this time. Slow to progress. White count 14.6. Hemoglobin 14.7. Lymphocytes 0.9. D-dimer 14.4. Sodium 127. Potassium 5.3. Creatinine 1.01. AST 35. ALT 41. LDH 1865. C-reactive protein 1.0. Chest x- ray continues to show diffuse lung infiltrates. No change compared to previous. No pneumothorax. No large effusions. He is continued on Baricitinib, Decadron, vitamin supplements. He is anticoagulated with Eliquis. The patient did have a [place] filter placed 07/11/2021. The patient is seen today 07/20/2021 in follow-up on the regular medical floor. He is currently sitting up in a chair at the bedside. He is awake and alert in no acute distress. He is currently down to 10 L high flow nasal cannula. X-ray continues to show low lung volumes and bilateral multifocal increased opacities consistent with COVID-19 pneumonia. No significant change. White count 17.3. Hemoglobin 14.6. Platelets 17. Sodium 128. Potassium 4.3. Creatinine 0.89. Glucose is 86. AST 29. ALT 41. LDH 1478. C-reactive protein 1.5. He is continued on Eliquis, Baricitinib, Decadron, vitamin supplements. Reevaluated today on 07/21/2021, patient remains on 9 L high flow cannula, does not seem to be in any distress, continues to have multifocal infiltrates consistent with COVID-19 pneumonia. WBC count today is noted to be elevated at 18.9. Hemoglobin is 14.8. His d-dimer is 6.20, seems to be coming down from 15.65 initially. It was 14.40 just a few days ago. His sodium is a bit low at 130, renal profile is normal. His LDH remains elevated at 1752 and C-reactive protein is 2.3. Overall the patient is clinically better, but still requiring relatively high FiO2. Objective - Vital Signs Vital signs: Vital Signs Temp 98.6 F 07/21/21 14:00 Pulse 94 07/21/21 14:00 Resp 16 07/21/21 14:00 BP 98/65 07/21/21 14:00 Pulse Ox 92 L 07/21/21 14:00 Intake & Output 07/20/21 07/21/21 07/21/21 18:59 06:59 18:59 Intake Total 500 Output Total 900 1551 Balance -900 -1051 Intake: Oral 500 Output: Urine 900 1550 Stool 1 Other: Voiding Method Urinal Urinal # Voids 4 2 - Exam GENERAL EXAM: Alert, pleasant 60-year-old male patient, in a chair at the bedside, on 10 L high flow nasal cannula, fairly comfortable in no apparent distress. HEAD: Normocephalic. EENT: PERRLA, MD, nonicteric, no neck masses no JVD. CHEST: No chest wall deformity. LUNGS: Equal air entry with coarse crackles in the bilateral bases. CVS: S1 and S2 normal with no audible murmur, regular rhythm. ABDOMEN: No hepatosplenomegaly, normal bowel sounds, no guarding or rigidity. SKIN: No rashes Psychiatric: Normal mood affect and normal mental status examination CENTRAL NERVOUS SYSTEM: Alert and oriented 3 focal deficit. EXTREMITIES: There is no peripheral edema. No clubbing, no cyanosis. Peripheral pulses are intact. - Labs CBC & Chem 7: 07/21/21 05:39 07/21/21 05:39 Labs: Abnormal Lab Results - Last 24 Hours (Table) 07/20/21 07/21/21 07/21/21 Range/Units 20:26 05:39 05:39 WBC 18.9 H (3.8-10.6) k/uL Plt Count 142 L (150-450) k/uL Neutrophils # 16.9 H (1.3-7.7) k/uL D-Dimer (<0.60) mg/L FEU Sodium 130 L (137-145) mmol/L Chloride 95 L (98-107) mmol/L BUN 34 H (9-20) mg/dL Glucose 42 L* (74-99) mg/dL POC Glucose (mg/dL) 197 H (75-99) mg/dL Calcium 8.0 L (8.4-10.2) mg/dL Lactate Dehydrogenase 1752 H (313-618) U/L C-Reactive Protein 2.3 H (<1.0) mg/dL Total Protein 5.6 L (6.3-8.2) g/dL Albumin 2.6 L (3.5-5.0) g/dL 07/21/21 07/21/21 07/21/21 Range/Units 05:39 06:58 16:42 WBC (3.8-10.6) k/uL Plt Count (150-450) k/uL Neutrophils # (1.3-7.7) k/uL D-Dimer 6.20 H (<0.60) mg/L FEU Sodium (137-145) mmol/L Chloride (98-107) mmol/L BUN (9-20) mg/dL Glucose (74-99) mg/dL POC Glucose (mg/dL) 61 L 208 H (75-99) mg/dL Calcium (8.4-10.2) mg/dL Lactate Dehydrogenase (313-618) U/L C-Reactive Protein (<1.0) mg/dL Total Protein (6.3-8.2) g/dL Albumin (3.5-5.0) g/dL Assessment and Plan Assessment: Impression: Acute hypoxic respiratory failure secondary to COVID-19 pneumonia, patient is not vaccinated, out of the window for Remdesivir, patient received 10 of 15 doses of Baricitinib, however considering his leukocytosis, I will discontinue Baricitinib today. Acute bilateral deep vein thrombosis, on Eliquis. Patient had previous IVC filter placed but he is back on Eliquis since he had no further bleeding/hematuria. Elevated inflammatory markers Acute diabetic ketoacidosis History of hypertension History of depression Leukocytosis. Recommendation: Continue oxygen and titrate accordingly Discontinue Baricitinib Continue Eliquis, Decadron and multivitamins Increase activity Not quite ready for discharge planning. We will continue to follow. Time with Patient: Less than 30
[2021-07-21 20:22] LABS: Glucose,Whole Blood 140 mg/dL (75-99)
[2021-07-22 02:26] LABS: Glucose,Whole Blood 74 mg/dL (75-99)
[2021-07-22 08:14] LABS: ALT 37 U/L (4-49); AST 26 U/L (17-59); African American GFR (CKD) >90 (>60 ml/min/1.73 sqM); Albumin 2.4 g/dL (3.5-5.0); Albumin/Globulin Ratio 0.8; Alkaline Phosphatase 120 U/L (38-126); Anion Gap 2 mmol/L; Blood Urea Nitrogen 31 mg/dL (9-20); Calcium 7.8 mg/dL (8.4-10.2); Carbon Dioxide 33 mmol/L (22-30); Chloride 94 mmol/L (98-107); Globulin 2.9 g/dL; Glucose 180 mg/dL (74-99); Magnesium 1.8 mg/dL (1.6-2.3); Non-African American GFR(CKD) 89 (>60 ml/min/1.73 sqM); Potassium 4.1 mmol/L (3.5-5.1); Sodium 129 mmol/L (137-145); Total Bilirubin 0.7 mg/dL (0.2-1.3); Total Protein 5.3 g/dL (6.3-8.2)
[2021-07-22] MEDS: ATORVASTATIN 40 MG TAB PO SCH (08:17)
[2021-07-22] MEDS: CHOLECALCIFEROL 125 MCG (5000 IU) TABLET PO SCH (08:17)
[2021-07-22] MEDS: ZINC SULFATE 220 MG CAP PO SCH (08:17)
[2021-07-22] MEDS: INSULIN ASPART (NovoLOG) 100 UNIT/ML VIAL SQ SCH ×4 (08:17→20:25)
[2021-07-22] MEDS: ASCORBIC ACID 500 MG TAB PO SCH (08:17)
[2021-07-22] MEDS: INSULIN DETEMIR (LEVEMIR) 100 UNIT/ML SYR SQ SCH (08:17)
[2021-07-22] MEDS: PANTOPRAZOLE 40 MG TABLET PO SCH ×2 (08:17→17:31)
[2021-07-22] MEDS: TAMSULOSIN 0.4 MG CAP.ER.24H PO SCH (08:18)
[2021-07-22] MEDS: APIXABAN 5 MG TAB PO SCH ×2 (08:18→20:26)
[2021-07-22 08:27] LABS: Basophils % (A) 0 %; Eosinophils # (A) 0.3 k/uL (0-0.7); Eosinophils % (A) 2 %; HCT 46.4 % (39.0-53.0); HGB 14.9 gm/dL (13.0-17.5); Lymphocytes # (A) 1.3 k/uL (1.0-4.8); Lymphocytes % (A) 8 %; MCH 31.6 pg (25.0-35.0); MCHC 32.1 g/dL (31.0-37.0); MCV 98.3 fL (80.0-100.0); Mean Platelet Volume 7.6; Monocytes # (A) 0.6 k/uL (0-1.0); Monocytes % (A) 4 %; Neutrophils # (A) 14.8 k/uL (1.3-7.7); Neutrophils % (A) 86 %; Platelet Count 143 k/uL (150-450); RBC 4.72 m/uL (4.30-5.90); WBC 17.1 k/uL (3.8-10.6)
[2021-07-22] MEDS: FUROSEMIDE 10 MG/ML 2 ML VIAL IV SCH ×2 (08:43→20:26)
[2021-07-22 09:44] LABS: Glucose,Whole Blood 151 mg/dL (75-99)
--- NOTE | 2021-07-22 10:44 | P.PN ---
Subjective Progress Note Date: 07/22/21 Hospital course: Patient is a very pleasant 60-year-old male with a past medical history of diabetes, hypertension, and hyperlipidemia. He presented to the emergency department on 07/08/21 with reports of weakness, anorexia, cough, shortness of breath and alteration in mental status. Upon arrival he was found to be in significant respiratory distress with SpO2 of 80% on room air requiring placement on nonrebreather mask at 15 L of oxygen to maintain SpO2 of 90%. Patient was also significantly hypotensive with blood pressure of 64/43, bradycardic with heart rate of 45, tachypnic with respiratory rate of 28, and hypothermic with a temp of 96.9F. Family at bedside reported patient had not been feeling well since prior to [place] and that this has been going on for greater than 2 weeks. They report positive exposure to Covid and state that pt is unvaccinated. He underwent full evaluation in the emergency department. Chest x-ray positive for multifocal pneumonia. Labs revealed significant leukocytosis with WBC count of 22.8 with left shift. Pseudohyponatremia with sodium 129 and corrected sodium of 138, severe hyperglycemia with glucose of 660 , metabolic acidosis with chloride of 91, CO2 16, anion gap of 22, and lactate of 4.2. Qualitative acetone positive. Acute renal failure with BUN of 132, creatinine 5.89, and GFR of 9 with baseline creatinine of 1.3. Urinalysis positive for glucose negative for ketones, protein, blood or infection. Covid PCR positive. Troponin elevated at 0.056. EKG with significant artifact but appears to reveal sinus mechanism. Patient was started on insulin infusion per DKA protocol and admitted under our services to ICU for DKA, severe metabolic acidosis, acute renal failure, hyperkalemia, and acute respiratory failure with hypoxia secondary to Covid 19 pneumonia. 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 Echocardiogram was completed revealing a normal EF between 60 and 65%. VQ scan showing low probability for acute PE. Renal ultrasound negative for hydronephrosis showing a 4.2 cm benign-appearing left renal cyst with nonspecific right perinephrotic hypoechoic area possibly secondary to chronic changes versus artifact. Bilateral lower extremity Dopplers completed revealing acute DVTs of bilateral lower extremities. Patient was started on anticoagulation with Eliquis at this time. On 07/21/21 patient had episode of acute lower GI bleeding with bright red blood per rectum accompanied by hematuria and bleeding IV insertion sites. Patient was given 1 dose of K Sentra and an IVC filter was placed by interventional radiology. Hemoglobin remained stable and patient did not require blood transfusion. Eliquis was resumed on 07/17/21. Physical exam: Patient seen and fully evaluated at the bedside this morning. He is on 8 L O2 via nasal cannula with SpO2 of 93% and doing well. He received a total of 10 doses of Baricitinib and this was discontinued by pulmonology yesterday. Decadron also discontinued as patient has completed 10 day course. Patient remains on vitamin C, vitamin D, zinc, and Eliquis. Patient more positive today and looking forward to going home. He denies having any headache, lightheadedness, dizziness, chest pain, palpitations, nausea, vomiting, or experiencing any numbness/tingling/weakness in his extremities. Vital signs reviewed and stable. General: Nontoxic, no distress and appears stated age. Derm: Skin warm and dry, normal coloration for ethnicity. Head: Atraumatic, normocephalic and symmetric. Eyes: EOMs intact, no lid lag, and anicteric sclera Mouth: no lip lesions, mucus membranes moist Cardiovascular: regular rate and rhythm with normal S1S2, no murmur, positive po sterior tibial pulses bilaterally, and cap refill < 2 seconds. Lungs: Respirations even, regular, and unlabored on 8 L O2 via nasal cannula. Lungs with soft crackles to bilateral lower lobes, no rhonchi, rales, or wheezes noted. No accessory muscle usage. Abdominal: soft, nontender to palpation, no guarding, no appreciable organomegaly Ext: ROM intact. No gross muscle atrophy, no edema, no contractures Neuro: Speech clear, face symmetrical and CN II-XII grossly intact with no noted focal neuro deficits Psych: Alert and oriented to person, place, time, and situation. Appropriate and pleasant affect. Assessment and Plan of Care: Acute respiratory failure with hypoxia secondary to COVID 19 pneumonia -Oxygenation to be administered and titrated as needed to maintain SPO2 equal to or greater than 90% -Telemetry monitoring. -Continue trending inflammatory markers -Encourage Incentive Spirometry 10-15x hourly while awake -Completed ten-day course of Decadron -Continue vitamin C, Vitamin D, and Zinc. -Pulmonology following, appreciate further recommendations. -DVT prophylaxis with Eliquis -Received 10 days of Baricitinib -Strict Droplet plus Contact precautions Acute Bilateral DVTs -Status post IVC filter placement on 07/11/2021 and resuming Eliquis on 07/17/21 -Continue to monitor hemoglobin Acute episode of lower GI bleeding with a rectal bleeding accompanied by haematuria and bleeding at the IV insertion sites -Patient was given a dose of KCentra, and the bleeding has resolved. -Hemoglobin is stable, patient has not required blood transfusions. -Eliquis was resumed on 07/17/21 DKA in Type II [id number] diabetes mellitus -DKA resolved -A1c 9.6. -Continue glycemic protocol with NovoLog sliding scale and long-acting Levemir 25 units daily. -Discussed with patient he will likely go home on long-acting insulin, RN doing diabetic teaching and teaching on administration of insulin. Acute kidney injury, Resolved with IV fluid hydration and treatment of DKA Acute anion gap Metabolic acidosis, resolved Metabolic encephalopathy, resolved, likely multifactorial due to Covid pneumonia and NIKOLAS Hyperkalemia, Resolved. -Continued close monitoring of renal function -Nephrology following -Continue holding SHYAM inhibitor Urinary retention -Resolved Status post Gonzalez catheter placement. Gonzalez catheter removed July 17 -Patient started on Flomax 0.4 mg daily -Continue to monitor postvoid residuals Acute hyponatremia -Nephrology following -Nephrology ordered one-time dose of Sam[place]a 15 mg on July 17 -Random urine sodium Hypertension -Soft blood pressure, hold Norvasc for now -We will restart SHYAM inhibitor on discharge Leukocytosis, reactive secondary to steroids CODE STATUS: Full code DVT prophylaxis: Eliquis Discussed with: Patient and RN Anticipated discharge date: Clinical course to determine Anticipated discharge place: Home A total of 45 minutes was spent on the care of this complex patient more than 50% of the time was spent in counseling and care coordination. Objective - Vital Signs Vital signs: Vital Signs Temp 98.8 F 07/22/21 09:20 Pulse 103 H 07/22/21 09:20 Resp 15 07/22/21 09:20 BP 120/74 07/22/21 09:20 Pulse Ox 93 L 07/22/21 09:20 Intake & Output 07/21/21 07/22/21 07/22/21 18:59 06:59 18:59 Intake Total 916 Output Total 1250 1 Balance -334 -1 Intake: Oral 916 Output: Urine 1250 Stool 1 Other: Voiding Method Urinal Urinal Urinal # Voids 1 - Labs CBC & Chem 7: 07/22/21 07:42 07/22/21 07:42 Labs: Abnormal Lab Results - Last 24 Hours (Table) 07/21/21 07/21/21 07/22/21 Range/Units 16:42 20:21 02:25 WBC (3.8-10.6) k/uL Plt Count (150-450) k/uL Neutrophils # (1.3-7.7) k/uL Sodium (137-145) mmol/L Chloride (98-107) mmol/L Carbon Dioxide (22-30) mmol/L BUN (9-20) mg/dL Glucose (74-99) mg/dL POC Glucose (mg/dL) 208 H 140 H 74 L (75-99) mg/dL Calcium (8.4-10.2) mg/dL Total Protein (6.3-8.2) g/dL Albumin (3.5-5.0) g/dL 07/22/21 07/22/21 07/22/21 Range/Units 07:12 07:42 07:42 WBC 17.1 H (3.8-10.6) k/uL Plt Count 143 L (150-450) k/uL Neutrophils # 14.8 H (1.3-7.7) k/uL Sodium 129 L (137-145) mmol/L Chloride 94 L (98-107) mmol/L Carbon Dioxide 33 H (22-30) mmol/L BUN 31 H (9-20) mg/dL Glucose 180 H (74-99) mg/dL POC Glucose (mg/dL) 151 H (75-99) mg/dL Calcium 7.8 L (8.4-10.2) mg/dL Total Protein 5.3 L (6.3-8.2) g/dL Albumin 2.4 L (3.5-5.0) g/dL
--- NOTE | 2021-07-22 10:49 | P.PN ---
Subjective Patient is seen in follow-up for acute kidney injury. Renal function back to baseline. Sodium level 129 today. Has been voiding. Denies chest pain or shortness of breath. On 8 L high flow cannula. No vomiting or diarrhea. No changes overnight. Blood pressure stable. Vital signs are stable. General: On nasal cannula. HEENT: Head exam is unremarkable. LUNGS: Breath sounds decreased. HEART: Rate and Rhythm are regular. ABDOMEN: Soft, no distention. EXTREMITITES: Trace edema. Objective - Vital Signs Vital signs: Vital Signs Temp 98.8 F 07/22/21 09:20 Pulse 103 H 07/22/21 09:20 Resp 15 07/22/21 09:20 BP 120/74 07/22/21 09:20 Pulse Ox 93 L 07/22/21 09:20 Intake & Output 07/21/21 07/22/21 07/22/21 18:59 06:59 18:59 Intake Total 916 Output Total 1250 1 Balance -334 -1 Intake: Oral 916 Output: Urine 1250 Stool 1 Other: Voiding Method Urinal Urinal Urinal # Voids 1 - Labs CBC & Chem 7: 07/22/21 07:42 07/22/21 07:42 Labs: Abnormal Lab Results - Last 24 Hours (Table) 07/21/21 07/21/21 07/22/21 Range/Units 16:42 20:21 02:25 WBC (3.8-10.6) k/uL Plt Count (150-450) k/uL Neutrophils # (1.3-7.7) k/uL Sodium (137-145) mmol/L Chloride (98-107) mmol/L Carbon Dioxide (22-30) mmol/L BUN (9-20) mg/dL Glucose (74-99) mg/dL POC Glucose (mg/dL) 208 H 140 H 74 L (75-99) mg/dL Calcium (8.4-10.2) mg/dL Total Protein (6.3-8.2) g/dL Albumin (3.5-5.0) g/dL 07/22/21 07/22/21 07/22/21 Range/Units 07:12 07:42 07:42 WBC 17.1 H (3.8-10.6) k/uL Plt Count 143 L (150-450) k/uL Neutrophils # 14.8 H (1.3-7.7) k/uL Sodium 129 L (137-145) mmol/L Chloride 94 L (98-107) mmol/L Carbon Dioxide 33 H (22-30) mmol/L BUN 31 H (9-20) mg/dL Glucose 180 H (74-99) mg/dL POC Glucose (mg/dL) 151 H (75-99) mg/dL Calcium 7.8 L (8.4-10.2) mg/dL Total Protein 5.3 L (6.3-8.2) g/dL Albumin 2.4 L (3.5-5.0) g/dL Assessment and Plan Plan: Assessment: 1. Acute kidney injury mostly prerenal secondary to hypovolemia from DKA. Creatinine was 5.89 on admission and is 0.92 today. No hydronephrosis noted on kidney ultrasound. 2. DKA status post insulin drip. Now tolerating oral intake. 3. Hyperkalemia secondary to acute kidney injury and hyperglycemia. Resolved. 4. Anion gap metabolic acidosis secondary to DKA and acute kidney injury. Resolved. 5. Benign hypertension. Controlled. 6. Acute hypoxic respiratory failure. 7. COVID-19 pneumonia. 8. Right lower extremity DVT. On anticoagulation. IVC filter placed this admission. 9. Lower extremity edema. Improved. 10. Hypervolemic hyponatremia. Stable. Plan: Encouraged oral intake. Avoid nephrotoxins. Maintain Lasix for now. 1200 mL fluid restriction. Check serum osmolality, urine osmolality and urine sodium level.
[2021-07-22 11:44] LABS: Glucose,Whole Blood 332 mg/dL (75-99)
--- NOTE | 2021-07-22 12:43 | P.PN ---
Subjective Progress Note Date: 07/22/21 Principal diagnosis: Shortness of breath, hypoxia, COVID-19 On 07/11/2021 patient seen in follow-up on medical surgical floor, patient oxygen requirement and is currently increased, he is on 15 L per high flow nasal cannula and a nonrebreather mask, and his pulse ox is 92-96%, however he is breathing fairly comfortable, does not appear to be in any acute distress, his been afebrile, no complaints of chest discomfort, patient was diagnosed with bilateral lower extremity DVTs, and she was started on Eliquis however he developed GI bleeding, he had a large bowel movement with blood, he developed bleeding from his IV insertion sites, and hematuria, and his anticoagulation was subsequently placed on hold and he was given a dose of K Centra. However his hemoglobin has remained fairly stable, today it is 16.3, actually increased, patient has not required any blood transfusions, hemodynamically has been stable, his white count is 20.5, his platelet count is 286, his renal profile is actually improving, his BUN is down to 52 and creatinine is down to 1.38, electrolytes are unremarkable. His pro calcitonin level was 0.61. His had no fever or chills. Patient was taken to the laboratory phlebotomist by Dr. Bright and IVC filter was inserted. He is also seen in consultation by surgical services, the recommendation was to place anticoagulation on hold, and surgery will remain on standby at this time. On 07/12/2021 patient seen in follow-up on medical surgical floor, he states his breathing is not bad, although he still requiring high flow oxygen 15 L and his pulse ox is between 92-94%, hemodynamically his has remained stable, his been afebrile, he is resting comfortably in bed, his Eliquis remains on hold for an episode of GI bleeding. Patient denies any abdominal pain, there has been no further bleeding. His hemoglobin today is 14.6, his white blood cell count is improving and is down to 14.7 on today's labs, d-dimer is improving and is down to 10.6, electrolytes are within normal limits, BUN is 27.2, and creatinine is improved and is down to 1.2. His LDH has significantly improved is down to 454, CRP is down to 1.7. His pro calcitonin level is negative at 0.09. Patient is currently on Decadron 6 mg daily, he is on multivitamins including vitamin C, vitamin D, and zinc, he continues on gentle IV hydration with 0.9 normal saline at a rate of 50 ML per hour. Chest x-ray today showing bilateral infiltrates that are stable in appearance. Surgical services are following, patient is status post IVC filter yesterday in the right groin. Lung sounds are essentially clear but very minimal crackles at the left base, breathing very comfortably, no complaints of chest pain. On 07/13/2021 patient seen in follow-up on medical surgical floor. Patient is awake and alert, in no acute distress, he is requiring high flow oxygen, with 15 L in nonrebreather mask, and his pulse ox is anywhere between 88 and 96%, does not appear to be in any acute distress. We started him on Baricitinib yesterday on 07/12/2021, patient is breathing comfortably, minimal cough, no complaints of chest discomfort, his been afebrile, yesterday's chest x-ray showed stable maximus ateral infiltrates. Today's labs have been reviewed, his white blood cell count is stable at 14.6, hemoglobin is 15.4, sodium is 134, respiratory electrolytes are within normal limits, BUN is 25, creatinine is 1.02. Inflammatory markers were improving on yesterday's labs. Follow-up pro calcitonin was negative at 0.09 On 07/14/2021 patient seen in follow-up on medical surgical floor, he still requiring high flow oxygen with 15 L per high flow nasal cannula and nonrebreather mask, and his pulse ox is around 90-95%, breathing comfortably, he sitting up in the recliner, appears to be in no acute distress, no fever or chills, vital signs have been stable. Today's chest x-ray shows low lung volumes and bilateral multifocal opacities no significant change. His labs have been reviewed, his white blood cell count of 15.2, hemoglobin is 15, last d- dimer was improving and was down to 10.6, sodium is 132, direct electrolytes were unremarkable, he is BUN was 22 and creatinine was 0.93.Remains on Baricitrinib, Decadron, prophylactic Lovenox and multivitamins. On 07/15/2021 patient seen in follow-up on medical surgical floor. Patient is awake and alert, oriented 3, does not appear to be in any acute distress, he sitting up in the recliner, breathing comfortably, he is currently on 15 L per high flow nasal cannula and nonrebreather mask. His pulse ox earlier was 92- 97%, nonrebreather was removed, and patient was just left on 15 L per high flow nasal cannula, we reevaluated him after half an hour and his pulse ox remained at 90-91%, he continues to breathing very comfortably, but chest discomfort, no significant cough, no fever or chills. No new chest x-ray today. Today's labs have been reviewed, his white blood cell count of 16.2, hemoglobin is 14.9, sodium is 1:30, potassium is 4.5, chloride is 104, CO2 is 23, B1 is 20, creatinine is 1.06. Tolerating oral intake, no nausea vomiting or diarrhea. On 07/19/2021 patient seen in follow-up on medical surgical floor. Patient is awake and alert, he sitting up in the recliner, he is currently just on 15 L high flow nasal cannula, his pulse ox is 90%, breathing comfortably, lung sounds reveal some scattered crackles, no rhonchi or wheezing, no complaint of chest discomfort, no worsening dyspnea or cough. Overall he states he is feeling about 75% better since admission. Today's labs have been reviewed. Patient's E liquis has been restarted per primary care service, his hemoglobin remained stable at 15.5, his white blood cell count is 17, sodium is 132, the respiratory electrolytes were unremarkable, B1 is 34 creatinine is 1.12. Patient has been receiving gentle diuresis per nephrology, he remains on dexamethasone 6 mg daily, he remains on Olumiant 4 mg daily, he remains on multi-vitamins. On 07/22/2021 patient seen in follow-up on medical surgical floor. Patient is resting comfortably in bed, currently satting 93% on 9 L, subsequent activity has been turned down to 8 L, breathing very comfortably, no worsening dyspnea or cough, patient remains on Eliquis. Baricitinib has been discontinued yesterday in view of elevated white blood cell count, and for precaution of secondary bacterial infection. Decadron has been completed. Oxygenation is improving, no worsening dyspnea or cough. Patient has been restarted on Eliquis, he had a IVC filter placed with no evidence of rebleeding. No complaints of chest pain. Objective - Vital Signs Vital signs: Vital Signs Temp 98.8 F 07/22/21 09:20 Pulse 103 H 07/22/21 09:20 Resp 15 07/22/21 09:20 BP 120/74 07/22/21 09:20 Pulse Ox 93 L 07/22/21 09:20 Intake & Output 07/21/21 07/22/21 07/22/21 18:59 06:59 18:59 Intake Total 916 Output Total 1250 1 Balance -334 -1 Intake: Oral 916 Output: Urine 1250 Stool 1 Other: Voiding Method Urinal Urinal Urinal # Voids 1 - Exam GENERAL EXAM: Alert, very pleasant 60-year-old white male, on 8 L per high flow nasal cannula with a pulse ox of 93% comfortable in no apparent distress. EYES: Normal reaction of pupils, equal size. Conjunctiva pink, sclera white. NOSE: Clear with pink turbinates. THROAT: No erythema or exudates. NECK: No masses, no JVD, no thyroid enlargement, no adenopathy. CHEST: No chest wall deformity. Symmetrical expansion. LUNGS: Equal air entry with no crackles, wheeze, rhonchi or dullness. CVS: Regular rate and rhythm, normal S1 and S2, no gallops, no murmurs, no rubs ABDOMEN: Soft, nontender. No hepatosplenomegaly, normal bowel sounds, no guarding or rigidity. EXTREMITIES: No clubbing, no edema, no cyanosis, 2+ pulses and upper and lower extremities. MUSCULOSKELETAL: Muscle strength and tone normal. SPINE: No scoliosis or deformity SKIN: No rashes CENTRAL NERVOUS SYSTEM: Alert and oriented -3. No focal deficits, tone is normal in all 4 extremities. PSYCHIATRIC: Alert and oriented -3. Appropriate affect. Intact judgment and insight. - Labs CBC & Chem 7: 07/22/21 07:42 07/22/21 07:42 Labs: Abnormal Lab Results - Last 24 Hours (Table) 07/21/21 07/21/21 07/22/21 Range/Units 16:42 20:21 02:25 WBC (3.8-10.6) k/uL Plt Count (150-450) k/uL Neutrophils # (1.3-7.7) k/uL Sodium (137-145) mmol/L Chloride (98-107) mmol/L Carbon Dioxide (22-30) mmol/L BUN (9-20) mg/dL Glucose (74-99) mg/dL POC Glucose (mg/dL) 208 H 140 H 74 L (75-99) mg/dL Calcium (8.4-10.2) mg/dL Total Protein (6.3-8.2) g/dL Albumin (3.5-5.0) g/dL 07/22/21 07/22/21 07/22/21 Range/Units 07:12 07:42 07:42 WBC 17.1 H (3.8-10.6) k/uL Plt Count 143 L (150-450) k/uL Neutrophils # 14.8 H (1.3-7.7) k/uL Sodium 129 L (137-145) mmol/L Chloride 94 L (98-107) mmol/L Carbon Dioxide 33 H (22-30) mmol/L BUN 31 H (9-20) mg/dL Glucose 180 H (74-99) mg/dL POC Glucose (mg/dL) 151 H (75-99) mg/dL Calcium 7.8 L (8.4-10.2) mg/dL Total Protein 5.3 L (6.3-8.2) g/dL Albumin 2.4 L (3.5-5.0) g/dL 07/22/21 Range/Units 11:42 WBC (3.8-10.6) k/uL Plt Count (150-450) k/uL Neutrophils # (1.3-7.7) k/uL Sodium (137-145) mmol/L Chloride (98-107) mmol/L Carbon Dioxide (22-30) mmol/L BUN (9-20) mg/dL Glucose (74-99) mg/dL POC Glucose (mg/dL) 332 H (75-99) mg/dL Calcium (8.4-10.2) mg/dL Total Protein (6.3-8.2) g/dL Albumin (3.5-5.0) g/dL Assessment and Plan Plan: Assessment: #1. Acute hypoxic respiratory failure related to acute COVID-19 pneumonia, patient presented to the hospital on 07/08/2021, not a candidate for Remdesivir, not vaccinated. Patient's oxygenation has progressively became worse. Started on Baricitinib on 07/12/2021. Currently oxygenation is improving, patient is currently just on 8 L per high flow nasal cannula. #2. Acute GI bleeding, with a rectal bleeding, hematuria and bleeding at the IV insertion sites, patient was given a dose of KCentra, and the bleeding has resolved. Hemoglobin is stable, patient has not required blood transfusions #3. Acute bilateral DVTs was initially started on Eliquis which was placed on hold related to acute bleeding. Status post IVC filter placement today on 07/11/2021. Eliquis has been restarted on 07/17/2021 no evidence of active bleeding #4. Acute diabetic ketoacidosis, resolved #5. Acute kidney injury, improved #6. Hypertension #7. Acute anion gap Metabolic acidosis, resolved #8. Hyperkalemia, improved #9. Diabetes mellitus type 2 #10. Hypertension #10. Leukocytosis, persistent, slightly improved Plan: Oxygenation continues to improve, patient is down to 8 L of oxygen with pulse ox is 93% We will continue to actively weaning oxygen to maintain O2 saturations at or above 90% Baricitinib was discontinued, patient has completed a course of dexamethasone Increase activity as tolerated Patient continues on Eliquis, without evidence of active bleeding Studies labs have been reviewed Leukocytosis is slightly improved Vital signs have been stable, no fever or chills Clinically stable and improved We will obtain follow-up pro-calcitonin level Once FiO2 is down to 5 L or less and patient continues to clinically improve may consider for discharge home I performed a history & physical examination of the patient and discussed their management with my nurse practitioner, Kristi Cartwright. I reviewed the nurse practitioner's note and agree with the documented findings and plan of care. Lung sounds are positive for dim breath sounds with rales throughout the lung hernandez. The findings and the impression was discussed with the patient. I attest to the documentation by the nurse practitioner. Time with Patient: Less than 30
[2021-07-22 17:04] LABS: Glucose,Whole Blood 101 mg/dL (75-99)
[2021-07-22 20:19] LABS: Glucose,Whole Blood 210 mg/dL (75-99)
[2021-07-23 02:12] LABS: Glucose,Whole Blood 80 mg/dL (75-99)
[2021-07-23 07:10] LABS: Glucose,Whole Blood 139 mg/dL (75-99)
[2021-07-23] MEDS: INSULIN ASPART (NovoLOG) 100 UNIT/ML VIAL SQ SCH ×4 (07:38→21:20)
[2021-07-23] MEDS: INSULIN DETEMIR (LEVEMIR) 100 UNIT/ML SYR SQ SCH (07:38)
[2021-07-23] MEDS: ATORVASTATIN 40 MG TAB PO SCH (07:39)
[2021-07-23] MEDS: ASCORBIC ACID 500 MG TAB PO SCH (07:39)
[2021-07-23] MEDS: ZINC SULFATE 220 MG CAP PO SCH (07:39)
[2021-07-23] MEDS: TAMSULOSIN 0.4 MG CAP.ER.24H PO SCH (07:39)
[2021-07-23] MEDS: PANTOPRAZOLE 40 MG TABLET PO SCH ×2 (07:40→17:14)
[2021-07-23] MEDS: FUROSEMIDE 10 MG/ML 2 ML VIAL IV SCH (07:40)
[2021-07-23] MEDS: CHOLECALCIFEROL 125 MCG (5000 IU) TABLET PO SCH (07:40)
[2021-07-23] MEDS: APIXABAN 5 MG TAB PO SCH ×2 (07:40→21:20)
[2021-07-23 07:56] LABS: Basophils % (A) 0 %; Eosinophils # (A) 0.3 k/uL (0-0.7); Eosinophils % (A) 2 %; HCT 45.1 % (39.0-53.0); HGB 14.8 gm/dL (13.0-17.5); Lymphocytes % (A) 6 %; MCH 31.9 pg (25.0-35.0); MCHC 32.9 g/dL (31.0-37.0); MCV 96.9 fL (80.0-100.0); Mean Platelet Volume 7.2; Monocytes # (A) 0.7 k/uL (0-1.0); Monocytes % (A) 4 %; Neutrophils # (A) 14.3 k/uL (1.3-7.7); Neutrophils % (A) 87 %; Platelet Count 193 k/uL (150-450); RBC 4.65 m/uL (4.30-5.90); WBC 16.5 k/uL (3.8-10.6)
[2021-07-23 08:16] LABS: ALT 35 U/L (4-49); AST 22 U/L (17-59); African American GFR (CKD) >90 (>60 ml/min/1.73 sqM); Albumin 2.4 g/dL (3.5-5.0); Albumin/Globulin Ratio 0.9; Alkaline Phosphatase 137 U/L (38-126); Anion Gap 0 mmol/L; Blood Urea Nitrogen 34 mg/dL (9-20); Calcium 7.9 mg/dL (8.4-10.2); Carbon Dioxide 36 mmol/L (22-30); Chloride 92 mmol/L (98-107); Globulin 2.8 g/dL; Glucose 134 mg/dL (74-99); Magnesium 1.8 mg/dL (1.6-2.3); Non-African American GFR(CKD) 88 (>60 ml/min/1.73 sqM); Potassium 3.9 mmol/L (3.5-5.1); Sodium 128 mmol/L (137-145); Total Bilirubin 0.9 mg/dL (0.2-1.3); Total Protein 5.2 g/dL (6.3-8.2)
--- NOTE | 2021-07-23 09:54 | P.PN ---
Subjective Patient is seen in follow-up for acute kidney injury. Renal function back to baseline. Sodium level 128 today. Has been voiding. Denies chest pain or shortness of breath. On 8 L high flow cannula. No vomiting or diarrhea. No changes overnight. Blood pressure stable. Vital signs are stable. General: On nasal cannula. HEENT: Head exam is unremarkable. LUNGS: Breath sounds decreased. HEART: Rate and Rhythm are regular. ABDOMEN: Soft, no distention. EXTREMITITES: Noedema. Objective - Vital Signs Vital signs: Vital Signs Temp 98.8 F 07/23/21 05:19 Pulse 99 07/23/21 05:19 Resp 14 07/23/21 05:19 BP 108/75 07/23/21 05:19 Pulse Ox 97 07/23/21 05:19 Intake & Output 07/22/21 07/23/21 07/23/21 18:59 06:59 18:59 Intake Total 960 118 240 Output Total 1 500 Balance 959 -382 240 Intake: Oral 960 118 240 Output: Urine 500 Stool 1 Other: Voiding Method Urinal Urinal Urinal # Voids 3 - Labs CBC & Chem 7: 07/23/21 07:12 07/23/21 07:12 Labs: Abnormal Lab Results - Last 24 Hours (Table) 07/22/21 07/22/21 07/22/21 Range/Units 11:42 17:02 18:50 WBC (3.8-10.6) k/uL Neutrophils # (1.3-7.7) k/uL Sodium (137-145) mmol/L Chloride (98-107) mmol/L Carbon Dioxide (22-30) mmol/L BUN (9-20) mg/dL Glucose (74-99) mg/dL POC Glucose (mg/dL) 332 H 101 H (75-99) mg/dL Calcium (8.4-10.2) mg/dL Alkaline Phosphatase (38-126) U/L Total Protein (6.3-8.2) g/dL Albumin (3.5-5.0) g/dL Ur Random Sodium 37 L (40-220) mmol/L 07/22/21 07/23/21 07/23/21 Range/Units 20:17 07:09 07:12 WBC 16.5 H (3.8-10.6) k/uL Neutrophils # 14.3 H (1.3-7.7) k/uL Sodium (137-145) mmol/L Chloride (98-107) mmol/L Carbon Dioxide (22-30) mmol/L BUN (9-20) mg/dL Glucose (74-99) mg/dL POC Glucose (mg/dL) 210 H 139 H (75-99) mg/dL Calcium (8.4-10.2) mg/dL Alkaline Phosphatase (38-126) U/L Total Protein (6.3-8.2) g/dL Albumin (3.5-5.0) g/dL Ur Random Sodium (40-220) mmol/L 07/23/21 Range/Units 07:12 WBC (3.8-10.6) k/uL Neutrophils # (1.3-7.7) k/uL Sodium 128 L (137-145) mmol/L Chloride 92 L (98-107) mmol/L Carbon Dioxide 36 H (22-30) mmol/L BUN 34 H (9-20) mg/dL Glucose 134 H (74-99) mg/dL POC Glucose (mg/dL) (75-99) mg/dL Calcium 7.9 L (8.4-10.2) mg/dL Alkaline Phosphatase 137 H (38-126) U/L Total Protein 5.2 L (6.3-8.2) g/dL Albumin 2.4 L (3.5-5.0) g/dL Ur Random Sodium (40-220) mmol/L Assessment and Plan Plan: Assessment: 1. Acute kidney injury mostly prerenal secondary to hypovolemia from DKA. Creatinine was 5.89 on admission and is 0.93 today. No hydronephrosis noted on kidney ultrasound. 2. DKA status post insulin drip. Now tolerating oral intake. 3. Hyperkalemia secondary to acute kidney injury and hyperglycemia. Resolved. 4. Anion gap metabolic acidosis secondary to DKA and acute kidney injury. Resolved. 5. Benign hypertension. Controlled. 6. Acute hypoxic respiratory failure. 7. COVID-19 pneumonia. 8. Right lower extremity DVT. On anticoagulation. IVC filter placed this admission. 9. Lower extremity edema. Improved. 10. Hypervolemic hyponatremia. Urine sodium 37 and urine osmolality 529. Plan: Encouraged oral intake. Avoid nephrotoxins. Stop Lasix. Maintain fluid restriction. Samsca 7.5 mg today.
[2021-07-23] MEDS ORDERED: TOLVAPTAN 15 MG 1/2 TABLET PO ONE (10:00)
[2021-07-23 10:08] LABS: C Reactive Protein 4.7 mg/dL (<1.0)
--- NOTE | 2021-07-23 10:13 | XR ---
EXAMINATION TYPE: XR chest 1V portable DATE OF EXAM: 07/23/2021 CLINICAL HISTORY: Difficulty breathing and covid progress study. TECHNIQUE: Single AP portable upright view of the chest is obtained. COMPARISON: Chest x-ray from 3 days earlier and older studies FINDINGS: Low lung volumes and chronic parenchymal changes bilaterally with increased bilateral opac ity greatest in the periphery and greatest in the left lower lung are all redemonstrated. Elevated le ft hemidiaphragm redemonstrated. Cardiac silhouette size stable and upper limits of normal. Degenerat trudi change right glenohumeral joint noted. IMPRESSION: Low lung volumes and bilateral multifocal increased opacities consistent with covid-19 in fection and/or developing ARDS are redemonstrated. No significant change from most recent prior x-ray .
[2021-07-23 11:24] LABS: Glucose,Whole Blood 374 mg/dL (75-99)
--- NOTE | 2021-07-23 11:58 | P.PN ---
Subjective Progress Note Date: 07/23/21 Principal diagnosis: Shortness of breath, hypoxia, COVID-19 On 07/11/2021 patient seen in follow-up on medical surgical floor, patient oxygen requirement and is currently increased, he is on 15 L per high flow nasal cannula and a nonrebreather mask, and his pulse ox is 92-96%, however he is breathing fairly comfortable, does not appear to be in any acute distress, his been afebrile, no complaints of chest discomfort, patient was diagnosed with bilateral lower extremity DVTs, and she was started on Eliquis however he developed GI bleeding, he had a large bowel movement with blood, he developed bleeding from his IV insertion sites, and hematuria, and his anticoagulation was subsequently placed on hold and he was given a dose of K Centra. However his hemoglobin has remained fairly stable, today it is 16.3, actually increased, patient has not required any blood transfusions, hemodynamically has been stable, his white count is 20.5, his platelet count is 286, his renal profile is actually improving, his BUN is down to 52 and creatinine is down to 1.38, electrolytes are unremarkable. His pro calcitonin level was 0.61. His had no fever or chills. Patient was taken to the civil laboratory technician by Dr. Bright and IVC filter was inserted. He is also seen in consultation by surgical services, the recommendation was to place anticoagulation on hold, and surgery will remain on standby at this time. On 07/12/2021 patient seen in follow-up on medical surgical floor, he states his breathing is not bad, although he still requiring high flow oxygen 15 L and his pulse ox is between 92-94%, hemodynamically his has remained stable, his been afebrile, he is resting comfortably in bed, his Eliquis remains on hold for an episode of GI bleeding. Patient denies any abdominal pain, there has been no further bleeding. His hemoglobin today is 14.6, his white blood cell count is improving and is down to 14.7 on today's labs, d-dimer is improving and is down to 10.6, electrolytes are within normal limits, BUN is 27.2, and creatinine is improved and is down to 1.2. His LDH has significantly improved is down to 454, CRP is down to 1.7. His pro calcitonin level is negative at 0.09. Patient is currently on Decadron 6 mg daily, he is on multivitamins including vitamin C, vitamin D, and zinc, he continues on gentle IV hydration with 0.9 normal saline at a rate of 50 ML per hour. Chest x-ray today showing bilateral infiltrates that are stable in appearance. Surgical services are following, patient is status post IVC filter yesterday in the right groin. Lung sounds are essentially clear but very minimal crackles at the left base, breathing very comfortably, no complaints of chest pain. On 07/13/2021 patient seen in follow-up on medical surgical floor. Patient is awake and alert, in no acute distress, he is requiring high flow oxygen, with 15 L in nonrebreather mask, and his pulse ox is anywhere between 88 and 96%, does not appear to be in any acute distress. We started him on Baricitinib yesterday on 07/12/2021, patient is breathing comfortably, minimal cough, no complaints of chest discomfort, his been afebrile, yesterday's chest x-ray showed stable maximus ateral infiltrates. Today's labs have been reviewed, his white blood cell count is stable at 14.6, hemoglobin is 15.4, sodium is 134, respiratory electrolytes are within normal limits, BUN is 25, creatinine is 1.02. Inflammatory markers were improving on yesterday's labs. Follow-up pro calcitonin was negative at 0.09 On 07/14/2021 patient seen in follow-up on medical surgical floor, he still requiring high flow oxygen with 15 L per high flow nasal cannula and nonrebreather mask, and his pulse ox is around 90-95%, breathing comfortably, he sitting up in the recliner, appears to be in no acute distress, no fever or chills, vital signs have been stable. Today's chest x-ray shows low lung volumes and bilateral multifocal opacities no significant change. His labs have been reviewed, his white blood cell count of 15.2, hemoglobin is 15, last d- dimer was improving and was down to 10.6, sodium is 132, direct electrolytes were unremarkable, he is BUN was 22 and creatinine was 0.93.Remains on Baricitrinib, Decadron, prophylactic Lovenox and multivitamins. On 07/15/2021 patient seen in follow-up on medical surgical floor. Patient is awake and alert, oriented 3, does not appear to be in any acute distress, he sitting up in the recliner, breathing comfortably, he is currently on 15 L per high flow nasal cannula and nonrebreather mask. His pulse ox earlier was 92- 97%, nonrebreather was removed, and patient was just left on 15 L per high flow nasal cannula, we reevaluated him after half an hour and his pulse ox remained at 90-91%, he continues to breathing very comfortably, but chest discomfort, no significant cough, no fever or chills. No new chest x-ray today. Today's labs have been reviewed, his white blood cell count of 16.2, hemoglobin is 14.9, sodium is 1:30, potassium is 4.5, chloride is 104, CO2 is 23, B1 is 20, creatinine is 1.06. Tolerating oral intake, no nausea vomiting or diarrhea. On 07/19/2021 patient seen in follow-up on medical surgical floor. Patient is awake and alert, he sitting up in the recliner, he is currently just on 15 L high flow nasal cannula, his pulse ox is 90%, breathing comfortably, lung sounds reveal some scattered crackles, no rhonchi or wheezing, no complaint of chest discomfort, no worsening dyspnea or cough. Overall he states he is feeling about 75% better since admission. Today's labs have been reviewed. Patient's E liquis has been restarted per primary care service, his hemoglobin remained stable at 15.5, his white blood cell count is 17, sodium is 132, the respiratory electrolytes were unremarkable, B1 is 34 creatinine is 1.12. Patient has been receiving gentle diuresis per nephrology, he remains on dexamethasone 6 mg daily, he remains on Olumiant 4 mg daily, he remains on multi-vitamins. On 07/22/2021 patient seen in follow-up on medical surgical floor. Patient is resting comfortably in bed, currently satting 93% on 9 L, subsequent activity has been turned down to 8 L, breathing very comfortably, no worsening dyspnea or cough, patient remains on Eliquis. Baricitinib has been discontinued yesterday in view of elevated white blood cell count, and for precaution of secondary bacterial infection. Decadron has been completed. Oxygenation is improving, no worsening dyspnea or cough. Patient has been restarted on Eliquis, he had a IVC filter placed with no evidence of rebleeding. No complaints of chest pain. On 07/23/2021 patient seen in follow-up on medical surgical floor, he is currently on 8 L of oxygen his pulse ox is 97%, his FiO2 was subsequently dropped down to 6 L however patient desaturated down to 84 and 85%, and his FiO2 has been turned back up to 8 L, follow-up chest x-ray is pending this morning, clinically she looks same, does not appear to be in any respiratory distress, breathing comfortably, resting comfortably in bed, he has been getting up in the recliner, tolerates activity fairly well, no worsening dyspnea or cough, no complaints of chest discomfort, he remains on multivitamins, he is on Eliquis, he's had no episodes of rebleeding, or hematuria. He has completed his course of Decadron. His labs have been reviewed, his blood cell count is improving and is down to 16.5, hemoglobin is stable at 14.8 sodium is 128, potassium is 3.9, chloride is 92, CO2 36, B1 is 34, creatinine 0.93. His potassium level was repeated yesterday and was negative at 0.05, patient's urine sodium is persistently low, at 128, nephrology is following, patient received a dose of Tolvaptan, is currently on 1.5 L fluid restriction. Objective - Vital Signs Vital signs: Vital Signs Temp 98.5 F 07/23/21 09:45 Pulse 124 H 07/23/21 09:45 Resp 17 07/23/21 09:45 BP 102/71 07/23/21 09:45 Pulse Ox 75 L 07/23/21 09:45 Intake & Output 07/22/21 07/23/21 07/23/21 18:59 06:59 18:59 Intake Total 960 118 240 Output Total 1 500 Balance 959 -382 240 Intake: Oral 960 118 240 Output: Urine 500 Stool 1 Other: Voiding Method Urinal Urinal Urinal # Voids 3 # Bowel Movements 1 - Exam GENERAL EXAM: Alert, very pleasant 60-year-old white male, on 8 L per high flow nasal cannula with a pulse ox of 93% comfortable in no apparent distress. EYES: Normal reaction of pupils, equal size. Conjunctiva pink, sclera white. NOSE: Clear with pink turbinates. THROAT: No erythema or exudates. NECK: No masses, no JVD, no thyroid enlargement, no adenopathy. CHEST: No chest wall deformity. Symmetrical expansion. LUNGS: Equal air entry with no crackles, wheeze, rhonchi or dullness. CVS: Regular rate and rhythm, normal S1 and S2, no gallops, no murmurs, no rubs ABDOMEN: Soft, nontender. No hepatosplenomegaly, normal bowel sounds, no guarding or rigidity. EXTREMITIES: No clubbing, no edema, no cyanosis, 2+ pulses and upper and lower extremities. MUSCULOSKELETAL: Muscle strength and tone normal. SPINE: No scoliosis or deformity SKIN: No rashes CENTRAL NERVOUS SYSTEM: Alert and oriented -3. No focal deficits, tone is normal in all 4 extremities. PSYCHIATRIC: Alert and oriented -3. Appropriate affect. Intact judgment and insight. - Labs CBC & Chem 7: 07/23/21 07:12 07/23/21 07:12 Labs: Abnormal Lab Results - Last 24 Hours (Table) 07/22/21 07/22/21 07/22/21 Range/Units 17:02 18:50 20:17 WBC (3.8-10.6) k/uL Neutrophils # (1.3-7.7) k/uL Sodium (137-145) mmol/L Chloride (98-107) mmol/L Carbon Dioxide (22-30) mmol/L BUN (9-20) mg/dL Glucose (74-99) mg/dL POC Glucose (mg/dL) 101 H 210 H (75-99) mg/dL Calcium (8.4-10.2) mg/dL Alkaline Phosphatase (38-126) U/L Lactate Dehydrogenase (313-618) U/L C-Reactive Protein (<1.0) mg/dL Total Protein (6.3-8.2) g/dL Albumin (3.5-5.0) g/dL Ur Random Sodium 37 L (40-220) mmol/L 07/23/21 07/23/21 07/23/21 Range/Units 07:09 07:12 07:12 WBC 16.5 H (3.8-10.6) k/uL Neutrophils # 14.3 H (1.3-7.7) k/uL Sodium 128 L (137-145) mmol/L Chloride 92 L (98-107) mmol/L Carbon Dioxide 36 H (22-30) mmol/L BUN 34 H (9-20) mg/dL Glucose 134 H (74-99) mg/dL POC Glucose (mg/dL) 139 H (75-99) mg/dL Calcium 7.9 L (8.4-10.2) mg/dL Alkaline Phosphatase 137 H (38-126) U/L Lactate Dehydrogenase (313-618) U/L C-Reactive Protein (<1.0) mg/dL Total Protein 5.2 L (6.3-8.2) g/dL Albumin 2.4 L (3.5-5.0) g/dL Ur Random Sodium (40-220) mmol/L 07/23/21 07/23/21 Range/Units 07:12 11:22 WBC (3.8-10.6) k/uL Neutrophils # (1.3-7.7) k/uL Sodium (137-145) mmol/L Chloride (98-107) mmol/L Carbon Dioxide (22-30) mmol/L BUN (9-20) mg/dL Glucose (74-99) mg/dL POC Glucose (mg/dL) 374 H (75-99) mg/dL Calcium (8.4-10.2) mg/dL Alkaline Phosphatase (38-126) U/L Lactate Dehydrogenase 1295 H (313-618) U/L C-Reactive Protein 4.7 H (<1.0) mg/dL Total Protein (6.3-8.2) g/dL Albumin (3.5-5.0) g/dL Ur Random Sodium (40-220) mmol/L Assessment and Plan Plan: Assessment: #1. Acute hypoxic respiratory failure related to acute COVID-19 pneumonia, pat ient presented to the hospital on 07/08/2021, not a candidate for Remdesivir, not vaccinated. Patient's oxygenation has progressively became worse. Started on Baricitinib on 07/12/2021. Currently oxygenation is improving, patient is currently just on 8 L per high flow nasal cannula. Further attempts to wean the oxygen down to 6 L were unsuccessful, patient was desaturating on 6 L and currently is back up to 8 L of oxygen on 07/23/2021 #2. Acute GI bleeding, with a rectal bleeding, hematuria and bleeding at the IV insertion sites, patient was given a dose of KCentra, and the bleeding has r esolved. Hemoglobin is stable, patient has not required blood transfusions #3. Acute bilateral DVTs was initially started on Eliquis which was placed on hold related to acute bleeding. Status post IVC filter placement today on 07/11/2021. Eliquis has been restarted on 07/17/2021 no evidence of active bleeding #4. Acute diabetic ketoacidosis, resolved #5. Acute kidney injury, improved #6. Hypertension #7. Acute anion gap Metabolic acidosis, resolved #8. Hyperkalemia, improved #9. Diabetes mellitus type 2 #10. Hypertension #10. Leukocytosis, persistent, slightly improved #11. Hyponatremia, likely hypovolemic, please refer to nephrology note, no hydronephrosis on kidney ultrasound. Patient is currently on fluid restriction, and he will receive a dose of Tolvaptan Plan: Patient continues to require 8 L of oxygen, and attempts to wean the FiO2 further down have been unsuccessful Encouraged patient to sit up in the chair, deep breathe and cough, Follow-up chest x-ray has been obtained showing low lung volumes, and bilateral multifocal opacities, no significant change from prior exam Follow-up inflammatory markers have been obtained, LDH is improving, and CRP is overall improved We will continue to actively weaning oxygen to maintain O2 saturations at or above 90% Procalcitonin level has been negative Patient has completed his Decadron Continue multivitamins Continue Eliquis There has been no evidence of active bleeding and hemoglobin is stable Continue to attempt to wean oxygen Encouraged patient to set up in the chair, and ambulate in the room Continue to follow his clinical course I performed a history & physical examination of the patient and discussed their management with my nurse practitioner, Kristi Cartwright. I reviewed the nurse practitioner's note and agree with the documented findings and plan of care. Lung sounds are positive for dim breath sounds with rales throughout the lung hernandez. The findings and the impression was discussed with the patient. I attest to the documentation by the nurse practitioner. Time with Patient: Less than 30
[2021-07-23 16:57] LABS: Glucose,Whole Blood 221 mg/dL (75-99)
--- NOTE | 2021-07-23 17:28 | P.PN ---
<Graham Quiñones - Last Filed: 07/23/21 17:25> Subjective Progress Note Date: 07/23/21 Hospital course: Patient is a very pleasant 60-year-old male with a past medical history of dimas betes, hypertension, and hyperlipidemia. He presented to the emergency department on 07/08/21 with reports of weakness, anorexia, cough, shortness of breath and alteration in mental status. Upon arrival he was found to be in significant respiratory distress with SpO2 of 80% on room air requiring taisha cement on nonrebreather mask at 15 L of oxygen to maintain SpO2 of 90%. Patient was also significantly hypotensive with blood pressure of 64/43, bradycardic with heart rate of 45, tachypnic with respiratory rate of 28, and hypothermic with a temp of 96.9F. Family at bedside reported patient had not been feeling well since prior to Petey and that this has been going on for greater than 2 weeks. They report positive exposure to Covid and state that pt is unvaccinated. He underwent full evaluation in the emergency department. Chest x-ray positive for multifocal pneumonia. Labs revealed significant leukocytosis with WBC count of 22.8 with left shift. Pseudohyponatremia with sodium 129 and corrected sodium of 138, severe hyperglycemia with glucose of 660, metabolic acidosis with chloride of 91, CO2 16, anion gap of 22, and lactate of 4.2. Qualitative acetone positive. Acute renal failure with BUN of 132, creatinine 5.89, and GFR of 9 with baseline creatinine of 1.3. Urinalysis positive for glucose negative for ketones, protein, blood or infection. Covid PCR positive. Troponin elevated at 0.056. EKG with significant artifact but appears to reveal sinus mechanism. Patient was started on insulin infusion per DKA protocol and admitted under our services to ICU for DKA, severe metabolic acidosis, acute renal failure, hyperkalemia, and acute respiratory failure with hypoxia secondary to Covid 19 pneumonia. 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 Ech ocardiogram was completed revealing a normal EF between 60 and 65%. VQ scan showing low probability for acute PE. Renal ultrasound negative for hydronephrosis showing a 4.2 cm benign-appearing left renal cyst with nonspecific right perinephrotic hypoechoic area possibly secondary to chronic changes versus artifact. Bilateral lower extremity Dopplers completed revealing acute DVTs of bilateral lower extremities. Patient was started on anticoagulation with Eliquis at this time. On 07/21/21 patient had episode of acute lower GI bleeding with bright red blood per rectum accompanied by hematuri a and bleeding IV insertion sites. Patient was given 1 dose of K Sentra and an IVC filter was placed by interventional radiology. Hemoglobin remained stable and patient did not require blood transfusion. Eliquis was resumed on 07/17/21. Physical exam: Patient seen and fully evaluated at the bedside this morning. Pulmonology turn patient down to 6 L O2 and he is tolerating well. Patient denies having any headache, lightheadedness, dizziness, chest pain, palpitations, nausea, vomiting, or experiencing any numbness/tingling/weakness in his extremities and reports that he remained very eager to go home and stating he feeling better each day. Patient educated on plan for discharge home on insulin as well as oxygen with home care when he is able. Initial plan was to set patient up for possible discharge home, RN assessing patient with ambulatory pulse ox patient dropped down into the low 80s on 8 L O2. Unable to safely discharge patient home at this time. Patient remains on vitamin C, vitamin D, zinc, and Eliquis. Vital signs reviewed and stable. General: Nontoxic, no distress and appears stated age. Derm: Skin warm and dry, normal coloration for ethnicity. Head: Atraumatic, normocephalic and symmetric. Eyes: EOMs intact, no lid lag, and anicteric sclera Mouth: no lip lesions, mucus membranes moist Cardiovascular: regular rate and rhythm with normal S1S2, no murmur, positive posterior tibial pulses bilaterally, and cap refill < 2 seconds. Lungs: Respirations even, regular, and unlabored on 6 L O2 via nasal cannula. Lungs with soft crackles to bilateral lower lobes, no rhonchi, rales, or wheezes noted. No accessory muscle usage. Abdominal: soft, nontender to palpation, no guarding, no appreciable organomegaly Ext: ROM intact. No gross muscle atrophy, no edema, no contractures Neuro: Speech clear, face symmetrical and CN II-XII grossly intact with no noted focal neuro deficits Psych: Alert and oriented to person, place, time, and situation. Appropriate and pleasant affect. Assessment and Plan of Care: Acute respiratory failure with hypoxia secondary to COVID 19 pneumonia -Oxygenation to be administered and titrated as needed to maintain SPO2 equal to or greater than 90% -Telemetry monitoring. -Continue trending inflammatory markers -Encourage Incentive Spirometry 10-15x hourly while awake -Completed ten-day course of Decadron -Continue vitamin C, Vitamin D, and Zinc. -Pulmonology following, appreciate further recommendations. -DVT prophylaxis with Eliquis -Received 10 days of Baricitinib -Strict Droplet plus Contact precautions Acute Bilateral DVTs -Status post IVC filter placement on 07/11/2021 and resuming Eliquis on 07/17/21 -Continue to monitor hemoglobin Acute episode of lower GI bleeding with a rectal bleeding accompanied by haematuria and bleeding at the IV insertion sites -Patient was given a dose of KCentra, and the bleeding has resolved. -Hemoglobin is stable, patient has not required blood transfusions. -Eliquis was resumed on 07/17/21 DKA in Type II [id number] diabetes mellitus -DKA resolved -A1c 9.6. -Continue glycemic protocol with NovoLog sliding scale and long-acting Levemir 25 units daily. -Discussed with patient he will likely go home on long-acting insulin, RN doing diabetic teaching and teaching on administration of insulin. Acute kidney injury, Resolved with IV fluid hydration and treatment of DKA Acute anion gap Metabolic acidosis, resolved Metabolic encephalopathy, resolved, likely multifactorial due to Covid pneumonia and NIKOLAS Hyperkalemia, Resolved. -Continued close monitoring of renal function -Nephrology following -Continue holding SHYAM inhibitor Urinary retention -Resolved Status post Gonzalez catheter placement. Gonzalez catheter removed July 17 -Patient started on Flomax 0.4 mg daily -Continue to monitor postvoid residuals Acute hyponatremia -Nephrology following -Nephrology ordered one-time dose of Samsca 15 mg on July 17 -Random urine sodium Hypertension -Soft blood pressure, hold Norvasc for now -We will restart SHYAM inhibitor on discharge Leukocytosis, reactive secondary to steroids CODE STATUS: Full code DVT prophylaxis: Eliquis Discussed with: Patient and RN Anticipated discharge date: Clinical course to determine Anticipated discharge place: Home A total of 45 minutes was spent on the care of this complex patient more than 50% of the time was spent in counseling and care coordination. Objective - Vital Signs Vital signs: Vital Signs Temp 98.8 F 07/23/21 05:19 Pulse 99 07/23/21 05:19 Resp 14 07/23/21 05:19 BP 108/75 07/23/21 05:19 Pulse Ox 97 07/23/21 05:19 Intake & Output 07/22/21 07/23/21 07/23/21 18:59 06:59 18:59 Intake Total 960 118 Output Total 1 500 Balance 959 -382 Intake: Oral 960 118 Output: Urine 500 Stool 1 Other: Voiding Method Urinal Urinal Urinal # Voids 3 - Labs CBC & Chem 7: 07/23/21 07:12 07/23/21 15:28 Labs: Abnormal Lab Results - Last 24 Hours (Table) 07/22/21 07/22/21 07/22/21 Range/Units 07:12 07:42 07:42 WBC 17.1 H (3.8-10.6) k/uL Plt Count 143 L (150-450) k/uL Neutrophils # 14.8 H (1.3-7.7) k/uL Sodium 129 L (137-145) mmol/L Chloride 94 L (98-107) mmol/L Carbon Dioxide 33 H (22-30) mmol/L BUN 31 H (9-20) mg/dL Glucose 180 H (74-99) mg/dL POC Glucose (mg/dL) 151 H (75-99) mg/dL Calcium 7.8 L (8.4-10.2) mg/dL Total Protein 5.3 L (6.3-8.2) g/dL Albumin 2.4 L (3.5-5.0) g/dL Ur Random Sodium (40-220) mmol/L 07/22/21 07/22/21 07/22/21 Range/Units 11:42 17:02 18:50 WBC (3.8-10.6) k/uL Plt Count (150-450) k/uL Neutrophils # (1.3-7.7) k/uL Sodium (137-145) mmol/L Chloride (98-107) mmol/L Carbon Dioxide (22-30) mmol/L BUN (9-20) mg/dL Glucose (74-99) mg/dL POC Glucose (mg/dL) 332 H 101 H (75-99) mg/dL Calcium (8.4-10.2) mg/dL Total Protein (6.3-8.2) g/dL Albumin (3.5-5.0) g/dL Ur Random Sodium 37 L (40-220) mmol/L 07/22/21 07/23/21 07/23/21 Range/Units 20:17 07:09 07:12 WBC 16.5 H (3.8-10.6) k/uL Plt Count (150-450) k/uL Neutrophils # 14.3 H (1.3-7.7) k/uL Sodium (137-145) mmol/L Chloride (98-107) mmol/L Carbon Dioxide (22-30) mmol/L BUN (9-20) mg/dL Glucose (74-99) mg/dL POC Glucose (mg/dL) 210 H 139 H (75-99) mg/dL Calcium (8.4-10.2) mg/dL Total Protein (6.3-8.2) g/dL Albumin (3.5-5.0) g/dL Ur Random Sodium (40-220) mmol/L <Anna Marie Rodriguez A - Last Filed: 07/24/21 07:56> Subjective agree with plan and note Objective - Vital Signs Vital signs: Vital Signs Temp 99.2 F 07/24/21 05:37 Pulse 87 07/24/21 05:37 Resp 16 07/24/21 05:37 BP 105/72 07/24/21 05:37 Pulse Ox 96 07/24/21 05:37 Intake & Output 07/23/21 07/24/21 07/24/21 18:59 06:59 18:59 Intake Total 240 Output Total 500 Balance 240 -500 Intake: Oral 240 Output: Urine 500 Other: Voiding Method Urinal Urinal # Bowel Movements 1 1 - Labs CBC & Chem 7: 07/23/21 07:12 07/23/21 15:28 Labs: Abnormal Lab Results - Last 24 Hours (Table) 07/23/21 07/23/21 07/23/21 Range/Units 07:12 07:12 07:12 WBC 16.5 H (3.8-10.6) k/uL Neutrophils # 14.3 H (1.3-7.7) k/uL Sodium 128 L (137-145) mmol/L Chloride 92 L (98-107) mmol/L Carbon Dioxide 36 H (22-30) mmol/L BUN 34 H (9-20) mg/dL Glucose 134 H (74-99) mg/dL POC Glucose (mg/dL) (75-99) mg/dL Calcium 7.9 L (8.4-10.2) mg/dL Alkaline Phosphatase 137 H (38-126) U/L Lactate Dehydrogenase 1295 H (313-618) U/L C-Reactive Protein 4.7 H (<1.0) mg/dL Total Protein 5.2 L (6.3-8.2) g/dL Albumin 2.4 L (3.5-5.0) g/dL 07/23/21 07/23/21 07/23/21 Range/Units 11:22 15:28 16:53 WBC (3.8-10.6) k/uL Neutrophils # (1.3-7.7) k/uL Sodium 130 L (137-145) mmol/L Chloride (98-107) mmol/L Carbon Dioxide (22-30) mmol/L BUN (9-20) mg/dL Glucose (74-99) mg/dL POC Glucose (mg/dL) 374 H 221 H (75-99) mg/dL Calcium (8.4-10.2) mg/dL Alkaline Phosphatase (38-126) U/L Lactate Dehydrogenase (313-618) U/L C-Reactive Protein (<1.0) mg/dL Total Protein (6.3-8.2) g/dL Albumin (3.5-5.0) g/dL 07/23/21 Range/Units 19:57 WBC (3.8-10.6) k/uL Neutrophils # (1.3-7.7) k/uL Sodium (137-145) mmol/L Chloride (98-107) mmol/L Carbon Dioxide (22-30) mmol/L BUN (9-20) mg/dL Glucose (74-99) mg/dL POC Glucose (mg/dL) 401 H (75-99) mg/dL Calcium (8.4-10.2) mg/dL Alkaline Phosphatase (38-126) U/L Lactate Dehydrogenase (313-618) U/L C-Reactive Protein (<1.0) mg/dL Total Protein (6.3-8.2) g/dL Albumin (3.5-5.0) g/dL
[2021-07-23 20:01] LABS: Glucose,Whole Blood 401 mg/dL (75-99)
[2021-07-24 01:42] LABS: Glucose,Whole Blood 90 mg/dL (75-99)
[2021-07-24 06:58] LABS: Glucose,Whole Blood 79 mg/dL (75-99)
[2021-07-24] MEDS: INSULIN ASPART (NovoLOG) 100 UNIT/ML VIAL SQ SCH ×4 (07:16→21:06)
[2021-07-24] MEDS: INSULIN DETEMIR (LEVEMIR) 100 UNIT/ML SYR SQ SCH ×3 (09:08→21:06)
[2021-07-24] MEDS: ASCORBIC ACID 500 MG TAB PO SCH (09:12)
[2021-07-24] MEDS: TAMSULOSIN 0.4 MG CAP.ER.24H PO SCH (09:12)
[2021-07-24] MEDS: ZINC SULFATE 220 MG CAP PO SCH (09:12)
[2021-07-24] MEDS: CHOLECALCIFEROL 125 MCG (5000 IU) TABLET PO SCH (09:12)
[2021-07-24] MEDS: PANTOPRAZOLE 40 MG TABLET PO SCH ×2 (09:12→16:53)
[2021-07-24] MEDS: APIXABAN 5 MG TAB PO SCH ×2 (09:12→21:06)
[2021-07-24 11:24] LABS: Glucose,Whole Blood 140 mg/dL (75-99)
[2021-07-24] MEDS: ATORVASTATIN 40 MG TAB PO SCH (11:25)
[2021-07-24 11:51] LABS: African American GFR (CKD) 97.7 (60.0-200.0); Anion Gap 11.2 mmol/L (10.00-18.00); BUN/Creat Ratio 30.18 Ratio (12.00-20.00); Carbon Dioxide 31.1 mmol/L (20.0-27.5); Magnesium 2.1 mg/dL (1.5-2.4); Non-African American GFR(CKD) 84.3 (60.0-200.0); Potassium 3.5 mmol/L (3.5-5.5)
--- NOTE | 2021-07-24 14:16 | P.PN ---
Subjective Progress Note Date: 07/24/21 This is a 60-year-old male patient who follows with Dr. Phoenix as his primary care provider. He has a history of diabetes mellitus, hypertension, obesity. He had recently lost his mother from COVID-19 pneumonia and since that time he had been going downhill according to his siblings who were present in the emergency room. Chest x-ray reveals diffuse bilateral airspace disease with predominantly peripheral distribution on the right greater than left. No evidence of pneumothorax. No pleural effusion. VQ scan revealed very low probability for acute PE. Dopplers of lower extremities revealed bilateral nonocclusive DVTs. Renal ultrasound reveals nonspecific heterogenous appearance of the kidneys may relate to medical renal disease. No bilateral hydronephrosis. Benign-appearing left renal cyst. White count 22.0. Hemoglobin 13.5. Lymphocytes 0.9. D-dimer 13.5. Sodium 138. Potassium 4.6. Chloride 107. A 22. Anion gap 9. Creatinine 2.85. Blood glucose 292. Calcium 8.1. AST 37. ALT 23. LDH 1210. Troponin 0.056. C-reactive protein 6.2. Acetone positive. Urinalysis with 4+ glucose. Coronavirus by PCR positive. He sitting today in the intensive care unit. He is currently sitting up in bed. Awake and alert. Somewhat slow to respond. Somewhat distended. He is on 15 L nonrebreather mask. Current O2 saturation 89%. He's been afebrile. Hemodynamically stable. He is currently on an insulin drip at 5 units an hour. D5.45 with 20 KCl at 150 MLS per hour. Heparin subcu for DVT prophylaxis. Vitamin supplements. The patient is seen today 07/10/2021 in follow-up on the selective care unit. He is currently resting comfortably in bed. Awake and alert in no acute distress. He is currently on 15 L high flow nasal cannula to maintain O2 saturation at about 90%. He has normal saline at 50 MLS per hour. He is not urinating. Indwelling Gonzalez catheter will be placed. His appetite is somewhat better. His lower extremity are positive for DVT. CT angiogram ruled out PE. He is currently on Eliquis. He remains on Decadron, vitamin supplements. White count 20.3. Hemoglobin 15.4. Lymphocytes 0.6. Sodium 140. Potassium 4.8. Creatinine 1.78. Glucose 150. AST 33. ALT 27. Echocardiogram revealed preserved left ventricular systolic function. The patient is seen today 07/17/2021 . Follow-up on the regular medical floor. He is currently sitting up in a chair at the bedside. Awake and alert. He is still requiring 15 L high flow nasal cannula +100% nonrebreather mask to maintain O2 saturations in the high 80s low 90s. He denies any worsening shortness of breath at this time. Slow to progress. White count 14.6. Hemoglobin 14.7. Lymphocytes 0.9. D-dimer 14.4. Sodium 127. Potassium 5.3. Creatinine 1.01. AST 35. ALT 41. LDH 1865. C-reactive protein 1.0. Chest x- ray continues to show diffuse lung infiltrates. No change compared to previous. No pneumothorax. No large effusions. He is continued on Baricitinib, Decadro n, vitamin supplements. He is anticoagulated with Eliquis. The patient did have a Gabriella filter placed 07/11/2021. The patient is seen today 07/20/2021 in follow-up on the regular medical floor. He is currently sitting up in a chair at the bedside. He is awake and alert in no acute distress. He is currently down to 10 L high flow nasal cannula. X-ray continues to show low lung volumes and bilateral multifocal increased opacities consistent with COVID-19 pneumonia. No significant change. White count 17.3. Hemoglobin 14.6. Platelets 17. Sodium 128. Potassium 4.3. Creatinine 0.89. Glucose is 86. AST 29. ALT 41. LDH 1478. C-reactive protein 1.5. He is continued on Eliquis, Baricitinib, Decadron, vitamin supplements. The patient is seen today 07/24/2021 in follow-up on the regular medical floor. He is currently sitting up in bed. Awake and alert in no acute distress. He has been slow to progress but he is now maintaining good O2 saturation in low 90s on 6 L high flow nasal cannula. He does desaturate into the low 80s with a brief walk to the bathroom however. Not much exercise tolerance. Sodium 136. Potassium 3.5. Bicarb 31. Creatinine 1.0. Glucose 140. He is continued on Eliquis, vitamin supplements. Objective - Vital Signs Vital signs: Vital Signs Temp 98.6 F 07/24/21 08:32 Pulse 106 H 07/24/21 08:32 Resp 17 07/24/21 08:32 BP 106/70 07/24/21 08:32 Pulse Ox 92 L 07/24/21 08:32 Intake & Output 07/23/21 07/24/21 07/24/21 18:59 06:59 18:59 Intake Total 240 Output Total 500 Balance 240 -500 Intake: Oral 240 Output: Urine 500 Other: Voiding Method Urinal Urinal # Bowel Movements 1 1 - Exam GENERAL EXAM: Alert, pleasant 60-year-old male patient, in a chair at the bedside, on 6 L high flow nasal cannula, fairly comfortable in no apparent distress. HEAD: Normocephalic. EYES: Normal reaction of pupils, equal size. NOSE: Clear with pink turbinates. THROAT: No erythema or exudates. NECK: No masses, no JVD. CHEST: No chest wall deformity. LUNGS: Equal air entry with coarse crackles in the bilateral bases. CVS: S1 and S2 normal with no audible murmur, regular rhythm. ABDOMEN: No hepatosplenomegaly, normal bowel sounds, no guarding or rigidity. SPINE: No scoliosis or deformity SKIN: No rashes CENTRAL NERVOUS SYSTEM: No focal deficits, tone is normal in all 4 extremities. EXTREMITIES: There is no peripheral edema. No clubbing, no cyanosis. Peripheral pulses are intact. - Labs CBC & Chem 7: 07/23/21 07:12 07/24/21 06:52 Labs: Abnormal Lab Results - Last 24 Hours (Table) 07/23/21 07/23/21 07/23/21 Range/Units 15:28 16:53 19:57 Sodium 130 L (137-145) mmol/L Chloride (96-109) mmol/L Carbon Dioxide (20.0-27.5) mmol/L BUN (9.0-27.0) mg/dL BUN/Creatinine Ratio (12.00-20.00) Ratio POC Glucose (mg/dL) 221 H 401 H (75-99) mg/dL Calcium (8.7-10.3) mg/dL 07/24/21 07/24/21 Range/Units 06:52 11:21 Sodium (137-145) mmol/L Chloride 94 L (96-109) mmol/L Carbon Dioxide 31.1 H (20.0-27.5) mmol/L BUN 29.0 H (9.0-27.0) mg/dL BUN/Creatinine Ratio 30.18 H (12.00-20.00) Ratio POC Glucose (mg/dL) 140 H (75-99) mg/dL Calcium 8.0 L (8.7-10.3) mg/dL Assessment and Plan Assessment: 1 Acute hypoxemic respiratory failure secondary to acute COVID-19 pneumonia. Not vaccinated. Outside the window for Remdesivir. Currently on Baricitinib. On 6 L high flow nasal cannula 2 Elevated inflammatory markers secondary to above 3 Acute bilateral DVTs with elevated d-dimer, on Eliquis. Initially developed hematuria and a IVC filter was placed, then resumed back on Eliquis 4 Acute diabetic ketoacidosis secondary to poor appetite 5 Acute renal failure improving with current creatinine 0.89 6 Metabolic acidosis secondary to above, recovered 7 Hyperkalemia, improved 8 Diabetes mellitus 9 History of hypertension 10 Leukocytosis 11 Depression secondary to recent loss of his mother secondary to CoVID Plan: The patient was seen and evaluated Improved and on 6 L high flow nasal cannula Completed Baricitinib and Decadron Continue Eliquis, vitamin supplements Titrate the FiO2 as tolerated Increase his activity as tolerated We will continue to follow I, the cosigning physician, performed a history & physical examination of the patient. Lungs sounds crackles in the bilateral posterior bases. Maintaining O2 saturations in the 90s on 6 L high flow nasal cannula. I discussed the assessment and plan of care with my nurse practitioner, Meron Keating. I attest to the above note as dictated by her.
--- NOTE | 2021-07-24 14:35 | P.PN ---
<Graham Quiñones - Last Filed: 07/24/21 13:38> Subjective Progress Note Date: 07/24/21 Hospital course: Patient is a very pleasant 60-year-old male with a past medical history of dimas betes, hypertension, and hyperlipidemia. He presented to the emergency department on 07/08/21 with reports of weakness, anorexia, cough, shortness of breath and alteration in mental status. Upon arrival he was found to be in significant respiratory distress with SpO2 of 80% on room air requiring taisha cement on nonrebreather mask at 15 L of oxygen to maintain SpO2 of 90%. Patient was also significantly hypotensive with blood pressure of 64/43, bradycardic with heart rate of 45, tachypnic with respiratory rate of 28, and hypothermic with a temp of 96.9F. Family at bedside reported patient had not been feeling well since prior to Petey and that this has been going on for greater than 2 weeks. They report positive exposure to Covid and state that pt is unvaccinated. He underwent full evaluation in the emergency department. Chest x-ray positive for multifocal pneumonia. Labs revealed significant leukocytosis with WBC count of 22.8 with left shift. Pseudohyponatremia with sodium 129 and corrected sodium of 138, severe hyperglycemia with glucose of 660, metabolic acidosis with chloride of 91, CO2 16, anion gap of 22, and lactate of 4.2. Qualitative acetone positive. Acute renal failure with BUN of 132, creatinine 5.89, and GFR of 9 with baseline creatinine of 1.3. Urinalysis positive for glucose negative for ketones, protein, blood or infection. Covid PCR positive. Troponin elevated at 0.056. EKG with significant artifact but appears to reveal sinus mechanism. Patient was started on insulin infusion per DKA protocol and admitted under our services to ICU for DKA, severe metabolic acidosis, acute renal failure, hyperkalemia, and acute respiratory failure with hypoxia secondary to Covid 19 pneumonia. 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 Ech ocardiogram was completed revealing a normal EF between 60 and 65%. VQ scan showing low probability for acute PE. Renal ultrasound negative for hydronephrosis showing a 4.2 cm benign-appearing left renal cyst with nonspecific right perinephrotic hypoechoic area possibly secondary to chronic changes versus artifact. Bilateral lower extremity Dopplers completed revealing acute DVTs of bilateral lower extremities. Patient was started on anticoagulation with Eliquis at this time. On 07/21/21 patient had episode of acute lower GI bleeding with bright red blood per rectum accompanied by hematuri a and bleeding IV insertion sites. Patient was given 1 dose of K Sentra and an IVC filter was placed by interventional radiology. Hemoglobin remained stable and patient did not require blood transfusion. Eliquis was resumed on 07/17/21. Physical exam: Patient was seen and fully evaluated at the bedside this morning. He is on 6 L O2 via high flow nasal cannula with SpO2 of 92%. Patient continues to have fluctuations in his blood glucose levels with episodes of hyperglycemia around lunch time and again at at bedtime resulting in higher doses of insulin being administered at these times and lower blood glucose levels in the morning. Discontinued sliding scale at this time in place patient on fixed dose insulin, patient to receive NovoLog 5 units with meals and at bedtime snack and long acting Levemir split and patient will receive 15 units each morning and 15 units nightly. Discussed changes with patient and RN at attempting to obtain a tight glycemic control without significant fluctuations. We will monitor closely and continue to make adjustments as needed. Patient also encouraged to increase ambulation and exercise intolerance in room by getting up to chair with meals. Once patient able to ambulate without significant desaturations, plan on discharge home with oxygen. Vital signs reviewed and stable. General: Nontoxic, no distress and appears stated age. Derm: Skin warm and dry, normal coloration for ethnicity. Head: Atraumatic, normocephalic and symmetric. Eyes: EOMs intact, no lid lag, and anicteric sclera Mouth: no lip lesions, mucus membranes moist Cardiovascular: regular rate and rhythm with normal S1S2, no murmur, positive posterior tibial pulses bilaterally, and cap refill < 2 seconds. Lungs: Respirations even, regular, and unlabored on 6 L O2 via nasal cannula. Lungs with soft crackles to bilateral lower lobes, no rhonchi, rales, or wheezes noted. No accessory muscle usage. Abdominal: soft, nontender to palpation, no guarding, no appreciable organomegaly Ext: ROM intact. No gross muscle atrophy, no edema, no contractures Neuro: Speech clear, face symmetrical and CN II-XII grossly intact with no noted focal neuro deficits Psych: Alert and oriented to person, place, time, and situation. Appropriate and pleasant affect. Assessment and Plan of Care: Acute respiratory failure with hypoxia secondary to COVID 19 pneumonia -Oxygenation to be administered and titrated as needed to maintain SPO2 equal to or greater than 90% -Telemetry monitoring. -Continue trending inflammatory markers -Encourage Incentive Spirometry 10-15x hourly while awake -Completed ten-day course of Decadron -Continue vitamin C, Vitamin D, and Zinc. -Pulmonology following, appreciate further recommendations. -DVT prophylaxis with Eliquis -Received 10 days of Baricitinib -Strict Droplet plus Contact precautions Acute Bilateral DVTs -Status post IVC filter placement on 07/11/2021 and resuming Eliquis on 07/17/21 -Continue to monitor hemoglobin Acute episode of lower GI bleeding with a rectal bleeding accompanied by haematuria and bleeding at the IV insertion sites -Patient was given a dose of KCentra, and the bleeding has resolved. -Hemoglobin is stable, patient has not required blood transfusions. -Eliquis was resumed on 07/17/21 DKA in Type II [id number] diabetes mellitus -DKA resolved -A1c 9.6. -Significant fluctuations remained with patient's blood glucose levels, sliding scale was discontinued. Patient placed on glycemic protocol with fixed dose NovoLog and Levemir 15 mg twice a day -Discussed with patient he will likely go home on long-acting and fixed dose insulin, RN doing diabetic teaching and teaching on administration of insulin. Acute kidney injury, Resolved with IV fluid hydration and treatment of DKA Acute anion gap Metabolic acidosis, resolved Metabolic encephalopathy, resolved, likely multifactorial due to Covid pneumonia and NIKOLAS Hyperkalemia, Resolved. -Continued close monitoring of renal function -Nephrology following -Continue holding SHYAM inhibitor Urinary retention -Resolved Status post Gonzalez catheter placement. Gonzalez catheter removed July 17 -Patient started on Flomax 0.4 mg daily -Continue to monitor postvoid residuals Acute hyponatremia -Nephrology following -Nephrology ordered one-time dose of Samsca 15 mg on July 17 -Random urine sodium Hypertension -Soft blood pressure, hold Norvasc for now -We will restart SHYAM inhibitor on discharge Leukocytosis, reactive secondary to steroids CODE STATUS: Full code DVT prophylaxis: Eliquis Discussed with: Patient and RN Anticipated discharge date: Clinical course to determine Anticipated discharge place: Home A total of 45 minutes was spent on the care of this complex patient more than 50% of the time was spent in counseling and care coordination. Objective - Vital Signs Vital signs: Vital Signs Temp 98.6 F 07/24/21 08:32 Pulse 106 H 07/24/21 08:32 Resp 17 07/24/21 08:32 BP 106/70 07/24/21 08:32 Pulse Ox 92 L 07/24/21 08:32 Intake & Output 07/23/21 07/24/21 07/24/21 18:59 06:59 18:59 Intake Total 240 Output Total 500 Balance 240 -500 Intake: Oral 240 Output: Urine 500 Other: Voiding Method Urinal Urinal # Bowel Movements 1 1 - Labs CBC & Chem 7: 07/23/21 07:12 07/24/21 06:52 Labs: Abnormal Lab Results - Last 24 Hours (Table) 07/23/21 07/23/21 07/23/21 Range/Units 15:28 16:53 19:57 Sodium 130 L (137-145) mmol/L Chloride (96-109) mmol/L Carbon Dioxide (20.0-27.5) mmol/L BUN (9.0-27.0) mg/dL BUN/Creatinine Ratio (12.00-20.00) Ratio POC Glucose (mg/dL) 221 H 401 H (75-99) mg/dL Calcium (8.7-10.3) mg/dL 07/24/21 07/24/21 Range/Units 06:52 11:21 Sodium (137-145) mmol/L Chloride 94 L (96-109) mmol/L Carbon Dioxide 31.1 H (20.0-27.5) mmol/L BUN 29.0 H (9.0-27.0) mg/dL BUN/Creatinine Ratio 30.18 H (12.00-20.00) Ratio POC Glucose (mg/dL) 140 H (75-99) mg/dL Calcium 8.0 L (8.7-10.3) mg/dL <Cynthia Chawla - Last Filed: 07/24/21 18:49> Subjective Graham Quiñones NP rendered care for this patient independently, reviewed the findings and plan as documented in the note above. I did not physically speak with or examine the patient on this date. Objective - Vital Signs Vital signs: Vital Signs Temp 98.5 F 07/24/21 16:48 Pulse 104 H 07/24/21 16:48 Resp 18 07/24/21 16:48 BP 106/74 07/24/21 16:48 Pulse Ox 97 07/24/21 17:00 Intake & Output 07/23/21 07/24/21 07/24/21 18:59 06:59 18:59 Intake Total 240 Output Total 500 Balance 240 -500 Intake: Oral 240 Output: Urine 500 Other: Voiding Method Urinal Urinal # Bowel Movements 1 1 - Labs CBC & Chem 7: 07/23/21 07:12 07/24/21 06:52 Labs: Abnormal Lab Results - Last 24 Hours (Table) 07/23/21 07/24/21 07/24/21 Range/Units 19:57 06:52 11:21 Chloride 94 L (96-109) mmol/L Carbon Dioxide 31.1 H (20.0-27.5) mmol/L BUN 29.0 H (9.0-27.0) mg/dL BUN/Creatinine Ratio 30.18 H (12.00-20.00) Ratio POC Glucose (mg/dL) 401 H 140 H (75-99) mg/dL Calcium 8.0 L (8.7-10.3) mg/dL 07/24/21 Range/Units 16:22 Chloride (96-109) mmol/L Carbon Dioxide (20.0-27.5) mmol/L BUN (9.0-27.0) mg/dL BUN/Creatinine Ratio (12.00-20.00) Ratio POC Glucose (mg/dL) 154 H (75-99) mg/dL Calcium (8.7-10.3) mg/dL
[2021-07-24 16:34] LABS: Glucose,Whole Blood 154 mg/dL (75-99)
[2021-07-24 20:33] LABS: Glucose,Whole Blood 131 mg/dL (75-99)
[2021-07-25 01:47] LABS: Glucose,Whole Blood 73 mg/dL (75-99)
[2021-07-25 02:36] LABS: Glucose,Whole Blood 112 mg/dL (75-99)
[2021-07-25 06:52] LABS: Glucose,Whole Blood 70 mg/dL (75-99)
[2021-07-25] MEDS: INSULIN DETEMIR (LEVEMIR) 100 UNIT/ML SYR SQ SCH (07:59)
[2021-07-25] MEDS: ZINC SULFATE 220 MG CAP PO SCH (07:59)
[2021-07-25] MEDS: INSULIN ASPART (NovoLOG) 100 UNIT/ML VIAL SQ SCH ×2 (07:59→11:25)
[2021-07-25] MEDS: TAMSULOSIN 0.4 MG CAP.ER.24H PO SCH (07:59)
[2021-07-25] MEDS: ATORVASTATIN 40 MG TAB PO SCH (07:59)
[2021-07-25] MEDS: APIXABAN 5 MG TAB PO SCH ×2 (07:59→20:58)
[2021-07-25] MEDS: PANTOPRAZOLE 40 MG TABLET PO SCH ×2 (07:59→17:15)
[2021-07-25] MEDS: ASCORBIC ACID 500 MG TAB PO SCH (07:59)
[2021-07-25] MEDS: CHOLECALCIFEROL 125 MCG (5000 IU) TABLET PO SCH (08:02)
[2021-07-25 09:05] LABS: HCT 43.2 % (39.6-50.0); MCH 30.7 pg (27.0-32.0); MCHC 32.4 g/dL (32.0-37.0); MCV 94.7 fL (80.0-97.0); Mean Platelet Volume 9.7 fL (9.5-12.2); NRBC Per 100 WBC 0 /100 WBCS (0.0-0.0); Platelet Count 188 X 10*3/uL (140-440); RBC 4.56 X 10*6/uL (4.40-5.60); WBC 14.74 X 10*3/uL (4.50-10.00)
[2021-07-25 09:32] LABS: C Reactive Protein 5.6 mg/dL (0.00-0.80); Magnesium 2.1 mg/dL (1.5-2.4)
[2021-07-25 09:41] LABS: African American GFR (CKD) 98.7 (60.0-200.0); Albumin 2.4 g/dL (3.8-4.9); Albumin/Globulin Ratio 0.94 (1.60-3.17); Anion Gap 12.2 mmol/L (10.00-18.00); BUN/Creat Ratio 29.07 Ratio (12.00-20.00); Blood Urea Nitrogen 27.7 mg/dL (9.0-27.0); Carbon Dioxide 30.4 mmol/L (20.0-27.5); Globulin 2.5 g/dL (1.6-3.3); Non-African American GFR(CKD) 85.1 (60.0-200.0); Total Bilirubin 0.4 mg/dL (0.30-1.20); Total Protein 4.9 g/dL (6.2-8.2)
[2021-07-25 11:21] LABS: Glucose,Whole Blood 153 mg/dL (75-99)
--- NOTE | 2021-07-25 15:16 | P.PN ---
Subjective Progress Note Date: 07/25/21 Principal diagnosis: Shortness of breath, hypoxia, COVID-19 On 07/11/2021 patient seen in follow-up on medical surgical floor, patient oxygen requirement and is currently increased, he is on 15 L per high flow nasal cannula and a nonrebreather mask, and his pulse ox is 92-96%, however he is breathing fairly comfortable, does not appear to be in any acute distress, his been afebrile, no complaints of chest discomfort, patient was diagnosed with bilateral lower extremity DVTs, and she was started on Eliquis however he developed GI bleeding, he had a large bowel movement with blood, he developed bleeding from his IV insertion sites, and hematuria, and his anticoagulation was subsequently placed on hold and he was given a dose of K Centra. However his hemoglobin has remained fairly stable, today it is 16.3, actually increased, patient has not required any blood transfusions, hemodynamically has been stable, his white count is 20.5, his platelet count is 286, his renal profile is actually improving, his BUN is down to 52 and creatinine is down to 1.38, electrolytes are unremarkable. His pro calcitonin level was 0.61. His had no fever or chills. Patient was taken to the [facility] by Dr. Bright and IVC filter was inserted. He is also seen in consultation by surgical services, the recommendation was to place anticoagulation on hold, and surgery will remain on standby at this time. On 07/12/2021 patient seen in follow-up on medical surgical floor, he states his breathing is not bad, although he still requiring high flow oxygen 15 L and his pulse ox is between 92-94%, hemodynamically his has remained stable, his been afebrile, he is resting comfortably in bed, his Eliquis remains on hold for an episode of GI bleeding. Patient denies any abdominal pain, there has been no further bleeding. His hemoglobin today is 14.6, his white blood cell count is improving and is down to 14.7 on today's labs, d-dimer is improving and is down to 10.6, electrolytes are within normal limits, BUN is 27.2, and creatinine is improved and is down to 1.2. His LDH has significantly improved is down to 454, CRP is down to 1.7. His pro calcitonin level is negative at 0.09. Patient is currently on Decadron 6 mg daily, he is on multivitamins including vitamin C, vitamin D, and zinc, he continues on gentle IV hydration with 0.9 normal saline at a rate of 50 ML per hour. Chest x-ray today showing bilateral infiltrates that are stable in appearance. Surgical services are following, patient is status post IVC filter yesterday in the right groin. Lung sounds are essentially clear but very minimal crackles at the left base, breathing very comfortably, no complaints of chest pain. On 07/13/2021 patient seen in follow-up on medical surgical floor. Patient is awake and alert, in no acute distress, he is requiring high flow oxygen, with 15 L in nonrebreather mask, and his pulse ox is anywhere between 88 and 96%, does not appear to be in any acute distress. We started him on Baricitinib yesterday on 07/12/2021, patient is breathing comfortably, minimal cough, no complaints of chest discomfort, his been afebrile, yesterday's chest x-ray showed stable maximus ateral infiltrates. Today's labs have been reviewed, his white blood cell count is stable at 14.6, hemoglobin is 15.4, sodium is 134, respiratory electrolytes are within normal limits, BUN is 25, creatinine is 1.02. Inflammatory markers were improving on yesterday's labs. Follow-up pro calcitonin was negative at 0.09 On 07/14/2021 patient seen in follow-up on medical surgical floor, he still requiring high flow oxygen with 15 L per high flow nasal cannula and nonrebreather mask, and his pulse ox is around 90-95%, breathing comfortably, he sitting up in the recliner, appears to be in no acute distress, no fever or chills, vital signs have been stable. Today's chest x-ray shows low lung volumes and bilateral multifocal opacities no significant change. His labs have been reviewed, his white blood cell count of 15.2, hemoglobin is 15, last d- dimer was improving and was down to 10.6, sodium is 132, direct electrolytes were unremarkable, he is BUN was 22 and creatinine was 0.93.Remains on Baricitrinib, Decadron, prophylactic Lovenox and multivitamins. On 07/15/2021 patient seen in follow-up on medical surgical floor. Patient is awake and alert, oriented 3, does not appear to be in any acute distress, he sitting up in the recliner, breathing comfortably, he is currently on 15 L per high flow nasal cannula and nonrebreather mask. His pulse ox earlier was 92- 97%, nonrebreather was removed, and patient was just left on 15 L per high flow nasal cannula, we reevaluated him after half an hour and his pulse ox remained at 90-91%, he continues to breathing very comfortably, but chest discomfort, no significant cough, no fever or chills. No new chest x-ray today. Today's labs have been reviewed, his white blood cell count of 16.2, hemoglobin is 14.9, sodium is 1:30, potassium is 4.5, chloride is 104, CO2 is 23, B1 is 20, creatinine is 1.06. Tolerating oral intake, no nausea vomiting or diarrhea. On 07/19/2021 patient seen in follow-up on medical surgical floor. Patient is awake and alert, he sitting up in the recliner, he is currently just on 15 L high flow nasal cannula, his pulse ox is 90%, breathing comfortably, lung sounds reveal some scattered crackles, no rhonchi or wheezing, no complaint of chest discomfort, no worsening dyspnea or cough. Overall he states he is feeling about 75% better since admission. Today's labs have been reviewed. Patient's E liquis has been restarted per primary care service, his hemoglobin remained stable at 15.5, his white blood cell count is 17, sodium is 132, the respiratory electrolytes were unremarkable, B1 is 34 creatinine is 1.12. Patient has been receiving gentle diuresis per nephrology, he remains on dexamethasone 6 mg daily, he remains on Olumiant 4 mg daily, he remains on multi-vitamins. On 07/22/2021 patient seen in follow-up on medical surgical floor. Patient is resting comfortably in bed, currently satting 93% on 9 L, subsequent activity has been turned down to 8 L, breathing very comfortably, no worsening dyspnea or cough, patient remains on Eliquis. Baricitinib has been discontinued yesterday in view of elevated white blood cell count, and for precaution of secondary bacterial infection. Decadron has been completed. Oxygenation is improving, no worsening dyspnea or cough. Patient has been restarted on Eliquis, he had a IVC filter placed with no evidence of rebleeding. No complaints of chest pain. On 07/23/2021 patient seen in follow-up on medical surgical floor, he is currently on 8 L of oxygen his pulse ox is 97%, his FiO2 was subsequently dropped down to 6 L however patient desaturated down to 84 and 85%, and his FiO2 has been turned back up to 8 L, follow-up chest x-ray is pending this morning, clinically she looks same, does not appear to be in any respiratory distress, breathing comfortably, resting comfortably in bed, he has been getting up in the recliner, tolerates activity fairly well, no worsening dyspnea or cough, no complaints of chest discomfort, he remains on multivitamins, he is on Eliquis, he's had no episodes of rebleeding, or hematuria. He has completed his course of Decadron. His labs have been reviewed, his blood cell count is improving and is down to 16.5, hemoglobin is stable at 14.8 sodium is 128, potassium is 3.9, chloride is 92, CO2 36, B1 is 34, creatinine 0.93. His potassium level was repeated yesterday and was negative at 0.05, patient's urine sodium is persistently low, at 128, nephrology is following, patient received a dose of Tolvaptan, is currently on 1.5 L fluid restriction. On 07/25/2021 patient seen in follow-up on medical surgical floor, he is awake and alert, in no acute distress, currently down to 3 L of oxygen pulse ox is 94%, breathing very comfortably, denies any worsening dyspnea no cough, lung sounds are clear, no crackles no wheezing, he remains on Eliquis, he has completed his Decadron and Baricitinib. Clinically has continued to improve, tolerating oral intake, no nausea vomiting or diarrhea, less chest x-ray from 07/23/2021 showing low lung volumes, and multifocal opacities consistent with COVID-19 pneumonia without significant change from prior exam. Today's labs have been reviewed, white blood cell count is 14.7, hemoglobin is 14, there has been no evidence of bleeding, d-dimer is improved and is down to 1.64, sodium is 134, potassium is 4.0, chloride is 92, BUN is 27 creatinine is 1.0, his alkaline phosphatase is down to 1:30, his LDH is improved and is down to 530, CRP is 5.6. Patient has no specific complaints. Objective - Vital Signs Vital signs: Vital Signs Temp 99.1 F 07/25/21 13:23 Pulse 102 H 07/25/21 13:23 Resp 18 07/25/21 13:23 BP 104/68 07/25/21 13:23 Pulse Ox 95 07/25/21 13:23 Intake & Output 07/24/21 07/25/21 07/25/21 18:59 06:59 18:59 Intake Total 360 Output Total 400 Balance -40 Intake: Oral 360 Output: Urine 400 Other: # Voids 2 # Bowel Movements 1 - Exam GENERAL EXAM: Alert, very pleasant 60-year-old white male, on 3 L per high flow nasal cannula with a pulse ox of 93% comfortable in no apparent distress. EYES: Normal reaction of pupils, equal size. Conjunctiva pink, sclera white. NOSE: Clear with pink turbinates. THROAT: No erythema or exudates. NECK: No masses, no JVD, no thyroid enlargement, no adenopathy. CHEST: No chest wall deformity. Symmetrical expansion. LUNGS: Equal air entry with no crackles, wheeze, rhonchi or dullness. CVS: Regular rate and rhythm, normal S1 and S2, no gallops, no murmurs, no rubs ABDOMEN: Soft, nontender. No hepatosplenomegaly, normal bowel sounds, no guarding or rigidity. EXTREMITIES: No clubbing, no edema, no cyanosis, 2+ pulses and upper and lower extremities. MUSCULOSKELETAL: Muscle strength and tone normal. SPINE: No scoliosis or deformity SKIN: No rashes CENTRAL NERVOUS SYSTEM: Alert and oriented -3. No focal deficits, tone is normal in all 4 extremities. PSYCHIATRIC: Alert and oriented -3. Appropriate affect. Intact judgment and insight. - Labs CBC & Chem 7: 07/25/21 05:39 07/25/21 05:39 Labs: Abnormal Lab Results - Last 24 Hours (Table) 07/24/21 07/24/21 07/25/21 Range/Units 16:22 20:32 01:45 WBC (4.50-10.00) X 10*3/uL D-Dimer (<0.60) mg/L FEU Sodium (135-145) mmol/L Chloride (96-109) mmol/L Carbon Dioxide (20.0-27.5) mmol/L BUN (9.0-27.0) mg/dL BUN/Creatinine Ratio (12.00-20.00) Ratio Glucose (70-110) mg/dL POC Glucose (mg/dL) 154 H 131 H 73 L (75-99) mg/dL Calcium (8.7-10.3) mg/dL Alkaline Phosphatase (41-126) U/L Lactate Dehydrogenase (120-246) U/L C-Reactive Protein (0.00-0.80) mg/dL Total Protein (6.2-8.2) g/dL Albumin (3.8-4.9) g/dL Albumin/Globulin Ratio (1.60-3.17) g/dL 07/25/21 07/25/21 07/25/21 Range/Units 02:34 05:39 05:39 WBC 14.74 H (4.50-10.00) X 10*3/uL D-Dimer 1.64 H (<0.60) mg/L FEU Sodium (135-145) mmol/L Chloride (96-109) mmol/L Carbon Dioxide (20.0-27.5) mmol/L BUN (9.0-27.0) mg/dL BUN/Creatinine Ratio (12.00-20.00) Ratio Glucose (70-110) mg/dL POC Glucose (mg/dL) 112 H (75-99) mg/dL Calcium (8.7-10.3) mg/dL Alkaline Phosphatase (41-126) U/L Lactate Dehydrogenase (120-246) U/L C-Reactive Protein (0.00-0.80) mg/dL Total Protein (6.2-8.2) g/dL Albumin (3.8-4.9) g/dL Albumin/Globulin Ratio (1.60-3.17) g/dL 07/25/21 07/25/21 07/25/21 Range/Units 05:39 06:50 11:19 WBC (4.50-10.00) X 10*3/uL D-Dimer (<0.60) mg/L FEU Sodium 134 L (135-145) mmol/L Chloride 92 L (96-109) mmol/L Carbon Dioxide 30.4 H (20.0-27.5) mmol/L BUN 27.7 H (9.0-27.0) mg/dL BUN/Creatinine Ratio 29.07 H (12.00-20.00) Ratio Glucose 62 L (70-110) mg/dL POC Glucose (mg/dL) 70 L 153 H (75-99) mg/dL Calcium 8.0 L (8.7-10.3) mg/dL Alkaline Phosphatase 130 H (41-126) U/L Lactate Dehydrogenase 530 H (120-246) U/L C-Reactive Protein 5.60 H (0.00-0.80) mg/dL Total Protein 4.9 L (6.2-8.2) g/dL Albumin 2.4 L (3.8-4.9) g/dL Albumin/Globulin Ratio 0.94 L (1.60-3.17) g/dL Assessment and Plan Plan: Assessment: #1. Acute hypoxic respiratory failure related to acute COVID-19 pneumonia, patient presented to the hospital on 07/08/2021, not a candidate for Remdesivir, not vaccinated. Patient's oxygenation has progressively became worse. Started on Baricitinib on 07/12/2021. Currently oxygenation is improving, patient is currently just on 8 L per high flow nasal cannula. Further attempts to wean the oxygen down to 6 L were unsuccessful, patient was desaturating on 6 L and currently is back up to 8 L of oxygen on 07/23/2021 #2. Acute GI bleeding, with a rectal bleeding, hematuria and bleeding at the IV insertion sites, patient was given a dose of KCentra, and the bleeding has resolved. Hemoglobin is stable, patient has not required blood transfusions #3. Acute bilateral DVTs was initially started on Eliquis which was placed on hold related to acute bleeding. Status post IVC filter placement today on 07/11/2021. Eliquis has been restarted on 07/17/2021 no evidence of active bleeding #4. Acute diabetic ketoacidosis, resolved #5. Acute kidney injury, improved #6. Hypertension #7. Acute anion gap Metabolic acidosis, resolved #8. Hyperkalemia, improved #9. Diabetes mellitus type 2 #10. Hypertension #10. Leukocytosis, persistent, slightly improved #11. Hyponatremia, likely hypovolemic, please refer to nephrology note, no hydronephrosis on kidney ultrasound. Patient is currently on fluid restriction, and he will receive a dose of Tolvaptan Plan: Patient is currently down to 3 L of oxygen he is maintaining stable O2 saturations at around 94-95% He is breathing comfortably, no worsening dyspnea or cough His last chest x-ray showed bilateral multifocal opacities without significant change from his prior exam However patient has demonstrated significant improvement since that chest x-ray was done 2 days ago Patient has completed his Decadron Continues on multivitamins Increase activity as tolerated His labs today have been noted Inflammatory markers are improved He can be considered for discharge home today or tomorrow from pulmonary perspective Outpatient follow-up with Dr. Crane in the office in 7 days I performed a history & physical examination of the patient and discussed their management with my nurse practitioner, Kristi Cartwright. I reviewed the nurse practitioner's note and agree with the documented findings and plan of care. Lung sounds are positive for dim breath sounds with rales throughout the lung hernandez. The findings and the impression was discussed with the patient. I attest to the documentation by the nurse practitioner. Time with Patient: Less than 30
--- NOTE | 2021-07-25 16:06 | P.PN ---
<Graham Quiñones - Last Filed: 07/25/21 15:45> Subjective Progress Note Date: 07/25/21 Hospital course: Patient is a very pleasant 60-year-old male with a past medical history of dimas betes, hypertension, and hyperlipidemia. He presented to the emergency department on 07/08/21 with reports of weakness, anorexia, cough, shortness of breath and alteration in mental status. Upon arrival he was found to be in significant respiratory distress with SpO2 of 80% on room air requiring taisha cement on nonrebreather mask at 15 L of oxygen to maintain SpO2 of 90%. Patient was also significantly hypotensive with blood pressure of 64/43, bradycardic with heart rate of 45, tachypnic with respiratory rate of 28, and hypothermic with a temp of 96.9F. Family at bedside reported patient had not been feeling well since prior to [place] and that this has been going on for greater than 2 weeks. They report positive exposure to Covid and state that pt is unvaccinated. He underwent full evaluation in the emergency department. Chest x-ray positive for multifocal pneumonia. Labs revealed significant leukocytosis with WBC count of 22.8 with left shift. Pseudohyponatremia with sodium 129 and corrected sodium of 138, severe hyperglycemia with glucose of 660, metabolic acidosis with chloride of 91, CO2 16, anion gap of 22, and lactate of 4.2. Qualitative acetone positive. Acute renal failure with BUN of 132, creatinine 5.89, and GFR of 9 with baseline creatinine of 1.3. Urinalysis positive for glucose negative for ketones, protein, blood or infection. Covid PCR positive. Troponin elevated at 0.056. EKG with significant artifact but appears to reveal sinus mechanism. Patient was started on insulin infusion per DKA protocol and admitted under our services to ICU for DKA, severe metabolic acidosis, acute renal failure, hyperkalemia, and acute respiratory failure with hypoxia secondary to Covid 19 pneumonia. Consults placed to nephrology, and workforce development vice president/hazmat cdl driver. Ech ocardiogram was completed revealing a normal EF between 60 and 65%. VQ scan showing low probability for acute PE. Renal ultrasound negative for hydronephrosis showing a 4.2 cm benign-appearing left renal cyst with nonspecific right perinephrotic hypoechoic area possibly secondary to chronic changes versus artifact. Bilateral lower extremity Dopplers completed revealing acute DVTs of bilateral lower extremities. Patient was started on anticoagulation with Eliquis at this time. On 07/21/21 patient had episode of acute lower GI bleeding with bright red blood per rectum accompanied by hematuri a and bleeding IV insertion sites. Patient was given 1 dose of K Sentra and an IVC filter was placed by interventional radiology. Hemoglobin remained stable and patient did not require blood transfusion. Eliquis was resumed on 07/17/21. Physical exam: Patient was seen and fully evaluated at the bedside this morning. He is on 4 L O2 via high flow nasal cannula with SpO2 of 94%. The patient continues to significantly desaturate with minimal exertion. RN reports that this morning, patient was assisted to bedside commode and SpO2 dropped to 80% on 4 L which required increasing oxygen back up to 6 L at that time. Patient to have O2 weaned back down as he tolerates and is currently back down to 4L. We have maintained a much tighter control of her glucose levels at this time, patient has had a couple episodes of hypoglycemia in the 70s. Fixed dose NovoLog decreased to 4 units ACHS and we will continue with Levemir 15 units twice a day. Leukocytosis also continues to improve and is down to 14.74 this morning. Inflammatory markers significantly improving with d-dimer down to 1.64. We will continue to try to increase patient's endurance thus improving/reducing desaturation with movement. Plan to discharge once SpO2 can be stabilized with ambulation. Vital signs reviewed and stable. General: Nontoxic, no distress and appears stated age. Derm: Skin warm and dry, normal coloration for ethnicity. Head: Atraumatic, normocephalic and symmetric. Eyes: EOMs intact, no lid lag, and anicteric sclera Mouth: no lip lesions, mucus membranes moist Cardiovascular: regular rate and rhythm with normal S1S2, no murmur, positive posterior tibial pulses bilaterally, and cap refill < 2 seconds. Lungs: Respirations even, regular, and unlabored on 4 L O2 via nasal cannula. Lungs with soft crackles to bilateral lower lobes, no rhonchi, rales, or wheezes noted. No accessory muscle usage. Abdominal: soft, nontender to palpation, no guarding, no appreciable organomegaly Ext: ROM intact. No gross muscle atrophy, no edema, no contractures Neuro: Speech clear, face symmetrical and CN II-XII grossly intact with no noted focal neuro deficits Psych: Alert and oriented to person, place, time, and situation. Appropriate and pleasant affect. Assessment and Plan of Care: Acute respiratory failure with hypoxia secondary to COVID 19 pneumonia -Oxygenation to be administered and titrated as needed to maintain SPO2 equal to or greater than 90% -Telemetry monitoring. -Continue trending inflammatory markers -Encourage Incentive Spirometry 10-15x hourly while awake -Completed ten-day course of Decadron -Continue vitamin C, Vitamin D, and Zinc. -Pulmonology following, appreciate further recommendations. -DVT prophylaxis with Eliquis -Received 10 days of Baricitinib -Strict Droplet plus Contact precautions Acute Bilateral DVTs -Status post IVC filter placement on 07/11/2021 and resuming Eliquis on 07/17/21 -Continue to monitor hemoglobin Acute episode of lower GI bleeding with a rectal bleeding accompanied by haematuria and bleeding at the IV insertion sites -Patient was given a dose of KCentra, and the bleeding has resolved. -Hemoglobin is stable, patient has not required blood transfusions. -Eliquis was resumed on 07/17/21 DKA in Type II [id number] diabetes mellitus -DKA resolved -A1c 9.6. -We have maintained a much tighter control of her glucose levels at this time, patient has had a couple episodes of hypoglycemia in the 70s. Fixed dose NovoLog decreased to 4 units ACHS and we will continue with Levemir 15 units t wice a day. -Discussed with patient he will be going home on long-acting and fixed dose insulin, RN doing diabetic teaching and teaching on administration of insulin. Acute kidney injury, Resolved with IV fluid hydration and treatment of DKA Acute anion gap Metabolic acidosis, resolved Metabolic encephalopathy, resolved, likely multifactorial due to Covid pneumonia and NIKOLAS Hyperkalemia, Resolved. -Continued close monitoring of renal function -Nephrology following -Continue holding SHYAM inhibitor Urinary retention -Resolved Status post Gonzalez catheter placement. Gonzalez catheter removed July 17 -Patient started on Flomax 0.4 mg daily -Continue to monitor postvoid residuals Acute hyponatremia -Nephrology following -Nephrology ordered one-time dose of Samsca 15 mg on July 17 -Random urine sodium Hypertension -Soft blood pressure, hold Norvasc for now -We will restart SHYAM inhibitor on discharge Leukocytosis, reactive secondary to steroids CODE STATUS: Full code DVT prophylaxis: Eliquis Discussed with: Patient and RN Anticipated discharge date: Clinical course to determine Anticipated discharge place: Home with home care A total of 45 minutes was spent on the care of this complex patient more than 50% of the time was spent in counseling and care coordination. Objective - Vital Signs Vital signs: Vital Signs Temp 99.1 F 07/25/21 13:23 Pulse 102 H 07/25/21 13:23 Resp 18 07/25/21 13:23 BP 104/68 07/25/21 13:23 Pulse Ox 95 07/25/21 13:23 Intake & Output 07/24/21 07/25/21 07/25/21 18:59 06:59 18:59 Intake Total 360 Output Total 400 Balance -40 Intake: Oral 360 Output: Urine 400 Other: # Voids 2 # Bowel Movements 1 - Labs CBC & Chem 7: 07/25/21 05:39 07/25/21 05:39 Labs: Abnormal Lab Results - Last 24 Hours (Table) 07/24/21 07/24/21 07/25/21 Range/Units 16:22 20:32 01:45 WBC (4.50-10.00) X 10*3/uL D-Dimer (<0.60) mg/L FEU Sodium (135-145) mmol/L Chloride (96-109) mmol/L Carbon Dioxide (20.0-27.5) mmol/L BUN (9.0-27.0) mg/dL BUN/Creatinine Ratio (12.00-20.00) Ratio Glucose (70-110) mg/dL POC Glucose (mg/dL) 154 H 131 H 73 L (75-99) mg/dL Calcium (8.7-10.3) mg/dL Alkaline Phosphatase (41-126) U/L Lactate Dehydrogenase (120-246) U/L C-Reactive Protein (0.00-0.80) mg/dL Total Protein (6.2-8.2) g/dL Albumin (3.8-4.9) g/dL Albumin/Globulin Ratio (1.60-3.17) g/dL 07/25/21 07/25/21 07/25/21 Range/Units 02:34 05:39 05:39 WBC 14.74 H (4.50-10.00) X 10*3/uL D-Dimer 1.64 H (<0.60) mg/L FEU Sodium (135-145) mmol/L Chloride (96-109) mmol/L Carbon Dioxide (20.0-27.5) mmol/L BUN (9.0-27.0) mg/dL BUN/Creatinine Ratio (12.00-20.00) Ratio Glucose (70-110) mg/dL POC Glucose (mg/dL) 112 H (75-99) mg/dL Calcium (8.7-10.3) mg/dL Alkaline Phosphatase (41-126) U/L Lactate Dehydrogenase (120-246) U/L C-Reactive Protein (0.00-0.80) mg/dL Total Protein (6.2-8.2) g/dL Albumin (3.8-4.9) g/dL Albumin/Globulin Ratio (1.60-3.17) g/dL 07/25/21 07/25/21 07/25/21 Range/Units 05:39 06:50 11:19 WBC (4.50-10.00) X 10*3/uL D-Dimer (<0.60) mg/L FEU Sodium 134 L (135-145) mmol/L Chloride 92 L (96-109) mmol/L Carbon Dioxide 30.4 H (20.0-27.5) mmol/L BUN 27.7 H (9.0-27.0) mg/dL BUN/Creatinine Ratio 29.07 H (12.00-20.00) Ratio Glucose 62 L (70-110) mg/dL POC Glucose (mg/dL) 70 L 153 H (75-99) mg/dL Calcium 8.0 L (8.7-10.3) mg/dL Alkaline Phosphatase 130 H (41-126) U/L Lactate Dehydrogenase 530 H (120-246) U/L C-Reactive Protein 5.60 H (0.00-0.80) mg/dL Total Protein 4.9 L (6.2-8.2) g/dL Albumin 2.4 L (3.8-4.9) g/dL Albumin/Globulin Ratio 0.94 L (1.60-3.17) g/dL <Cynthia Chawla - Last Filed: 07/25/21 19:32> Ta Quiñones NP rendered care for this patient independently, reviewed the findings and plan as documented in the note above. I did not physically speak with or examine the patient on this date. Objective - Vital Signs Vital signs: Vital Signs Temp 98.9 F 07/25/21 16:56 Pulse 94 07/25/21 16:56 Resp 18 07/25/21 16:56 BP 101/71 07/25/21 16:56 Pulse Ox 96 07/25/21 16:56 Intake & Output 07/25/21 07/25/21 07/26/21 06:59 18:59 06:59 Intake Total 360 Output Total 400 500 Balance -40 -500 Intake: Oral 360 Output: Urine 400 500 Other: # Bowel Movements 1 - Labs CBC & Chem 7: 07/25/21 05:39 07/25/21 05:39 Labs: Abnormal Lab Results - Last 24 Hours (Table) 07/24/21 07/25/21 07/25/21 Range/Units 20:32 01:45 02:34 WBC (4.50-10.00) X 10*3/uL D-Dimer (<0.60) mg/L FEU Sodium (135-145) mmol/L Chloride (96-109) mmol/L Carbon Dioxide (20.0-27.5) mmol/L BUN (9.0-27.0) mg/dL BUN/Creatinine Ratio (12.00-20.00) Ratio Glucose (70-110) mg/dL POC Glucose (mg/dL) 131 H 73 L 112 H (75-99) mg/dL Calcium (8.7-10.3) mg/dL Alkaline Phosphatase (41-126) U/L Lactate Dehydrogenase (120-246) U/L C-Reactive Protein (0.00-0.80) mg/dL Total Protein (6.2-8.2) g/dL Albumin (3.8-4.9) g/dL Albumin/Globulin Ratio (1.60-3.17) g/dL 07/25/21 07/25/21 07/25/21 Range/Units 05:39 05:39 05:39 WBC 14.74 H (4.50-10.00) X 10*3/uL D-Dimer 1.64 H (<0.60) mg/L FEU Sodium 134 L (135-145) mmol/L Chloride 92 L (96-109) mmol/L Carbon Dioxide 30.4 H (20.0-27.5) mmol/L BUN 27.7 H (9.0-27.0) mg/dL BUN/Creatinine Ratio 29.07 H (12.00-20.00) Ratio Glucose 62 L (70-110) mg/dL POC Glucose (mg/dL) (75-99) mg/dL Calcium 8.0 L (8.7-10.3) mg/dL Alkaline Phosphatase 130 H (41-126) U/L Lactate Dehydrogenase 530 H (120-246) U/L C-Reactive Protein 5.60 H (0.00-0.80) mg/dL Total Protein 4.9 L (6.2-8.2) g/dL Albumin 2.4 L (3.8-4.9) g/dL Albumin/Globulin Ratio 0.94 L (1.60-3.17) g/dL 07/25/21 07/25/21 Range/Units 06:50 11:19 WBC (4.50-10.00) X 10*3/uL D-Dimer (<0.60) mg/L FEU Sodium (135-145) mmol/L Chloride (96-109) mmol/L Carbon Dioxide (20.0-27.5) mmol/L BUN (9.0-27.0) mg/dL BUN/Creatinine Ratio (12.00-20.00) Ratio Glucose (70-110) mg/dL POC Glucose (mg/dL) 70 L 153 H (75-99) mg/dL Calcium (8.7-10.3) mg/dL Alkaline Phosphatase (41-126) U/L Lactate Dehydrogenase (120-246) U/L C-Reactive Protein (0.00-0.80) mg/dL Total Protein (6.2-8.2) g/dL Albumin (3.8-4.9) g/dL Albumin/Globulin Ratio (1.60-3.17) g/dL
[2021-07-25 16:20] LABS: Glucose,Whole Blood 96 mg/dL (75-99)
[2021-07-25] MEDS ORDERED: INSULIN ASPART (NovoLOG) 100 UNIT/ML VIAL SQ SCH (17:30)
[2021-07-25 20:06] LABS: Glucose,Whole Blood 231 mg/dL (75-99)
[2021-07-25] MEDS ORDERED: INSULIN DETEMIR (LEVEMIR) 100 UNIT/ML SYR SQ SCH (21:00)
[2021-07-25 21:08] VITALS: BP 107/69; PULSE 99; RESP 20; TEMP 98.3
[2021-07-25 23:25] LABS: Glucose,Whole Blood 93 mg/dL (75-99)
[2021-07-25] MEDS ORDERED: SODIUM BICARB 8.4% 50 ML SYR (1 MEQ/ML) ONE (23:30)
[2021-07-25] MEDS ORDERED: EPINEPHrine 10 ML SYRINGE (0.1 MG/ML) ONE (23:30)
--- NOTE | 2021-07-26 02:10 | P.EN ---
code blue note patient last seen normal around 2200. then during RN rounds he was found unresponsive, no pulse, code blue activated, CPR initiated following ACLS protocol. patient intubated, given epi, multiple rounds. no Shock was necessary patient was having asystole. despite resuscitation effort, ROSC was not achieved, case discussed with sister over the phone. CPR effort was stopped after about 25 minutes. patient . please refer to paper charting for exact sequence of events and meds given
--- NOTE | 2021-07-26 16:26 | P.DS ---
<Graham Quiñones - Last Filed: 07/26/21 15:48> Providers Expected date of discharge: 07/25/21 Hospital Course: THIS IS NOT A DISCHARGE SUMMARY, ONLY A SUMMARY OF CARE PT ON 07/25/21 WITH TIME OF PRONOUNCED AT 23:46 pm Discharge Diagnosis: Acute respiratory failure with hypoxia secondary to COVID 19 pneumonia -Completed ten-day course of Decadron -Resumed Eliquis on 07/17/21 -Received 10 days of Baricitinib Acute Bilateral DVTs -Status post IVC filter placement on 07/11/2021 and resuming Eliquis on 07/17/21 Acute episode of lower GI bleeding with a rectal bleeding accompanied by hemamaturia and bleeding at the IV insertion sites -Patient was given a dose of KCentra, and the bleeding resolved with no further episodes. -Eliquis was resumed on 07/17/21 DKA in Type II [id number] diabetes mellitus Episodes of Hypoglycemia Episodes of Hyperglycemia -Initially requiring admission to ICU for treatment of DKA and severe metabolic acidosis, DKA resolved patient started on short-acting and long-acting insulin -A1c 9.6%, already maxed out on oral antihypoglycemic medications glimepiride, Pioglitazone, and sitagliptin -Patient had episodes of hyper and hypoglycemia throughout admission. Changes were being made to NovoLog and Levemir. Acute kidney injury, Resolved with IV fluid hydration and treatment of DKA Acute anion gap Metabolic acidosis, resolved Metabolic encephalopathy, resolved, likely multifactorial due to Covid pneumonia and NIKOLAS Hyperkalemia, Resolved Urinary retention, resolved Acute hyponatremia, improved sodium 134 Hypertension Leukocytosis, reactive secondary to steroids, improved Hospital Course: Patient is a very pleasant 60-year-old male with a past medical history of diabetes, hypertension, and hyperlipidemia. He presented to the emergency department on 07/08/21 with reports of weakness, anorexia, cough, shortness of breath and alteration in mental status. Upon arrival he was found to be in significant respiratory distress with SpO2 of 80% on room air requiring placement on nonrebreather mask at 15 L of oxygen to maintain SpO2 of 90%. Patient was also significantly hypotensive with blood pressure of 64/43, bradycardic with heart rate of 45, tachypnic with respiratory rate of 28, and hypothermic with a temp of 96.9F. Family at bedside reported patient had not been feeling well since prior to [place] and that this has been going on for greater than 2 weeks. They report positive exposure to Covid and state that pt is unvaccinated. He underwent full evaluation in the emergency department. Chest x-ray positive for multifocal pneumonia. Labs revealed significant leukocytosis with WBC count of 22.8 with left shift. Pseudohyponatremia with sodium 129 and corrected sodium of 138, severe hyperglycemia with glucose of 660, metabolic acidosis with chloride of 91, CO2 16, anion gap of 22, and lactate of 4.2. Qualitative acetone positive. Acute renal failure with BUN of 132, creatinine 5.89, and GFR of 9 with baseline creatinine of 1.3. Urinalysis positive for glucose negative for ketones, protein, blood or infection. Covid PCR positive. Troponin elevated at 0.056. EKG with significant artifact but appears to reveal sinus mechanism. Patient was started on insulin infusion per DKA protocol and admitted under our services to ICU for DKA, severe metabolic acidosis, acute renal failure, hyperkalemia, and acute respiratory failure with hypoxia secondary to Covid 19 pneumonia. 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 Echocardiogram was completed revealing a normal EF between 60 and 65%. VQ scan showing low probability for acute PE. Renal ultrasound negative for hydronephrosis showing a 4.2 cm benign-appearing left renal cyst with nonspecific right perinephrotic hypoechoic area possibly secondary to chronic changes versus artifact. Bilateral lower extremity Dopplers completed revealing acute DVTs of bilateral lower extremities. Patient was started on anticoagulation with Eliquis at this time. On 07/21/21 patient had episode of acute lower GI bleeding with bright red blood per rectum accompanied by hematuria and bleeding IV insertion sites. Patient was given 1 dose of K Sentra and an IVC filter was placed by interventional radiology. Hemoglobin remained stable and patient did not require blood transfusion. Eliquis was resumed on 07/17/21 with no further episodes of bleeding reported.. His DKA resolved and patient was placed on NovoLog and Levemir. Patient had multiple episodes of hyper and hypoglycemia and changes being made to his medic ation regimen as a result. Patient completed 10 day course of Decadron and received 10 days of Baricitinib. His Labs were monitored closely and improved daily as d-dimer and inflammatory markers continued to decrease as well as improving leukocytosis. Patient was slowly being weaned off of oxygen and was down to 3 L O2 via nasal cannula maintaining SpO2 between 94-96%. The patient was awaiting discharge home pending his ability to maintain oxygen saturations with ambulation and/or exertion as his activity intolerance was significantly declined. Patient would desaturate significantly with any exertion and was working with PT/OT in attempts to improve his activity intolerance to maintain stable oxygen saturations with ambulation. Per nursing documentation, patient was last seen normal on the evening of 07/25/21 around 10 PM and around approximately 23:15 PM during nursing rounds, patient was found to be unresponsive with no pulse or respirations and a CODE BLUE was called. Blood sugar 93. ACLS interventions and CPR was initiated and patient's family was contacted. CPR efforts were ceased and patient was pronounced on 07/25/21 with time of at 23:46 PM. Plan - Discharge Summary Discharge Rx Participant: No New Discharge Prescriptions: No Action Glimepiride [Amaryl] 4 mg PO AC-BRKFST sitaGLIPtin [Januvia] 100 mg PO DAILY Atorvastatin [Lipitor] 40 mg PO DAILY amLODIPine [Norvasc] 5 mg PO BID Empagliflozin [Jardiance] 10 mg PO DAILY Bisoprolol-Hctz 10-6.25 mg [Ziac 10-6.25 MG] 1 tab PO DAILY Pioglitazone [Actos] 30 mg PO DAILY Benazepril HCl 40 mg PO DAILY Discharge Medication List Atorvastatin [Lipitor] 40 mg PO DAILY 07/08/21 [History] Benazepril HCl 40 mg PO DAILY 07/08/21 [History] Bisoprolol-Hctz 10-6.25 mg [Ziac 10-6.25 MG] 1 tab PO DAILY 07/08/21 [History] Empagliflozin [Jardiance] 10 mg PO DAILY 07/08/21 [History] Glimepiride [Amaryl] 4 mg PO AC-BRKFST 07/08/21 [History] Pioglitazone [Actos] 30 mg PO DAILY 07/08/21 [History] amLODIPine [Norvasc] 5 mg PO BID 07/08/21 [History] sitaGLIPtin [Januvia] 100 mg PO DAILY 07/08/21 [History] Follow up Appointment(s)/Referral(s): Santana Yeboah MD [Medical Doctor] - As Needed Miguel Phoenix MD [Primary Care Provider] - 1-2 days Care,Gerald Chou [NON-STAFF] - As Needed Virgilio Rodriguez DO [STAFF PHYSICIAN] - 1 Week Randy Glover MD [STAFF PHYSICIAN] - 2 Weeks Patient Instructions/Handouts: Coronavirus Disease 2019 (COVID-19), Rectal Bleeding (DC), Acute Kidney Injury (DC), Diabetic Ketoacidosis (DC) Activity/Diet/Wound Care/Special Instructions: Glucometer and supplies ordered through [employer] [facility]. Please call to follow up: #[phone] Discharge Disposition: - Preliminary Cause of Preliminary Cause of : Covid infection <Cynthia Chawla - Last Filed: 07/26/21 18:17> Providers Date of admission: 07/08/21 14:17 Attending physician: Mello Bustamante MD Consults: 07/08/21 13:20 Consult Physician Urgent Consulting Provider: Virgilio Rodriguez Consult Reason/Comments: NIKOLAS, hyperkalemia Do you want consulting provider notified?: Yes 07/08/21 14:11 Consult Physician Stat Consulting Provider: Randy Glover Consult Reason/Comments: DKA, Acute renal failure, hyperkalemia, Covid, elevated trop Do you want consulting provider notified?: Already Contacted 07/11/21 03:06 Consult Physician Routine Consulting Provider: Santana Yeboah Consult Reason/Comments: GI bleed Do you want consulting provider notified?: Yes 07/17/21 08:03 Consult Physician Routine Consulting Provider: Virgilio Rodriguez Consult Reason/Comments: hyponatremia Do you want consulting provider notified?: Yes Primary care physician: Miguel Phoenix MD Hospital Course: Graham Quiñones NP rendered care for this patient independently, reviewed the findings and plan as documented in the note above. I did not physically speak with or examine the patient on this date.
--- NOTE | 2021-07-28 08:12 | CDI ---
Documentation Clarification Form Date: 07/28/2021 07:54:00 AM From: Katie Edouard Admit Date: 07/08/2021 02:17:00 PM Patient Name: Juan Nevarez Visit Number: [id number] Discharge Date: 07/25/2021 11:46:00 PM ATTENTION: The Clinical Documentation Specialists (CDI) and [facility] Coding Staff appreciate your assistance in clarifying documentation. Please respond to the clarification below the line at the bottom and electronically sign. The CDI & [facility] Coding staff will review the response and follow-up if needed. Please note: Queries are made part of the Legal Health Record. If you have any questions, please contact the author of this message via ITS. Dr. Mello Bustamante The patient presented with Covid 19 pneumonia and respiratory failure, DKA and hypothermia Per H and P documentation Severe sepsis without septic shock. Documentation not carried through chart. Elevated WBC's documented as being due to steroids. Please clarify if patient had sepsis POA or was it ruled out.. Additional clarification regarding the etiology/cause of the clinical indicators is requested. History/Risk Factors: Covid pneumonia DVT, Clinical Indicators: WBC: 22.8 Lactic acid: 4.2 Vitals signs: 96.9 F, 45 bpm, 64/43, 80 %RA Treatment: 10 days Decadron, 10 days Baricitinib, IVC filter antibiotics, Vasopressors Antibiotics: Rocephin IV Bolus: Vasp[ressprs In your professional opinion, please clarify if these findings signify one of the following conditions: [x] Sepsis POA [ ] Sepsis, Not POA [ ] Sepsis ruled out [ ] Severe Sepsis with organ failure [ ] Septic Shock [ ] Other, please specify [ ] Unable to determine SIRS Criteria: 2 or more of the following may indicate SIRS -Temperature < 96.8F (36C) or > 101.0F (38.3C) -Heart Rate > 90 bpm -Respiratory Rate > 20 breaths/min or PaCO2 < 32 mmHg -White Blood Cell Count > 12,000 or < 4,000 cells/mm3 or > 10% bands MTDD
== END 2021-07-25 23:46 | disposition expired | DRG 871 ==
LOC: EC 10:03 → 2SICU 14:17 → 4SSUR 07-09 22:42
PROVIDERS: ADMIT Internal Medicine; ATTEND Internal Medicine
PROC: 5A0955A Assistance with Respiratory Ventilation, Greater than 96 Consecutive Hours, High Flow/Velocity Cannula (ICD-10-PCS; 2021-07-09)
PROC: 30283B1 Transfusion of Nonautologous 4-Factor Prothrombin Complex Concentrate into Vein, Percutaneous Approach (ICD-10-PCS; 2021-07-11)
PROC: 06H03DZ Insertion of Intraluminal Device into Inferior Vena Cava, Percutaneous Approach (ICD-10-PCS; principal; 2021-07-11 11:30)
PROC: B51F1ZZ Fluoroscopy of Right Pelvic (Iliac) Veins using Low Osmolar Contrast (ICD-10-PCS; principal; 2021-07-11 11:30)
PROC: B5191ZZ Fluoroscopy of Inferior Vena Cava using Low Osmolar Contrast (ICD-10-PCS; principal; 2021-07-11 11:30)
PROC: XW0DXM6 Introduction of Baricitinib into Mouth and Pharynx, External Approach, New Technology Group 6 (ICD-10-PCS; 2021-07-11 11:30)
PROC: 3E043XZ Introduction of Vasopressor into Central Vein, Percutaneous Approach (ICD-10-PCS; 2021-07-25)
PROC: 5A12012 Performance of Cardiac Output, Single, Manual (ICD-10-PCS; 2021-07-25)
PROC: 0BH17EZ Insertion of Endotracheal Airway into Trachea, Via Natural or Artificial Opening (ICD-10-PCS; 2021-07-25)
DX: A41.89 Other specified sepsis (principal); U07.1 COVID-19; E11.10 Type 2 diabetes mellitus with ketoacidosis without coma; N17.0 Acute kidney failure with tubular necrosis; G93.41 Metabolic encephalopathy; J12.82 Pneumonia due to coronavirus disease 2019; J96.01 Acute respiratory failure with hypoxia; E87.1 Hypo-osmolality and hyponatremia; I82.433 Acute embolism and thrombosis of popliteal vein, bilateral; I82.443 Acute embolism and thrombosis of tibial vein, bilateral; K92.1 Melena; D68.32 Hemorrhagic disorder due to extrinsic circulating anticoagulants; R65.20 Severe sepsis without septic shock; D72.829 Elevated white blood cell count, unspecified; E11.649 Type 2 diabetes mellitus with hypoglycemia without coma; N28.1 Cyst of kidney, acquired; N18.30 Chronic kidney disease, stage 3 unspecified; I46.9 Cardiac arrest, cause unspecified; R00.1 Bradycardia, unspecified; R77.8 Other specified abnormalities of plasma proteins; F32.A Depression, unspecified; I12.9 Hypertensive chronic kidney disease with stage 1 through stage 4 chronic kidney disease, or unspecified chronic kidney disease; R31.9 Hematuria, unspecified; T45.515A Adverse effect of anticoagulants, initial encounter; E66.9 Obesity, unspecified; E11.22 Type 2 diabetes mellitus with diabetic chronic kidney disease; T38.0X5A Adverse effect of glucocorticoids and synthetic analogues, initial encounter; R68.0 Hypothermia, not associated with low environmental temperature; R33.9 Retention of urine, unspecified; E78.5 Hyperlipidemia, unspecified; E86.0 Dehydration; E86.1 Hypovolemia; E87.5 Hyperkalemia; E87.70 Fluid overload, unspecified; Z63.4 Disappearance and death of family member; Z79.84 Long term (current) use of oral hypoglycemic drugs; Z79.899 Other long term (current) drug therapy; Z68.27 Body mass index [BMI] 27.0-27.9, adult
CPT/HCPCS: 36415; 37191; 71045; 71046; 76770; 76937; 78580; 80048; 80053; 81003; 82009; 82803; 82947; 83036; 83605; 83615; 83735; 83880; 83930; 83935; 84100; 84145; 84295; 84300; 84443; 84484; 85025; 85027; 85379; 85610; 85730; 86140; 87040; 87635; 93005; 93306; 93970; 94640; 94760; 96361; 96365; 96375; 99291